=== PATIENT | female | born 1970 | race Caucasian/White ===

== ENCOUNTER 2016-09-11 01:32 | Inpatient (IN) | payer MEDICARE, OTHER ==
[2016-09-11] MEDS ORDERED: methylPREDNISolone SOD SUCCI 125 MG/2 ML VIAL IV STA (01:38)
[2016-09-11] MEDS ORDERED: IPRATROPIUM 0.5 MG/2.5 ML NEBU INHALATION STA (01:38)
[2016-09-11] MEDS ORDERED: ALBUTEROL NEBULIZED 2.5 MG/3 ML INHALATION STA (01:38)
[2016-09-11] MEDS ORDERED: SODIUM CHLORIDE 0.9% 1,000 ML IV STA (01:38)
[2016-09-11] MEDS ORDERED: AZITHROMYCIN 500 MG in SODIUM CHLORIDE 0.9% 250 ML IVPB STA (01:38)
--- NOTE | 2016-09-11 01:56 | ED ---
General Adult HPI - General Chief complaint: Shortness of Breath Stated complaint: SOB Time Seen by Provider: 09/11/16 01:35 Source: patient, EMS, RN notes reviewed, old records reviewed Mode of arrival: EMS Limitations: no limitations - History of Present Illness Initial comments: This is a 45-year-old female here for evaluation. Patient presents today for evaluation shows of breath, cough congestion, increased sputum production, no fevers or troubleshot chest pain. Patient does have history of smoking, history of COPD. Has had multiple recent who exacerbations of COPD, but no hospitalizations the last year. No travel history no sick contacts no fevers. - Related Data Home Medications Medication Instructions Recorded Confirmed guaiFENesin SYRUP 100MG/5ML 200 mg PO Q6H PRN 05/22/16 06/02/16 [Robitussin] Previous Rx's Medication Instructions Recorded ALPRAZolam [Xanax] 0.25 mg PO TID PRN #0 tab 05/28/16 Acetaminophen Tab [Tylenol] 650 mg PO Q6HR PRN #0 tab 05/28/16 Budesonide [Pulmicort] 1 mg INHALATION RT-BID #60 nebu 05/28/16 CHLORPHEN-HYDROcod 8-10mg/5ml 5 ml PO Q12H PRN #240 ml 05/28/16 [Tussionex] Docusate [Colace] 100 mg PO DAILY cap 05/28/16 Famotidine [Pepcid] 20 mg PO BID #60 tab 05/28/16 Ipratropium-Albuterol Nebulize 3 ml INHALATION RT-QID #120 05/28/16 [Duoneb 0.5 mg-3 mg/3 ml Soln] ampul.neb Labetalol [Trandate] 100 mg PO BID #60 tab 05/28/16 Levofloxacin [Levaquin] 750 mg PO DAILY #7 tab 05/28/16 Magnesium Hydroxide [Milk of 2,400 mg PO DAILY PRN #0 ml 05/28/16 Magnesia Concentrate] Melatonin 15 mg PO HS tablet 05/28/16 Montelukast [Singulair] 10 mg PO HS #30 tab 05/28/16 NIFEdipine XL [Procardia XL] 60 mg PO DAILY #30 tab.er.24 05/28/16 Nicotine 14Mg/24Hr Patch [Habitrol] 1 patch TRANSDERM DAILY #30 patch 05/28/16 QUEtiapine [SEROquel] 50 mg PO HS tab 05/28/16 cloNIDine HCL [Catapres] 0.1 mg PO TID PRN #90 tab 05/28/16 hydrALAZINE HCL [Apresoline] 100 mg PO TID #90 tab 05/28/16 predniSONE 10 mg PO DAILY #140 tab 05/28/16 Hydrocodone/Acetaminophen [Platina 1 each PO Q6HR PRN #20 tab 06/02/16 5-325] Allergies Allergy/AdvReac Type Severity Reaction Status Date / Time acetaminophen [From Vicodin] AdvReac Nausea & Verified 09/11/16 01:40 Vomiting codeine AdvReac Nausea & Verified 09/11/16 01:40 Vomiting divalproex sodium AdvReac Alopecia Verified 09/11/16 01:40 [From Depakote] hydrocodone [From Vicodin] AdvReac Nausea & Verified 09/11/16 01:40 Vomiting Review of Systems ROS Statement: Those systems with pertinent positive or pertinent negative responses have been documented in the HPI. ROS Other: All systems not noted in ROS Statement are negative. Past Medical History Past Medical History: COPD, Hypertension, Osteoarthritis (OA) Additional Past Medical History / Comment(s): Gastric Ulcer History of Any Multi-Drug Resistant Organisms: None Reported Past Surgical History: Hernia Repair Additional Past Surgical History / Comment(s): Pancreatic pseudocyst removal; D& Cx2; EGD; Bunyonectomy bilateral Past Psychological History: Bipolar, Depression, PTSD Smoking Status: Current every day smoker Past Alcohol Use History: Rare Past Drug Use History: None Reported - Past Family History Mother Family Medical History: COPD Father Family Medical History: COPD Brother(s) Family Medical History: Deep Vein Thrombosis (DVT) General Exam Limitations: no limitations General appearance: anxious Head exam: Present: atraumatic, normocephalic, normal inspection Eye exam: Present: normal appearance, PERRL, EOMI. Absent: scleral icterus, conjunctival injection, periorbital swelling ENT exam: Present: normal exam, mucous membranes moist Neck exam: Present: normal inspection. Absent: tenderness, meningismus, lymphadenopathy Respiratory exam: Present: normal lung sounds bilaterally, wheezes, decreased breath sounds, prolonged expiratory. Absent: respiratory distress, rales, rhonchi, stridor Cardiovascular Exam: Present: regular rate, normal rhythm, normal heart sounds. Absent: systolic murmur, diastolic murmur, rubs, gallop, clicks GI/Abdominal exam: Present: soft, normal bowel sounds. Absent: distended, tenderness, guarding, rebound, rigid Extremities exam: Present: normal inspection, full ROM, normal capillary refill. Absent: tenderness, pedal edema, joint swelling, calf tenderness Back exam: Present: normal inspection Neurological exam: Present: alert, oriented X3, CN II-XII intact Psychiatric exam: Present: normal affect, normal mood Skin exam: Present: warm, dry, intact, normal color. Absent: rash Course Vital Signs 09/11/16 09/11/16 09/11/16 01:34 02:10 02:17 Temperature 98.5 F Pulse Rate 82 81 84 Respiratory 22 Rate Blood Pressure 198/104 O2 Sat by Pulse 94 L Oximetry 09/11/16 02:35 Temperature Pulse Rate 73 Respiratory 16 Rate Blood Pressure 180/87 O2 Sat by Pulse 98 Oximetry - Reevaluation(s) Reevaluation #1: 09/11/16 03:08 pt with minimal improvement after prolonged breathing treeatment Medical Decision Making - Medical Decision Making 45 female to ED co sob, cough, congestion, sputum production, and bodyh pain, pt with copd exac and will be admitted for brething treatments steroids - Lab Data Result diagrams: 09/11/16 01:40 09/11/16 01:40 Lab Results 09/11/16 09/11/16 09/11/16 Range/Units 01:40 01:40 01:40 WBC 16.4 H (3.8-10.6) k/uL RBC 5.01 (3.80-5.40) m/uL Hgb 15.4 (11.4-16.0) gm/dL Hct 45.6 (34.0-46.0) % MCV 91.1 (80.0-100.0) fL MCH 30.8 (25.0-35.0) pg MCHC 33.8 (31.0-37.0) g/dL RDW 14.3 (11.5-15.5) % Plt Count 221 (150-450) k/uL Neutrophils % 80 % Lymphocytes % 13 % Monocytes % 5 % Eosinophils % 1 % Basophils % 1 % Neutrophils # 13.1 H (1.3-7.7) k/uL Lymphocytes # 2.1 (1.0-4.8) k/uL Monocytes # 0.8 (0-1.0) k/uL Eosinophils # 0.2 (0-0.7) k/uL Basophils # 0.1 (0-0.2) k/uL PT 10.7 (9.0-12.0) sec INR 1.1 (<1.1) APTT 24.4 (22.0-30.0) sec Sodium 140 (137-145) mmol/L Potassium 4.1 (3.5-5.1) mmol/L Chloride 102 (98-107) mmol/L Carbon Dioxide 27 (22-30) mmol/L Anion Gap 11 mmol/L BUN 11 (7-17) mg/dL Creatinine 0.60 (0.52-1.04) mg/dL Est GFR (MDRD) Af Amer >60 (>60 ml/min/1.73 sqM) Est GFR (MDRD) Non-Af >60 (>60 ml/min/1.73 sqM) Glucose 156 H (74-99) mg/dL Calcium 9.2 (8.4-10.2) mg/dL Magnesium 1.9 (1.6-2.3) mg/dL Total Bilirubin 1.0 (0.2-1.3) mg/dL AST 29 (14-36) U/L ALT 26 (9-52) U/L Alkaline Phosphatase 88 (38-126) U/L Total Protein 7.3 (6.3-8.2) g/dL Albumin 4.2 (3.5-5.0) g/dL Influenza Type A RNA (Not Detectd) Influenza Type B (PCR) (Not Detectd) 09/11/16 Range/Units 02:37 WBC (3.8-10.6) k/uL RBC (3.80-5.40) m/uL Hgb (11.4-16.0) gm/dL Hct (34.0-46.0) % MCV (80.0-100.0) fL MCH (25.0-35.0) pg MCHC (31.0-37.0) g/dL RDW (11.5-15.5) % Plt Count (150-450) k/uL Neutrophils % % Lymphocytes % % Monocytes % % Eosinophils % % Basophils % % Neutrophils # (1.3-7.7) k/uL Lymphocytes # (1.0-4.8) k/uL Monocytes # (0-1.0) k/uL Eosinophils # (0-0.7) k/uL Basophils # (0-0.2) k/uL PT (9.0-12.0) sec INR (<1.1) APTT (22.0-30.0) sec Sodium (137-145) mmol/L Potassium (3.5-5.1) mmol/L Chloride (98-107) mmol/L Carbon Dioxide (22-30) mmol/L Anion Gap mmol/L BUN (7-17) mg/dL Creatinine (0.52-1.04) mg/dL Est GFR (MDRD) Af Amer (>60 ml/min/1.73 sqM) Est GFR (MDRD) Non-Af (>60 ml/min/1.73 sqM) Glucose (74-99) mg/dL Calcium (8.4-10.2) mg/dL Magnesium (1.6-2.3) mg/dL Total Bilirubin (0.2-1.3) mg/dL AST (14-36) U/L ALT (9-52) U/L Alkaline Phosphatase (38-126) U/L Total Protein (6.3-8.2) g/dL Albumin (3.5-5.0) g/dL Influenza Type A RNA Not Detected (Not Detectd) Influenza Type B (PCR) Not Detected (Not Detectd) - Radiology Data Radiology results: report reviewed (CXR negative for acute disases), image reviewed Disposition Clinical Impression: Asthma with exacerbation, Acute exacerbation of chronic obstructive airways disease Disposition: ADMITTED IP TO THIS HOSP Condition: Good Referrals: Arben Romero MD [Primary Care Provider] - 1-2 days
[2016-09-11] MEDS ORDERED: KETOROLAC 30 MG/ML 1 ML VIAL IVP STA (01:57)
[2016-09-11] MEDS ORDERED: MORPHINE SULFATE 4 MG/ML SYRINGE IVP STA (01:57)
[2016-09-11] MEDS ORDERED: IPRATROPIUM-ALBUTEROL 3 ML NEB INHALATION STA (02:03)
[2016-09-11] MEDS ORDERED: ALBUTEROL NEB (CONC) 2.5 MG/0.5 ML INHALATION STA (02:04)
--- NOTE | 2016-09-11 02:25 | XR ---
EXAMINATION TYPE: XR chest 2V DATE OF EXAM: 09/11/2016 1:56 AM COMPARISON: 06/02/2016 HISTORY: Chest pain TECHNIQUE: Frontal and lateral views of the chest are obtained. FINDINGS: Heart and mediastinum are normal. Lungs are clear. Diaphragm is normal. Bony thorax is int act. IMPRESSION: Normal chest. No change.
[2016-09-11 02:36] LABS: Anion Gap 11 mmol/L; Calcium 9.2 mg/dL (8.4-10.2); Carbon Dioxide 27 mmol/L (22-30); Chloride 102 mmol/L (98-107); Glucose 156 mg/dL (74-99); Non-African American GFR(MDRD) >60 (>60 ml/min/1.73 sqM); Sodium 140 mmol/L (137-145); Total Protein 7.3 g/dL (6.3-8.2)
[2016-09-11 02:37] LABS: ALT 26 U/L (9-52); AST 29 U/L (14-36); Alkaline Phosphatase 88 U/L (38-126); Blood Urea Nitrogen 11 mg/dL (7-17); Magnesium 1.9 mg/dL (1.6-2.3); Potassium 4.1 mmol/L (3.5-5.1)
[2016-09-11] MEDS ORDERED: ONDANSETRON 4 MG/2 ML VIAL IVP STA (02:43)
[2016-09-11 02:44] LABS: INR 1.1 (<1.1); Partial Thromboplastin Time 24.4 sec (22.0-30.0); Prothrombin Time 10.7 sec (9.0-12.0)
[2016-09-11 02:48] LABS: Basophils # (A) 0.1 k/uL (0-0.2); Basophils % (A) 1 %; CH 31.9; CHCM 35.2; Eosinophils # (A) 0.2 k/uL (0-0.7); Eosinophils % (A) 1 %; HCT 45.6 % (34.0-46.0); HDW 3.05; HGB 15.4 gm/dL (11.4-16.0); Luc # (Auto) 0.13; Luc % (Auto) 1; Lymphocytes # (A) 2.1 k/uL (1.0-4.8); Lymphocytes % (A) 13 %; MCH 30.8 pg (25.0-35.0); MCHC 33.8 g/dL (31.0-37.0); MCV 91.1 fL (80.0-100.0); Mean Platelet Volume 8.3; Monocytes # (A) 0.8 k/uL (0-1.0); Monocytes % (A) 5 %; Neutrophils # (A) 13.1 k/uL (1.3-7.7); Neutrophils % (A) 80 %; RBC 5.01 m/uL (3.80-5.40); RDW 14.3 % (11.5-15.5); WBC 16.4 k/uL (3.8-10.6); WBC (Perox) 16.59
[2016-09-11 03:01] LABS: Creatine Kinase MB 0.8 ng/mL (0.0-2.4); Troponin I 0.015 ng/mL (0.000-0.034)
[2016-09-11] MEDS ORDERED: HYDROmorphone 1 MG/ML 1 ML SYRINGE IVP STA (03:51)
[2016-09-11] MEDS: SODIUM CHLORIDE 0.9% 1,000 ML IV SCH (06:00)
[2016-09-11] MEDS: HYDROmorphone 1 MG/ML 1 ML SYRINGE IVP PRN ×5 (06:18→23:40)
[2016-09-11 07:20] LABS: Glucose,Whole Blood 293 mg/dL (75-99)
[2016-09-11] MEDS: IPRATROPIUM-ALBUTEROL 3 ML NEB INHALATION SCH ×5 (07:56→19:17)
[2016-09-11] MEDS: INSULIN LISPRO (humaLOG) 300 UNIT/3 ML VIAL SQ SCH ×4 (09:10→20:37)
[2016-09-11] MEDS: methylPREDNISolone SOD SUCCI 125 MG/2 ML VIAL IV SCH ×3 (09:11→17:17)
[2016-09-11] MEDS: ENOXAPARIN 40 MG/0.4 ML SYRINGE SQ SCH (09:12)
[2016-09-11] MEDS: NICOTINE 21MG/24HR PATCH TRANSDERM SCH (09:12)
[2016-09-11 11:14] LABS: Glucose,Whole Blood 328 mg/dL (75-99)
[2016-09-11] MEDS ORDERED: cloNIDine HCL 0.1 MG TAB PO PRN (14:08)
[2016-09-11 14:23] VITALS: BMI 39.9
[2016-09-11 14:29] LABS: Hemoglobin A1C 5.6 % (4.2-6.1)
[2016-09-11] MEDS: NIFEdipine 10 MG CAP PO SCH ×2 (15:04→20:45)
[2016-09-11 16:17] LABS: Glucose,Whole Blood 280 mg/dL (75-99)
[2016-09-11] MEDS: cloNIDine HCL 0.1 MG TAB PO SCH ×2 (16:51→20:43)
--- NOTE | 2016-09-11 17:26 | CT ---
EXAMINATION TYPE: CT chest wo con DATE OF EXAM: 09/11/2016 5:14 PM COMPARISON: NONE HISTORY: Mid chest pain. CT DLP: 497.20 mGycm Automated exposure control for dose reduction was used. FINDINGS: There is some atelectasis extending along the major fissure on the right. There is dependent atelecta sis at both lung bases. There is some groundglass opacity bilaterally. This may represent early pneum onitis. There is no focal consolidation. There is no evidence of pneumothorax. There is no significant axillary, internal mammary or hilar adenopathy. There is some shotty adenopat hy in the aortopulmonary window as well as in the pretracheal region. No pathologically enlarged lymp h nodes are seen. There is no pleural or pericardial fluid. The heart is mildly enlarged. There is a ventral hernia containing a small amount of large bowel with the most measuring 4 cm. Ther e is no evidence of incarceration or obstruction. Visualized portions of the upper abdomen are otherw ise unremarkable. There is hypertrophic spondylosis within the spine. IMPRESSION: 1. MILD AREAS OF GROUNDGLASS OPACITY IN THE LOWER LOBES BILATERALLY. THIS MAY REPRESENT ALVEOLITIS OR EARLY PNEUMONITIS. 2. MILD CARDIOMEGALY. 3. VENTRAL ABDOMINAL HERNIA WITH: PEAKING INTO IT WITH A 4 CM MOUTH. 4. DEGENERATIVE CHANGES WITHIN THE SPINE.
--- NOTE | 2016-09-11 18:29 | CONS ---
DATE OF CONSULTATION: 09/11/2016. HISTORY OF PRESENT ILLNESS: The patient is a 45-year-old female who comes and presented to the emergency room with problems with shortness of breath with any activity, congestion nonproductive cough and body aches all over. She states they had been going on for a few days, and had gotten worse and subsequently presented to the emergency room where she was admitted with acute exacerbation of chronic obstructive pulmonary disease. She did have a chest x-ray done, which was normal. She is noted to have elevated WBCs, so she is on chronic steroids. In addition to her glucose being elevated. She had influenza A and B done, which were both negative. She was started on nebulizer treatments, antibiotic therapy and IV steroids. In addition, she has problems with hypertension. She has a history of problems with schizoaffective disorder and claustrophobia, including, bipolarism, She was admitted in the hospital May 2016 where she had problems with pleurisy, at that time. She has considerable problems with financial difficulty where she states that she has large co-pays to see her physicians and unfortunately, she has other financial obligations with problems with her car not functioning appropriately and needing a new roof. Patient is denying any problems with nausea and vomiting at this time. No diarrhea. She does complain of chest tightness and generalized body aches. She does follow with Dr. Jimenez ) on an outpatient basis. 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 She also had noted positive RAST panel with particular noted allergies to cats and dogs where she does have 12 cats at home. ALLERGIES: ACETAMINOPHEN FROM VICODIN AND CODEINE, DIVALPROEX AND HYDROCODONE. Her home medications include: 1. Prednisone 10 mg daily. 2. Catapres 0.1 mg t.i.d. 3. Seroquel 50 mg at bedtime. 4. Nicotine patch daily. 5. Procardia 30 mg daily. 6. Singular 10 mg at bedtime. 7. Melatonin 5 mg at bedtime. 8. Trandate 100 mg twice a day. 9. Nebulizer treatments of albuterol with ipratropium. 10. [place] 5/325 mg one every 6 hours as needed. 11. Pepcid 20 mg twice a day. 12. Colace 100 mg daily. 13. Xanax 0.25 mg t.i.d. as needed. 14. Robitussin as needed. FAMILY HISTORY: Significant for mother being at the age of 49 from complications from pneumonia and COPD. Father still alive, but has significant problems with COPD, where he is oxygen dependent. She also has a brother who has a history of deep venous thrombosis and recent problems with kidney problems and ESBL. SOCIAL HISTORY: The patient is single. She has no children. She does have 12 cats. She wears glasses. She is a smoker since the age of 24. She states she is down to 1-1/2 packs daily from 2 packs. She denies any recreational type drugs, including marijuana. She has occasional alcohol, though she attempts to ( ) but she does drink to get drunk she states. PAST SURGICAL HISTORY: Significant for incisional hernia repair x3, pancreatic pseudocyst, D&C x2, EGD, bilateral bunionectomy, bile duct stone removal and cholecystectomy. Past medical history is significant for COPD, hypertension, osteoarthritis, gastric ulcer disease, bipolarism, depression, posttraumatic stress disorder, asthma, pleurisy, GERD, insomnia, polycythemia, schizoaffective disorder and claustrophobia. Review of systems was completed with patient. Head to toe assessment was done and is negative other than what is noted in her HPI. On physical examination, vital signs show temperature of 96.9, heart rate 79, respiratory rate 17, blood pressure was 191/103. Oxygen saturation was 93% on room air. LABS: WBC is 16.4, hemoglobin 15.4, hematocrit 45.6, platelets are 221. PT 10.7. INR 1.1. PTT 24.4, sodium 140, potassium 4.1, chloride 102, carbon dioxide 27, BUN 11, creatinine 0.6. Glucose 328. Hemoglobin A1c 5.6. Calcium 9.2, magnesium 1.9, total bilirubin is one, AST 29, ALT 26, alkaline phosphatase 88, total CK 81, CK-MB 0.8, CK-MB index one. Troponin 0.015. BNP 3700, total protein 7.3, albumin 4.2. Influenza A and B were both negative. GENERAL: She is a 45-year-old female sitting at bedside. Appears relatively comfortable at this time. HEENT: Head is atraumatic, normocephalic. Pupils are equal, reactive. Mucous membranes moist. NECK: Short, supple, thick. LUNGS: Sounds coarse rhonchi throughout, wheezing more problematic on left than right. No productive cough at this time. CARDIOVASCULAR: S1 and S2 is heard, regular. ABDOMEN: Soft. Bowel sounds are heard. No obvious masses or organomegaly are palpated. No rebound or rigidity. EXTREMITIES: With no significant edema. She is able to move all extremities. NEUROLOGIC: She is awake, alert, appears appropriate. IMPRESSION: 1. Acute exacerbation of chronic obstructive pulmonary disease with asthma. 2. Known elevated IgE with positive RAST panel. 3. Hypertension uncontrolled. 4. Elevated glucose. 5. Leukocytosis also most likely related to steroids. 6. Schizoaffective disorder. 7. Insomnia. 8. Gastroesophageal reflux disease. PLAN: Patient's medications have been reviewed. Continue with nebulizer treatments and antibiotic therapy. Continue with IV steroids and nicotine patch. We will order Pulmicort and incentive spirometer. She might benefit from Mucinex. We will also order this. We will discuss the case with Dr. Gwen Garcia in reference to potential need for bronchoscopy now or in the future. Thank you for the consultation. We will continue to follow patient closely with you and make further changes as necessary. I performed a history and physical examination of this patient and discussed the same with the dictator. I agree with the dictator's note. Any additional findings/opinions, etc. will be noted.
[2016-09-11] MEDS: BUDESONIDE 0.5 MG/2 ML NEBU INHALATION SCH (19:17)
[2016-09-11] MEDS: guaiFENesin 600 MG TABLET.ER PO SCH (19:50)
[2016-09-11 19:51] LABS: Glucose,Whole Blood 368 mg/dL (75-99)
--- NOTE | 2016-09-11 23:06 | P.HPIM ---
History of Present Illness H&P Date: 09/11/16 Chief Complaint: Acute respiratory failure, COPD exacerbation, severe bronchitis , noncontrol 45-year-old female one of Dr. Gan patient was seen in the hospital May for COPD exacerbation and respiratory failure was in for few days was seen pulmonary had pneumonia with respiratory failure was treated and done well , her blood pressure continue to be elevated till after she left the hospital she was seen Dr. Romero and Dr. Linton as an outpatient has been doing well till about 1 week ago when she started having significant shortness of breath titrate wheezes and not feeling well. Patient become much worse last night ended up coming to the emergency department at 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 Chest x-ray did not show any infiltrate this time. Patient is known to have alpha-1 antitrypsin deficiency and known to have asthma also she is a chronic smoker continue to smoke since she left the hospital last time. Review of Systems Constitutional: Reports anorexia, Reports chronic headaches, Reports chronic pain, Reports fatigue, Reports fever, Reports malaise, Reports night sweats, Reports weight gain, Denies as per HPI, Denies chills, Denies daytime sleepiness , Denies lethargy, Denies poor appetite, Denies sweats, Denies weakness, Denies weight loss Eyes: bilateral as per HPI Ears: bilateral: decreased hearing Ears, nose, mouth and throat: Reports ant. neck pain, Reports nasal congestion, Reports sinus pain, Reports sinus pressure, Denies as per HPI, Denies bleeding gums, Denies dental pain, Denies dysphagia, Denies epistaxis, Denies headache, Denies hoarseness, Denies mouth pain, Denies nasal discharge, Denies neck fullness/pressure, Denies neck lump, Denies nose pain, Denies odynophagia, Denies post-nasal drip, Denies swelling in mouth, Denies swelling in throat, Denies sore throat, Denies vertigo, Denies voice changes Cardiovascular: Reports chest pain, Reports dyspnea on exertion, Reports edema, Reports leg edema, Reports orthopnea, Reports palpitations, Reports paroxysmal nocturnal dyspnea, Reports rapid heart beat, Reports shortness of breath, Denies as per HPI, Denies claudication, Denies decreased exercise tolerance, Denies high blood pressure, Denies irregular heart beat, Denies lightheadedness , Denies phlebitis, Denies syncope Respiratory: Reports congestion, Reports cough, Reports dyspnea, Reports pleurisy, Reports respiratory infections, Reports wheezing, Denies as per HPI, Denies cough with sputum, Denies excessive sputum, Denies hemoptysis, Denies home oxygen, Denies pain, Denies pain on inspiration, Denies sleep apnea, Denies snoring Gastrointestinal: Reports abdominal pain, Reports bloating, Reports dyspepsia, Reports indigestion, Reports nausea, Denies as per HPI, Denies belching, Denies BRBPR, Denies change in bowel habits, Denies coffee ground emesis, Denies constipation, Denies diarrhea, Denies early satiety, Denies excessive gas, Denies heartburn, Denies hematemesis, Denies hematochezia, Denies jaundice, Denies lactose intolerance, Denies loss of appetite, Denies melena, Denies vomiting Genitourinary: Reports urinary frequency, Denies as per HPI, Denies abnormal vaginal bleeding, Denies decreased libido, Denies difficulty conceiving, Denies difficulty voiding, Denies dysmenorrhea, Denies dyspareunia, Denies dysuria, Denies flank pain, Denies genital sores, Denies hematuria, Denies hot flashes, Denies incomplete emptying, Denies kidney stones, Denies menorrhagia, Denies mixed incontinence, Denies nocturia, Denies pelvic pain, Denies post void dribbling, Denies , Denies prolapse symptoms, Denies stress incontinence , Denies urge incontinence, Denies urgency, Denies vaginal discharge, Denies vaginal dryness, Denies vaginal itching, Denies vaginal odor Musculoskeletal: Reports gait dysfunction, Reports low back pain, Reports morning stiffness, Reports muscle cramps, Reports myalgias, Reports neck pain, Reports neck stiffness, Denies as per HPI, Denies arm numbness/tingling, Denies atrophy, Denies fractures, Denies frequent falls, Denies hot joints, Denies leg numbness/tingling, Denies limitation of motion, Denies loss of height, Denies muscle weakness, Denies prior amputations, Denies redness of joints, Denies shooting arm pain, Denies shooting leg pain Musculoskeletal: bilateral: ankle pain Integumentary: Reports dryness, Reports pruritus, Reports rash, Denies as per HPI, Denies acne, Denies boils, Denies brittle nails, Denies change in hair/ nails, Denies color changes, Denies darkening of skin, Denies depigmentation, Denies foot/leg ulcers, Denies growths, Denies hirsutism, Denies lesions, Denies onychomycosis, Denies sores, Denies striae, Denies unusual bruising, Denies wounds Neurological: Reports balance difficulties, Reports burning pain, Reports change in mentation, Reports motor disturbance, Reports spasticity, Reports tingling, Reports tremors, Denies as per HPI, Denies aphasia, Denies ataxia, Denies change in smell/taste, Denies change in speech, Denies confusion, Denies convulsions, Denies double vision, Denies gait dysfunction, Denies head injury, Denies headaches, Denies hearing difficulties, Denies lack of coordination, Denies loss of vision, Denies memory loss, Denies migraines, Denies numbness, Denies paralysis, Denies paresthesias, Denies seizures, Denies sensory deficit, Denies syncope, Denies tic, Denies transient paralysis, Denies vertigo, Denies weakness, Denies visual changes Psychiatric: Reports anhedonia, Reports anxiety, Reports depression, Reports paranoia, Reports sadness/tearfulness, Denies as per HPI, Denies anxiety attacks , Denies change in appetite, Denies change in libido, Denies change in sleep habits, Denies confusion, Denies difficulty concentrating, Denies disorientation , Denies hallucinations, Denies hopelessness, Denies hypersomnia, Denies insomnia, Denies irritability, Denies memory loss, Denies mood swings, Denies sleep disturbances, Denies suicidal ideation Endocrine: Reports cold intolerance, Reports fatigue, Reports nocturia, Reports polyphagia, Reports polyuria, Denies as per HPI, Denies deepening of the voice, Denies excessive sweating, Denies excessive thirst, Denies flushing, Denies heat intolerance, Denies high blood sugars, Denies increase in ring/shoe/hat size, Denies low blood sugars, Denies palpitations, Denies polydipsia, Denies proptosis, Denies recent glucocorticoid use, Denies thyroid mass, Denies weight change Hematologic/Lymphatic: Reports easy bruising, Denies as per HPI, Denies easy bleeding, Denies lymphadenopathy, Denies lymphedema, Denies thrombophilia Allergic/Immunologic: Denies as per HPI, Denies allergic rhinitis, Denies anaphylaxis, Denies angioedema, Denies gluten intolerance, Denies persistent infections, Denies seasonal allergies, Denies urticaria, Denies wheezing Past Medical History Past Medical History: COPD, Hypertension, Osteoarthritis (OA) Additional Past Medical History / Comment(s): Gastric Ulcer History of Any Multi-Drug Resistant Organisms: None Reported Past Surgical History: Hernia Repair Additional Past Surgical History / Comment(s): Pancreatic pseudocyst removal; D& Cx2; EGD; Bunyonectomy bilateral Past Psychological History: Bipolar, Depression, PTSD Smoking Status: Current every day smoker Past Alcohol Use History: Rare Past Drug Use History: None Reported - Past Family History Mother Family Medical History: COPD Father Family Medical History: COPD Brother(s) Family Medical History: Deep Vein Thrombosis (DVT) Medications and Allergies Home Medications Medication Instructions Recorded Confirmed Type guaiFENesin SYRUP 100MG/5ML 200 mg PO Q6H PRN 05/22/16 09/11/16 History [Robitussin] Albuterol Nebulized [Ventolin 2.5 mg INHALATION RT-Q6H PRN 09/11/16 09/11/16 History Nebulized] Docusate [Colace] 100 mg PO DAILY 09/11/16 09/11/16 History Famotidine [Pepcid] 20 mg PO BID 09/11/16 09/11/16 History HYDROcodone/APAP 5-325MG [[place] 1 tab PO Q6HR PRN 09/11/16 09/11/16 History 5-325] Ipratropium Nebulized [Atrovent 0.5 mg INHALATION RT-Q6H PRN 09/11/16 09/11/16 History Nebulized] Melatonin 5 mg PO HS 09/11/16 09/11/16 History NIFEdipine XL [Procardia Xl] 30 mg PO DAILY 09/11/16 09/11/16 History cloNIDine HCL [Catapres] 0.1 mg PO TID 09/11/16 09/11/16 History predniSONE 10 mg PO DAILY 09/11/16 09/11/16 History Allergies Allergy/AdvReac Type Severity Reaction Status Date / Time acetaminophen [From Vicodin] AdvReac Nausea & Verified 09/11/16 01:40 Vomiting codeine AdvReac Nausea & Verified 09/11/16 01:40 Vomiting divalproex sodium AdvReac Alopecia Verified 09/11/16 01:40 [From Depakote] hydrocodone [From Vicodin] AdvReac Nausea & Verified 09/11/16 01:40 Vomiting Physical Exam Vitals: Vital Signs Temp Pulse Pulse Pulse Resp BP BP 09/11/16 12:05 88 09/11/16 11:56 82 09/11/16 08:31 80 09/11/16 08:21 78 09/11/16 07:00 98.2 F 78 17 167/90 09/11/16 05:19 20 09/11/16 04:08 97.5 F L 80 18 175/92 09/11/16 03:23 82 16 154/79 Pulse Ox 09/11/16 12:05 09/11/16 11:56 09/11/16 08:31 09/11/16 08:21 09/11/16 07:00 96 09/11/16 05:19 09/11/16 04:08 94 L 09/11/16 03:23 96 Intake and Output 09/10/16 09/11/16 09/11/16 22:59 06:59 14:59 Intake Total 400 480 Balance 400 480 Intake: Intake, IV Titration 150 Amount Sodium Chloride 0.9% 1, 150 000 ml @ 100 mls/hr IV . Q10H [facility] Rx#:[id number] Oral 250 480 Other: Voiding Method Toilet - Constitutional General appearance: no average body habitus, cooperative, no disheveled, mild distress, no morbidly obese, no no acute distress, no obese, no severe distress , no thin - EENT Eyes: no abnormal pupil, no anicteric sclerae, no disc margins sharp, no edentulous, no EOMI, no PERRLA, no fundus normal, no photophobia, no dentition normal, no poor dentition, no ptosis, no scleral icterus, no normal appearance ENT: no hard of hearing, no hearing grossly normal, no NA/AT, normal oropharynx , no other, no pharyngeal erythema, no thrush, no tonsillar exudates, no tonsillar swelling Ears: bilateral: normal - Neck Neck: no lymphadenopathy, normal ROM, no other, no rigidity, no stridor, no thyromegaly Carotids: bilateral: upstroke normal Thyroid: bilateral: normal size - Respiratory Respiratory: bilateral: diminished, dullness, rales, rhonchi, wheezing, prolonged expiration - Cardiovascular Rhythm: regular Heart sounds: normal: S1, S2 Abnormal Heart Sounds: systolic murmur, S3 Gallop - Gastrointestinal General gastrointestinal: no absent bowel sounds, no decreased bowel sounds, distended, no hepatomegaly, no hyperactive bowel sounds, no normal bowel sounds , no organomegaly, no rigid, no scaphoid, soft, splenomegaly, no tenderness, no umbilical hernia, no ventral hernia - Integumentary Integumentary: no calor, no cellulitis, no cyanotic, no decreased turgor, no flushed, no jaundiced, normal, no normal turgor, pale, rash, no ulcer - Neurologic Neurologic: CNII-XII intact - Musculoskeletal Musculoskeletal: gait normal, generalized weakness, strength equal bilaterally, no right sided weakness, no left sided weakness - Psychiatric Psychiatric: A&O x's 3, appropriate affect Results CBC & Chem 7: 09/11/16 01:40 09/11/16 01:40 Labs: Abnormal Lab Results - Last 24 Hours (Table) 09/11/16 09/11/16 Range/Units 07:18 11:12 POC Glucose (mg/dL) 293 H 328 H (75-99) mg/dL Thrombosis Risk Factor Assmnt - DVT/VTE Prophylaxis DVT/VTE Prophylaxis: Pharmacologic Prophylaxis ordered, Mechanical Prophylaxis ordered - Choose All That Apply Any of the Below Risk Factors Present?: Yes Each Factor Represents 1 point: Age 41-60 years, Serious lung disease incl. pneumonia (< 1month) Other Risk Factors: Yes Thrombosis Risk Factor Assessment Total Risk Factor Score: 2 Thrombosis Risk Factor Assessment Level: Low Risk Assessment and Plan Plan: 1 acute respiratory failure: Combination of COPD exacerbation, alpha-1 antitrypsin deficiency, asthma and severe purulent tracheal bronchitis most likely gram-negative. Treat underlying disease continue current treatment management. 2 COPD exacerbation: The patient's current condition will continue O2, continue DuoNeb along with Pulmicort will consult pulmonary continue current management as well. 3 severe purulent tracheal bronchitis: Most likely gram-negative will be on IV antibiotic the gram-negative coverage including Levaquin. 4 hypertension: Not well controlled will continue patient on Norvasc along with clonidine and if still taking labetalol Will resume medication. 5 bipolar disorders: Patient is not on any medication currently. 6 history of peptic ulcer disease: Will add Pepcid 20 mg daily. 7 chronic nicotine dependency: Patient will be on nicotine patch for now. DVT prophylaxis: Patient will be on heparin subcutaneous along with Venodyne boots and knee-high VIANNEY hose. CODE STATUS: Full code. Next Expectation from this admission: Patient be in the hospital for more than 2 nights.
[2016-09-11] MEDS: ZOLPIDEM 5 MG TAB PO PRN (23:40)
[2016-09-12] MEDS: SODIUM CHLORIDE 0.9% 1,000 ML IV SCH ×5 (02:13→22:04)
[2016-09-12] MEDS: IPRATROPIUM-ALBUTEROL 3 ML NEB INHALATION SCH ×5 (04:22→19:34)
[2016-09-12] MEDS ORDERED: IPRATROPIUM-ALBUTEROL 3 ML NEB INHALATION PRN (04:25)
[2016-09-12] MEDS: HYDROmorphone 1 MG/ML 1 ML SYRINGE IVP PRN ×5 (05:39→22:55)
[2016-09-12] MEDS: methylPREDNISolone SOD SUCCI 125 MG/2 ML VIAL IV SCH ×2 (05:52)
[2016-09-12 07:48] LABS: Glucose,Whole Blood 299 mg/dL (75-99)
[2016-09-12] MEDS: BUDESONIDE 0.5 MG/2 ML NEBU INHALATION SCH ×2 (08:00→19:34)
[2016-09-12] MEDS: ENOXAPARIN 40 MG/0.4 ML SYRINGE SQ SCH (08:33)
[2016-09-12] MEDS: cloNIDine HCL 0.1 MG TAB PO SCH (08:34)
[2016-09-12] MEDS: INSULIN LISPRO (humaLOG) 300 UNIT/3 ML VIAL SQ SCH ×5 (08:34→21:52)
[2016-09-12] MEDS: NICOTINE 21MG/24HR PATCH TRANSDERM SCH (08:35)
[2016-09-12] MEDS: guaiFENesin 600 MG TABLET.ER PO SCH ×2 (08:35→21:54)
[2016-09-12] MEDS: AZITHROMYCIN 500 MG TAB PO SCH (08:35)
[2016-09-12] MEDS: NIFEdipine 10 MG CAP PO SCH (08:36)
[2016-09-12] MEDS ORDERED: methylPREDNISolone SOD SUCCI 40 MG/ML 1 ML VIAL IV SCH (10:00)
[2016-09-12] MEDS: hydrALAZINE HCL 20 MG/ML 1 ML VIAL IVP PRN ×2 (10:18→17:42)
[2016-09-12] MEDS: ALPRAZolam 0.25 MG TAB PO PRN ×2 (10:21→18:55)
[2016-09-12 12:21] LABS: Glucose,Whole Blood 279 mg/dL (75-99)
[2016-09-12] MEDS ORDERED: cloNIDine HCL 0.1 MG TAB PO STA (12:22)
--- NOTE | 2016-09-12 14:21 | P.PN ---
Subjective 45-year-old female one of Dr. Gan patient was seen in the hospital May for COPD exacerbation and respiratory failure was in for few days was seen pulmonary had pneumonia with respiratory failure was treated and done well , her blood pressure continue to be elevated till after she left the hospital she was seen Dr. Romero and Dr. Linton as an outpatient has been doing well till about 1 week ago when she started having significant shortness of breath, wheezes and not feeling well. 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 Chest x-ray did not show any infiltrate this time. Patient is known to have alpha-1 antitrypsin deficiency and known to have asthma also she is a chronic smoker continue to smoke since she left the hospital last time. 09/12: CAT scan of the chest revealed mild areas of groundglass opacity in the lower lobes bilaterally. This may represent alveolitis or early pneumonitis. Dr. ZA Garcia has reviewed CAT scan and evaluated the patient for severe ALLERGIC asthma and hypersensitivity pneumonitis. Patient to follow-up in the office for Xolair. Patient states she is still coughing without phlegm production. She states she has not slept in more than 3 days. Xanax has been resumed and Solu-Medrol decreased to 40 mg IV every 8 hours. Blood pressure has been high for which she is on Procardia scheduled, hydralazine scheduled, clonidine Objective - Vital Signs Vital signs: Vital Signs Temp 96.2 F L 09/12/16 07:00 Pulse 88 09/12/16 08:15 Resp 16 09/12/16 07:00 BP 189/94 09/12/16 08:32 Pulse Ox 96 09/12/16 08:03 Intake & Output 09/11/16 09/12/16 09/12/16 18:59 06:59 18:59 Intake Total 2720 800 180 Balance 2720 800 180 Weight 99.11 kg Intake: Intake, IV Titration 800 Amount Sodium Chloride 0.9% 1, 800 000 ml @ 100 mls/hr IV . Q10H [facility] Rx#:[id number] Oral 1920 800 180 Other: Voiding Method Toilet # Voids 1 - Exam General appearance: no average body habitus, cooperative, no disheveled, mild distress, no morbidly obese, no no acute distress, no obese, no severe distress , no thin - EENT Eyes: no abnormal pupil, no anicteric sclerae, no disc margins sharp, no edentulous, no EOMI, no PERRLA, no fundus normal, no photophobia, no dentition normal, no poor dentition, no ptosis, no scleral icterus, no normal appearance ENT: no hard of hearing, no hearing grossly normal, no NA/AT, normal oropharynx , no other, no pharyngeal erythema, no thrush, no tonsillar exudates, no tonsillar swelling Ears: bilateral: normal - Neck Neck: no lymphadenopathy, normal ROM, no other, no rigidity, no stridor, no thyromegaly Carotids: bilateral: upstroke normal Thyroid: bilateral: normal size - Respiratory Respiratory: bilateral: diminished, dullness, rales, rhonchi, wheezing, prolonged expiration - Cardiovascular Rhythm: regular Heart sounds: normal: S1, S2 Abnormal Heart Sounds: systolic murmur, S3 Gallop - Gastrointestinal General gastrointestinal: no absent bowel sounds, no decreased bowel sounds, distended, no hepatomegaly, no hyperactive bowel sounds, no normal bowel sounds , no organomegaly, no rigid, no scaphoid, soft, splenomegaly, no tenderness, no umbilical hernia, no ventral hernia - Integumentary Integumentary: no calor, no cellulitis, no cyanotic, no decreased turgor, no flushed, no jaundiced, normal, no normal turgor, pale, rash, no ulcer - Neurologic Neurologic: CNII-XII intact - Musculoskeletal Musculoskeletal: gait normal, generalized weakness, strength equal bilaterally, no right sided weakness, no left sided weakness - Psychiatric Psychiatric: A&O x's 3, appropriate affect - Labs CBC & Chem 7: 09/11/16 01:40 09/11/16 01:40 Labs: Abnormal Lab Results - Last 24 Hours (Table) 09/11/16 09/11/16 09/11/16 Range/Units 11:12 16:06 19:49 POC Glucose (mg/dL) 328 H 280 H 368 H (75-99) mg/dL 09/12/16 Range/Units 07:35 POC Glucose (mg/dL) 299 H (75-99) mg/dL Assessment and Plan Plan: 1 acute respiratory distress: Due to severe ALLERGIC asthma and hypersensitivity pneumonitis. Continue steroids. Consult with Dr. ZA monet. Patient to follow-up in the office for possible Xolair treatments. 2 asthma exacerbation: The patient's current condition will continue O2, continue DuoNeb along with Pulmicort will consult pulmonary continue current management as well. 3 severe purulent tracheal bronchitis: Most likely gram-negative will be on IV antibiotic the gram-negative coverage including Levaquin. 4 hypertension: Not well controlled will continue patient on Norvasc along with clonidine and if still taking labetalol Will resume medication. 5 bipolar disorders: Patient is not on any medication currently. 6 history of peptic ulcer disease: Will add Pepcid 20 mg daily. 7 chronic nicotine dependency: Patient will be on nicotine patch for now. DVT prophylaxis: Patient will be on Lovenox subcutaneous along with Venodyne boots and knee-high VIANNEY hose. CODE STATUS: Full code. Discharge plan: Return home Impression and plan of care have been directed as dictated by the signing physician. Cheri Macdonald nurse practitioner acting as scribe for signing physician. Time with Patient: Greater than 30
[2016-09-12] MEDS: hydrALAZINE HCL 50 MG TAB PO SCH ×2 (15:24→21:54)
[2016-09-12] MEDS: methylPREDNISolone SOD SUCCI 40 MG/ML 1 ML VIAL IV SCH ×2 (15:25→21:55)
--- NOTE | 2016-09-12 15:58 | PN ---
DATE OF SERVICE: 09/12/2016 She is doing slightly better overall. She continues to have shortness of breath and cough. On physical examination, respiratory rate is 26, pulse rate of 88, blood pressure 189/94, O2 sat on room air is 96%. HEENT reveals no new changes. Chest reveals expiratory wheeze and she coughs easily upon exam. Cardiovascular system reveals a S1 and S2. Abdomen is soft. There is trace pedal edema. Sugars are 279,000. Influenza A and B were negative. CT scan of the chest was personally reviewed by me. The airways were reconstructed using virtual bronchoscopy software. There are no endobronchial lesions. There are mild areas of ground-glass opacity in the lower lobes bilaterally with ventral abdominal hernia and evidence of mucosal irregularity consistent with airway inflammation. IMPRESSION: 1. Severe allergic asthma with acute exacerbation for which she has had a previously high IgE at 304 along with allergy to cats. 2. Hypersensitivity pneumonitis is likely. 3. Cannot rule out atypical pneumonia. Continue azithromycin. Continue IV steroids. Agree with starting to taper them. Continue aerosolized steroids, GI and DVT prophylaxis. Add montelukast to her regimen. Increase her activity level. No plan for bronchoscopy as there are no endobronchial lesions and at this point in time because of airway inflammation, there is increased risk of bronchospasm. She was counseled regarding the need to consider anti- IgE treatment which we can try to start in the outpatient setting. Depending on how she does, we shall make further changes to her care.
[2016-09-12] MEDS ORDERED: cloNIDine HCL 0.2 MG TAB PO SCH (16:00)
[2016-09-12 17:33] LABS: Glucose,Whole Blood 259 mg/dL (75-99)
[2016-09-12 20:28] LABS: Glucose,Whole Blood 334 mg/dL (75-99)
[2016-09-12] MEDS ORDERED: INSULIN GLARGINE 100 UNIT/ML 10 ML VIAL SQ SCH (21:30)
[2016-09-12] MEDS: MONTELUKAST 10 MG TAB PO SCH (21:54)
[2016-09-12] MEDS: FAMOTIDINE 20 MG TAB PO SCH (21:54)
[2016-09-12] MEDS: ZOLPIDEM 5 MG TAB PO PRN (22:55)
[2016-09-13] MEDS: HYDROmorphone 1 MG/ML 1 ML SYRINGE IVP PRN ×5 (03:09→22:02)
[2016-09-13] MEDS: cloNIDine HCL 0.2 MG TAB PO PRN ×2 (03:14→12:12)
[2016-09-13] MEDS: methylPREDNISolone SOD SUCCI 40 MG/ML 1 ML VIAL IV SCH (05:25)
[2016-09-13 06:52] LABS: Glucose,Whole Blood 211 mg/dL (75-99)
[2016-09-13] MEDS: hydrALAZINE HCL 50 MG TAB PO SCH ×3 (07:44→21:18)
[2016-09-13] MEDS: ENOXAPARIN 40 MG/0.4 ML SYRINGE SQ SCH (07:44)
[2016-09-13] MEDS: FAMOTIDINE 20 MG TAB PO SCH ×2 (07:45→21:18)
[2016-09-13] MEDS: guaiFENesin 600 MG TABLET.ER PO SCH ×2 (07:45→21:18)
[2016-09-13] MEDS: AZITHROMYCIN 500 MG TAB PO SCH (07:45)
[2016-09-13] MEDS: NICOTINE 21MG/24HR PATCH TRANSDERM SCH (07:45)
[2016-09-13] MEDS: INSULIN LISPRO (humaLOG) 300 UNIT/3 ML VIAL SQ SCH ×7 (07:49→21:18)
[2016-09-13] MEDS: BUDESONIDE 0.5 MG/2 ML NEBU INHALATION SCH ×2 (08:41→19:58)
[2016-09-13] MEDS: IPRATROPIUM-ALBUTEROL 3 ML NEB INHALATION SCH ×4 (08:41→19:58)
[2016-09-13] MEDS ORDERED: HYDROcodone/APAP 5-325MG 1 EACH TAB PO PRN (10:31)
[2016-09-13] MEDS: ALPRAZolam 0.25 MG TAB PO PRN (10:52)
[2016-09-13] MEDS: ONDANSETRON 4 MG/2 ML VIAL IVP PRN ×2 (10:53→21:55)
[2016-09-13 12:20] LABS: Glucose,Whole Blood 240 mg/dL (75-99)
[2016-09-13] MEDS ORDERED: methylPREDNISolone SOD SUCCI 125 MG/2 ML VIAL IV STA (12:39)
--- NOTE | 2016-09-13 14:26 | PN ---
Anuradha Sam is seen on 09/13/2016. She has remained hemodynamically stable. She complains of back pain, and a migraine. Shortness of breath is doing better overall. On physical examination, blood pressure 167/93, respiratory rate 18, pulse of 82, O2 sat on room air is in the 90s. HEENT is unremarkable. Chest reveals expiratory wheeze on forced expiration some of it may be voluntary. Cardiovascular S1 and S2 S1 and S2. ABDOMEN: Soft. There is no pedal edema. IMPRESSION: 1. Severe asthma with acute exacerbation. 2. Atypical pneumonia cannot be ruled out. 3. Hypersensitivity pneumonitis. At this point in time, give her an extra dose of Solu-Medrol. Switch her to oral steroids tomorrow. Increase her activity level. Depending on how she does, we shall make further changes to her care. Medications were reviewed.
--- NOTE | 2016-09-13 14:49 | P.PN ---
Subjective 45-year-old female one of Dr. Gan patient was seen in the hospital May for COPD exacerbation and respiratory failure was in for few days was seen pulmonary had pneumonia with respiratory failure was treated and done well , her blood pressure continue to be elevated till after she left the hospital she was seen Dr. Romero and Dr. Linton as an outpatient has been doing well till about 1 week ago when she started having significant shortness of breath, wheezes and not feeling well. Patient become much worse last night ended up coming to the emergency department at [facility] on 2016 where was seen and evaluated was diagnosed with COPD exacerbation acute respiratory failure and started on steroid, nebulizer O2 and admitted to the hospital with above problem. Chest x-ray did not show any infiltrate this time. Patient is known to have alpha-1 antitrypsin deficiency and known to have asthma also she is a chronic smoker continue to smoke since she left the hospital last time. 09/12: CAT scan of the chest revealed mild areas of groundglass opacity in the lower lobes bilaterally. This may represent alveolitis or early pneumonitis. Dr. ZA Garcia has reviewed CAT scan and evaluated the patient for severe ALLERGIC asthma and hypersensitivity pneumonitis. Patient to follow-up in the office for Xolair. Patient states she is still coughing without phlegm production. She states she has not slept in more than 3 days. Xanax has been resumed and Solu-Medrol decreased to 40 mg IV every 8 hours. Blood pressure has been high for which she is on Procardia scheduled, hydralazine scheduled, clonidine 09/13: Patient is complaining of headache which she states a lot of is not working for her. She states she is unable to take [place] as she is ALLERGIC. She also states she is unable to take nonsteroidals. Tylenol is available. Blood pressures remain high for which hydralazine is increased and lisinopril added. Dr. ZA Garcia has ordered 1 dose of IV Solu-Medrol 60 mg. Blood sugars continue to run high for which we have adjusted her scheduled Lantus and scheduled Humalog. IV Solu-Medrol will be switched to Decadron and patient will start oral prednisone in the morning. She continues to have difficulty with anxiety and Xanax will be discontinued and patient placed on clonazepam. She also states that she is unable to sleep with the Ambien. Anticipate discharge home tomorrow. Objective - Vital Signs Vital signs: Vital Signs Temp 96.9 F L 09/13/16 07:16 Pulse 82 09/13/16 08:58 Resp 20 09/13/16 07:16 BP 167/93 09/13/16 10:57 Pulse Ox 96 09/13/16 07:16 Intake & Output 09/12/16 09/13/16 09/13/16 18:59 06:59 18:59 Intake Total 1080 Balance 1080 Intake: Oral 1080 Other: Voiding Method Toilet # Voids 2 - Exam General appearance: no average body habitus, cooperative, no disheveled, mild distress, no morbidly obese, no no acute distress, no obese, no severe distress , no thin - EENT Eyes: no abnormal pupil, no anicteric sclerae, no disc margins sharp, no edentulous, no EOMI, no PERRLA, no fundus normal, no photophobia, no dentition normal, no poor dentition, no ptosis, no scleral icterus, no normal appearance ENT: no hard of hearing, no hearing grossly normal, no NA/AT, normal oropharynx , no other, no pharyngeal erythema, no thrush, no tonsillar exudates, no tonsillar swelling Ears: bilateral: normal - Neck Neck: no lymphadenopathy, normal ROM, no other, no rigidity, no stridor, no thyromegaly Carotids: bilateral: upstroke normal Thyroid: bilateral: normal size - Respiratory Respiratory: bilateral: diminished, dullness, rales, rhonchi, wheezing, prolonged expiration - Cardiovascular Rhythm: regular Heart sounds: normal: S1, S2 Abnormal Heart Sounds: systolic murmur, S3 Gallop - Gastrointestinal General gastrointestinal: no absent bowel sounds, no decreased bowel sounds, distended, no hepatomegaly, no hyperactive bowel sounds, no normal bowel sounds , no organomegaly, no rigid, no scaphoid, soft, splenomegaly, no tenderness, no umbilical hernia, no ventral hernia - Integumentary Integumentary: no calor, no cellulitis, no cyanotic, no decreased turgor, no flushed, no jaundiced, normal, no normal turgor, pale, rash, no ulcer - Neurologic Neurologic: CNII-XII intact - Musculoskeletal Musculoskeletal: gait normal, generalized weakness, strength equal bilaterally, no right sided weakness, no left sided weakness - Psychiatric Psychiatric: A&O x's 3, appropriate affect - Labs CBC & Chem 7: 09/11/16 01:40 09/11/16 01:40 Labs: Abnormal Lab Results - Last 24 Hours (Table) 09/12/16 09/12/16 09/13/16 Range/Units 17:12 20:16 06:51 POC Glucose (mg/dL) 259 H 334 H 211 H (75-99) mg/dL 09/13/16 Range/Units 12:18 POC Glucose (mg/dL) 240 H (75-99) mg/dL Assessment and Plan Plan: 1 acute respiratory distress: Due to severe ALLERGIC asthma and hypersensitivity pneumonitis. Continue steroids. Consult with Dr. ZA Garcia appreciated. Patient to follow-up in the office for possible Xolair treatments. 2 asthma exacerbation: The patient's current condition will continue O2, continue DuoNeb along with Pulmicort will consult pulmonary continue current management as well. Solu-Medrol changed to Decadron. Prednisone in the morning. 3 severe purulent tracheal bronchitis: Most likely gram-negative will be on IV antibiotic the gram-negative coverage including Levaquin. 4 hypertension: Patient is now on hydralazine increased to 100 mg 3 times daily , lisinopril 10 mg twice daily added, Procardia 60 mg daily, Catapres and Apresoline as needed. 5 bipolar disorders: Patient is not on any medication currently. 6 history of peptic ulcer disease: Will add Pepcid 20 mg daily. 7 chronic nicotine dependency: Patient will be on nicotine patch for now. 8. Hyperglycemia due to steroids. Patient has been placed on Lantus increased to 30 units at bedtime and scheduled Humalog 12 units 3 times daily with meals and Humalog scale before meals and at bedtime. 9. Insomnia and generalized anxiety worsened by steroid use. Xanax discontinued and patient placed on clonazepam 0.5 mg 3 times daily. Patient is on Ambien for sleep DVT prophylaxis: Patient will be on Lovenox subcutaneous along with Venodyne boots and knee-high VIANNEY hose. CODE STATUS: Full code. Discharge plan: Return home tomorrow. Impression and plan of care have been directed as dictated by the signing physician. Cheri Macdonald nurse practitioner acting as scribe for signing physician. Time with Patient: Greater than 30
[2016-09-13 14:53] VITALS: RESP 16
[2016-09-13] MEDS: clonazePAM 0.5 MG TAB PO SCH ×2 (15:01→21:18)
[2016-09-13] MEDS: LISINOPRIL 10 MG TAB PO SCH ×2 (15:01→21:18)
[2016-09-13 15:28] LABS: Appearance,Urine Clear (Clear); Bacteria,Urine Rare /hpf; Bilirubin,Urine Negative (Negative); Glucose,Urine (UA) 3+ (Negative); Ketones,Urine Negative (Negative); Leukocyte Esterase,Urine Small (Negative); Nitrite,Urine Positive (Negative); Particle Count 5868; Protein,Urine Negative (Negative); RBC,Urine 1 /hpf (0-5); Specific Gravity,Urine 1.016 (1.001-1.035); Squamous Epithelial Cell,Urine <1 /hpf (0-4); UA Billing (MACRO vs. MICRO) MICRO; Urobilinogen,Urine <2.0 mg/dL (<2.0); WBC,Urine 8 /hpf (0-5)
[2016-09-13] MEDS: DEXAMETHASONE SOD PHOSPHATE 4 MG/ML 1 ML VIAL IV SCH ×2 (17:14→23:53)
[2016-09-13 17:16] LABS: Glucose,Whole Blood 228 mg/dL (75-99)
[2016-09-13 20:16] LABS: Glucose,Whole Blood 248 mg/dL (75-99)
[2016-09-13] MEDS: MONTELUKAST 10 MG TAB PO SCH (21:18)
[2016-09-13] MEDS: INSULIN GLARGINE 100 UNIT/ML 10 ML VIAL SQ SCH (21:21)
[2016-09-13] MEDS: ZOLPIDEM 5 MG TAB PO PRN (22:02)
[2016-09-14] MEDS: cloNIDine HCL 0.2 MG TAB PO PRN (02:44)
[2016-09-14] MEDS: HYDROmorphone 1 MG/ML 1 ML SYRINGE IVP PRN ×5 (02:46→23:43)
[2016-09-14] MEDS: hydrALAZINE HCL 20 MG/ML 1 ML VIAL IVP PRN (04:48)
[2016-09-14 06:47] LABS: Glucose,Whole Blood 202 mg/dL (75-99)
[2016-09-14 07:26] LABS: Basophils % (A) 0 %; CH 31.7; CHCM 33.4; Eosinophils % (A) 0 %; HCT 45.7 % (34.0-46.0); HDW 2.82; HGB 14.9 gm/dL (11.4-16.0); Luc # (Auto) 0.11; Luc % (Auto) 1; Lymphocytes # (A) 1.3 k/uL (1.0-4.8); Lymphocytes % (A) 8 %; MCHC 32.5 g/dL (31.0-37.0); MCV 95.2 fL (80.0-100.0); Mean Platelet Volume 7.9; Monocytes # (A) 0.8 k/uL (0-1.0); Monocytes % (A) 5 %; Neutrophils # (A) 14.6 k/uL (1.3-7.7); Neutrophils % (A) 87 %; RDW 14.3 % (11.5-15.5); WBC 16.7 k/uL (3.8-10.6); WBC (Perox) 16.59
[2016-09-14 07:33] LABS: ALT 86 U/L (9-52); AST 43 U/L (14-36); Alkaline Phosphatase 68 U/L (38-126); Anion Gap 12 mmol/L; Blood Urea Nitrogen 28 mg/dL (7-17); Calcium 9.8 mg/dL (8.4-10.2); Carbon Dioxide 22 mmol/L (22-30); Chloride 104 mmol/L (98-107); Glucose 209 mg/dL (74-99); Non-African American GFR(MDRD) >60 (>60 ml/min/1.73 sqM); Potassium 4.5 mmol/L (3.5-5.1); Sodium 138 mmol/L (137-145); Total Bilirubin 0.5 mg/dL (0.2-1.3); Total Protein 6.6 g/dL (6.3-8.2)
[2016-09-14] MEDS: INSULIN LISPRO (humaLOG) 300 UNIT/3 ML VIAL SQ SCH ×7 (07:34→20:35)
[2016-09-14] MEDS: predniSONE 20 MG TAB PO SCH (07:36)
[2016-09-14] MEDS: FAMOTIDINE 20 MG TAB PO SCH ×2 (07:36→20:16)
[2016-09-14] MEDS: AZITHROMYCIN 500 MG TAB PO SCH (07:37)
[2016-09-14] MEDS: guaiFENesin 600 MG TABLET.ER PO SCH ×2 (07:37→20:16)
[2016-09-14] MEDS: LISINOPRIL 10 MG TAB PO SCH ×2 (07:37→20:16)
[2016-09-14] MEDS: hydrALAZINE HCL 50 MG TAB PO SCH ×3 (07:37→20:16)
[2016-09-14] MEDS: ENOXAPARIN 40 MG/0.4 ML SYRINGE SQ SCH (07:38)
[2016-09-14] MEDS: IPRATROPIUM-ALBUTEROL 3 ML NEB INHALATION SCH ×4 (08:03→19:58)
[2016-09-14] MEDS: BUDESONIDE 0.5 MG/2 ML NEBU INHALATION SCH ×2 (08:04→19:58)
[2016-09-14] MEDS: clonazePAM 0.5 MG TAB PO SCH ×3 (08:44→20:16)
--- NOTE | 2016-09-14 09:25 | CT ---
EXAMINATION TYPE: CT brain wo con DATE OF EXAM: 09/14/2016 9:13 AM COMPARISON: 03/01/2012 HISTORY: Headache, Acute exacerbation of COPD CT DLP: 1121 mGycm Automated exposure control for dose reduction was used. FINDINGS: There is no acute intracranial hemorrhage, mass effect, or midline shift identified. The ventricles and sulci are within normal limits in size. The globes are intact and the visualized sinuses are audra ar. Changes of chronic sinusitis noted. IMPRESSION: No acute intracranial hemorrhage, mass effect, or midline shift is seen.
--- NOTE | 2016-09-14 09:28 | P.PN ---
Subjective 45-year-old female one of Dr. Gan patient was seen in the hospital May for COPD exacerbation and respiratory failure was in for few days was seen pulmonary had pneumonia with respiratory failure was treated and done well , her blood pressure continue to be elevated till after she left the hospital she was seen Dr. Romero and Dr. Linton as an outpatient has been doing well till about 1 week ago when she started having significant shortness of breath, wheezes and not feeling well. Patient become much worse last night ended up coming to the emergency department at [facility] general counsel on 2016 where was seen and evaluated was diagnosed with COPD exacerbation acute respiratory failure and started on steroid, nebulizer O2 and admitted to the hospital with above problem. Chest x-ray did not show any infiltrate this time. Patient is known to have alpha-1 antitrypsin deficiency and known to have asthma also she is a chronic smoker continue to smoke since she left the hospital last time. 09/12: CAT scan of the chest revealed mild areas of groundglass opacity in the lower lobes bilaterally. This may represent alveolitis or early pneumonitis. Dr. ZA Garcia has reviewed CAT scan and evaluated the patient for severe ALLERGIC asthma and hypersensitivity pneumonitis. Patient to follow-up in the office for Xolair. Patient states she is still coughing without phlegm production. She states she has not slept in more than 3 days. Xanax has been resumed and Solu-Medrol decreased to 40 mg IV every 8 hours. Blood pressure has been high for which she is on Procardia scheduled, hydralazine scheduled, clonidine 09/13: Patient is complaining of headache which she states a lot of is not working for her. She states she is unable to take [place] as she is ALLERGIC. She also states she is unable to take nonsteroidals. Tylenol is available. Blood pressures remain high for which hydralazine is increased and lisinopril added. Dr. ZA Garcia has ordered 1 dose of IV Solu-Medrol 60 mg. Blood sugars continue to run high for which we have adjusted her scheduled Lantus and scheduled Humalog. IV Solu-Medrol will be switched to Decadron and patient will start oral prednisone in the morning. She continues to have difficulty with anxiety and Xanax will be discontinued and patient placed on clonazepam. She also states that she is unable to sleep with the Ambien. Anticipate discharge home tomorrow. 09/14: Patient is being prepared for discharge home but she states she is unable to go home as she is afraid of falling and feels too weak, she is concerned about her continued headache. Also, patient has not been sleeping and this continues. She also states she has no money for any of her medications and she also has no transportation as she needs to allow for 3 days notice. CAT scan of the brain ordered. Case management/social work to work with patient regarding social issues. Plan to discharge patient home tomorrow. Objective - Vital Signs Vital signs: Vital Signs Temp 97.5 F L 09/14/16 07:27 Pulse 82 09/14/16 08:29 Resp 16 09/14/16 07:27 BP 164/95 09/14/16 07:27 Pulse Ox 97 09/14/16 07:27 Intake & Output 09/13/16 09/14/16 09/14/16 18:59 06:59 18:59 Intake Total 500 500 Balance 500 500 Intake: Intake, IV Titration 500 Amount Sodium Chloride 0.9% 1, 500 000 ml @ 100 mls/hr IV . Q10H ANDREW Rx#:[id number] Oral 500 Other: Voiding Method Toilet # Voids 2 2 - Exam General appearance: no average body habitus, cooperative, no disheveled, mild distress, no morbidly obese, no no acute distress, no obese, no severe distress , no thin - EENT Eyes: no abnormal pupil, no anicteric sclerae, no disc margins sharp, no edentulous, no EOMI, no PERRLA, no fundus normal, no photophobia, no dentition normal, no poor dentition, no ptosis, no scleral icterus, no normal appearance ENT: no hard of hearing, no hearing grossly normal, no NA/AT, normal oropharynx , no other, no pharyngeal erythema, no thrush, no tonsillar exudates, no tonsillar swelling Ears: bilateral: normal - Neck Neck: no lymphadenopathy, normal ROM, no other, no rigidity, no stridor, no thyromegaly Carotids: bilateral: upstroke normal Thyroid: bilateral: normal size - Respiratory Respiratory: bilateral: diminished, dullness, rales, rhonchi, wheezing, prolonged expiration - Cardiovascular Rhythm: regular Heart sounds: normal: S1, S2 Abnormal Heart Sounds: systolic murmur, S3 Gallop - Gastrointestinal General gastrointestinal: no absent bowel sounds, no decreased bowel sounds, distended, no hepatomegaly, no hyperactive bowel sounds, no normal bowel sounds , no organomegaly, no rigid, no scaphoid, soft, splenomegaly, no tenderness, no umbilical hernia, no ventral hernia - Integumentary Integumentary: no calor, no cellulitis, no cyanotic, no decreased turgor, no flushed, no jaundiced, normal, no normal turgor, pale, rash, no ulcer - Neurologic Neurologic: CNII-XII intact - Musculoskeletal Musculoskeletal: gait normal, generalized weakness, strength equal bilaterally, no right sided weakness, no left sided weakness - Psychiatric Psychiatric: A&O x's 3, appropriate affect - Labs CBC & Chem 7: 09/14/16 06:44 09/14/16 06:44 Labs: Abnormal Lab Results - Last 24 Hours (Table) 09/13/16 09/13/16 09/13/16 Range/Units 12:18 15:15 17:09 WBC (3.8-10.6) k/uL Neutrophils # (1.3-7.7) k/uL BUN (7-17) mg/dL Glucose (74-99) mg/dL POC Glucose (mg/dL) 240 H 228 H (75-99) mg/dL AST (14-36) U/L ALT (9-52) U/L Urine Glucose (UA) 3+ H (Negative) Urine Blood Small H (Negative) Urine Nitrate Positive H (Negative) Ur Leukocyte Esterase Small H (Negative) Urine WBC 8 H (0-5) /hpf Urine Bacteria Rare H (None) /hpf 09/13/16 09/14/16 09/14/16 Range/Units 20:14 06:42 06:44 WBC 16.7 H (3.8-10.6) k/uL Neutrophils # 14.6 H (1.3-7.7) k/uL BUN (7-17) mg/dL Glucose (74-99) mg/dL POC Glucose (mg/dL) 248 H 202 H (75-99) mg/dL AST (14-36) U/L ALT (9-52) U/L Urine Glucose (UA) (Negative) Urine Blood (Negative) Urine Nitrate (Negative) Ur Leukocyte Esterase (Negative) Urine WBC (0-5) /hpf Urine Bacteria (None) /hpf 09/14/16 Range/Units 06:44 WBC (3.8-10.6) k/uL Neutrophils # (1.3-7.7) k/uL BUN 28 H (7-17) mg/dL Glucose 209 H (74-99) mg/dL POC Glucose (mg/dL) (75-99) mg/dL AST 43 H (14-36) U/L ALT 86 H (9-52) U/L Urine Glucose (UA) (Negative) Urine Blood (Negative) Urine Nitrate (Negative) Ur Leukocyte Esterase (Negative) Urine WBC (0-5) /hpf Urine Bacteria (None) /hpf Assessment and Plan Plan: 1 acute respiratory distress: Due to severe ALLERGIC asthma and hypersensitivity pneumonitis. Continue steroids. Consult with Dr. ZA Garcia appreciated. Patient to follow-up in the office for possible Xolair treatments. 2 asthma exacerbation: The patient's current condition will continue O2, continue DuoNeb along with Pulmicort will consult pulmonary continue current management as well. Solu-Medrol changed to Decadron. Prednisone in the morning. 3 severe purulent tracheal bronchitis: Most likely gram-negative will be on IV antibiotic the gram-negative coverage including Levaquin. 4 hypertension: Patient is now on hydralazine increased to 100 mg 3 times daily , lisinopril 10 mg twice daily added, Procardia 60 mg daily, Catapres and Apresoline as needed. 5 bipolar disorders: Patient is not on any medication currently. 6 history of peptic ulcer disease: Will add Pepcid 20 mg daily. 7 chronic nicotine dependency: Patient will be on nicotine patch for now. 8. Hyperglycemia due to steroids. Patient has been placed on Lantus increased to 30 units at bedtime and scheduled Humalog 12 units 3 times daily with meals and Humalog scale before meals and at bedtime. 9. Insomnia and generalized anxiety worsened by steroid use. Xanax discontinued and patient placed on clonazepam 0.5 mg 3 times daily. Patient is on Ambien for sleep DVT prophylaxis: Patient will be on Lovenox subcutaneous along with Venodyne boots and knee-high VIANNEY hose. CODE STATUS: Full code. Discharge plan: Return home tomorrow. Impression and plan of care have been directed as dictated by the signing physician. Cheri Macdonald nurse practitioner acting as scribe for signing physician. Time with Patient: Greater than 30
[2016-09-14 11:50] LABS: Glucose,Whole Blood 195 mg/dL (75-99)
--- NOTE | 2016-09-14 15:39 | PN ---
She was seen on 09/14/2016. She has remained hemodynamically stable. She seems less short of breath and comfortable. She complains of pain all over. On physical examination, her blood pressure 164/95, respiratory rate 16, pulse rate of 70, temperature 97.5, O2 sat on room air is 97%. HEENT is unremarkable. Chest reveals expiratory wheeze, which may be partly voluntary. Cardiovascular system reveals an S1 and S2. Abdomen is soft. There is no pedal edema. IMPRESSION AT THIS TIME: 1. Severe asthma with acute exacerbation. 2. Bipolar disorder. Continue her on her current medications, which were reviewed. Start to taper oral steroids tomorrow if she is otherwise stable.
[2016-09-14] MEDS: NICOTINE 21MG/24HR PATCH TRANSDERM SCH (17:02)
[2016-09-14 17:11] LABS: Glucose,Whole Blood 273 mg/dL (75-99)
[2016-09-14] MEDS: ONDANSETRON 4 MG/2 ML VIAL IVP PRN (19:15)
[2016-09-14 20:15] LABS: Glucose,Whole Blood 209 mg/dL (75-99)
[2016-09-14] MEDS: MONTELUKAST 10 MG TAB PO SCH (20:16)
[2016-09-14] MEDS: INSULIN GLARGINE 100 UNIT/ML 10 ML VIAL SQ SCH (20:35)
[2016-09-14] MEDS ORDERED: LORazepam 2 MG/ML SYRINGE IV STA (20:56)
[2016-09-15] MEDS: hydrALAZINE HCL 20 MG/ML 1 ML VIAL IVP PRN (00:12)
[2016-09-15] MEDS: HYDROmorphone 1 MG/ML 1 ML SYRINGE IVP PRN ×3 (03:47→20:58)
[2016-09-15 07:09] LABS: Glucose,Whole Blood 112 mg/dL (75-99)
[2016-09-15] MEDS: IPRATROPIUM-ALBUTEROL 3 ML NEB INHALATION SCH ×4 (07:58→21:07)
[2016-09-15] MEDS: BUDESONIDE 0.5 MG/2 ML NEBU INHALATION SCH ×2 (07:58→21:07)
[2016-09-15] MEDS: ONDANSETRON 4 MG/2 ML VIAL IVP PRN (08:06)
[2016-09-15] MEDS: INSULIN LISPRO (humaLOG) 300 UNIT/3 ML VIAL SQ SCH ×7 (08:29→22:07)
[2016-09-15] MEDS: AZITHROMYCIN 500 MG TAB PO SCH (10:01)
[2016-09-15] MEDS: ENOXAPARIN 40 MG/0.4 ML SYRINGE SQ SCH (10:02)
[2016-09-15] MEDS: clonazePAM 0.5 MG TAB PO SCH ×3 (10:02→22:04)
[2016-09-15] MEDS: FAMOTIDINE 20 MG TAB PO SCH ×2 (10:02→22:04)
[2016-09-15] MEDS: guaiFENesin 600 MG TABLET.ER PO SCH ×2 (10:03→22:03)
[2016-09-15] MEDS: hydrALAZINE HCL 50 MG TAB PO SCH ×3 (10:04→22:03)
[2016-09-15] MEDS: NICOTINE 21MG/24HR PATCH TRANSDERM SCH (10:05)
[2016-09-15] MEDS: LISINOPRIL 10 MG TAB PO SCH ×2 (10:05→22:04)
[2016-09-15] MEDS: predniSONE 20 MG TAB PO SCH (10:07)
[2016-09-15 11:06] LABS: Basophils # (A) 0.1 k/uL (0-0.2); Basophils % (A) 0 %; CH 31.4; CHCM 33.2; Eosinophils # (A) 0.1 k/uL (0-0.7); Eosinophils % (A) 1 %; HDW 2.84; HGB 15.9 gm/dL (11.4-16.0); Luc # (Auto) 0.23; Luc % (Auto) 2; Lymphocytes # (A) 3.1 k/uL (1.0-4.8); Lymphocytes % (A) 21 %; MCH 30.8 pg (25.0-35.0); MCHC 32.4 g/dL (31.0-37.0); MCV 95.1 fL (80.0-100.0); Mean Platelet Volume 7.6; Monocytes # (A) 1.1 k/uL (0-1.0); Monocytes % (A) 7 %; Neutrophils # (A) 10.1 k/uL (1.3-7.7); Neutrophils % (A) 69 %; RBC 5.15 m/uL (3.80-5.40); RDW 14.1 % (11.5-15.5); WBC 14.7 k/uL (3.8-10.6); WBC (Perox) 15.14
[2016-09-15 11:27] LABS: ALT 72 U/L (9-52); AST 20 U/L (14-36); Alkaline Phosphatase 67 U/L (38-126); Amylase 32 U/L (30-110); Anion Gap 8 mmol/L; Blood Urea Nitrogen 29 mg/dL (7-17); Calcium 9.5 mg/dL (8.4-10.2); Carbon Dioxide 32 mmol/L (22-30); Chloride 103 mmol/L (98-107); Glucose 131 mg/dL (74-99); Non-African American GFR(MDRD) >60 (>60 ml/min/1.73 sqM); Potassium 4.5 mmol/L (3.5-5.1); Sodium 143 mmol/L (137-145); Total Bilirubin 0.5 mg/dL (0.2-1.3); Total Protein 6.7 g/dL (6.3-8.2)
[2016-09-15 11:45] LABS: Glucose,Whole Blood 136 mg/dL (75-99)
[2016-09-15] MEDS ORDERED: LORazepam 0.5 MG TAB PO PRN (13:46)
--- NOTE | 2016-09-15 15:26 | P.PN ---
Subjective Principal diagnosis: Acute respiratory failure, COPD exacerbation, severe bronchitis, noncontrol 45-year-old female one of Dr. Gan patient was seen in the hospital May for COPD exacerbation and respiratory failure was in for few days was seen pulmonary had pneumonia with respiratory failure was treated and done well , her blood pressure continue to be elevated till after she left the hospital she was seen Dr. Romero and Dr. Linton as an outpatient has been doing well till about 1 week ago when she started having significant shortness of breath, wheezes and not feeling well. Patient become much worse last night ended up coming to the emergency department at [facility] attacher on 2016 where was seen and evaluated was diagnosed with COPD exacerbation acute respiratory failure and started on steroid, nebulizer O2 and admitted to the hospital with above problem. Chest x-ray did not show any infiltrate this time. Patient is known to have alpha-1 antitrypsin deficiency and known to have asthma also she is a chronic smoker continue to smoke since she left the hospital last time. 09/12: CAT scan of the chest revealed mild areas of groundglass opacity in the lower lobes bilaterally. This may represent alveolitis or early pneumonitis. Dr. ZA Garcia has reviewed CAT scan and evaluated the patient for severe ALLERGIC asthma and hypersensitivity pneumonitis. Patient to follow-up in the office for Xolair. Patient states she is still coughing without phlegm production. She states she has not slept in more than 3 days. Xanax has been resumed and Solu-Medrol decreased to 40 mg IV every 8 hours. Blood pressure has been high for which she is on Procardia scheduled, hydralazine scheduled, clonidine 09/13: Patient is complaining of headache which she states a lot of is not working for her. She states she is unable to take [place] as she is ALLERGIC. She also states she is unable to take nonsteroidals. Tylenol is available. Blood pressures remain high for which hydralazine is increased and lisinopril added. Dr. ZA Garcia has ordered 1 dose of IV Solu-Medrol 60 mg. Blood sugars continue to run high for which we have adjusted her scheduled Lantus and scheduled Humalog. IV Solu-Medrol will be switched to Decadron and patient will start oral prednisone in the morning. She continues to have difficulty with anxiety and Xanax will be discontinued and patient placed on clonazepam. She also states that she is unable to sleep with the Ambien. Anticipate discharge home tomorrow. 09/14: Patient is being prepared for discharge home but she states she is unable to go home as she is afraid of falling and feels too weak, she is concerned about her continued headache. Also, patient has not been sleeping and this continues. She also states she has no money for any of her medications and she also has no transportation as she needs to allow for 3 days notice. CAT scan of the brain ordered. Case management/social work to work with patient regarding social issues. Plan to discharge patient home tomorrow. 09/15/2016: Blood sugar has improved significantly blood pressure has been better with current medication. Patient remained resistant to leaving the hospital based on no help no transportation and no money to get her medication sheet help with all of the above. Also patient is complaining of mild abdominal pain and fearful that she might have pancreatitis lipase 90 days with lab work done and completely negative. Lungs discussion with the patient that she is ready to go home [employer] social worker help was requested and if it happen today if not tomorrow morning. Objective - Vital Signs Vital signs: Vital Signs Temp 97.3 F L 09/15/16 07:00 Pulse 89 09/15/16 14:00 Resp 16 09/14/16 23:49 BP 163/83 09/15/16 14:00 Pulse Ox 98 09/15/16 07:00 Intake & Output 09/14/16 09/15/16 09/15/16 18:59 06:59 18:59 Intake Total 744 200 240 Balance 744 200 240 Intake: Oral 744 200 240 Other: Voiding Method Toilet # Voids 2 2 1 - Constitutional General appearance: Present: cooperative, disheveled, no acute distress. Absent : average body habitus, mild distress, morbidly obese, obese, severe distress, thin - EENT Eyes: Present: normal appearance. Absent: abnormal pupil, anicteric sclerae, disc margins sharp, edentulous, EOMI, PERRLA, fundus normal, photophobia, dentition normal, poor dentition, ptosis, scleral icterus ENT: Present: normal oropharynx, pharyngeal erythema. Absent: hard of hearing, hearing grossly normal, NA/AT, other, thrush, tonsillar exudates, tonsillar swelling Ears: bilateral: normal, bulging - Neck Neck: Present: normal ROM Carotids: bilateral: upstroke normal, upstroke delayed Thyroid: bilateral: normal size - Respiratory Respiratory: bilateral: diminished, dullness, rales, rhonchi, wheezing, prolonged expiration - Cardiovascular Rhythm: regular Heart sounds: normal: S1, S2 Abnormal Heart Sounds: Present: systolic murmur, S3 Gallop - Gastrointestinal General gastrointestinal: Present: decreased bowel sounds, normal bowel sounds, soft. Absent: absent bowel sounds, distended, hepatomegaly, hyperactive bowel sounds, organomegaly, rigid, scaphoid, splenomegaly, tenderness, umbilical hernia, ventral hernia - Integumentary Integumentary: Present: pale, rash. Absent: calor, cellulitis, cyanotic, decreased turgor, flushed, jaundiced, normal, normal turgor, ulcer - Neurologic Neurologic: Present: CNII-XII intact - Musculoskeletal Musculoskeletal: Present: gait normal, generalized weakness, strength equal bilaterally. Absent: right sided weakness, left sided weakness - Psychiatric Psychiatric: Present: A&O x's 3, appropriate affect - Labs CBC & Chem 7: 09/15/16 10:49 09/15/16 10:49 Labs: Abnormal Lab Results - Last 24 Hours (Table) 09/14/16 09/14/16 09/15/16 Range/Units 17:05 20:13 07:03 WBC (3.8-10.6) k/uL Hct (34.0-46.0) % Neutrophils # (1.3-7.7) k/uL Monocytes # (0-1.0) k/uL Carbon Dioxide (22-30) mmol/L BUN (7-17) mg/dL Glucose (74-99) mg/dL POC Glucose (mg/dL) 273 H 209 H 112 H (75-99) mg/dL ALT (9-52) U/L 09/15/16 09/15/16 09/15/16 Range/Units 10:49 10:49 11:40 WBC 14.7 H (3.8-10.6) k/uL Hct 49.0 H (34.0-46.0) % Neutrophils # 10.1 H (1.3-7.7) k/uL Monocytes # 1.1 H (0-1.0) k/uL Carbon Dioxide 32 H (22-30) mmol/L BUN 29 H (7-17) mg/dL Glucose 131 H (74-99) mg/dL POC Glucose (mg/dL) 136 H (75-99) mg/dL ALT 72 H (9-52) U/L
[2016-09-15 17:04] LABS: Glucose,Whole Blood 240 mg/dL (75-99)
[2016-09-15 21:09] LABS: Glucose,Whole Blood 147 mg/dL (75-99)
[2016-09-15] MEDS: MONTELUKAST 10 MG TAB PO SCH (22:04)
[2016-09-15] MEDS: INSULIN GLARGINE 100 UNIT/ML 10 ML VIAL SQ SCH (22:04)
[2016-09-16] MEDS: ONDANSETRON 4 MG/2 ML VIAL IVP PRN ×2 (00:47→08:17)
[2016-09-16] MEDS: ZOLPIDEM 5 MG TAB PO PRN (01:11)
[2016-09-16] MEDS: HYDROmorphone 1 MG/ML 1 ML SYRINGE IVP PRN ×4 (01:11→14:23)
[2016-09-16] MEDS: hydrALAZINE HCL 20 MG/ML 1 ML VIAL IVP PRN (02:48)
[2016-09-16 06:45] LABS: Glucose,Whole Blood 110 mg/dL (75-99)
[2016-09-16] MEDS: BUDESONIDE 0.5 MG/2 ML NEBU INHALATION SCH (07:22)
[2016-09-16] MEDS: IPRATROPIUM-ALBUTEROL 3 ML NEB INHALATION SCH ×3 (07:22→16:12)
[2016-09-16] MEDS: INSULIN LISPRO (humaLOG) 300 UNIT/3 ML VIAL SQ SCH ×4 (07:56→14:26)
[2016-09-16] MEDS: clonazePAM 0.5 MG TAB PO SCH (08:09)
[2016-09-16] MEDS: hydrALAZINE HCL 50 MG TAB PO SCH (08:09)
[2016-09-16] MEDS: ENOXAPARIN 40 MG/0.4 ML SYRINGE SQ SCH (08:09)
[2016-09-16] MEDS: LISINOPRIL 10 MG TAB PO SCH (08:09)
[2016-09-16] MEDS: FAMOTIDINE 20 MG TAB PO SCH (08:10)
[2016-09-16] MEDS: guaiFENesin 600 MG TABLET.ER PO SCH (08:10)
[2016-09-16] MEDS: predniSONE 20 MG TAB PO SCH (08:10)
[2016-09-16] MEDS: AZITHROMYCIN 500 MG TAB PO SCH (08:10)
[2016-09-16] MEDS: NICOTINE 21MG/24HR PATCH TRANSDERM SCH (08:10)
[2016-09-16 09:26] LABS: Appearance,Urine Cloudy (Clear); Bilirubin,Urine Negative (Negative); Glucose,Urine (UA) Negative (Negative); Ketones,Urine Negative (Negative); Leukocyte Esterase,Urine Large (Negative); Nitrite,Urine Positive (Negative); PH, Urine 5.5 (5.0-8.0); Particle Count 9987; Protein,Urine Trace (Negative); RBC,Urine 34 /hpf (0-5); Specific Gravity,Urine 1.013 (1.001-1.035); UA Billing (MACRO vs. MICRO) MICRO; Urobilinogen,Urine <2.0 mg/dL (<2.0); WBC,Urine 118 /hpf (0-5)
--- NOTE | 2016-09-16 10:09 | PN ---
DATE OF SERVICE: 09/15/2016 She is less short of breath. She has a headache today. On physical examination, her blood pressure is 141/90, respiratory rate 16, pulse rate 83, temperature 97, O2 sat on room air is 95%. HEENT is unremarkable. Chest reveals expiratory wheeze. Cardiovascular system reveals S1 and S2. Abdomen is soft. There is no edema. IMPRESSION: 1. Asthma with acute exacerbation. 2. Bipolar disorder. Increase her activity level. Agree with discharge planning. Steroids can be tapered as an outpatient. She may be a candidate for anti-IgE treatment with Xolair. I did discussed this with her and her family.
[2016-09-16 11:07] LABS: Glucose,Whole Blood 135 mg/dL (75-99)
[2016-09-16 14:20] VITALS: BP 154/83; PULSE 81; TEMP 97
--- NOTE | 2016-09-16 16:10 | PN ---
DATE OF SERVICE: 09/16/2016 This patient has a slight increase in her shortness of breath and complains of some dizziness. On physical examination, her blood pressure is 146/87, respiratory rate 16, pulse rate of 71, temperature 97 degrees Fahrenheit. HEENT is unremarkable. Chest reveals expiratory wheeze only on forced expiration. Cardiovascular system is in S1, S2. Abdomen is soft. There is no pedal edema. IMPRESSION AT THIS TIME: 1. Severe asthma with acute exacerbation. 2. Pain. 3. Possible urinary tract infection. Continue her on azithromycin, Pulmicort, prednisone and bronchodilators. Increase her activity level.
--- NOTE | 2016-09-20 10:43 | P.DS ---
Providers Date of admission: 09/12/16 16:09 Expected date of discharge: 09/16/16 Attending physician: Shawn Kern Primary care physician: [facility] Course: 45-year-old female one of Dr. Gan patient was seen in the hospital May for COPD exacerbation and respiratory failure was in for few days was seen pulmonary had pneumonia with respiratory failure was treated and done well , her blood pressure continue to be elevated till after she left the hospital she was seen Dr. Romero and Dr. Linton as an outpatient has been doing well till about 1 week ago when she started having significant shortness of breath, wheezes and not feeling well. Patient become much worse last night ended up coming to the emergency department at [facility] coloring room man on 2016 where was seen and evaluated was diagnosed with COPD exacerbation acute respiratory failure and started on steroid, nebulizer O2 and admitted to the hospital with above problem. Chest x-ray did not show any infiltrate this time. Patient is known to have alpha-1 antitrypsin deficiency and known to have asthma also she is a chronic smoker continue to smoke since she left the hospital last time. 09/12: CAT scan of the chest revealed mild areas of groundglass opacity in the lower lobes bilaterally. This may represent alveolitis or early pneumonitis. Dr. ZA Garcia has reviewed CAT scan and evaluated the patient for severe ALLERGIC asthma and hypersensitivity pneumonitis. Patient to follow-up in the office for Xolair. Patient states she is still coughing without phlegm production. She states she has not slept in more than 3 days. Xanax has been resumed and Solu-Medrol decreased to 40 mg IV every 8 hours. Blood pressure has been high for which she is on Procardia scheduled, hydralazine scheduled, clonidine 09/13: Patient is complaining of headache which she states a lot of is not working for her. She states she is unable to take Bullard as she is ALLERGIC. She also states she is unable to take nonsteroidals. Tylenol is available. Blood pressures remain high for which hydralazine is increased and lisinopril added. Dr. ZA Garcia has ordered 1 dose of IV Solu-Medrol 60 mg. Blood sugars continue to run high for which we have adjusted her scheduled Lantus and scheduled Humalog. IV Solu-Medrol will be switched to Decadron and patient will start oral prednisone in the morning. She continues to have difficulty with anxiety and Xanax will be discontinued and patient placed on clonazepam. She also states that she is unable to sleep with the Ambien. Anticipate discharge home tomorrow. 09/14: Patient is being prepared for discharge home but she states she is unable to go home as she is afraid of falling and feels too weak, she is concerned about her continued headache. Also, patient has not been sleeping and this continues. She also states she has no money for any of her medications and she also has no transportation as she needs to allow for 3 days notice. CAT scan of the brain ordered. Case management/social work to work with patient regarding social issues. Plan to discharge patient home tomorrow. 09/15/2016: Blood sugar has improved significantly blood pressure has been better with current medication. Patient remained resistant to leaving the hospital based on no help no transportation and no money to get her medication sheet help with all of the above. Also patient is complaining of mild abdominal pain and fearful that she might have pancreatitis lipase 90 days with lab work done and completely negative. Lungs discussion with the patient that she is ready to go home professor of social work help was requested and if it happen today if not tomorrow morning. 09/16: Case management is helping patient with discharge planning. They are providing her with coupons to cover her co-pays on her medications. Right has been arranged. Noted the Pulmicort was not covered and will be discontinued. Patient has been up and ambulating in the hallway around the full chitimacha and doing well without any falls or balance issues. Patient will be discharged home today in stable condition. Discharge diagnoses: 1 acute respiratory distress: Due to severe ALLERGIC asthma and hypersensitivity pneumonitis. 2 asthma exacerbation with severe persistent asthma history 3 severe purulent tracheal bronchitis 4 hypertension 5 bipolar disorders 6 history of peptic ulcer disease 7 chronic nicotine dependency 8. Hyperglycemia due to steroids. 9. Insomnia and generalized anxiety worsened by steroid use. Discharge plan: Return home tomorrow. Impression and plan of care have been directed as dictated by the signing physician. Cheri Macdonald nurse practitioner acting as scribe for signing physician. Patient Condition at Discharge: Good Plan - Discharge Summary New Discharge Prescriptions: Lisinopril [Zestril] 10 mg PO BID #60 tab NIFEdipine XL [Procardia XL] 60 mg PO DAILY #30 tab.er.24 Nicotine 21Mg/24Hr Patch [Habitrol] 1 patch TRANSDERM DAILY #30 patch clonazePAM [KlonoPIN] 0.5 mg PO TID #30 tab hydrALAZINE HCL [Apresoline] 100 mg PO TID #90 tab predniSONE 0 mg PO DIRECTED #40 tab traMADol HCl [Ultram] 50 mg PO Q6H PRN #60 tab PRN Reason: Pain Discharge Medication List guaiFENesin SYRUP 100MG/5ML [Robitussin] 200 mg PO Q6H PRN 05/22/16 [History] Montelukast [Singulair] 10 mg PO HS #30 tab 05/28/16 [Rx] Nicotine 14Mg/24Hr Patch [Habitrol] 1 patch TRANSDERM DAILY #30 patch 05/28/16 [ Rx] QUEtiapine [SEROquel] 50 mg PO HS tab 05/28/16 [Rx] Albuterol Nebulized [Ventolin Nebulized] 2.5 mg INHALATION RT-Q6H PRN 09/11/16 [ History] Docusate [Colace] 100 mg PO DAILY 09/11/16 [History] Famotidine [Pepcid] 20 mg PO BID 09/11/16 [History] HYDROcodone/APAP 5-325MG [Bullard 5-325] 1 tab PO Q6HR PRN 09/11/16 [History] Ipratropium Nebulized [Atrovent Nebulized] 0.5 mg INHALATION RT-Q6H PRN [History] Melatonin 5 mg PO HS 09/11/16 [History] Lisinopril [Zestril] 10 mg PO BID #60 tab 09/14/16 [Rx] NIFEdipine XL [Procardia XL] 60 mg PO DAILY #30 tab.er.24 09/14/16 [Rx] Nicotine 21Mg/24Hr Patch [Habitrol] 1 patch TRANSDERM DAILY #30 patch 09/14/16 [ Rx] hydrALAZINE HCL [Apresoline] 100 mg PO TID #90 tab 09/14/16 [Rx] predniSONE 0 mg PO DIRECTED #40 tab 09/14/16 [Rx] clonazePAM [KlonoPIN] 0.5 mg PO TID #30 tab 09/16/16 [Rx] traMADol HCl [Ultram] 50 mg PO Q6H PRN #60 tab 09/16/16 [Rx] Follow up Appointment(s)/Referral(s): Arben Romero MD [Primary Care Provider] - 09/23/16 10:15 am Osvaldo Garcia MD [STAFF PHYSICIAN] - 09/24/16 9:45 am Discharge Disposition: HOME SELF-CARE
== END 2016-09-16 16:56 | disposition home or self-care (01) | DRG 190 ==
LOC: EC 01:32 → 3SUR 03:07 → OBSVTOIN 09-12 16:09
PROVIDERS: ADMIT Internal Medicine; ATTEND Internal Medicine
DX: J44.1 Chronic obstructive pulmonary disease with (acute) exacerbation (principal); J96.00 Acute respiratory failure, unspecified whether with hypoxia or hypercapnia; J67.9 Hypersensitivity pneumonitis due to unspecified organic dust; J45.51 Severe persistent asthma with (acute) exacerbation; E88.01 Alpha-1-antitrypsin deficiency; D75.1 Secondary polycythemia; J44.0 Chronic obstructive pulmonary disease with (acute) lower respiratory infection; F25.9 Schizoaffective disorder, unspecified; J20.9 Acute bronchitis, unspecified; R73.9 Hyperglycemia, unspecified; T38.0X5A Adverse effect of glucocorticoids and synthetic analogues, initial encounter; I10 Essential (primary) hypertension; F31.9 Bipolar disorder, unspecified; Z87.11 Personal history of peptic ulcer disease; F17.200 Nicotine dependence, unspecified, uncomplicated; G43.909 Migraine, unspecified, not intractable, without status migrainosus; F40.240 Claustrophobia; F41.1 Generalized anxiety disorder; M19.90 Unspecified osteoarthritis, unspecified site; F43.10 Post-traumatic stress disorder, unspecified; G47.00 Insomnia, unspecified; K21.9 Gastro-esophageal reflux disease without esophagitis; K43.9 Ventral hernia without obstruction or gangrene; Z59.8 Other problems related to housing and economic circumstances; Z90.49 Acquired absence of other specified parts of digestive tract; Z79.52 Long term (current) use of systemic steroids; Z79.899 Other long term (current) drug therapy; Z82.5 Family history of asthma and other chronic lower respiratory diseases
CPT/HCPCS: 36415; 70450; 71020; 71250; 80053; 81001; 82150; 82550; 82553; 83036; 83690; 83735; 83880; 84484; 85025; 85610; 85730; 87040; 87077; 87086; 87186; 87502; 93005; 94640; 94667; 94760; 96361; 96365; 96372; 96375; 96376; 99285

== ENCOUNTER 2018-05-05 22:57 | Inpatient (IN) | payer MEDICARE, OTHER ==
[2018-05-05] MEDS ORDERED: ASPIRIN 81 MG PO STA (23:00)
[2018-05-05] MEDS ORDERED: NITROGLYCERIN OINT 1 INCH/GM PACKET TOPICAL STA (23:00)
[2018-05-05] MEDS ORDERED: SODIUM CHLORIDE 0.9% 1,000 ML IV STA (23:14)
[2018-05-05] MEDS ORDERED: NITROGLYCERIN SL TABS 0.4 MG TAB SUBLINGUAL STA ×3 (23:14)
--- NOTE | 2018-05-05 23:19 | ED ---
General Adult HPI - General Chief complaint: Chest Pain Stated complaint: chest pain Time Seen by Provider: 05/05/18 22:58 Source: patient, EMS, RN notes reviewed Mode of arrival: EMS Limitations: no limitations - History of Present Illness Initial comments: Patient is a pleasant 47-year-old female presenting to the emergency Department with chest discomfort. Onset of symptoms was today. Patient has not been feeling well the past couple of days. Today patient is more fatigued. Patient has discomfort in her chest that does radiate somewhat towards the back. Patient has associated headache. No history of previous chest discomfort. Patient does have known hypertension. Patient states she typically does have very high blood pressure and although her blood pressure is high now it has been this high in the past. Patient has a little bit sweaty today. No vomiting. No dyspnea. - Related Data Allergies Allergy/AdvReac Type Severity Reaction Status Date / Time codeine AdvReac Severe Nausea & Verified 05/05/18 23:22 Vomiting acetaminophen [From Vicodin] AdvReac Nausea & Verified 05/05/18 23:22 Vomiting divalproex sodium AdvReac Alopecia Verified 05/05/18 23:22 [From Depakote] hydrocodone [From Vicodin] AdvReac Nausea & Verified 05/05/18 23:22 Vomiting Review of Systems ROS Statement: Those systems with pertinent positive or pertinent negative responses have been documented in the HPI. ROS Other: All systems not noted in ROS Statement are negative. Constitutional: Denies: fever Eyes: Denies: eye pain ENT: Denies: ear pain Respiratory: Denies: dyspnea Cardiovascular: Reports: chest pain Endocrine: Reports: fatigue Gastrointestinal: Denies: abdominal pain Genitourinary: Denies: dysuria Musculoskeletal: Denies: arthralgia Skin: Denies: rash Neurological: Denies: weakness Past Medical History Past Medical History: COPD, Hypertension, Osteoarthritis (OA) Additional Past Medical History / Comment(s): Gastric Ulcer History of Any Multi-Drug Resistant Organisms: MRSA Past Surgical History: Hernia Repair Additional Past Surgical History / Comment(s): Pancreatic pseudocyst removal; D& Cx2; EGD; Bunyonectomy bilateral Past Psychological History: Bipolar, Depression, PTSD Smoking Status: Current every day smoker Past Alcohol Use History: Rare Past Drug Use History: None Reported - Past Family History Mother Family Medical History: COPD Father Family Medical History: COPD Brother(s) Family Medical History: Deep Vein Thrombosis (DVT) General Exam Limitations: no limitations General appearance: alert, in no apparent distress Head exam: Present: atraumatic Eye exam: Present: normal appearance Neck exam: Present: normal inspection Respiratory exam: Present: normal lung sounds bilaterally. Absent: chest wall tenderness Cardiovascular Exam: Present: regular rate, normal rhythm Expanded Peripheral pulses: 2+: Radial (R), Radial (L), Dorsalis Pedis (R), Dorsalis Pedis (L) GI/Abdominal exam: Present: soft. Absent: tenderness Extremities exam: Present: normal inspection. Absent: pedal edema, calf tenderness Neurological exam: Present: alert. Absent: motor sensory deficit Psychiatric exam: Present: normal affect, normal mood Skin exam: Present: normal color Course Vital Signs 05/05/18 05/05/18 05/06/18 23:00 23:11 00:45 Temperature 96.9 F L Pulse Rate 86 72 79 Respiratory 18 16 16 Rate Blood Pressure 237/123 234/109 217/106 O2 Sat by Pulse 97 95 96 Oximetry 05/06/18 00:49 Temperature Pulse Rate 73 Respiratory 16 Rate Blood Pressure 208/103 O2 Sat by Pulse 93 L Oximetry EKG Findings - EKG Comments: EKG Findings:: Normal sinus rhythm 79. AL 156. QRS 116. QT 434. QTC 497. Right axis. Poor R-wave progression. No acute ST change. Medical Decision Making - Medical Decision Making Patient reevaluated and updated. Discomfort is somewhat improved. Blood pressure has somewhat improved. - Lab Data Result diagrams: 05/05/18 23:05 05/05/18 23:05 Lab Results 05/05/18 05/05/18 05/05/18 Range/Units 23:05 23:05 23:05 WBC 17.1 H (3.8-10.6) k/uL RBC 5.84 H (3.80-5.40) m/uL Hgb 17.8 H (11.4-16.0) gm/dL Hct 52.7 H (34.0-46.0) % MCV 90.3 (80.0-100.0) fL MCH 30.4 (25.0-35.0) pg MCHC 33.7 (31.0-37.0) g/dL RDW 14.4 (11.5-15.5) % Plt Count 275 (150-450) k/uL Neutrophils % 84 % Lymphocytes % 9 % Monocytes % 5 % Eosinophils % 1 % Basophils % 0 % Neutrophils # 14.5 H (1.3-7.7) k/uL Lymphocytes # 1.6 (1.0-4.8) k/uL Monocytes # 0.8 (0-1.0) k/uL Eosinophils # 0.1 (0-0.7) k/uL Basophils # 0.1 (0-0.2) k/uL PT (9.0-12.0) sec INR (<1.2) APTT (22.0-30.0) sec D-Dimer (<0.60) mg/L FEU Sodium 139 (137-145) mmol/L Potassium 3.6 (3.5-5.1) mmol/L Chloride 103 (98-107) mmol/L Carbon Dioxide 25 (22-30) mmol/L Anion Gap 11 mmol/L BUN 11 (7-17) mg/dL Creatinine 0.53 (0.52-1.04) mg/dL Est GFR (CKD-EPI)AfAm >90 (>60 ml/min/1.73 sqM) Est GFR (CKD-EPI)NonAf >90 (>60 ml/min/1.73 sqM) Glucose 170 H (74-99) mg/dL Calcium 9.3 (8.4-10.2) mg/dL Magnesium 1.5 L (1.6-2.3) mg/dL Total Bilirubin 1.0 (0.2-1.3) mg/dL AST 37 H (14-36) U/L ALT 37 (9-52) U/L Alkaline Phosphatase 94 (38-126) U/L Total Creatine Kinase 99 (30-135) U/L CK-MB (CK-2) 2.1 (0.0-2.4) ng/mL CK-MB (CK-2) Rel Index 2.1 Troponin I 0.021 (0.000-0.034) ng/mL Total Protein 7.4 (6.3-8.2) g/dL Albumin 4.2 (3.5-5.0) g/dL 05/05/18 Range/Units 23:05 WBC (3.8-10.6) k/uL RBC (3.80-5.40) m/uL Hgb (11.4-16.0) gm/dL Hct (34.0-46.0) % MCV (80.0-100.0) fL MCH (25.0-35.0) pg MCHC (31.0-37.0) g/dL RDW (11.5-15.5) % Plt Count (150-450) k/uL Neutrophils % % Lymphocytes % % Monocytes % % Eosinophils % % Basophils % % Neutrophils # (1.3-7.7) k/uL Lymphocytes # (1.0-4.8) k/uL Monocytes # (0-1.0) k/uL Eosinophils # (0-0.7) k/uL Basophils # (0-0.2) k/uL PT 11.1 (9.0-12.0) sec INR 1.2 H (<1.2) APTT 24.0 (22.0-30.0) sec D-Dimer 0.66 H (<0.60) mg/L FEU Sodium (137-145) mmol/L Potassium (3.5-5.1) mmol/L Chloride (98-107) mmol/L Carbon Dioxide (22-30) mmol/L Anion Gap mmol/L BUN (7-17) mg/dL Creatinine (0.52-1.04) mg/dL Est GFR (CKD-EPI)AfAm (>60 ml/min/1.73 sqM) Est GFR (CKD-EPI)NonAf (>60 ml/min/1.73 sqM) Glucose (74-99) mg/dL Calcium (8.4-10.2) mg/dL Magnesium (1.6-2.3) mg/dL Total Bilirubin (0.2-1.3) mg/dL AST (14-36) U/L ALT (9-52) U/L Alkaline Phosphatase (38-126) U/L Total Creatine Kinase (30-135) U/L CK-MB (CK-2) (0.0-2.4) ng/mL CK-MB (CK-2) Rel Index Troponin I (0.000-0.034) ng/mL Total Protein (6.3-8.2) g/dL Albumin (3.5-5.0) g/dL - Radiology Data Radiology results: report reviewed (Computed tomography scan shows splenic calcification. No evidence of aortic aneurysm or dissection. Cardiac megaly. Incarcerated upper abdominal ventral hernia unchanged since 2011.) Critical Care Time Critical Care Time: Yes Total Critical Care Time: 33 Disposition Clinical Impression: Unstable angina pectoris, Hypertensive urgency Disposition: ADMITTED IP TO THIS [facility] Condition: Serious Is patient prescribed a controlled substance at d/c from ED?: No Referrals: Arben Romero MD [REFERRING] - 1-2 days Decision Time: 01:12
[2018-05-05] MEDS ORDERED: MORPHINE SULFATE 4 MG/ML SYRINGE IV STA (23:43)
[2018-05-05 23:44] LABS: Basophils # (A) 0.1 k/uL (0-0.2); Basophils % (A) 0 %; Eosinophils # (A) 0.1 k/uL (0-0.7); Eosinophils % (A) 1 %; HCT 52.7 % (34.0-46.0); HGB 17.8 gm/dL (11.4-16.0); Lymphocytes # (A) 1.6 k/uL (1.0-4.8); Lymphocytes % (A) 9 %; MCH 30.4 pg (25.0-35.0); MCHC 33.7 g/dL (31.0-37.0); MCV 90.3 fL (80.0-100.0); Mean Platelet Volume 7.6; Monocytes # (A) 0.8 k/uL (0-1.0); Monocytes % (A) 5 %; Neutrophils # (A) 14.5 k/uL (1.3-7.7); Neutrophils % (A) 84 %; Platelet Count 275 k/uL (150-450); RBC 5.84 m/uL (3.80-5.40); RDW 14.4 % (11.5-15.5); WBC 17.1 k/uL (3.8-10.6)
[2018-05-05] MEDS ORDERED: ONDANSETRON 4 MG/2 ML VIAL IVP STA (23:52)
[2018-05-05 23:54] LABS: ALT 37 U/L (9-52); AST 37 U/L (14-36); Albumin 4.2 g/dL (3.5-5.0); Alkaline Phosphatase 94 U/L (38-126); Anion Gap 11 mmol/L; Blood Urea Nitrogen 11 mg/dL (7-17); Calcium 9.3 mg/dL (8.4-10.2); Carbon Dioxide 25 mmol/L (22-30); Chloride 103 mmol/L (98-107); Glucose 170 mg/dL (74-99); Magnesium 1.5 mg/dL (1.6-2.3); Potassium 3.6 mmol/L (3.5-5.1); Sodium 139 mmol/L (137-145); Total Protein 7.4 g/dL (6.3-8.2)
[2018-05-05 23:56] LABS: INR 1.2 (<1.2)
[2018-05-05 23:57] LABS: Prothrombin Time 11.1 sec (9.0-12.0)
[2018-05-06 00:19] LABS: Creatine Kinase MB 2.1 ng/mL (0.0-2.4); Troponin I 0.021 ng/mL (0.000-0.034)
[2018-05-06] MEDS ORDERED: MAGNESIUM OXIDE 400 MG TAB PO STA (00:32)
[2018-05-06 00:44] LABS: D-Dimer 0.66 mg/L FEU (<0.60)
--- NOTE | 2018-05-06 01:04 | CT ---
EXAMINATION TYPE: CT angio thor/abd pel aorta DATE OF EXAM: 05/06/2018 COMPARISON: None HISTORY: NO prior aorta study, chest and back pain, hypertension, evaluate aorta CT DLP: 1527.90 mGycm. Automated Exposure Control for Dose Reduction was Utilized. CONTRAST: CT scan of the thorax, abdomen and pelvis is performed with IV Contrast, patient injected with 100 mL of Isovue 370. Exam was performed without and with IV contrast. FINDINGS: The lungs are clear of infiltrate. There is no pleural effusion. Heart is enlarged. There are some co ronary artery calcification. There is no mediastinal adenopathy. Thoracic aorta is intact without rachel dence of aneurysm or dissection. I see no filling defects in the pulmonary arteries. There is patency of the celiac artery and superior mesenteric artery. There is bilateral patency of t he renal arteries. Abdominal aorta has normal size. There is patency of the common internal and exter nal iliac arteries. There is no retroperitoneal adenopathy. Kidneys have normal size and contour with out hydronephrosis. Liver and spleen appear intact. There is some calcification of the superior splee n. There is no evidence of pancreatic mass. There are surgical clips over the anterior mid abdomen. There is upper abdominal ventral hernia. IMPRESSION: Splenic calcification consistent with old infarct or hemorrhage. Negative CT angiogram of the chest a nd abdomen. No evidence of aneurysm or dissection. Cardiomegaly. There is incarcerated anterior upper abdominal ventral hernia that contains transverse colon without evidence of a bowel obstruction. This hernia appears unchanged compared to old CT scan of 02/13/2012.
[2018-05-06] MEDS ORDERED: HEPARIN SODIUM,PORCINE 5,000 UNIT/ML 1 ML VIAL IV ONE (01:12)
[2018-05-06] MEDS ORDERED: NITROGLYCERIN SL TABS 0.4 MG TAB SUBLINGUAL PRN (01:12)
[2018-05-06] MEDS ORDERED: METOPROLOL TARTRATE 50 MG TAB PO SCH (01:15)
[2018-05-06] MEDS ORDERED: ALPRAZolam 0.5 MG TAB PO STA (01:54)
[2018-05-06] MEDS ORDERED: diphenhydrAMINE 50 MG/ML 1 ML VIAL IVP STA (01:54)
[2018-05-06] MEDS ORDERED: METOCLOPRAMIDE 5 MG/ML 2 ML VIAL IVP STA (01:54)
[2018-05-06 02:19] LABS: Appearance,Urine Clear (Clear); Bacteria,Urine Rare /hpf; Bilirubin,Urine Negative (Negative); Blood,Urine Large (Negative); Color,Urine Yellow; Glucose,Urine (UA) 1+ (Negative); Hyaline Casts,Urine 15 /lpf (0-2); Ketones,Urine Negative (Negative); Leukocyte Esterase,Urine Negative (Negative); Mucus,Urine Rare /hpf; Nitrite,Urine Negative (Negative); Protein,Urine 3+ (Negative); RBC,Urine 36 /hpf (0-5); Squamous Epithelial Cell,Urine 3 /hpf (0-4); Urobilinogen,Urine <2.0 mg/dL (<2.0); WBC,Urine 17 /hpf (0-5)
[2018-05-06] MEDS: HEPARIN SOD,PORK IN 0.45% NACL 25,000 UNIT in 0.45% NACL 1 500ML.BAG IV SCH ×2 (02:20→20:40)
[2018-05-06 02:23] LABS: Specific Gravity,Urine >1.050 (1.001-1.035)
[2018-05-06 06:33] LABS: Mean Platelet Volume 7.1; Platelet Count 269 k/uL (150-450)
[2018-05-06 07:21] LABS: Troponin I 0.03 ng/mL (0.000-0.034)
[2018-05-06] MEDS: NITROGLYCERIN OINT 1 INCH/GM PACKET TOPICAL SCH ×4 (09:06→22:52)
[2018-05-06] MEDS ORDERED: HYDROcodone/APAP 5-325MG 1 EACH TAB PO PRN (09:13)
[2018-05-06] MEDS: HEPARIN SODIUM,PORCINE 5,000 UNIT/ML 1 ML VIAL IV PRN ×2 (09:19→17:36)
[2018-05-06] MEDS ORDERED: IBUPROFEN 400 MG TAB PO PRN (09:32)
[2018-05-06] MEDS: METOPROLOL SUCCINATE (ER) 50 MG TAB.ER.24H PO SCH (09:41)
[2018-05-06] MEDS: ONDANSETRON 4 MG/2 ML VIAL IVP PRN ×2 (09:41→20:16)
[2018-05-06] MEDS ORDERED: PNEUMOCOCCAL VACC-PNEUMOVAX 23 25 MCG/0.5 ML VIAL IM ONE (12:03)
[2018-05-06 12:32] LABS: Creatine Kinase MB 2.2 ng/mL (0.0-2.4); Troponin I 0.029 ng/mL (0.000-0.034)
[2018-05-06] MEDS ORDERED: traMADol 50 MG TAB PO STA (17:12)
--- NOTE | 2018-05-06 17:36 | P.HPIM ---
History of Present Illness H&P Date: 05/06/18 Chief Complaint: Chest pain The patient is a 47 yo F with PMH of HTN and COPD presented to the ED w/ complaints of epigastric pain, on-going since yesterday. The pain started suddenly though she endorsed not feeling well for the past several days. The pain is aching, non-radiating, 3/10, no alleviating or exacerbating factors, and constant. She otherwise denied associated SOB, nausea, vomiting, diaphoresis , or dizziness. She further denied fever, cough, chills, diarrhea, or constipation. The patient notes non-compliance with her antihypertensives. Review of Systems Pertinent positives and negatives as discussed in HPI, a complete review of systems was performed and all other systems are negative. Past Medical History Past Medical History: Chest Pain / Angina, COPD, Fibromyalgia, Hypertension, Osteoarthritis (OA), Pneumonia Additional Past Medical History / Comment(s): Malignant hypertension, respiratory failure, bronchitis, pleurisy, cardiomegaly, occasional pedal edema with R foot worse, duodenal ulcer, bile duct stone with surgery to remove, pancreatic pseudocyst, pancreatitis, occipital neuralgia, chronic back pain, DDD , migraines, abdominal hernia with surgery but pt states "it is coming back", PCOS, bilateral tinnitis, bilateral cataracts. Pt has elevated blood sugars, insomnia and increased anxiety with steroid use. History of Any Multi-Drug Resistant Organisms: C-DIFF Date of last positivie culture/infection: 2007? MDRO Source:: stool Past Surgical History: Cholecystectomy, Hernia Repair, Orthopedic Surgery Additional Past Surgical History / Comment(s): Pancreatic pseudocyst removal; D& Cx2; EGD/ERCP, bilateral feet bunionectomies, abdominal hernia repairs/mesh. Past Anesthesia/Blood Transfusion Reactions: No Reported Reaction Additional Past Anesthesia/Blood Transfusion Reaction / Comment(s): Pt has received blood in past without reaction. Smoking Status: Current every day smoker - Past Family History Mother Family Medical History: COPD Additional Family Medical History / Comment(s): Mother from COPD at the age of 49 yrs. Father Family Medical History: COPD Brother(s) Family Medical History: Deep Vein Thrombosis (DVT) Medications and Allergies Home Medications Medication Instructions Recorded Confirmed Type Lisinopril 40 mg PO DAILY 05/06/18 05/06/18 History NIFEdipine XL [Procardia Xl] 30 mg PO DAILY 05/06/18 05/06/18 History hydrALAZINE HCL [Apresoline] 100 mg PO TID 05/06/18 05/06/18 History Allergies Allergy/AdvReac Type Severity Reaction Status Date / Time codeine AdvReac Severe Nausea & Verified 05/05/18 23:22 Vomiting acetaminophen [From Vicodin] AdvReac Nausea & Verified 05/05/18 23:22 Vomiting divalproex sodium AdvReac Alopecia Verified 05/05/18 23:22 [From Depakote] hydrocodone [From Vicodin] AdvReac Nausea & Verified 05/05/18 23:22 Vomiting Physical Exam Vitals: Vital Signs Temp Pulse Resp BP Pulse Ox 05/06/18 13:52 98.1 F 64 18 189/91 96 05/06/18 09:00 97.2 F L 57 L 16 151/93 95 05/06/18 04:25 60 18 176/96 97 05/06/18 04:00 51 L 18 155/83 100 05/06/18 03:00 53 L 16 148/79 99 05/06/18 02:30 58 L 16 186/100 95 05/06/18 00:49 73 16 208/103 93 L 05/06/18 00:45 79 16 217/106 96 05/05/18 23:11 72 16 234/109 95 05/05/18 23:00 96.9 F L 86 18 237/123 97 Intake and Output 05/06/18 05/06/18 05/06/18 06:59 14:59 22:59 Intake Total 139 Balance 139 Intake: Intake, IV Titration 139 Amount Heparin Sod,Pork in 0.45% 139 NaCl 25,000 unit In 0.45 % NaCl 1 500ml.bag @ 20 mls/hr IV .Q24H [facility] Rx#: [id number] Other: Weight 100.698 kg General: [non toxic], [no distress], [appears at stated age], [normal weight] Derm: [no unusual rashes/lesions] [no unusual ecchymoses], [warm], [dry] Head: [atraumatic], [normocephalic], [symmetric] Eyes: [EOMI], [no lid lag], [anicteric sclera], [pupils equal round reactive to light] ENT: [Nose and ears atraumatic], [no thrush], [no pharyngeal erythema] Neck: [No thyromegaly], [no cervical lymphadenopathy], [trachea midline], [ supple] Mouth: [no lip lesion], [mucus membranes moist] Cardiovascular: [S1S2 reg], [no murmur], [positive posterior tibial pulse bilateral], [no edema], [capillary refill less than 2 seconds] Lungs: [CTA bilateral], [no rhonchi, no rales] , [no accessory muscle use] Abdominal: [soft], [nontender to palpation], [no guarding], [no appreciable organomegaly], [normal bowel sounds], well-healed surgical scars noted Ext: [no gross muscle atrophy], [muscle strength 5 out of 5 in all 4 extremities grossly], [no contractures], Neuro: [ CN II-XI grossly intact], [light touch intact all 4 extremities], [ finger to nose within normal limits], Psych: [Alert], [oriented], [appropriate affect] Results CBC & Chem 7: 05/06/18 06:17 05/05/18 23:05 Labs: Abnormal Lab Results - Last 24 Hours (Table) 05/05/18 05/05/18 05/05/18 Range/Units 23:05 23:05 23:05 WBC 17.1 H (3.8-10.6) k/uL RBC 5.84 H (3.80-5.40) m/uL Hgb 17.8 H (11.4-16.0) gm/dL Hct 52.7 H (34.0-46.0) % Neutrophils # 14.5 H (1.3-7.7) k/uL INR 1.2 H (<1.2) APTT (22.0-30.0) sec D-Dimer 0.66 H (<0.60) mg/L FEU Glucose 170 H (74-99) mg/dL Magnesium 1.5 L (1.6-2.3) mg/dL AST 37 H (14-36) U/L Ur Specific [place] (1.001-1.035) Urine Protein (Negative) Urine Glucose (UA) (Negative) Urine Blood (Negative) Urine RBC (0-5) /hpf Urine WBC (0-5) /hpf Urine Bacteria (None) /hpf Hyaline Casts (0-2) /lpf Urine Mucus (None) /hpf 05/06/18 05/06/18 Range/Units 01:53 06:17 WBC (3.8-10.6) k/uL RBC (3.80-5.40) m/uL Hgb (11.4-16.0) gm/dL Hct (34.0-46.0) % Neutrophils # (1.3-7.7) k/uL INR (<1.2) APTT 31.9 H (22.0-30.0) sec D-Dimer (<0.60) mg/L FEU Glucose (74-99) mg/dL Magnesium (1.6-2.3) mg/dL AST (14-36) U/L Ur Specific [place] >1.050 H (1.001-1.035) Urine Protein 3+ H (Negative) Urine Glucose (UA) 1+ H (Negative) Urine Blood Large H (Negative) Urine RBC 36 H (0-5) /hpf Urine WBC 17 H (0-5) /hpf Urine Bacteria Rare H (None) /hpf Hyaline Casts 15 H (0-2) /lpf Urine Mucus Rare H (None) /hpf Thrombosis Risk Factor Assmnt - Choose All That Apply Any of the Below Risk Factors Present?: Yes Each Factor Represents 1 point: Abnormal pulmonary function (COPD), Age 41-60 years, Obesity (BMI >25) Other Risk Factors: No Other congenital or acquired thrombophilia - If yes, enter type in comment: No Thrombosis Risk Factor Assessment Total Risk Factor Score: 3 Thrombosis Risk Factor Assessment Level: Moderate Risk Assessment and Plan Plan: Chest pain, r/o ACS (Unstable angina) - Cardiology consulted - Echocardiogram pending - C/w Heparin infusion, Aspirin, Sublingual Nitroglycerin - Telemetry monitoring HTN, uncontrolled - Will resume home meds: Hydralazine 100 mg TID, Nifedipine 30 mg po qd, Lisinopril 40 mg qd Abnormal UA - Pt denying any urinary complaints - Will monitor Leukocytosis - Will monitor for now. Hyperglycemia - Check A1C DVT//GI prophylaxis - Heparin infusion - No indication for GI prophylaxis The patient is placed in observation with an anticipated less than 2 per night stay for evaluation of chest pain CODE STATUS:Full code Discussed with: Patient Anticipated discharge date: 05/07/[address]: Home A total of 45 minutes was spent on the care of this complex patient more than 50 % of the time was spent in counseling and care coordination.
[2018-05-06] MEDS: hydrALAZINE HCL 50 MG TAB PO SCH (19:55)
[2018-05-06] MEDS: NIFEdipine XL 30 MG TAB.ER.24 PO SCH (20:11)
[2018-05-06] MEDS: MORPHINE SULFATE 2 MG/ML SYRINGE IVP PRN ×2 (20:11→23:55)
[2018-05-06] MEDS: ALPRAZolam 0.25 MG TAB PO PRN (20:52)
[2018-05-07] MEDS: ONDANSETRON 4 MG/2 ML VIAL IVP PRN (02:54)
[2018-05-07] MEDS: MORPHINE SULFATE 2 MG/ML SYRINGE IVP PRN ×3 (04:57→13:01)
[2018-05-07] MEDS: NITROGLYCERIN OINT 1 INCH/GM PACKET TOPICAL SCH (06:17)
[2018-05-07 06:58] LABS: HCT 47.9 % (34.0-46.0); HGB 15.9 gm/dL (11.4-16.0); MCH 30.5 pg (25.0-35.0); MCHC 33.3 g/dL (31.0-37.0); MCV 91.4 fL (80.0-100.0); Mean Platelet Volume 7.4; Platelet Count 223 k/uL (150-450); RBC 5.23 m/uL (3.80-5.40); RDW 14.7 % (11.5-15.5); WBC 11.6 k/uL (3.8-10.6)
[2018-05-07 07:31] LABS: ALT 27 U/L (9-52); AST 24 U/L (14-36); Albumin 3.6 g/dL (3.5-5.0); Alkaline Phosphatase 91 U/L (38-126); Anion Gap 7 mmol/L; Blood Urea Nitrogen 30 mg/dL (7-17); Calcium 9.3 mg/dL (8.4-10.2); Carbon Dioxide 29 mmol/L (22-30); Chloride 104 mmol/L (98-107); Cholesterol 178 mg/dL (<200); Glucose 143 mg/dL (74-99); HDL Cholesterol 59 mg/dL (40-60); LDL Cholesterol,Calculated 64 mg/dL (0-99); Potassium 3.8 mmol/L (3.5-5.1); Sodium 140 mmol/L (137-145); Total Bilirubin 0.6 mg/dL (0.2-1.3); Total Protein 6.6 g/dL (6.3-8.2); Triglycerides 277 mg/dL (<150)
[2018-05-07 08:18] VITALS: RESP 16; TEMP 97.4
[2018-05-07] MEDS ORDERED: LISINOPRIL 20 MG TAB PO SCH (09:00)
[2018-05-07] MEDS ORDERED: ASPIRIN 325 MG TAB PO SCH (09:00)
--- NOTE | 2018-05-07 10:07 | P.CRDCN ---
<MedhatbrysonRocael - Last Filed: 05/07/18 10:07> Past Medical History Past Medical History: Chest Pain / Angina, COPD, Fibromyalgia, Hypertension, Osteoarthritis (OA), Pneumonia Additional Past Medical History / Comment(s): Malignant hypertension, respiratory failure, bronchitis, pleurisy, cardiomegaly, occasional pedal edema with R foot worse, duodenal ulcer, bile duct stone with surgery to remove, pancreatic pseudocyst, pancreatitis, occipital neuralgia, chronic back pain, DDD , migraines, abdominal hernia with surgery but pt states "it is coming back", PCOS, bilateral tinnitis, bilateral cataracts. Pt has elevated blood sugars, insomnia and increased anxiety with steroid use. History of Any Multi-Drug Resistant Organisms: C-DIFF Date of last positivie culture/infection: 2007? MDRO Source:: stool Past Surgical History: Cholecystectomy, Hernia Repair, Orthopedic Surgery Additional Past Surgical History / Comment(s): Pancreatic pseudocyst removal; D& Cx2; EGD/ERCP, bilateral feet bunionectomies, abdominal hernia repairs/mesh. Past Anesthesia/Blood Transfusion Reactions: No Reported Reaction Additional Past Anesthesia/Blood Transfusion Reaction / Comment(s): Pt has received blood in past without reaction. Smoking Status: Current every day smoker - Past Family History Mother Family Medical History: COPD Additional Family Medical History / Comment(s): Mother from COPD at the age of 49 yrs. Father Family Medical History: COPD Brother(s) Family Medical History: Deep Vein Thrombosis (DVT) Medications and Allergies Home Medications Medication Instructions Recorded Confirmed Type Lisinopril 40 mg PO DAILY 05/06/18 05/06/18 History NIFEdipine XL [Procardia Xl] 30 mg PO DAILY 05/06/18 05/06/18 History hydrALAZINE HCL [Apresoline] 100 mg PO TID 05/06/18 05/06/18 History Allergies Allergy/AdvReac Type Severity Reaction Status Date / Time codeine AdvReac Severe Nausea & Verified 05/05/18 23:22 Vomiting acetaminophen [From Vicodin] AdvReac Nausea & Verified 05/05/18 23:22 Vomiting divalproex sodium AdvReac Alopecia Verified 05/05/18 23:22 [From Depakote] hydrocodone [From Vicodin] AdvReac Nausea & Verified 05/05/18 23:22 Vomiting Physical Exam Vitals: Vital Signs Temp Pulse Pulse Resp BP BP Pulse Ox 05/07/18 08:10 97.4 F L 58 L 16 137/91 95 05/07/18 03:10 66 18 05/07/18 03:08 97.0 F L 66 18 165/107 97 05/07/18 00:00 97.0 F L 72 18 160/105 94 L 05/06/18 21:33 190/107 05/06/18 20:45 178/111 05/06/18 20:00 97.3 F L 73 18 199/102 97 05/06/18 18:35 98.7 F 67 18 180/93 95 05/06/18 17:27 66 18 161/78 95 05/06/18 13:52 98.1 F 64 18 189/91 96 Intake and Output 05/06/18 05/07/18 05/07/18 22:59 06:59 14:59 Intake Total 465.401 Balance 465.401 Intake: IV 160 0.9 160 Intake, IV Titration 305.401 Amount Heparin Sod,Pork in 0.45% 305.401 NaCl 25,000 unit In 0.45 % NaCl 1 500ml.bag @ 20 mls/hr IV .Q24H [facility] Rx#: [id number] Other: Voiding Method Toilet Toilet Toilet # Voids 1 1 Weight 104.5 kg Results 05/07/18 06:31 05/07/18 06:31 Cardiac Enzymes 05/06/18 05/07/18 Range/Units 11:24 06:31 AST 24 (14-36) U/L CK-MB (CK-2) 2.2 (0.0-2.4) ng/mL Troponin I 0.029 (0.000-0.034) ng/mL Coagulation 05/06/18 05/06/18 05/07/18 Range/Units 16:56 22:26 06:31 APTT 37.8 H 61.1 H 52.7 H (22.0-30.0) sec Lipids 05/07/18 Range/Units 06:31 Triglycerides 277 H (<150) mg/dL Cholesterol 178 (<200) mg/dL HDL Cholesterol 59 (40-60) mg/dL CBC 05/07/18 Range/Units 06:31 WBC 11.6 H (3.8-10.6) k/uL RBC 5.23 (3.80-5.40) m/uL Hgb 15.9 (11.4-16.0) gm/dL Hct 47.9 H (34.0-46.0) % Plt Count 223 (150-450) k/uL Comprehensive Metabolic Panel 05/07/18 Range/Units 06:31 Sodium 140 (137-145) mmol/L Potassium 3.8 (3.5-5.1) mmol/L Chloride 104 (98-107) mmol/L Carbon Dioxide 29 (22-30) mmol/L BUN 30 H (7-17) mg/dL Creatinine 0.85 (0.52-1.04) mg/dL Glucose 143 H (74-99) mg/dL Calcium 9.3 (8.4-10.2) mg/dL AST 24 (14-36) U/L ALT 27 (9-52) U/L Alkaline Phosphatase 91 (38-126) U/L Total Protein 6.6 (6.3-8.2) g/dL Albumin 3.6 (3.5-5.0) g/dL Current Medications Generic Name Dose Route Start Last Admin Trade Name Freq PRN Reason Stop Dose Admin Alprazolam 0.25 mg 05/06/18 20:07 05/06/18 20:52 Xanax PO 0.25 mg TID PRN Administration Agitation or Acute Anxiety Aspirin 325 mg 05/07/18 09:00 Aspirin PO DAILY [facility] Heparin Sodium (Porcine) 0 unit 05/06/18 01:12 05/06/18 17:36 Heparin IV 5,000 unit Q6HR PRN Administration Low PTT Protocol Hydralazine HCl 100 mg 05/06/18 22:00 05/06/18 19:55 Apresoline PO 100 mg TID [facility] Administration Heparin Sodium/Sodium Chloride 500 mls @ 20 mls/hr 05/06/18 01:15 05/06/18 20 :40 25,000 unit/ Sodium Chloride IV 14.39 units/kg/hr .Q24H ANDREW 29 mls/hr Administration Protocol Ibuprofen 400 mg 05/06/18 09:32 05/06/18 09:45 Motrin PO 400 mg TID PRN Administration Pain Lisinopril 40 mg 05/07/18 09:00 Zestril PO DAILY [facility] Metoprolol Succinate 50 mg 05/06/18 09:00 05/06/18 09:41 Toprol Xl PO 50 mg DAILY ANDREW Administration Morphine Sulfate 2 mg 05/06/18 20:07 05/07/18 09:01 Morphine Sulfate (Inj) IVP 2 mg Q4H PRN Administration Pain/Discomfort Nifedipine 30 mg 05/06/18 17:45 05/06/18 20:11 Procardia Xl PO 30 mg DAILY [facility] Administration Nitroglycerin 1 inch 05/06/18 06:00 05/07/18 06:17 Nitro-Bid Oint TOPICAL Not Given Q6HR [facility] Nitroglycerin 0.4 mg 05/06/18 01:12 Nitrostat SUBLINGUAL Q5M PRN Chest Pain Ondansetron HCl 4 mg 05/06/18 09:13 05/07/18 02:54 Zofran IVP 4 mg Q6H PRN Administration Nausea Intake and Output 05/06/18 05/07/18 05/07/18 22:59 06:59 14:59 Intake Total 465.401 Balance 465.401 Intake: IV 160 0.9 160 Intake, IV Titration 305.401 Amount Heparin Sod,Pork in 0.45% 305.401 NaCl 25,000 unit In 0.45 % NaCl 1 500ml.bag @ 20 mls/hr IV .Q24H [facility] Rx#: [id number] Other: Voiding Method Toilet Toilet Toilet # Voids 1 1 Weight 104.5 kg 05/07/18 06:31 05/07/18 06:31 <Magaly Cowart E - Last Filed: 05/07/18 12:09> History of Present Illness Consult date: 05/07/18 Requesting physician: Bell Lubin Consult reason: chest pain, hypertension Chief complaint: Chest pain and back pain History of present illness: This is a 47-year-old female with known history of hypertension, COPD , chronic back pain, fibromyalgia, obesity, history of bipolar disorder and depression, nicotine dependence, who presented to the hospital with symptoms of severe chest pain and back pain. Patient describes her pain as being in the epigastric area, she states that it comes and goes, does not radiate anywhere else. She denied any associated shortness of breath, nausea or vomiting, no sweating. EKG shows normal sinus rhythm with no acute changes. CAT scan of the thoracic aorta was performed which did not reveal any evidence of aneurysm or dissection. I pressure on arrival to 37/123, heart rate in the 80s, 97% on room air. Blood pressure this morning 144/90, heart rate in the 60s, 96% on room air. White blood cell count on admission 17.1, 11.6 this morning, hemoglobin 17.8 on admission, 15.9 this morning. Platelet count 223. D-dimer 0.6, sodium 140, potassium 3.8, BUN 30, creatinine 0.8. NEC and level I.5, troponins 0.021, 0.030, 0.029. At the time of my examination this morning her main complaint is that of back discomfort, patient is also complaining of swelling which seems to have just developed from this morning according to her in her right lower extremity. Physical Exam Vitals: Vital Signs Temp Pulse Pulse Resp BP BP Pulse Ox 05/07/18 11:35 57 L 16 146/95 96 05/07/18 08:10 97.4 F L 58 L 16 137/91 95 05/07/18 03:10 66 18 05/07/18 03:08 97.0 F L 66 18 165/107 97 05/07/18 00:00 97.0 F L 72 18 160/105 94 L 05/06/18 21:33 190/107 05/06/18 20:45 178/111 05/06/18 20:00 97.3 F L 73 18 199/102 97 05/06/18 18:35 98.7 F 67 18 180/93 95 05/06/18 17:27 66 18 161/78 95 05/06/18 13:52 98.1 F 64 18 189/91 96 Intake and Output 05/06/18 05/07/18 05/07/18 22:59 06:59 14:59 Intake Total 465.401 Balance 465.401 Intake: IV 160 0.9 160 Intake, IV Titration 305.401 Amount Heparin Sod,Pork in 0.45% 305.401 NaCl 25,000 unit In 0.45 % NaCl 1 500ml.bag @ 20 mls/hr IV .Q24H [facility] Rx#: [id number] Other: Voiding Method Toilet Toilet Toilet # Voids 1 1 Weight 104.5 kg PHYSICAL EXAMINATION: GENERAL: Thia ia 47-year-old female in no acute distress at the time of my examination HEENT: Head is atraumatic, normocephalic. Pupils equal, round. Sclera anicteric. Conjunctiva are clear. Mucous membranes of the mouth are moist. Neck is supple. There is no elevated jugular venous pressure. No carotid bruit is heard. HEART EXAMINATION: Heart S1, S2 normal. No murmur or gallop heard. CHEST EXAMINATION: Lungs are clear to auscultation and precussion. No chest wall tenderness is noted on palpation or with deep breathing. ABDOMEN: Soft, obese, nontender. Bowel sounds are heard. No organomegaly noted. EXTREMITIES: 2+ peripheral pulses with evidence of 2+ peripheral edema to the right lower extremity, trace to the left lower extremity NEUROLOGIC [patient is awake, alert and orIented X3 . Results 05/07/18 06:31 05/07/18 06:31 Cardiac Enzymes 05/06/18 05/07/18 Range/Units 11:24 06:31 AST 24 (14-36) U/L CK-MB (CK-2) 2.2 (0.0-2.4) ng/mL Troponin I 0.029 (0.000-0.034) ng/mL Coagulation 05/06/18 05/06/18 05/07/18 Range/Units 16:56 22:26 06:31 APTT 37.8 H 61.1 H 52.7 H (22.0-30.0) sec Lipids 05/07/18 Range/Units 06:31 Triglycerides 277 H (<150) mg/dL Cholesterol 178 (<200) mg/dL HDL Cholesterol 59 (40-60) mg/dL CBC 05/07/18 Range/Units 06:31 WBC 11.6 H (3.8-10.6) k/uL RBC 5.23 (3.80-5.40) m/uL Hgb 15.9 (11.4-16.0) gm/dL Hct 47.9 H (34.0-46.0) % Plt Count 223 (150-450) k/uL Comprehensive Metabolic Panel 05/07/18 Range/Units 06:31 Sodium 140 (137-145) mmol/L Potassium 3.8 (3.5-5.1) mmol/L Chloride 104 (98-107) mmol/L Carbon Dioxide 29 (22-30) mmol/L BUN 30 H (7-17) mg/dL Creatinine 0.85 (0.52-1.04) mg/dL Glucose 143 H (74-99) mg/dL Calcium 9.3 (8.4-10.2) mg/dL AST 24 (14-36) U/L ALT 27 (9-52) U/L Alkaline Phosphatase 91 (38-126) U/L Total Protein 6.6 (6.3-8.2) g/dL Albumin 3.6 (3.5-5.0) g/dL Current Medications Generic Name Dose Route Start Last Admin Trade Name Freq PRN Reason Stop Dose Admin Alprazolam 0.25 mg 05/06/18 20:07 05/07/18 10:13 Xanax PO 0.25 mg TID PRN Administration Agitation or Acute Anxiety Heparin Sodium (Porcine) 0 unit 05/06/18 01:12 05/06/18 17:36 Heparin IV 5,000 unit Q6HR PRN Administration Low PTT Protocol Hydralazine HCl 50 mg 05/07/18 16:00 Apresoline PO TID [facility] Heparin Sodium/Sodium Chloride 500 mls @ 20 mls/hr 05/06/18 01:15 05/06/18 20 :40 25,000 unit/ Sodium Chloride IV 14.39 units/kg/hr .Q24H ANDREW 29 mls/hr Administration Protocol Ibuprofen 400 mg 05/06/18 09:32 05/06/18 09:45 Motrin PO 400 mg TID PRN Administration Pain Labetalol HCl 200 mg 05/07/18 11:00 05/07/18 11:41 Trandate PO 200 mg BID ANDREW Administration Lisinopril 40 mg 05/07/18 09:00 05/07/18 10:10 Zestril PO 40 mg DAILY ANDREW Administration Morphine Sulfate 2 mg 05/06/18 20:07 05/07/18 09:01 Morphine Sulfate (Inj) IVP 2 mg Q4H PRN Administration Pain/Discomfort Nifedipine 60 mg 05/08/18 09:00 Procardia Xl PO DAILY [facility] Nitroglycerin 0.4 mg 05/06/18 01:12 Nitrostat SUBLINGUAL Q5M PRN Chest Pain Ondansetron HCl 4 mg 05/06/18 09:13 05/07/18 02:54 Zofran IVP 4 mg Q6H PRN Administration Nausea Intake and Output 05/06/18 05/07/18 05/07/18 22:59 06:59 14:59 Intake Total 465.401 Balance 465.401 Intake: IV 160 0.9 160 Intake, IV Titration 305.401 Amount Heparin Sod,Pork in 0.45% 305.401 NaCl 25,000 unit In 0.45 % NaCl 1 500ml.bag @ 20 mls/hr IV .Q24H [facility] Rx#: [id number] Other: Voiding Method Toilet Toilet Toilet # Voids 1 1 Weight 104.5 kg 05/07/18 06:31 05/07/18 06:31 EKG Interpretations (text) EKG shows a normal sinus rhythm with nonspecific ST-T wave changes. Assessment and Plan Plan: Assessment and plan #1 accelerated hypertension #2 chest pain, atypical for acute coronary syndrome. EKG shows normal sinus rhythm with nonspecific ST-T wave changes. Troponins 0.021, 0.030, 0.029. D- dimer 0.66 #3 COPD #4 obesity #5 nicotine dependence #6 hypomagnesemia #7 right leg swelling Plan We will obtain an echocardiogram with Doppler study. Decrease hydralazine to 50 mg one tablet by mouth 3 times a day, add labetalol 200 mg twice a day to the medication regime. Continue lisinopril 40 mg daily, increase nifedipine to 60 mg daily, discontinue aspirin. We will continue the IV heparin, if venous duplex is negative for DVT we will discontinue the heparin. We need to optimize patient's blood pressure medication, as an outpatient she can undergo stress testing once her blood pressure is stable. DNP note has been reviewed, I agree with a documented findings and plan of care. Patient was seen and examined.
[2018-05-07] MEDS: hydrALAZINE HCL 50 MG TAB PO SCH (10:10)
[2018-05-07] MEDS: NIFEdipine XL 30 MG TAB.ER.24 PO SCH (10:10)
[2018-05-07] MEDS: METOPROLOL SUCCINATE (ER) 50 MG TAB.ER.24H PO SCH (10:10)
[2018-05-07] MEDS: ALPRAZolam 0.25 MG TAB PO PRN (10:13)
[2018-05-07] MEDS ORDERED: LABETALOL 200 MG TAB PO SCH (11:00)
[2018-05-07 11:40] VITALS: BP 146/95; PULSE 57
--- NOTE | 2018-05-07 12:08 | P.PN ---
Subjective Patient interviewed and examined. Her main issues at this time include uncontrolled hypertension Noncompliance with medical treatment Not seen a physician regularly Left lower extremity edema Chest discomfort that was not relieved with nitroglycerin with normal cardiac enzymes Abnormal d-dimer Morbid obesity Elevated triglycerides HDL 64 elevated glucose normal kidney function normal electrolytes, elevated white count Suggest Stop aspirin until blood pressure is well controlled Continue heparin until the medical team evaluates and excludes venous thrombosis /thromboembolism since her d-dimer is elevated and right lower extremities more edematous than the left For management of hypertension Procardia XL 60 mg by mouth daily Labetalol 200 mg twice daily Lisinopril 40 g by mouth daily Metoprolol is being discontinued Hydralazine is being tapered downwards This lady has a long-standing history of noncompliance and says she cannot afford her medications. The best approach would be to use medications that are the least expensive, most effective and in minimum numbers so that her co-pay is as low as possible. This was discussed with her Please see full dictation minus practitioner Objective - Vital Signs Vital signs: Vital Signs Temp 97.4 F L 05/07/18 08:10 Pulse 57 L 05/07/18 11:35 Resp 16 05/07/18 11:35 BP 146/95 05/07/18 11:35 Pulse Ox 96 05/07/18 11:35 Intake & Output 05/06/18 05/07/18 05/07/18 18:59 06:59 18:59 Intake Total 356.434 247.967 Balance 356.434 247.967 Weight 104.5 kg Intake: IV 160 0.9 160 Intake, IV Titration 356.434 87.967 Amount Heparin Sod,Pork in 0.45% 356.434 87.967 NaCl 25,000 unit In 0.45 % NaCl 1 500ml.bag @ 20 mls/hr IV .Q24H [facility] Rx#: [id number] Other: Voiding Method Toilet Toilet # Voids 1 - Labs CBC & Chem 7: 05/07/18 06:31 05/07/18 06:31 Labs: Abnormal Lab Results - Last 24 Hours (Table) 05/06/18 05/06/18 05/07/18 Range/Units 16:56 22:26 06:31 WBC 11.6 H (3.8-10.6) k/uL Hct 47.9 H (34.0-46.0) % APTT 37.8 H 61.1 H (22.0-30.0) sec BUN (7-17) mg/dL Glucose (74-99) mg/dL Triglycerides (<150) mg/dL 05/07/18 05/07/18 Range/Units 06:31 06:31 WBC (3.8-10.6) k/uL Hct (34.0-46.0) % APTT 52.7 H (22.0-30.0) sec BUN 30 H (7-17) mg/dL Glucose 143 H (74-99) mg/dL Triglycerides 277 H (<150) mg/dL
--- NOTE | 2018-05-07 12:49 | US ---
EXAMINATION TYPE: US venous doppler duplex LE RT DATE OF EXAM: 05/07/2018 12:38 PM COMPARISON: NONE CLINICAL HISTORY: RLE edema. Right leg swelling/ No known prior DVT SIDE PERFORMED: Right TECHNIQUE: The lower extremity deep venous system is examined utilizing real time linear array sonog jocelyn with graded compression, doppler sonography and color-flow sonography. VESSELS IMAGED: External Iliac Vein (EIV) Common Femoral Vein Deep Femoral Vein Greater Saphenous Vein * Femoral Vein Popliteal Vein Small Saphenous Vein * Proximal Calf Veins (* superficial vessels) Right Leg: Negative for DVT IMPRESSION: No evidence for DVT at this time.
[2018-05-07 13:01] LABS: Hemoglobin A1C 6.3 % (4.0-6.0)
--- NOTE | 2018-05-07 13:13 | ECHOF ---
Referral Reason:chest pain, htn MEASUREMENTS -------- HEIGHT: 157.5 cm WEIGHT: 104.3 kg BP: RVIDd: 3.5 cm (< 3.3) IVSd: 1.7 cm (0.6 - 1.1) LVIDd: 5.1 cm (3.9 - 5.3) LVPWd: 1.8 cm (0.6 - 1.1) IVSs: 1.8 cm LVIDs: 4.1 cm LVPWs: 2.1 cm LA Diam: 4.5 cm (2.7 - 3.8) LAESV Index (A-L): 47.91 ml/m Ao Diam: 2.8 cm (2.0 - 3.7) AV Cusp: 1.3 cm (1.5 - 2.6) LA Diam: 4.5 cm (2.7 - 3.8) MV EXCURSION: 16.659 mm (> 18.000) MV EF SLOPE: 75 mm/s (70 - 150) EPSS: 1.1 cm MV E Sean: 1.10 m/s MV DecT: 174 ms MV A Sean: 0.28 m/s MV E/A Ratio: 3.99 RAP: 5.00 mmHg RVSP: 21.84 mmHg FINDINGS -------- Sinus rhythm. This was a techncally difficult study with suboptimal views, , Lumason utilized for enhancement of im ages. There is severe concentric left ventricular hypertrophy. Overall left ventricular systolic function is mild-moderately impaired with, an EF between 40 - 45 %. Inferior Hypokinesis The right ventricle is mildly enlarged. The left atrium is moderately dilated. LA is severely dilated >40 ml/m2 The right atrial size is normal. 5.0mg OF Lumason UTLIZED: 2 OR MORE WALL SEGMENTS NOT VISUALIZED. There is mild aortic valve sclerosis. There is no evidence of aortic regurgitation. Mild mitral annular calcification present. Mild mitral regurgitation is present. Mild tricuspid regurgitation present. There is no evidence of pulmonary hypertension. The right v entricular systolic pressure, as measured by Doppler, is 21.84mmHg. There is no pulmonic regurgitation present. The aortic root size is normal. There is no pericardial effusion. CONCLUSIONS -------- 1. This was a techncally difficult study with suboptimal views, , Lumason utilized for enhancement of images. 2. There is severe concentric left ventricular hypertrophy. 3. Overall left ventricular systolic function is mild-moderately impaired with, an EF between 40 - 45 %. 4. Inferior Hypokinesis 5. The right ventricle is mildly enlarged. 6. The left atrium is moderately dilated. 7. LA is severely dilated >40 ml/m2 8. The right atrial size is normal. 9. 5.0mg OF Lumason UTLIZED: 2 OR MORE WALL SEGMENTS NOT VISUALIZED. 10. There is mild aortic valve sclerosis. 11. Mild mitral annular calcification present. 12. Mild mitral regurgitation is present. 13. Mild tricuspid regurgitation present. 14. There is no evidence of pulmonary hypertension. 15. The right ventricular systolic pressure, as measured by Doppler, is 21.84mmHg. 16. There is no pulmonic regurgitation present. 17. The aortic root size is normal. 18. There is no pericardial effusion. CLINICAL TRAINING SPECIALIST: Yuliana Arrieta RDCS
--- NOTE | 2018-05-07 13:53 | XR ---
EXAMINATION TYPE: XR lumbar spine 2 or 3V DATE OF EXAM: 05/07/2018 CLINICAL HISTORY: pain TECHNIQUE: Three views of the lumbar spine are submitted. COMPARISON: None. FINDINGS: There are 5 lumbar type vertebral bodies identified. The lumbar spine shows satisfactory alignment w ithout evidence of acute fracture or dislocation. Vertebral body heights are within normal limits. Moderate to severe multilevel degenerative disc disease with endplate sclerosis and spondylosis. Mode rate facet joint arthropathy. The overlying soft tissue appears unremarkable. IMPRESSION: No acute fracture or dislocation is seen in the lumbar spine. ICD 10 NO FRACTURE, INITIAL EVALUATION
--- NOTE | 2018-05-07 14:45 | P.DS ---
Providers Date of admission: 05/06/18 01:12 Attending physician: Bell Lubin DO Consults: 05/06/18 01:12 Consult Physician Urgent Consulting Provider: Osman Boykin Consult Reason/Comments: Unstable angina, hypertensive urgency Do you want consulting provider notified?: Yes Primary care physician: Stated None Hospital Course: Patient is a 47-year-old female with past medical history of hypertension, COPD , and lower back pain presented to the ED with complaints of epigastric pain for 1 day duration, 3 out of 10, nonradiating, aching, with no alleviating or exacerbating factors. Patient had no associated shortness of breath, palpitations, diaphoresis, nausea, vomiting, or dizziness. The patient's troponins were negative. She was started on Heparin infusion placed in observation and Cardiology was consulted. Echocardiogram showed LVEF of 40-45%. She also had mild to moderate RLE edema without tenderness or erythema with subsequent venous duplex of lower extremity negative for DVT. The patient's antihypertensives were adjusted with subsequent good control of blood pressure. Patient is presently stable and ready for discharge home with subsequent outpatient stress testing and cardiology follow-up. Physical Examination General: Awake, alert, in no acute distress HEENT: NC/AT, anicteric sclerae, moist conjunctiva, no lid-lag, PERRLA, oropharynx clear, no erythema, exudates Cardiovascular: S1/S2 wnl, no murmurs, rubs, or gallops Lungs: Clear to auscultation, normal respiratory effort, no accessory muscle use Abdominal: Soft, nontender, non-distended, no guarding, rebound, or rigidity, normoactive bowel sounds, well healed surgical scars Skin: Warm, dry Extremities: No edema or contractures Psychiatric: Alert and oriented to person, place and time, appropriate affect, Intact judgment Neuro: CN II-XI grossly intact, sensation to light touch grossly present throughout, no focal sensory deficits Discharge diagnosis: Chest pain, unspecified; HTN uncontrolled, Abnormal UA, Leukocytosis, Hyperglycemia A total of 45 minutes of time were spent preparing this complex discharge summary. Pertinent Studies: Echocardiogram: LVEF 40-45%, severe LVH, enlarged LA Venous duplex: RLE duplex negative for DVT Patient Condition at Discharge: Serious Plan - Discharge Summary Discharge Rx Participant: No New Discharge Prescriptions: New hydrALAZINE HCL [Apresoline] 50 mg PO TID 30 Days #90 tab Labetalol [Trandate] 200 mg PO BID 30 Days #60 tab NIFEdipine [NIFEdipine ER] 60 mg PO DAILY #30 tab.er.24 Continue Lisinopril 40 mg PO DAILY 30 Days #30 tablet Discontinued NIFEdipine XL [Procardia Xl] 30 mg PO DAILY hydrALAZINE HCL [Apresoline] 100 mg PO TID Discharge Medication List Labetalol [Trandate] 200 mg PO BID 30 Days #60 tab 05/07/18 [Rx] Lisinopril 40 mg PO DAILY 30 Days #30 tablet 05/07/18 [Rx] NIFEdipine [NIFEdipine ER] 60 mg PO DAILY #30 tab.er.24 05/07/18 [Rx] hydrALAZINE HCL [Apresoline] 50 mg PO TID 30 Days #90 tab 05/07/18 [Rx] Follow up Appointment(s)/Referral(s): Arben Romero MD [REFERRING] - 1-2 days Rocael Bruner MD [STAFF PHYSICIAN] - 3 Days Discharge Disposition: HOME SELF-CARE
[2018-05-07 14:50] VITALS: BMI 42.1
[2018-05-07] MEDS ORDERED: hydrALAZINE HCL 50 MG TAB PO SCH (16:00)
[2018-05-08] MEDS ORDERED: NIFEdipine XL 30 MG TAB.ER.24 PO SCH (09:00)
== END 2018-05-07 17:41 | disposition home or self-care (01) | DRG 313 ==
LOC: EC 22:57 → 6SEL 05-06 01:12
PROVIDERS: ADMIT Internal Medicine; ATTEND Internal Medicine
DX: R07.9 Chest pain, unspecified (principal); Z68.41 Body mass index [BMI] 40.0-44.9, adult; D72.829 Elevated white blood cell count, unspecified; R60.0 Localized edema; E28.2 Polycystic ovarian syndrome; E66.01 Morbid (severe) obesity due to excess calories; E78.1 Pure hyperglyceridemia; E83.42 Hypomagnesemia; F17.200 Nicotine dependence, unspecified, uncomplicated; F31.9 Bipolar disorder, unspecified; F43.10 Post-traumatic stress disorder, unspecified; I11.9 Hypertensive heart disease without heart failure; I16.0 Hypertensive urgency; J44.9 Chronic obstructive pulmonary disease, unspecified; M79.7 Fibromyalgia; R79.1 Abnormal coagulation profile; Z79.899 Other long term (current) drug therapy; Z82.5 Family history of asthma and other chronic lower respiratory diseases; Z87.11 Personal history of peptic ulcer disease; Z91.14 Patient's other noncompliance with medication regimen; Z91.19 Patient's noncompliance with other medical treatment and regimen; Z88.5 Allergy status to narcotic agent; Z88.8 Allergy status to other drugs, medicaments and biological substances
CPT/HCPCS: 36415; 71275; 72100; 74174; 80053; 80061; 81001; 82550; 82553; 83036; 83735; 84484; 85025; 85027; 85049; 85379; 85610; 85730; 93005; 93306; 96361; 96365; 96366; 96375; 96376; 99291

== ENCOUNTER 2018-07-28 21:43 | Inpatient (IN) | payer MEDICARE ==
[2018-07-28] MEDS ORDERED: methylPREDNISolone SOD SUCCI 125 MG/2 ML VIAL IV STA (21:59)
[2018-07-28] MEDS ORDERED: ALBUTEROL NEBULIZED 2.5 MG/3 ML INHALATION STA (21:59)
[2018-07-28] MEDS ORDERED: IPRATROPIUM 0.5 MG/2.5 ML NEBU INHALATION STA (21:59)
[2018-07-28] MEDS ORDERED: NITROGLYCERIN SL TABS 0.4 MG TAB SUBLINGUAL PRN (22:00)
[2018-07-28] MEDS ORDERED: HYDROmorphone 1 MG/ML 1 ML SYRINGE IVP STA (22:02)
[2018-07-28] MEDS ORDERED: LEVOFLOXACIN 500MG-D5W PMX 500 MG in DEXTROSE/WATER 1 100ML.BAG IVPB STA (22:34)
--- NOTE | 2018-07-28 22:34 | ED ---
General Adult HPI - General Chief complaint: Shortness of Breath Stated complaint: ZAHIDA Time Seen by Provider: 07/28/18 21:52 Source: patient, EMS, RN notes reviewed, old records reviewed Mode of arrival: EMS Limitations: no limitations - History of Present Illness Initial comments: 47-year-old female with history COPD presents for evaluation of cough and dyspnea. Patient brought in by EMS, oxygen saturation was 90%. She currently smokes 2 packs of cigarettes daily. She has history of hypertension. She also has history of chronic abdominal pain and anterior abdominal hernia which is followed by general surgery. She complains pain side of her hernia and some posterior chest pain with cough. Cough is productive of yellow sputum. She has subjective fever and chills. Denies vomiting or diarrhea. Denies substernal chest pain. - Related Data Previous Rx's Medication Instructions Recorded Labetalol [Trandate] 200 mg PO BID 30 Days #60 tab 05/07/18 Lisinopril 40 mg PO DAILY 30 Days #30 tablet 05/07/18 NIFEdipine [NIFEdipine ER] 60 mg PO DAILY #30 tab.er.24 05/07/18 hydrALAZINE HCL [Apresoline] 50 mg PO TID 30 Days #90 tab 05/07/18 Allergies Allergy/AdvReac Type Severity Reaction Status Date / Time codeine AdvReac Severe Nausea & Verified 07/28/18 23:02 Vomiting acetaminophen [From Vicodin] AdvReac Nausea & Verified 07/28/18 23:02 Vomiting divalproex sodium AdvReac Alopecia Verified 07/28/18 23:02 [From Depakote] hydrocodone [From Vicodin] AdvReac Nausea & Verified 07/28/18 23:02 Vomiting Review of Systems ROS Statement: Those systems with pertinent positive or pertinent negative responses have been documented in the HPI. ROS Other: All systems not noted in ROS Statement are negative. Past Medical History Past Medical History: Chest Pain / Angina, COPD, Fibromyalgia, Hypertension, Osteoarthritis (OA), Pneumonia Additional Past Medical History / Comment(s): Malignant hypertension, respiratory failure, bronchitis, pleurisy, cardiomegaly, occasional pedal edema with R foot worse, duodenal ulcer, bile duct stone with surgery to remove, pancreatic pseudocyst, pancreatitis, occipital neuralgia, chronic back pain, DDD , migraines, abdominal hernia with surgery but pt states "it is coming back", PCOS, bilateral tinnitis, bilateral cataracts. Pt has elevated blood sugars, insomnia and increased anxiety with steroid use. History of Any Multi-Drug Resistant Organisms: C-DIFF Date of last positivie culture/infection: 2007? MDRO Source:: stool Past Surgical History: Cholecystectomy, Hernia Repair, Orthopedic Surgery Additional Past Surgical History / Comment(s): Pancreatic pseudocyst removal; D& Cx2; EGD/ERCP, bilateral feet bunionectomies, abdominal hernia repairs/mesh. Past Anesthesia/Blood Transfusion Reactions: No Reported Reaction Additional Past Anesthesia/Blood Transfusion Reaction / Comment(s): Pt has received blood in past without reaction. Past Psychological History: Bipolar, Depression, Panic Disorder, PTSD, Schizophrenia Smoking Status: Current every day smoker Past Alcohol Use History: None Reported Past Drug Use History: None Reported - Past Family History Mother Family Medical History: COPD Additional Family Medical History / Comment(s): Mother from COPD at the age of 49 yrs. Father Family Medical History: COPD Brother(s) Family Medical History: Deep Vein Thrombosis (DVT) General Exam Limitations: no limitations General appearance: alert, in no apparent distress Head exam: Present: atraumatic, normocephalic Eye exam: Present: normal appearance, PERRL ENT exam: Present: normal exam Neck exam: Present: normal inspection. Absent: tenderness, meningismus Respiratory exam: Present: respiratory distress, wheezes, rales, accessory muscle use, decreased breath sounds Cardiovascular Exam: Present: regular rate, normal rhythm GI/Abdominal exam: Present: soft, tenderness (Mild upper abdominal tenderness), hernia (Reproducible anterior abdominal wall hernia). Absent: distended Extremities exam: Present: pedal edema, other (Bilateral pitting edema, right lower extremity is significantly more swelling on the left) Neurological exam: Present: alert, oriented X3, CN II-XII intact. Absent: motor sensory deficit Psychiatric exam: Present: normal affect, normal mood Skin exam: Present: warm, dry, intact. Absent: cyanosis, diaphoretic Course Vital Signs 07/28/18 07/28/18 07/28/18 21:45 22:18 22:30 Temperature 100.5 F H Pulse Rate 95 84 87 Respiratory 22 Rate Blood Pressure 237/144 O2 Sat by Pulse 99 Oximetry 07/28/18 07/28/18 07/28/18 22:45 22:50 23:52 Temperature 100.9 F H Pulse Rate 93 97 Respiratory 24 17 Rate Blood Pressure 208/120 O2 Sat by Pulse 95 Oximetry 07/29/18 00:32 Temperature Pulse Rate 90 Respiratory 15 Rate Blood Pressure 193/114 O2 Sat by Pulse 96 Oximetry EKG Findings - EKG Comments: EKG Findings:: EKG: Normal sinus rhythm, right axis deviation ventricular rate of 84, VA interval 142, QRS duration 116, QTC 453. No significant change compared to prior Medical Decision Making - Medical Decision Making 47-year-old female presenting with chief complaint of dyspnea and cough. Patient is in moderate respiratory distress on initial evaluation. She has bilateral wheezing and rhonchi throughout. She also has significant peripheral edema which is worse in the right lower extremity than the left. She is hypertensive and tachycardic. She is a current smoker has history of hypertension, CHF, and COPD. Chest x-ray obtained, increased pulmonary vascular congestion as well as atelectasis of the right lower lung fraser. Given the elevated white count of 16.4 and fever she will be treated for pneumonia. Started on Levaquin in the emergency department. She is also given antihypertensive agents, nitroglycerin, and Lasix for pulmonary edema which is likely secondary to hypertension. She will be admitted for further treatment of COPD exacerbation, hypertensive heart failure, and pneumonia. Case discussed with Dr. Pires who will accept admission - Lab Data Result diagrams: 07/28/18 22:49 07/28/18 22:49 Lab Results 07/28/18 07/28/18 07/28/18 Range/Units 22:49 22:49 22:49 WBC 16.4 H (3.8-10.6) k/uL RBC 5.39 (3.80-5.40) m/uL Hgb 16.5 H (11.4-16.0) gm/dL Hct 50.9 H (34.0-46.0) % MCV 94.4 (80.0-100.0) fL MCH 30.5 (25.0-35.0) pg MCHC 32.3 (31.0-37.0) g/dL RDW 14.9 (11.5-15.5) % Plt Count 251 (150-450) k/uL Neutrophils % 83 % Lymphocytes % 9 % Monocytes % 7 % Eosinophils % 0 % Basophils % 0 % Neutrophils # 13.6 H (1.3-7.7) k/uL Lymphocytes # 1.4 (1.0-4.8) k/uL Monocytes # 1.1 H (0-1.0) k/uL Eosinophils # 0.1 (0-0.7) k/uL Basophils # 0.1 (0-0.2) k/uL PT 10.8 (9.0-12.0) sec INR 1.0 (<1.2) APTT 24.4 (22.0-30.0) sec Sodium 139 (137-145) mmol/L Potassium 3.8 (3.5-5.1) mmol/L Chloride 102 (98-107) mmol/L Carbon Dioxide 26 (22-30) mmol/L Anion Gap 11 mmol/L BUN 12 (7-17) mg/dL Creatinine 0.60 (0.52-1.04) mg/dL Est GFR (CKD-EPI)AfAm >90 (>60 ml/min/1.73 sqM) Est GFR (CKD-EPI)NonAf >90 (>60 ml/min/1.73 sqM) Glucose 125 H (74-99) mg/dL Plasma Lactic Acid Kirk (0.7-2.0) mmol/L Calcium 9.5 (8.4-10.2) mg/dL Magnesium 1.7 (1.6-2.3) mg/dL Total Bilirubin 1.7 H (0.2-1.3) mg/dL AST 39 H (14-36) U/L ALT 43 (9-52) U/L Alkaline Phosphatase 93 (38-126) U/L Total Creatine Kinase (30-135) U/L CK-MB (CK-2) (0.0-2.4) ng/mL CK-MB (CK-2) Rel Index Troponin I (0.000-0.034) ng/mL NT-Pro-B Natriuret Pep pg/mL Total Protein 7.4 (6.3-8.2) g/dL Albumin 4.0 (3.5-5.0) g/dL Influenza Type A RNA (Not Detectd) Influenza Type B (PCR) (Not Detectd) 07/28/18 07/28/18 07/28/18 Range/Units 22:49 22:49 22:49 WBC (3.8-10.6) k/uL RBC (3.80-5.40) m/uL Hgb (11.4-16.0) gm/dL Hct (34.0-46.0) % MCV (80.0-100.0) fL MCH (25.0-35.0) pg MCHC (31.0-37.0) g/dL RDW (11.5-15.5) % Plt Count (150-450) k/uL Neutrophils % % Lymphocytes % % Monocytes % % Eosinophils % % Basophils % % Neutrophils # (1.3-7.7) k/uL Lymphocytes # (1.0-4.8) k/uL Monocytes # (0-1.0) k/uL Eosinophils # (0-0.7) k/uL Basophils # (0-0.2) k/uL PT (9.0-12.0) sec INR (<1.2) APTT (22.0-30.0) sec Sodium (137-145) mmol/L Potassium (3.5-5.1) mmol/L Chloride (98-107) mmol/L Carbon Dioxide (22-30) mmol/L Anion Gap mmol/L BUN (7-17) mg/dL Creatinine (0.52-1.04) mg/dL Est GFR (CKD-EPI)AfAm (>60 ml/min/1.73 sqM) Est GFR (CKD-EPI)NonAf (>60 ml/min/1.73 sqM) Glucose (74-99) mg/dL Plasma Lactic Acid Kirk 2.0 (0.7-2.0) mmol/L Calcium (8.4-10.2) mg/dL Magnesium (1.6-2.3) mg/dL Total Bilirubin (0.2-1.3) mg/dL AST (14-36) U/L ALT (9-52) U/L Alkaline Phosphatase (38-126) U/L Total Creatine Kinase 212 H (30-135) U/L CK-MB (CK-2) 1.4 (0.0-2.4) ng/mL CK-MB (CK-2) Rel Index 0.7 Troponin I 0.026 (0.000-0.034) ng/mL NT-Pro-B Natriuret Pep 6340 pg/mL Total Protein (6.3-8.2) g/dL Albumin (3.5-5.0) g/dL Influenza Type A RNA (Not Detectd) Influenza Type B (PCR) (Not Detectd) 07/28/18 Range/Units 23:00 WBC (3.8-10.6) k/uL RBC (3.80-5.40) m/uL Hgb (11.4-16.0) gm/dL Hct (34.0-46.0) % MCV (80.0-100.0) fL MCH (25.0-35.0) pg MCHC (31.0-37.0) g/dL RDW (11.5-15.5) % Plt Count (150-450) k/uL Neutrophils % % Lymphocytes % % Monocytes % % Eosinophils % % Basophils % % Neutrophils # (1.3-7.7) k/uL Lymphocytes # (1.0-4.8) k/uL Monocytes # (0-1.0) k/uL Eosinophils # (0-0.7) k/uL Basophils # (0-0.2) k/uL PT (9.0-12.0) sec INR (<1.2) APTT (22.0-30.0) sec Sodium (137-145) mmol/L Potassium (3.5-5.1) mmol/L Chloride (98-107) mmol/L Carbon Dioxide (22-30) mmol/L Anion Gap mmol/L BUN (7-17) mg/dL Creatinine (0.52-1.04) mg/dL Est GFR (CKD-EPI)AfAm (>60 ml/min/1.73 sqM) Est GFR (CKD-EPI)NonAf (>60 ml/min/1.73 sqM) Glucose (74-99) mg/dL Plasma Lactic Acid Kirk (0.7-2.0) mmol/L Calcium (8.4-10.2) mg/dL Magnesium (1.6-2.3) mg/dL Total Bilirubin (0.2-1.3) mg/dL AST (14-36) U/L ALT (9-52) U/L Alkaline Phosphatase (38-126) U/L Total Creatine Kinase (30-135) U/L CK-MB (CK-2) (0.0-2.4) ng/mL CK-MB (CK-2) Rel Index Troponin I (0.000-0.034) ng/mL NT-Pro-B Natriuret Pep pg/mL Total Protein (6.3-8.2) g/dL Albumin (3.5-5.0) g/dL Influenza Type A RNA Not Detected (Not Detectd) Influenza Type B (PCR) Not Detected (Not Detectd) Critical Care Time Critical Care Time: Yes Total Critical Care Time: 35 Disposition Clinical Impression: Acute exacerbation of chronic obstructive airways disease, Hypertensive urgency , Pneumonia Disposition: ADMITTED IP TO THIS [facility] Condition: Stable Is patient prescribed a controlled substance at d/c from ED?: No Referrals: None,Stated [Primary Care Provider] - 1-2 days Decision to Admit Reason: Admit from EC Decision Date: 07/29/18 Decision Time: 00:50
[2018-07-28] MEDS ORDERED: hydrALAZINE HCL 20 MG/ML 1 ML VIAL IVP STA (23:50)
--- NOTE | 2018-07-28 23:54 | US ---
EXAMINATION TYPE: US venous doppler duplex LE BI DATE OF EXAM: 07/28/2018 11:33 PM COMPARISON: NONE CLINICAL HISTORY: Pain. Edema SIDE PERFORMED: Bilateral TECHNIQUE: The lower extremity deep venous system is examined utilizing real time linear array sonog jocelyn with graded compression, doppler sonography and color-flow sonography. VESSELS IMAGED: External Iliac Vein (EIV) Common Femoral Vein Deep Femoral Vein Greater Saphenous Vein * Femoral Vein Popliteal Vein Small Saphenous Vein * Proximal Calf Veins (* superficial vessels) Right Leg: Negative for DVT Left Leg: Negative for DVT No evidence of DVT bilateral legs. IMPRESSION: Normal bilateral leg duplex venous sonogram.
[2018-07-28 23:55] LABS: Basophils # (A) 0.1 k/uL (0-0.2); Basophils % (A) 0 %; Eosinophils # (A) 0.1 k/uL (0-0.7); Eosinophils % (A) 0 %; HCT 50.9 % (34.0-46.0); HGB 16.5 gm/dL (11.4-16.0); Lymphocytes # (A) 1.4 k/uL (1.0-4.8); Lymphocytes % (A) 9 %; MCH 30.5 pg (25.0-35.0); MCHC 32.3 g/dL (31.0-37.0); MCV 94.4 fL (80.0-100.0); Mean Platelet Volume 7.3; Monocytes # (A) 1.1 k/uL (0-1.0); Monocytes % (A) 7 %; Neutrophils # (A) 13.6 k/uL (1.3-7.7); Neutrophils % (A) 83 %; Platelet Count 251 k/uL (150-450); RBC 5.39 m/uL (3.80-5.40); RDW 14.9 % (11.5-15.5); WBC 16.4 k/uL (3.8-10.6)
--- NOTE | 2018-07-28 23:56 | XR ---
EXAMINATION TYPE: XR chest 2V DATE OF EXAM: 07/28/2018 COMPARISON: 09/11/2016 HISTORY: Respiratory failure TECHNIQUE: Frontal and lateral views of the chest are obtained. FINDINGS: Heart is enlarged. There is some coarsening of the lung markings. Costophrenic angles are clear. There is some linear density in the left lower lobe. IMPRESSION: Mild atelectasis in the lower lung fraser. No heart failure. Cardiomegaly. Heart is incr eased compared to old exam. Pulmonary vascularity increased compared to old exam without overt heart failure.
[2018-07-28 23:59] LABS: Partial Thromboplastin Time 24.4 sec (22.0-30.0); Prothrombin Time 10.8 sec (9.0-12.0)
[2018-07-29] MEDS ORDERED: ACETAMINOPHEN IV (For NPO) 1,000 MG in EMPTY BAG 1 BAG IVPB ONE
[2018-07-29 00:10] LABS: ALT 43 U/L (9-52); AST 39 U/L (14-36); Alkaline Phosphatase 93 U/L (38-126); Anion Gap 11 mmol/L; Blood Urea Nitrogen 12 mg/dL (7-17); Calcium 9.5 mg/dL (8.4-10.2); Carbon Dioxide 26 mmol/L (22-30); Chloride 102 mmol/L (98-107); Glucose 125 mg/dL (74-99); Magnesium 1.7 mg/dL (1.6-2.3); Sodium 139 mmol/L (137-145); Total Bilirubin 1.7 mg/dL (0.2-1.3); Total Protein 7.4 g/dL (6.3-8.2)
[2018-07-29] MEDS ORDERED: FUROSEMIDE 10 MG/ML 4 ML VIAL IV STA (00:18)
[2018-07-29 00:22] LABS: Creatine Kinase MB 1.4 ng/mL (0.0-2.4); Troponin I 0.026 ng/mL (0.000-0.034)
[2018-07-29 00:31] LABS: Potassium 3.8 mmol/L (3.5-5.1)
[2018-07-29] MEDS ORDERED: NALOXONE 0.4 MG/ML 1 ML VIAL IV PRN (00:43)
[2018-07-29] MEDS ORDERED: HYDROmorphone 1 MG/ML 1 ML SYRINGE IVP STA (00:50)
--- NOTE | 2018-07-29 02:57 | P.HPIM ---
History of Present Illness H&P Date: 07/29/18 Chief Complaint: Shortness of breath 47-year-old female with history of systolic congestive heart failure left ventricular ejection fraction 40-45%. Patient presented to the hospital with 2-3 days' history of progressive shortness of breath since Friday. 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 However over the weekend she felt progressive shortness of breath she was unable to ambulate freely. She also noticed orthopnea and paroxysmal nocturnal dyspnea she wasn't even able to sleep on her side. She also notes some coughing and low-grade fevers. This has been worsened with her abdominal pain due to her hernia. Patient also noticed increased swelling of bilateral legs. Patient denies chest pain though. She admits to being noncompliant with medications. She has lost her primary care doctor and she is unable to get any refills on her medications. She's been taking 0-9-nynz-old medication including Procardia. In the emergency department she was found to have malignant hypertension along with pulmonary vascular congestion bilateral leg swelling and possible pneumonia. Patient otherwise denies any GI bleeding nausea or vomiting. Denies any focal neurologic deficits. Patient admits to smoking 2 packs of cigarettes every day. Patient also has been having diarrhea for over 3 days, with history of C. diff Review of Systems Pertinent positives as noted in HPI. All other systems were reviewed and are negative Past Medical History Past Medical History: Chest Pain / Angina, COPD, Fibromyalgia, Hypertension, Osteoarthritis (OA), Pneumonia Additional Past Medical History / Comment(s): Malignant hypertension, respiratory failure, bronchitis, pleurisy, cardiomegaly, occasional pedal edema with R foot worse, duodenal ulcer, bile duct stone with surgery to remove, pancreatic pseudocyst, pancreatitis, occipital neuralgia, chronic back pain, DDD , migraines, abdominal hernia with surgery but pt states "it is coming back", PCOS, bilateral tinnitis, bilateral cataracts. Pt has elevated blood sugars, insomnia and increased anxiety with steroid use. History of Any Multi-Drug Resistant Organisms: C-DIFF Date of last positivie culture/infection: 2007? MDRO Source:: stool Past Surgical History: Cholecystectomy, Hernia Repair, Orthopedic Surgery Additional Past Surgical History / Comment(s): Pancreatic pseudocyst removal; D& Cx2; EGD/ERCP, bilateral feet bunionectomies, abdominal hernia repairs/mesh. Past Anesthesia/Blood Transfusion Reactions: No Reported Reaction Additional Past Anesthesia/Blood Transfusion Reaction / Comment(s): Pt has received blood in past without reaction. Past Psychological History: Bipolar, Depression, Panic Disorder, PTSD, Schizophrenia Smoking Status: Current every day smoker Past Alcohol Use History: None Reported Past Drug Use History: None Reported - Past Family History Mother Family Medical History: COPD Additional Family Medical History / Comment(s): Mother from COPD at the age of 49 yrs. Father Family Medical History: COPD Brother(s) Family Medical History: Deep Vein Thrombosis (DVT) Medications and Allergies Home Medications Medication Instructions Recorded Confirmed Type Labetalol [Trandate] 200 mg PO BID 30 Days #60 tab 05/07/18 07/28/18 Rx Lisinopril 40 mg PO DAILY 30 Days #30 tablet 05/07/18 07/28/18 Rx NIFEdipine [NIFEdipine ER] 60 mg PO DAILY #30 tab.er.24 05/07/18 07/28/18 Rx hydrALAZINE HCL [Apresoline] 50 mg PO TID 30 Days #90 tab 05/07/18 07/28/18 Rx Allergies Allergy/AdvReac Type Severity Reaction Status Date / Time codeine AdvReac Severe Nausea & Verified 07/28/18 23:02 Vomiting acetaminophen [From Vicodin] AdvReac Nausea & Verified 07/28/18 23:02 Vomiting divalproex sodium AdvReac Alopecia Verified 07/28/18 23:02 [From Depakote] hydrocodone [From Vicodin] AdvReac Nausea & Verified 07/28/18 23:02 Vomiting Physical Exam Vitals: Vital Signs Temp Pulse Resp BP Pulse Ox 07/29/18 00:32 90 15 193/114 96 07/28/18 23:52 100.9 F H 97 17 208/120 95 07/28/18 22:50 93 07/28/18 22:45 24 07/28/18 22:30 87 07/28/18 22:18 84 07/28/18 21:45 100.5 F H 95 22 237/144 99 Intake and Output 07/28/18 07/28/18 07/29/18 14:59 22:59 06:59 Other: Weight 97.522 kg Constitutional: No acute distress, conversant, pleasant, morbidly obese Eyes: Anicteric sclerae, moist conjunctiva, no lid-lag Pupils equal round reactive to light ENMT: NC/AT Oropharynx clear, no erythema, exudates Neck: Supple, FROM, no masses, or JVD No carotid bruits No thyromegaly Lungs: Prolonged expiratory phase with diffuse expiratory wheezes and rhonchi, bilateral inspiratory and expiratory rales Clear to percussion Normal respiratory effort, no accessory muscle use Cardiovascular: Heart regular in rate and rhythm, No murmurs, gallops, or rubs +2 peripheral edema bilaterally Abdominal: Soft Nontender, no guarding, rebound or rigidity Slight discomfort to palpation around the right side of the abdomen over the hernia Abdomen moving with respiration Normoactive bowel sounds No hepatomegaly, No splenomegaly No palpable mass abdominal wall hernia noted Skin: Chronic skin changes of bilateral lower extremities Normal temperature, tone, texture, turgor No induration No subcutaneous nodules No rash, lesions No ulcers Extremities: No digital cyanosis No clubbing Pedal pulses unable to detect due to edema Radial pulses intact and symmetrical No calf tenderness Psychiatric: Alert and oriented to person, place and time Appropriate affect fair judgment Neuro Muscles Strength 5/5 in all 4 extremities Sensation to light touch grossly present throughout Cranial nerves II-XII grossly intact No focal sensory deficits Lymphatics: no palpable cervical or supraclavicular , or inguinal lymph nodes Results CBC & Chem 7: 07/28/18 22:49 07/28/18 22:49 Labs: Abnormal Lab Results - Last 24 Hours (Table) 07/28/18 07/28/18 07/28/18 Range/Units 22:49 22:49 22:49 WBC 16.4 H (3.8-10.6) k/uL Hgb 16.5 H (11.4-16.0) gm/dL Hct 50.9 H (34.0-46.0) % Neutrophils # 13.6 H (1.3-7.7) k/uL Monocytes # 1.1 H (0-1.0) k/uL Glucose 125 H (74-99) mg/dL Total Bilirubin 1.7 H (0.2-1.3) mg/dL AST 39 H (14-36) U/L Total Creatine Kinase 212 H (30-135) U/L Assessment and Plan Assessment: 47-year-old female with history of COPD and hypertension. Admitted as an inpatientwith anticipated length of stay more than 48 hours for acute hypoxic respiratory failure multifactorial secondary to underlying malignant hypertension and pulmonaryvascular congestion, pneumonia with sepsis. And underlying systolic congestive heart failure with LVEF 40-45% Plan: Acute hypoxic respiratory failure multifactorial secondary to the following, acute on chronic systolic congestive heart failure, malignant hypertension, COPD exacerbation. Sepsis secondary to pneumonia IV diuresis Breathing treatments Systemic steroids Levofloxacin Cardiac monitoring Repeat 2-D echo Supplemental oxygen as needed Malignant hypertension secondary to noncompliance Resume home medications Lisinopril, hydralazine Acute on chronic systolic congestive heart failure secondary to noncompliance of medications Restart low-dose Coreg Continue with lisinopril Start hydralazine low-dose Repeat 2-D echo IV diuresis Daily weights Monitor vital signs Monitor weight Submental oxygen as needed Acute diarrhea rule out C. diff due to history of C. diff Secondary polycythemia secondary to smoking Patient counseled to quit smoking Nicotine replacement therapy offered DVT prophylaxis heparin subcu 3 times a day Surrogate decision-maker: Patient's boyfriend CODE STATUS: Full code Discussed with: Patient, ER, RN Anticipated discharge: 48-[address]: home A total of 60 minutes was spent on the care of this complex patient more than 50 % of the time was spent in counseling and care coordination.
[2018-07-29] MEDS: IPRATROPIUM-ALBUTEROL 3 ML NEB INHALATION PRN ×4 (07:21→20:07)
[2018-07-29] MEDS ORDERED: CARVEDILOL 3.125 MG TAB PO SCH (07:30)
[2018-07-29] MEDS: HYDROmorphone 1 MG/ML 1 ML SYRINGE IVP PRN ×5 (09:08→23:38)
[2018-07-29] MEDS: NICOTINE 21MG/24HR PATCH TRANSDERM SCH (09:14)
[2018-07-29] MEDS: LISINOPRIL 20 MG TAB PO SCH (09:15)
[2018-07-29] MEDS: FUROSEMIDE 10 MG/ML 4 ML VIAL IV SCH ×2 (09:15→20:41)
[2018-07-29] MEDS: hydrALAZINE HCL 10 MG TAB PO SCH ×2 (09:15→20:41)
[2018-07-29] MEDS: HEPARIN SODIUM,PORCINE 5,000 UNIT/ML 1 ML VIAL SQ SCH ×3 (09:16→22:10)
[2018-07-29] MEDS: predniSONE 20 MG TAB PO SCH (09:16)
[2018-07-29] MEDS: guaiFENesin SYRUP 100MG/5ML 200 MG/10 ML CUP PO PRN (12:25)
[2018-07-29] MEDS ORDERED: CARVEDILOL 3.125 MG TAB PO ONE (13:00)
--- NOTE | 2018-07-29 13:05 | ECHOF ---
Referral Reason:chf MEASUREMENTS -------- HEIGHT: 152.4 cm WEIGHT: 97.5 kg BP: RVIDd: 3.0 cm (< 3.3) IVSd: 1.7 cm (0.6 - 1.1) LVIDd: 5.0 cm (3.9 - 5.3) LVPWd: 2.0 cm (0.6 - 1.1) IVSs: 2.0 cm LVIDs: 3.7 cm LVPWs: 2.0 cm LA Diam: 4.4 cm (2.7 - 3.8) LAESV Index (A-L): 34.53 ml/m Ao Diam: 3.0 cm (2.0 - 3.7) AV Cusp: 1.5 cm (1.5 - 2.6) LA Diam: 4.7 cm (2.7 - 3.8) MV EXCURSION: 16.009 mm (> 18.000) MV EF SLOPE: 64 mm/s (70 - 150) EPSS: 1.3 cm MV E Sean: 1.18 m/s MV DecT: 235 ms MV A Sean: 0.59 m/s MV E/A Ratio: 2.00 RAP: 5.00 mmHg RVSP: 16.53 mmHg FINDINGS -------- Sinus rhythm. This was a technically adequate study. The left ventricular size is normal. There is severe concentric left ventricular hypertrophy. Ove rall left ventricular systolic function is mildly impaired with, an EF between 45 - 50 %. Basal inf erior LV wall motion is akinetic. Mid inferior LV wall motion is akinetic. The right ventricle is normal in size. The left atrial size is normal. The right atrial size is normal. There is mild aortic valve sclerosis. Mild mitral annular calcification present. Mild mitral regurgitation is present. Mild tricuspid regurgitation present. There is no evidence of pulmonary hypertension. The right v entricular systolic pressure, as measured by Doppler, is 16.53mmHg. The pulmonic valve was not well visualized. There is no pulmonic regurgitation present. The aortic root size is normal. There is no pericardial effusion. CONCLUSIONS -------- 1. Sinus rhythm. 2. The left ventricular size is normal. 3. There is severe concentric left ventricular hypertrophy. 4. Overall left ventricular systolic function is mildly impaired with, an EF between 45 - 50 %. 5. Basal inferior LV wall motion is akinetic. 6. Mid inferior LV wall motion is akinetic. 7. The left atrial size is normal. 8. There is mild aortic valve sclerosis. 9. Mild mitral annular calcification present. 10. Mild mitral regurgitation is present. 11. Mild tricuspid regurgitation present. 12. There is no evidence of pulmonary hypertension. 13. The pulmonic valve was not well visualized. 14. There is no pulmonic regurgitation present. 15. The aortic root size is normal. 16. There is no pericardial effusion. STUD DRIVER: Yuliana Arrieta RDCS
--- NOTE | 2018-07-29 16:15 | P.PN ---
Progress Note - Text Progress Note Date: 07/29/18 47-year-old female with PMH of COPD, fibromyalgia, hypertension, systolic CHF with EF of 40-45% presents to the ED for shortness of breath. Patient reports that her breathing is worse with ambulation. She endorses orthopnea and PND. Patient complains a coughing, productive of sputum and chills. She states that it is difficult for her to breathe due to her hernia. Patient seen and examined at 4:00PM today. No acute events overnight. Patient endorses one episode of nausea and vomiting due to Dilaudid injection. She continues to complain of shortness of breath, wheezing and cough productive of yellow sputum. She denies chest pain or palpitations. Also complains of abdominal pain at the site of hernia. She denies any changes in her urination or bowel habits. General: [non toxic], [no distress], [appears at stated age], [speaking in full sentences] Derm: [warm], [dry] Head: [atraumatic], [normocephalic], [symmetric] Eyes: [EOMI], [no lid lag], [anicteric sclera] Mouth: [no lip lesion], [mucus membranes moist] Cardiovascular: [S1S2 reg], [no murmur], [positive posterior tibial pulse bilateral], Lungs: [Coarse breath sounds bilateral with wheezing and rales], [no accessory muscle use] Abdominal: [soft], [ nontender to palpation], [no guarding], [abdominal wall hernia] Ext: [no gross muscle atrophy], [no edema], [no contractures] Neuro: [no focal neuro deficits] Psych: [Alert], [oriented], [appropriate affect] 1. Acute hypoxic respiratory failure: Multifactorial. Likely secondary to Acute on chronic CHF exacerbation, malignant hypertension and COPD exacerbation. Patient is afebrile with a mild leukocytosis of 16.4 and normal lactic acid. CXR shows mild atelectasis with increased pulmonary vascularity. Influenza A/B negative. Robitussin 200 mg PO TID PRN for cough. Ensure BP control. Ensure IV diuresis. Ensure COPD management. O2 per NC to maintain O2 sat > 92%. 2. CHF exacerbation: BNP 6340. Echocardiogram from 04/2018 shows EF of 40-45% with hypokinesis. Venous duplex negative for DVT. Diuresis with Lasix 40 mg IV BID. Continue Lisinopril 40 mg PO QD, Coreg 6.25 mg PO BID. Telemetry monitoring. Ins and Outs. Daily weights. Keep K > 4 and Mg > 2. FU Echocardiogram, Cardiology 3. COPD exacerbation: DuoNeb Q2H PRN for SOB/wheezing. Patient would benefit from controlled inhaler prior to DC. Prednisone 40 mg PO QD to complete a total of 5 days. FU Pulmonology 4. Hypertension: BP 200/108. Increase Coreg from 3.125 to 6.25 mg PO BID. Continue Hydralazine 10 mg PO BID, Lisinopril 40 mg PO QD. HEART healthy diet. Monitor vitals, adjust medications as necessary. 5. Diarrhea: History of C. difficile. FU C.difficile 6. Polycythemia: Hg 16.5 Hct 50.9 MCV 94.4. Likely due to concentration and smoking history. Encourage smoking cessation, Habitrol patch. Daily CBC. 7. DVT/GI Prophylaxis: Heparin 5000 units SUBCUT TID. Patient is being treated for CHF and COPD exacerbation. She is pending clinical improvement.
--- NOTE | 2018-07-29 16:25 | P.CNPUL ---
History of Present Illness Consult date: 07/29/18 Reason for consult: COPD Chief complaint: Shortness of breath, cough and wheezing. History of present illness: This is a 47-year-old female, at least a [id number] smoker, known history of COPD, known history of mild LV dysfunction, patient presented to the ER with a few days' history of increased shortness of breath, cough and wheezing. Cough is productive with yellowish phlegm, low-grade fever, no chills, no hemoptysis, no chest pain. Patient also noticed prior to all of this swelling in her lower extremities has been progressively getting worse. Denies any chest pain, denies any nausea vomiting or abdominal pain, she does have history of incisional hernia, previous surgery on the hernia at [facility], and never resolved. Chest x-ray on admission showed cardiomegaly, prominent pulmonary vasculature, but no clear-cut infiltrate. CBC showed leukocytosis with WBC count of 16.4, hemoglobin was 16.5. Patient was noted to have significant wheezing on physical examination, hence she was admitted and this consult was initiated. Presently the patient is on room air, her O2 saturation is in the 94% range, does not seem to be in any form of respiratory distress. Her echocardiogram on this admission showed LV dysfunction, her BNP level was elevated, and her chest x-ray did show evidence of prominent pulmonary vasculature. Patient is already on bronchodilators in the form of DuoNeb updrafts 4 times a day and when necessary, she is on antibiotics received Levaquin earlier in the ER, and she is on prednisone at 40 mg by mouth daily after a dose of Solu-Medrol 125 mg IV push 1. Patient denies any headache, no blurred vision, no dizziness. She does have history of chronic depression and history of bipolar disorder. Denies any nausea or vomiting at this point, denies any melena or hematemesis, no dysuria and no frequency no urgency. Review of Systems 14 point review of systems were obtained, please refer to pertinent positives in HPI, otherwise remaining systems are negative. Past Medical History Past Medical History: Chest Pain / Angina, Heart Failure, COPD, Fibromyalgia, Hypertension, Osteoarthritis (OA), Pneumonia Additional Past Medical History / Comment(s): Malignant hypertension, respiratory failure, bronchitis, pleurisy, cardiomegaly, last EF 40-45%, occasional pedal edema with R foot worse, duodenal ulcer, bile duct stone with surgery to remove, pancreatic pseudocyst, pancreatitis, occipital neuralgia, chronic back pain, DDD, migraines, abdominal hernia with surgery but pt states "it is back", PCOS, bilateral tinnitis. Pt has elevated blood sugars, insomnia and increased anxiety with steroid use. History of Any Multi-Drug Resistant Organisms: C-DIFF Date of last positivie culture/infection: 2007? MDRO Source:: stool Past Surgical History: Cholecystectomy, Hernia Repair, Orthopedic Surgery Additional Past Surgical History / Comment(s): Pancreatic pseudocyst removal; D& Cx2; EGD/ERCP, bilateral feet bunionectomies, abdominal hernia repairs/mesh. Past Anesthesia/Blood Transfusion Reactions: No Reported Reaction Additional Past Anesthesia/Blood Transfusion Reaction / Comment(s): Pt has received blood in past without reaction. Smoking Status: Current every day smoker - Past Family History Mother Family Medical History: COPD Additional Family Medical History / Comment(s): Mother from COPD at the age of 49 yrs. Father Family Medical History: COPD Brother(s) Family Medical History: Deep Vein Thrombosis (DVT) Medications and Allergies Home Medications Medication Instructions Recorded Confirmed Type Labetalol [Trandate] 200 mg PO BID 30 Days #60 tab 05/07/18 07/28/18 Rx Lisinopril 40 mg PO DAILY 30 Days #30 tablet 05/07/18 07/28/18 Rx NIFEdipine [NIFEdipine ER] 60 mg PO DAILY #30 tab.er.[email or web address] 05/07/18 07/28/18 Rx hydrALAZINE HCL [Apresoline] 50 mg PO TID 30 Days #90 tab 05/07/18 07/28/18 Rx Allergies Allergy/AdvReac Type Severity Reaction Status Date / Time codeine AdvReac Severe Nausea & Verified 07/28/18 23:02 Vomiting acetaminophen [From Vicodin] AdvReac Nausea & Verified 07/28/18 23:02 Vomiting divalproex sodium AdvReac Alopecia Verified 07/28/18 23:02 [From Depakote] hydrocodone [From Vicodin] AdvReac Nausea & Verified 07/28/18 23:02 Vomiting Physical Exam Vitals: Vital Signs Temp Pulse Pulse Resp BP BP Pulse Ox 07/29/18 16:00 97.5 F L 77 18 190/98 92 L 07/29/18 15:04 72 07/29/18 14:54 70 07/29/18 14:16 168/97 07/29/18 12:00 97.9 F 74 18 200/108 94 L 07/29/18 11:29 78 07/29/18 11:18 78 07/29/18 08:00 97.2 F L 75 18 158/89 93 L 07/29/18 07:34 84 07/29/18 07:21 79 07/29/18 06:44 74 19 164/96 94 L 07/29/18 05:40 77 21 180/95 94 L 07/29/18 04:46 77 18 179/104 93 L 07/29/18 02:52 87 18 168/90 93 L 07/29/18 00:32 90 15 193/114 96 07/28/18 23:52 100.9 F H 97 17 208/120 95 07/28/18 22:50 93 07/28/18 22:45 24 07/28/18 22:30 87 07/28/18 22:18 84 07/28/18 21:45 100.5 F H 95 22 237/144 99 Physical Exam: Revealed a 47-year-old female, in no distress. Head: Atraumatic, normocephalic. HEENT:[Neck is supple.] [No neck masses.] [No thyromegaly.] [No JVD.] PERRLA, EOMI, no icterus. Chest: [Diffuse crackles or rhonchi and wheezes noted bilaterally. More so on forced expiratory maneuver. Symmetrical chest expansion.] Cardiac Exam: [Normal S1 and S2, no S3 gallop, no murmur.] Abdomen: [Obese, Soft, nontender, no megaly, no rebound, no guarding, normal bowel sounds. Large ventral hernia noted in the epigastric region.] Extremities: [2+ bipedal edema, chronic venous stasis changes noted..] Neurological Exam: Alert oriented 3, no gross focal neurologic deficits. Psychiatric: Normal mood, affect and mental status examination. Skin: Venous stasis changes noted in lower extremities, minimal erythema noted. Results - Laboratory Findings CBC and BMP: 07/28/18 22:49 07/28/18 22:49 PT/INR, D-dimer PT 10.8 sec (9.0-12.0) 07/28/18 22:49 INR 1.0 (<1.2) 07/28/18 22:49 Abnormal lab findings: Abnormal Labs 07/28/18 07/28/18 07/28/18 22:49 22:49 22:49 WBC 16.4 H Hgb 16.5 H Hct 50.9 H Neutrophils # 13.6 H Monocytes # 1.1 H Glucose 125 H Total Bilirubin 1.7 H AST 39 H Total Creatine Kinase 212 H - Diagnostic Findings Chest x-ray: image reviewed (As noted in HPI. Patient clearly has cardiomegaly , prominent pulmonary vasculature, no evidence of infiltrate.) Assessment and Plan Assessment: Impression: 1 acute hypoxic respiratory failure secondary to acute exacerbation of COPD, purulent tracheobronchitis, and suspect some component of mild interstitial edema. 2 acute on chronic systolic congestive heart failure 3 acute purulent tracheobronchitis. No clear-cut evidence of pneumonia on the chest x-ray. 4 tobacco dependence syndrome, patient is unable to quit smoking in spite of of counseling. 5 history of multiple comorbidities including hypertension, bipolar disorder, fibromyalgia, osteoarthritis, history of duodenal ulcer, history of pancreatic pseudocyst, occipital neuralgia, chronic back pain, generalized anxiety disorder and insomnia. Recommendation: Agree with the present course of bronchodilators, diuretics, antibiotics, steroids, counseling regarding smoking cessation, will continue to follow. Time with Patient: Greater than 30
[2018-07-29] MEDS: PANTOPRAZOLE 40 MG TABLET PO SCH (16:56)
[2018-07-29] MEDS: CARVEDILOL 6.25 MG TAB PO SCH (16:56)
[2018-07-29] MEDS: SYMBICORT 160-4.5 MCG INHALER INHALATION SCH (20:08)
[2018-07-29] MEDS: DOXYCYCLINE 100 MG CAP PO SCH (20:41)
[2018-07-29] MEDS: ONDANSETRON 4 MG/2 ML VIAL IVP PRN (22:11)
[2018-07-30] MEDS: HYDROmorphone 1 MG/ML 1 ML SYRINGE IVP PRN ×7 (02:32→22:20)
[2018-07-30] MEDS: IPRATROPIUM-ALBUTEROL 3 ML NEB INHALATION PRN ×2 (05:28→21:02)
[2018-07-30] MEDS: CARVEDILOL 6.25 MG TAB PO SCH ×2 (05:53→17:58)
[2018-07-30] MEDS: PANTOPRAZOLE 40 MG TABLET PO SCH (05:53)
[2018-07-30] MEDS: SYMBICORT 160-4.5 MCG INHALER INHALATION SCH ×2 (07:23→21:03)
[2018-07-30] MEDS: ONDANSETRON 4 MG/2 ML VIAL IVP PRN ×3 (07:34→19:35)
[2018-07-30] MEDS: LISINOPRIL 20 MG TAB PO SCH (08:32)
[2018-07-30] MEDS: predniSONE 20 MG TAB PO SCH (08:32)
[2018-07-30] MEDS: NICOTINE 21MG/24HR PATCH TRANSDERM SCH (08:32)
[2018-07-30] MEDS: hydrALAZINE HCL 10 MG TAB PO SCH ×2 (08:32→19:35)
[2018-07-30] MEDS: FUROSEMIDE 10 MG/ML 4 ML VIAL IV SCH ×2 (08:33→19:35)
[2018-07-30] MEDS: DOXYCYCLINE 100 MG CAP PO SCH ×2 (08:33→20:20)
[2018-07-30] MEDS: HEPARIN SODIUM,PORCINE 5,000 UNIT/ML 1 ML VIAL SQ SCH ×3 (08:33→22:20)
[2018-07-30] MEDS: amLODIPine 5 MG TAB PO SCH (13:03)
--- NOTE | 2018-07-30 14:25 | P.PN ---
Subjective Progress Note Date: 07/30/18 Principal diagnosis: CHF, COPD exacerbation Patient was seen and examined. No acute events overnight. Patient with multiple complaints, mostly from yesterday. She continues to complain of productive cough. States she cant breath effectively due to her abdominal hernia pushing up against her diaphragm. Also complains of wheezing and SOB. Initially on the phone when I walked in, speaking in full sentences. She denies chest pain or palpitations. Objective - Vital Signs Vital signs: Vital Signs Temp 96.0 F L 07/30/18 12:00 Pulse 50 L 07/30/18 12:00 Resp 18 07/30/18 12:00 BP 168/106 07/30/18 12:00 Pulse Ox 97 07/30/18 12:00 Intake & Output 07/29/18 07/30/18 07/30/18 18:59 06:59 18:59 Intake Total 240 240 888 Output Total 1200 Balance 240 240 -312 Weight 101.4 kg Intake: IV 240 0.9 240 Oral 240 888 Output: Urine 1200 - Exam General: [non toxic], [no distress], [appears at stated age], [speaking in full sentences] Derm: [warm], [dry] Head: [atraumatic], [normocephalic], [symmetric] Eyes: [EOMI], [no lid lag], [anicteric sclera] Mouth: [no lip lesion], [mucus membranes moist] Cardiovascular: [S1S2 reg], [no murmur] Lungs: [Coarse breath sounds bilateral with wheezing and rales], [no accessory muscle use] Abdominal: [soft], [ nontender to palpation], [no guarding], [abdominal wall hernia] Ext: [no gross muscle atrophy], [1+ pitting edema BL], [no contractures] Neuro: [no focal neuro deficits] Psych: [Alert], [oriented], [appropriate affect] - Labs CBC & Chem 7: 07/28/18 22:49 07/28/18 22:49 Labs: Microbiology - Last 24 Hours (Table) 07/28/18 22:18 Blood Culture - Preliminary Blood No Growth after 24 hours Assessment and Plan Assessment: Assessment and Plan 1. Acute hypoxic respiratory failure: Multifactorial. Likely secondary to Acute on chronic CHF exacerbation, malignant hypertension and COPD exacerbation. Patient is afebrile with a mild leukocytosis of 16.4 and normal lactic acid. CXR shows mild atelectasis with increased pulmonary vascularity. Influenza A/B negative. Robitussin 200 mg PO TID PRN for cough. Ensure BP control. Ensure IV diuresis. Ensure COPD management. O2 per NC to maintain O2 sat > 92%. 2. CHF exacerbation: BNP 6340. Echocardiogram from 04/2018 shows EF of 40-45% with hypokinesis. Venous duplex negative for DVT. Diuresis with Lasix 40 mg IV BID. Continue Lisinopril 40 mg PO QD, Coreg 6.25 mg PO BID. Telemetry monitoring. Ins and Outs. Daily weights. Keep K > 4 and Mg > 2. Echocardiogram shows EF of 45-50% with hypokinetic potts. FU Cardiology 3. COPD exacerbation: DuoNeb Q2H PRN for SOB/wheezing. Pulmonology consulted, started on Symbicort 2 puff BID. Prednisone 40 mg PO QD to complete a total of 5 days. FU Pulmonology 4. Hypertension: BP 168/106. Continue Coreg 6.25 mg PO BID. Continue Hydralazine 10 mg PO BID, Lisinopril 40 mg PO QD. HEART healthy diet. Monitor vitals, adjust medications as necessary. 5. Diarrhea: History of C. difficile. FU C.difficile 6. Polycythemia: Hg 16.5 Hct 50.9 MCV 94.4. Likely due to concentration and smoking history. Encourage smoking cessation, Habitrol patch. Daily CBC. 7. DVT/GI Prophylaxis: Heparin 5000 units SUBCUT TID. Patient is being treated for CHF and COPD exacerbation. She is pending clinical improvement. Pending Cardiology evaluation.
--- NOTE | 2018-07-30 15:20 | P.PN ---
Subjective Progress Note Date: 07/30/18 Principal diagnosis: Acute hypoxic respiratory failure secondary to acute exacerbation of COPD, purulent tracheobronchitis, and mild interstitial edema This is a 47-year-old female, at least a [id number] smoker, known history of COPD, known history of mild LV dysfunction, patient presented to the ER with a few days' history of increased shortness of breath, cough and wheezing. Cough is productive with yellowish phlegm, low-grade fever, no chills, no hemoptysis, no chest pain. Patient also noticed prior to all of this swelling in her lower extremities has been progressively getting worse. Denies any chest pain, denies any nausea vomiting or abdominal pain, she does have history of incisional hernia, previous surgery on the hernia at [facility], and never resolved. Chest x-ray on admission showed cardiomegaly, prominent pulmonary vasculature, but no clear-cut infiltrate. CBC showed leukocytosis with WBC count of 16.4, hemoglobin was 16.5. Patient was noted to have significant wheezing on physical examination, hence she was admitted and this consult was initiated. Presently the patient is on room air, her O2 saturation is in the 94% range, does not seem to be in any form of respiratory distress. Her echocardiogram on this admission showed LV dysfunction, her BNP level was elevated, and her chest x-ray did show evidence of prominent pulmonary vasculature. Patient is already on bronchodilators in the form of DuoNeb updrafts 4 times a day and when necessary, she is on antibiotics received Levaquin earlier in the ER, and she is on prednisone at 40 mg by mouth daily after a dose of Solu-Medrol 125 mg IV push 1. Patient denies any headache, no blurred vision, no dizziness. She does have history of chronic depression and history of bipolar disorder. Denies any nausea or vomiting at this point, denies any melena or hematemesis, no dysuria and no frequency no urgency. On 07/30/2018 patient seen in follow-up on selective care unit, she remains quite congested, bronchospastic and dyspneic. She is is not bringing up much sputum, no fever or chills. Remains pulse ox is 97%, afebrile, short of breath with any activity. She is on IV diuretics, however still has significant amount of swelling in her bilateral lower extremities. No new labs a chest x- ray today, influenza was not detected. Echocardiogram showed mildly impaired left ventricular systolic function with an EF between 45-50%, no pulmonary hypertension Objective - Vital Signs Vital signs: Vital Signs Temp 96.0 F L 07/30/18 12:00 Pulse 50 L 07/30/18 12:00 Resp 18 07/30/18 12:00 BP 168/106 07/30/18 12:00 Pulse Ox 97 07/30/18 12:00 Intake & Output 07/29/18 07/30/18 07/30/18 18:59 06:59 18:59 Intake Total 240 240 888 Output Total 1200 Balance 240 240 -312 Weight 101.4 kg Intake: IV 240 0.9 240 Oral 240 888 Output: Urine 1200 - Exam Physical Exam: Revealed a 47-year-old female, in no distress. Head: Atraumatic, normocephalic. HEENT:[Neck is supple.] [No neck masses.] [No thyromegaly.] [No JVD.] PERRLA, EOMI, no icterus. Chest: [Diffuse crackles or rhonchi and wheezes noted bilaterally. More so on forced expiratory maneuver. Symmetrical chest expansion.] Cardiac Exam: [Normal S1 and S2, no S3 gallop, no murmur.] Abdomen: [Obese, Soft, nontender, no megaly, no rebound, no guarding, normal bowel sounds. Large ventral hernia noted in the epigastric region.] Extremities: [2+ bipedal edema, chronic venous stasis changes noted..] Neurological Exam: Alert oriented 3, no gross focal neurologic deficits. Psychiatric: Normal mood, affect and mental status examination. Skin: Venous stasis changes noted in lower extremities, minimal erythema noted. - Labs CBC & Chem 7: 07/28/18 22:49 07/28/18 22:49 Labs: Microbiology - Last 24 Hours (Table) 07/28/18 22:18 Blood Culture - Preliminary Blood No Growth after 24 hours Assessment and Plan Plan: 1 acute hypoxic respiratory failure secondary to acute exacerbation of COPD, purulent tracheobronchitis, and suspect some component of mild interstitial edema. 2 acute on chronic systolic congestive heart failure 3 acute purulent tracheobronchitis. No clear-cut evidence of pneumonia on the chest x-ray. 4 tobacco dependence syndrome, patient is unable to quit smoking in spite of of counseling. 5 history of multiple comorbidities including hypertension, bipolar disorder, fibromyalgia, osteoarthritis, history of duodenal ulcer, history of pancreatic pseudocyst, occipital neuralgia, chronic back pain, generalized anxiety disorder and insomnia. Plan: Continue IV diuretics, IV steroids, neb was bronchodilators. Patient is still quite bronchospastic, dyspneic has significant amount of bilateral extremity edema. Not ready for discharge, continue with current treatment. We'll continue to follow. Repeat chest x-ray in the morning I performed a history & physical examination of the patient and discussed their management with my nurse practitioner, Radha Kwok. I reviewed the nurse practitioner's note and agree with the documented findings and plan of care. Lung sounds are positive for diffuse wheezes throughout the lung fraser. The findings and the impression was discussed with the patient. I attest to the documentation by the nurse practitioner. Time with Patient: Less than 30
[2018-07-30] MEDS: methylPREDNISolone SOD SUCCI 125 MG/2 ML VIAL IV SCH ×2 (17:57→22:20)
--- NOTE | 2018-07-30 18:44 | CONS ---
CONSULTATION This is a 47-year-old lady with a history of bipolar disorder and known history of exacerbations of COPD who continues to smoke, has had previous hospitalization with bronchitis and tracheobronchitis. She came into the hospital mainly with complaints of some abdominal discomfort. She continues to smoke at least about a pack a day or so. She has had previous evaluation from a cardiology standpoint, and at the time of my evaluation she is actually comfortable resting and indicates to me that her breathing has gotten better, but she complains of some abdominal discomfort. She came in mainly with what seems to be cough productive with sputum, shortness of breath, and oxygen saturation was low. She was brought in by the EMS. She has a diagnosis of hypertension, inferior wall motion hypokinesia, which is not new. However, she is not in any distress and not having any chest discomfort. She has underlying hypertension, bipolar disorder, and also fibromyalgia and osteoarthritis. She is known to have smoking and COPD from time to time with exacerbations. At the time of my evaluation, she is resting comfortably without symptoms. HOME MEDICATIONS: Home medications include: 1. Labetalol 200 mg b.i.d. 2. Lisinopril 40 mg daily. 3. Nifedipine 60 mg daily. 4. Hydralazine 50 mg t.i.d. ALLERGIES: 1. CODEINE. 2. ACETAMINOPHEN. 3. DEPAKOTE. 4. VICODIN. PHYSICAL EXAMINATION: On examination, her blood pressure is 156/70. Pulse rate is about 55 per minute, regular. HEENT: Unremarkable. Fundus was not examined by me. Neck is supple. There is JVD of 1 cm. No carotid bruit. Heart exam reveals S1, S2 with a short systolic murmur. Lungs reveal scattered rhonchi. Abdomen is soft, nontender. Lower extremities reveal diminished pulses. Central nervous system is grossly within normal limits. EKG revealed a sinus tachycardia with minor IVCD. No acute changes. LABORATORY DATA: Her BNP is modestly elevated at 6340. Initial troponin is unremarkable. Electrolytes are normal. IMPRESSION: 1. Exacerbation of chronic obstructive pulmonary disease in a patient with smoking and who continues to smoke. 2. History of hypertension. 3. History of probably some diastolic dysfunction. 4. Known inferior wall motion abnormality with ejection fraction in the 40% to 45% range. 5. History of obesity. 6. History of bipolar disorder. RECOMMENDATIONS: I am recommending that we continue IV Lasix. We will check an additional troponin level, add Lipitor 20 mg daily to her regimen. She is already on some antibiotics which have been ordered by her good humor vendor. She is already on a beta sanna and lisinopril as well, which we will continue for the time being. She is on steroids also. Blood pressure is slightly suboptimally controlled. I will add amlodipine 5 mg daily. Her ejection fraction is in the 40% to 45% range. Discussed my thoughts in detail with the patient. No aggressive intervention is necessary at this time. Thank you very much for the consult. MMODL / IJN: [id number] /
[2018-07-30] MEDS: ATORVASTATIN 20 MG TAB PO SCH (19:35)
[2018-07-30] MEDS: guaiFENesin SYRUP 100MG/5ML 200 MG/10 ML CUP PO PRN (20:20)
[2018-07-31] MEDS: HYDROmorphone 1 MG/ML 1 ML SYRINGE IVP PRN ×8 (01:18→23:56)
[2018-07-31] MEDS: ONDANSETRON 4 MG/2 ML VIAL IVP PRN ×4 (01:18→21:07)
[2018-07-31] MEDS: PANTOPRAZOLE 40 MG TABLET PO SCH (05:35)
[2018-07-31] MEDS: methylPREDNISolone SOD SUCCI 125 MG/2 ML VIAL IV SCH ×4 (05:35→23:57)
[2018-07-31] MEDS: CARVEDILOL 6.25 MG TAB PO SCH ×2 (05:35→18:08)
[2018-07-31] MEDS: guaiFENesin SYRUP 100MG/5ML 200 MG/10 ML CUP PO PRN (05:43)
[2018-07-31] MEDS: LISINOPRIL 20 MG TAB PO SCH (08:29)
[2018-07-31] MEDS: hydrALAZINE HCL 10 MG TAB PO SCH ×2 (08:29→20:01)
[2018-07-31] MEDS: DOXYCYCLINE 100 MG CAP PO SCH ×2 (08:29→23:56)
[2018-07-31] MEDS: HEPARIN SODIUM,PORCINE 5,000 UNIT/ML 1 ML VIAL SQ SCH ×3 (08:29→23:58)
[2018-07-31] MEDS: amLODIPine 5 MG TAB PO SCH (08:30)
[2018-07-31] MEDS: FUROSEMIDE 10 MG/ML 4 ML VIAL IV SCH ×2 (08:30→20:01)
[2018-07-31] MEDS: NICOTINE 21MG/24HR PATCH TRANSDERM SCH (08:31)
[2018-07-31] MEDS: SYMBICORT 160-4.5 MCG INHALER INHALATION SCH ×2 (09:05→19:35)
[2018-07-31] MEDS: IPRATROPIUM-ALBUTEROL 3 ML NEB INHALATION PRN ×2 (09:09→19:34)
[2018-07-31 10:00] LABS: Basophils % (A) 0 %; Eosinophils # (A) 0.1 k/uL (0-0.7); Eosinophils % (A) 1 %; Lymphocytes # (A) 0.6 k/uL (1.0-4.8); Lymphocytes % (A) 6 %; MCH 31.4 pg (25.0-35.0); MCHC 32.7 g/dL (31.0-37.0); MCV 95.8 fL (80.0-100.0); Mean Platelet Volume 7.2; Monocytes # (A) 0.3 k/uL (0-1.0); Monocytes % (A) 3 %; Neutrophils # (A) 9.2 k/uL (1.3-7.7); Neutrophils % (A) 90 %; Platelet Count 303 k/uL (150-450); RBC 5.43 m/uL (3.80-5.40); RDW 14.7 % (11.5-15.5); WBC 10.2 k/uL (3.8-10.6)
[2018-07-31 11:52] LABS: Glucose,Whole Blood 326 mg/dL (75-99)
--- NOTE | 2018-07-31 12:02 | P.PN ---
Subjective Progress Note Date: 07/31/18 Principal diagnosis: CHF and COPD exacerbation patient was seen and examined. No acute events overnight. Patient reports inability to sleep, requesting sleeping aid. Otherwise, patient reports mild improvement in her breathing. She continues to complain of shortness of breath when exerting herself. She continues to complain of bilateral lower extremity pain due to swelling in her feet. Objective - Vital Signs Vital signs: Vital Signs Temp 97.4 F L 07/31/18 11:21 Pulse 65 07/31/18 11:21 Resp 16 07/31/18 11:21 BP 188/88 07/31/18 11:21 Pulse Ox 95 07/31/18 11:21 Intake & Output 07/30/18 07/31/18 07/31/18 18:59 06:59 18:59 Intake Total 1120 480 240 Output Total 1200 Balance -80 480 240 Weight 101.9 kg Intake: IV 10 Invasive Line 2 10 Oral 1110 480 240 Output: Urine 1200 Other: # Voids 3 - Exam General: [non toxic], [no distress], [appears at stated age], [speaking in full sentences] Derm: [warm], [dry] Head: [atraumatic], [normocephalic], [symmetric] Eyes: [EOMI], [no lid lag], [anicteric sclera] Mouth: [no lip lesion], [mucus membranes moist] Cardiovascular: [S1S2 reg], [no murmur] Lungs: [Coarse breath sounds bilateral with wheezing and rales], [no accessory muscle use] Abdominal: [soft], [ nontender to palpation], [no guarding], [abdominal wall hernia] Ext: [no gross muscle atrophy], [1+ pitting edema BL], [no contractures] Neuro: [no focal neuro deficits] Psych: [Alert], [oriented], [appropriate affect] - Labs CBC & Chem 7: 07/31/18 09:43 07/28/18 22:49 Labs: Abnormal Lab Results - Last 24 Hours (Table) 07/31/18 07/31/18 Range/Units 09:43 11:47 RBC 5.43 H (3.80-5.40) m/uL Hgb 17.0 H (11.4-16.0) gm/dL Hct 52.0 H (34.0-46.0) % Neutrophils # 9.2 H (1.3-7.7) k/uL Lymphocytes # 0.6 L (1.0-4.8) k/uL POC Glucose (mg/dL) 326 H (75-99) mg/dL Microbiology - Last 24 Hours (Table) 07/28/18 22:18 Blood Culture - Preliminary Blood No Growth after 48 hours Assessment and Plan Assessment: Assessment and Plan 1. Acute hypoxic respiratory failure: Multifactorial. Likely secondary to Acute on chronic CHF exacerbation, malignant hypertension and COPD exacerbation. Patient is afebrile with a mild leukocytosis of 16.4 and normal lactic acid. CXR shows mild atelectasis with increased pulmonary vascularity. Influenza A/B negative. Robitussin 200 mg PO TID PRN for cough. Ensure BP control. Ensure IV diuresis. Ensure COPD management. O2 per NC to maintain O2 sat > 92%. 2. CHF exacerbation: BNP 6340. Echocardiogram from 04/2018 shows EF of 40-45% with hypokinesis. Venous duplex negative for DVT. Diuresis with Lasix 40 mg IV BID. Continue Lisinopril 40 mg PO QD, Coreg 6.25 mg PO BID. Telemetry monitoring. Ins and Outs. Daily weights. Keep K > 4 and Mg > 2. Echocardiogram shows EF of 45-50% with hypokinetic potts. FU Cardiology 3. COPD exacerbation: DuoNeb Q2H PRN for SOB/wheezing. Pulmonology consulted, started on Symbicort 2 puff BID. Prednisone 40 mg PO QD to complete a total of 5 days. FU Pulmonology 4. Hypertension: BP 188/88. Continue Coreg 6.25 mg PO BID. Continue Hydralazine 10 mg PO BID, Lisinopril 40 mg PO QD. Added Amlodipine 5 mg PO QD as per Cardiology recommendations. HEART healthy diet. Monitor vitals, adjust medications as necessary. 5. Diarrhea: History of C. difficile. FU C.difficile 6. Polycythemia: Hg 16.5 to 17.0. Likely due to concentration and smoking history. Encourage smoking cessation, Habitrol patch. Daily CBC. 7. DVT/GI Prophylaxis: Heparin 5000 units SUBCUT TID. Patient is being treated for CHF and COPD exacerbation. She is pending clinical improvement.
[2018-07-31] MEDS: INSULIN ASPART 100 UNIT/ML 1 ML 10 ML VIAL SQ SCH ×3 (12:13→20:40)
--- NOTE | 2018-07-31 15:44 | P.PN ---
Subjective Progress Note Date: 07/31/18 Principal diagnosis: Acute hypoxic respiratory failure secondary to acute exacerbation of COPD, purulent tracheobronchitis, and mild interstitial edema This is a 47-year-old female, at least a [id number] smoker, known history of COPD, known history of mild LV dysfunction, patient presented to the ER with a few days' history of increased shortness of breath, cough and wheezing. Cough is productive with yellowish phlegm, low-grade fever, no chills, no hemoptysis, no chest pain. Patient also noticed prior to all of this swelling in her lower extremities has been progressively getting worse. Denies any chest pain, denies any nausea vomiting or abdominal pain, she does have history of incisional hernia, previous surgery on the hernia at [facility], and never resolved. Chest x-ray on admission showed cardiomegaly, prominent pulmonary vasculature, but no clear-cut infiltrate. CBC showed leukocytosis with WBC count of 16.4, hemoglobin was 16.5. Patient was noted to have significant wheezing on physical examination, hence she was admitted and this consult was initiated. Presently the patient is on room air, her O2 saturation is in the 94% range, does not seem to be in any form of respiratory distress. Her echocardiogram on this admission showed LV dysfunction, her BNP level was elevated, and her chest x-ray did show evidence of prominent pulmonary vasculature. Patient is already on bronchodilators in the form of DuoNeb updrafts 4 times a day and when necessary, she is on antibiotics received Levaquin earlier in the ER, and she is on prednisone at 40 mg by mouth daily after a dose of Solu-Medrol 125 mg IV push 1. Patient denies any headache, no blurred vision, no dizziness. She does have history of chronic depression and history of bipolar disorder. Denies any nausea or vomiting at this point, denies any melena or hematemesis, no dysuria and no frequency no urgency. On 07/30/2018 patient seen in follow-up on selective care unit, she remains quite congested, bronchospastic and dyspneic. She is is not bringing up much sputum, no fever or chills. Remains pulse ox is 97%, afebrile, short of breath with any activity. She is on IV diuretics, however still has significant amount of swelling in her bilateral lower extremities. No new labs a chest x- ray today, influenza was not detected. Echocardiogram showed mildly impaired left ventricular systolic function with an EF between 45-50%, no pulmonary hypertension On 07/31/2018 patient seen in follow-up on selective care unit, less bronchospastic and dyspneic on today's exam, still has significant amount of swelling in bilateral lower extremities. No new chest x-ray today. Today's labs were reviewed. No fever or chills, as any chest pain. Does have a slight headache, no other acute complaints. We'll continue with current treatment, and started to slowly improve Objective - Vital Signs Vital signs: Vital Signs Temp 97.4 F L 07/31/18 11:21 Pulse 65 07/31/18 11:21 Resp 16 07/31/18 11:21 BP 188/88 07/31/18 11:21 Pulse Ox 95 07/31/18 11:21 Intake & Output 07/30/18 07/31/18 07/31/18 18:59 06:59 18:59 Intake Total 1120 480 660 Output Total 1200 Balance -80 480 660 Weight 101.9 kg Intake: IV 10 180 0.9 180 Invasive Line 2 10 Oral 1110 480 480 Output: Urine 1200 Other: # Voids 3 - Exam Physical Exam: Revealed a 47-year-old female, in no distress. Head: Atraumatic, normocephalic. HEENT:[Neck is supple.] [No neck masses.] [No thyromegaly.] [No JVD.] PERRLA, EOMI, no icterus. Chest: [Diffuse wheezes, improving. More so on forced expiratory maneuver. Symmetrical chest expansion.] Cardiac Exam: [Normal S1 and S2, no S3 gallop, no murmur.] Abdomen: [Obese, Soft, nontender, no megaly, no rebound, no guarding, normal bowel sounds. Large ventral hernia noted in the epigastric region.] Extremities: [2+ bipedal edema, chronic venous stasis changes noted..] Neurological Exam: Alert oriented 3, no gross focal neurologic deficits. Psychiatric: Normal mood, affect and mental status examination. Skin: Venous stasis changes noted in lower extremities, minimal erythema noted. - Labs CBC & Chem 7: 07/31/18 09:43 07/28/18 22:49 Labs: Abnormal Lab Results - Last 24 Hours (Table) 07/31/18 07/31/18 Range/Units 09:43 11:47 RBC 5.43 H (3.80-5.40) m/uL Hgb 17.0 H (11.4-16.0) gm/dL Hct 52.0 H (34.0-46.0) % Neutrophils # 9.2 H (1.3-7.7) k/uL Lymphocytes # 0.6 L (1.0-4.8) k/uL POC Glucose (mg/dL) 326 H (75-99) mg/dL Microbiology - Last 24 Hours (Table) 07/28/18 22:18 Blood Culture - Preliminary Blood No Growth after 48 hours Assessment and Plan Plan: 1 acute hypoxic respiratory failure secondary to acute exacerbation of COPD, purulent tracheobronchitis, and suspect some component of mild interstitial edema. 2 acute on chronic systolic congestive heart failure 3 acute purulent tracheobronchitis. No clear-cut evidence of pneumonia on the chest x-ray. 4 tobacco dependence syndrome, patient is unable to quit smoking in spite of of counseling. 5 history of multiple comorbidities including hypertension, bipolar disorder, fibromyalgia, osteoarthritis, history of duodenal ulcer, history of pancreatic pseudocyst, occipital neuralgia, chronic back pain, generalized anxiety disorder and insomnia. Plan: Continue the IV steroids, diuretics, and nevertheless bronchodilators, patient is slowly improving, vital signs are stable, no fever or chills will continue to follow I performed a history & physical examination of the patient and discussed their management with my nurse practitioner, Radha Kwok. I reviewed the nurse practitioner's note and agree with the documented findings and plan of care. Lung sounds are positive for diffuse wheezes throughout the lung fraser. The findings and the impression was discussed with the patient. I attest to the documentation by the nurse practitioner. Time with Patient: Less than 30
[2018-07-31 17:26] LABS: Glucose,Whole Blood 182 mg/dL (75-99)
[2018-07-31] MEDS: ATORVASTATIN 20 MG TAB PO SCH (20:01)
[2018-07-31 20:02] LABS: Glucose,Whole Blood 208 mg/dL (75-99)
[2018-07-31] MEDS ORDERED: cloNIDine HCL 0.2 MG TAB PO STA (20:46)
[2018-07-31] MEDS: DOCUSATE 100 MG CAP PO SCH (21:07)
[2018-07-31 22:42] LABS: Hemoglobin A1C 6.5 % (4.0-6.0)
[2018-07-31] MEDS: TEMAZEPAM 15 MG CAP PO PRN (23:56)
[2018-08-01] MEDS: ONDANSETRON 4 MG/2 ML VIAL IVP PRN ×4 (03:10→22:18)
[2018-08-01] MEDS: HYDROmorphone 1 MG/ML 1 ML SYRINGE IVP PRN ×4 (03:11→13:05)
[2018-08-01] MEDS ORDERED: hydrALAZINE HCL 20 MG/ML 1 ML VIAL IVP STA (04:56)
[2018-08-01 06:19] LABS: Glucose,Whole Blood 222 mg/dL (75-99)
[2018-08-01] MEDS: CARVEDILOL 6.25 MG TAB PO SCH ×2 (06:39→17:09)
[2018-08-01] MEDS: methylPREDNISolone SOD SUCCI 125 MG/2 ML VIAL IV SCH ×4 (06:39→22:19)
[2018-08-01] MEDS: PANTOPRAZOLE 40 MG TABLET PO SCH (06:39)
[2018-08-01] MEDS: INSULIN ASPART 100 UNIT/ML 1 ML 10 ML VIAL SQ SCH ×4 (06:40→20:08)
[2018-08-01] MEDS: IPRATROPIUM-ALBUTEROL 3 ML NEB INHALATION PRN ×3 (08:21→19:30)
[2018-08-01] MEDS: SYMBICORT 160-4.5 MCG INHALER INHALATION SCH ×2 (08:21→19:30)
[2018-08-01] MEDS: DOCUSATE 100 MG CAP PO SCH ×2 (09:31→19:36)
[2018-08-01] MEDS: HEPARIN SODIUM,PORCINE 5,000 UNIT/ML 1 ML VIAL SQ SCH ×3 (09:31→22:18)
[2018-08-01] MEDS: amLODIPine 5 MG TAB PO SCH (09:31)
[2018-08-01] MEDS: DOXYCYCLINE 100 MG CAP PO SCH ×2 (09:32→19:36)
[2018-08-01] MEDS: FUROSEMIDE 10 MG/ML 4 ML VIAL IV SCH ×2 (09:32→19:37)
[2018-08-01] MEDS: LISINOPRIL 20 MG TAB PO SCH (09:32)
[2018-08-01] MEDS: hydrALAZINE HCL 10 MG TAB PO SCH (09:32)
[2018-08-01] MEDS: NICOTINE 21MG/24HR PATCH TRANSDERM SCH (09:33)
[2018-08-01 11:42] LABS: Glucose,Whole Blood 265 mg/dL (75-99)
--- NOTE | 2018-08-01 13:29 | P.PN ---
Subjective Progress Note Date: 08/01/18 Principal diagnosis: Acute hypoxic respiratory failure secondary to acute exacerbation of COPD and purulent tracheobronchitis. This is a 47-year-old female, at least a [id number] smoker, known history of COPD, known history of mild LV dysfunction, patient presented to the ER with a few days' history of increased shortness of breath, cough and wheezing. Cough is productive with yellowish phlegm, low-grade fever, no chills, no hemoptysis, no chest pain. Patient also noticed prior to all of this swelling in her lower extremities has been progressively getting worse. Denies any chest pain, denies any nausea vomiting or abdominal pain, she does have history of incisional hernia, previous surgery on the hernia at [facility], and never resolved. Chest x-ray on admission showed cardiomegaly, prominent pulmonary vasculature, but no clear-cut infiltrate. CBC showed leukocytosis with WBC count of 16.4, hemoglobin was 16.5. Patient was noted to have significant wheezing on physical examination, hence she was admitted and this consult was initiated. Presently the patient is on room air, her O2 saturation is in the 94% range, does not seem to be in any form of respiratory distress. Her echocardiogram on this admission showed LV dysfunction, her BNP level was elevated, and her chest x-ray did show evidence of prominent pulmonary vasculature. Patient is already on bronchodilators in the form of DuoNeb updrafts 4 times a day and when necessary, she is on antibiotics received Levaquin earlier in the ER, and she is on prednisone at 40 mg by mouth daily after a dose of Solu-Medrol 125 mg IV push 1. Patient denies any headache, no blurred vision, no dizziness. She does have history of chronic depression and history of bipolar disorder. Denies any nausea or vomiting at this point, denies any melena or hematemesis, no dysuria and no frequency no urgency. On 07/30/2018 patient seen in follow-up on selective care unit, she remains quite congested, bronchospastic and dyspneic. She is is not bringing up much sputum, no fever or chills. Remains pulse ox is 97%, afebrile, short of breath with any activity. She is on IV diuretics, however still has significant amount of swelling in her bilateral lower extremities. No new labs a chest x- ray today, influenza was not detected. Echocardiogram showed mildly impaired left ventricular systolic function with an EF between 45-50%, no pulmonary hypertension On 07/31/2018 patient seen in follow-up on selective care unit, less bronchospastic and dyspneic on today's exam, still has significant amount of swelling in bilateral lower extremities. No new chest x-ray today. Today's labs were reviewed. No fever or chills, as any chest pain. Does have a slight headache, no other acute complaints. We'll continue with current treatment, and started to slowly improve Seen again on 08/01/2018, patient is having trouble again with shortness of breath, persistent cough wheezing and shortness of breath noted. Patient is a bit better, but nowhere near her baseline. She is also complaining of vague aches and pains, headaches, and multiple constitutional symptoms being addressed by the hospitalist. Objective - Vital Signs Vital signs: Vital Signs Temp 98.1 F 08/01/18 12:00 Pulse 62 08/01/18 12:00 Resp 18 08/01/18 12:00 BP 186/86 08/01/18 12:00 Pulse Ox 97 08/01/18 12:00 Intake & Output 07/31/18 08/01/18 08/01/18 18:59 06:59 18:59 Intake Total 840 1440 120 Output Total 1200 Balance 840 240 120 Weight 101.6 kg Intake: IV 180 0.9 180 Oral 660 1440 120 Output: Urine 1200 Other: Voiding Method Bedside Commode # Voids 2 1 - Exam Physical Exam: Revealed a 47-year-old female, in no distress. Head: Atraumatic, normocephalic. HEENT:[Neck is supple.] [No neck masses.] [No thyromegaly.] [No JVD.] PERRLA, EOMI, no icterus. Chest: [Diffuse rhonchi and wheezes noted bilaterally. Cardiac Exam: [Normal S1 and S2, no S3 gallop, no murmur.] Abdomen: [Obese, Soft, nontender, no megaly, no rebound, no guarding, normal bowel sounds. Large ventral hernia noted in the epigastric region.] Extremities: [2+ bipedal edema, chronic venous stasis changes noted..] Neurological Exam: Alert oriented 3, no gross focal neurologic deficits. Psychiatric: Normal mood, affect and mental status examination. Skin: Venous stasis changes noted in lower extremities, minimal erythema noted. - Labs CBC & Chem 7: 07/31/18 09:43 07/28/18 22:49 Labs: Abnormal Lab Results - Last 24 Hours (Table) 07/31/18 07/31/18 07/31/18 Range/Units 09:43 17:24 20:01 POC Glucose (mg/dL) 182 H 208 H (75-99) mg/dL Hemoglobin A1c 6.5 H (4.0-6.0) % 08/01/18 08/01/18 Range/Units 06:17 11:36 POC Glucose (mg/dL) 222 H 265 H (75-99) mg/dL Hemoglobin A1c (4.0-6.0) % Microbiology - Last 24 Hours (Table) 07/28/18 22:18 Blood Culture - Preliminary Blood No Growth after 72 hours Assessment and Plan Assessment: Impression: 1 acute hypoxic respiratory failure secondary to acute exacerbation of COPD, purulent tracheobronchitis, and suspect some component of mild interstitial edema. 2 acute on chronic systolic congestive heart failure 3 acute purulent tracheobronchitis. No clear-cut evidence of pneumonia on the chest x-ray. 4 tobacco dependence syndrome, patient is unable to quit smoking in spite of of counseling. 5 history of multiple comorbidities including hypertension, bipolar disorder, fibromyalgia, osteoarthritis, history of duodenal ulcer, history of pancreatic pseudocyst, occipital neuralgia, chronic back pain, generalized anxiety disorder and insomnia. Recommendation: Continue present course of bronchodilators, diuretics, antibiotics, steroids, counseling regarding smoking cessation, patient remains quite ill, and she is not quite ready for discharge at this point. We'll continue to follow. Discussed and reviewed the bronchodilators with the patient that she is presently on. Time with Patient: Less than 30
--- NOTE | 2018-08-01 15:45 | P.PN ---
Subjective Progress Note Date: 08/01/18 Principal diagnosis: COPD exacerbation Patient was seen and examined. No acute events overnight. Patient continues to complain of shortness of breath and wheezing, however improved from yesterday. Patient reports abdominal pain at the site of the hernia. States that a lot of it is making her nauseous, would like to try morphine instead. No changes in urination or bowel habits, passing gas. She has no chest pain or palpitations. Objective - Vital Signs Vital signs: Vital Signs Temp 98.1 F 08/01/18 12:00 Pulse 72 08/01/18 15:31 Resp 18 08/01/18 12:00 BP 186/86 08/01/18 12:00 Pulse Ox 97 08/01/18 12:00 Intake & Output 07/31/18 08/01/18 08/01/18 18:59 06:59 18:59 Intake Total 840 1440 240 Output Total 1200 1000 Balance 840 240 -760 Weight 101.6 kg Intake: IV 180 0.9 180 Oral 660 1440 240 Output: Urine 1200 1000 Other: Voiding Method Bedside Commode # Voids 2 1 - Exam General: [non toxic], [no distress], [appears at stated age], [speaking in full sentences] Derm: [warm], [dry] Head: [atraumatic], [normocephalic], [symmetric] Eyes: [EOMI], [no lid lag], [anicteric sclera] Mouth: [no lip lesion], [mucus membranes moist] Cardiovascular: [S1S2 reg], [no murmur] Lungs: [Decreased breath sounds bilateral with improved aeration, mild expiratory wheezes], [no accessory muscle use] Abdominal: [soft], [ nontender to palpation], [no guarding], [abdominal wall hernia] Ext: [no gross muscle atrophy], [1+ pitting edema BL], [no contractures] Neuro: [no focal neuro deficits] Psych: [Alert], [oriented], [appropriate affect] - Labs CBC & Chem 7: 07/31/18 09:43 07/28/18 22:49 Labs: Abnormal Lab Results - Last 24 Hours (Table) 07/31/18 07/31/18 07/31/18 Range/Units 09:43 17:24 20:01 POC Glucose (mg/dL) 182 H 208 H (75-99) mg/dL Hemoglobin A1c 6.5 H (4.0-6.0) % 08/01/18 08/01/18 Range/Units 06:17 11:36 POC Glucose (mg/dL) 222 H 265 H (75-99) mg/dL Hemoglobin A1c (4.0-6.0) % Microbiology - Last 24 Hours (Table) 07/28/18 22:18 Blood Culture - Preliminary Blood No Growth after 72 hours Assessment and Plan Assessment: Assessment and Plan 1. Acute hypoxic respiratory failure: Multifactorial. Likely secondary to Acute on chronic CHF exacerbation, malignant hypertension and COPD exacerbation. Patient is afebrile with a mild leukocytosis of 16.4 and normal lactic acid. CXR shows mild atelectasis with increased pulmonary vascularity. Influenza A/B negative. Robitussin 200 mg PO TID PRN for cough. Ensure BP control. Ensure IV diuresis. Ensure COPD management. O2 per NC to maintain O2 sat > 92%. 2. CHF exacerbation: BNP 6340. Echocardiogram from 04/2018 shows EF of 40-45% with hypokinesis. Venous duplex negative for DVT. Diuresis with Lasix 40 mg IV BID. Continue Lisinopril 40 mg PO QD, Coreg 6.25 mg PO BID. Telemetry monitoring. Ins and Outs. Daily weights. Keep K > 4 and Mg > 2. Echocardiogram shows EF of 45-50% with hypokinetic potts. FU Cardiology 3. COPD exacerbation: DuoNeb Q2H PRN for SOB/wheezing. Pulmonology consulted, started on Symbicort 2 puff BID. Prednisone 40 mg PO QD to complete a total of 5 days. FU Pulmonology 4. Hypertension: BP 186/86. Continue Coreg 6.25 mg PO BID. Continue Hydralazine 10 mg PO BID, Lisinopril 40 mg PO QD. Added Amlodipine 5 mg PO QD as per Cardiology recommendations. HEART healthy diet. Monitor vitals, adjust medications as necessary. 5. Diarrhea: History of C. difficile. FU C.difficile 6. Polycythemia: Hg 16.5 to 17.0. Likely due to concentration and smoking history. Encourage smoking cessation, Habitrol patch. Daily CBC. 7. DVT/GI Prophylaxis: Heparin 5000 units SUBCUT TID. Patient is being treated for CHF and COPD exacerbation. She is pending clinical improvement. Pulmonology and cardiology on board.
[2018-08-01] MEDS: MORPHINE SULFATE 4 MG/ML SYRINGE IVP PRN ×3 (16:17→22:18)
[2018-08-01 16:53] LABS: Glucose,Whole Blood 175 mg/dL (75-99)
[2018-08-01] MEDS ORDERED: amLODIPine 5 MG TAB PO STA (18:44)
[2018-08-01] MEDS: ATORVASTATIN 20 MG TAB PO SCH (19:36)
[2018-08-01] MEDS: hydrALAZINE HCL 25 MG TAB PO SCH (19:36)
[2018-08-01 20:03] LABS: Glucose,Whole Blood 308 mg/dL (75-99)
[2018-08-02] MEDS: MORPHINE SULFATE 4 MG/ML SYRINGE IVP PRN ×6 (01:40→23:59)
[2018-08-02] MEDS: TEMAZEPAM 15 MG CAP PO PRN (01:46)
[2018-08-02] MEDS: IPRATROPIUM-ALBUTEROL 3 ML NEB INHALATION PRN ×4 (01:51→21:10)
[2018-08-02] MEDS: ONDANSETRON 4 MG/2 ML VIAL IVP PRN ×2 (04:50→21:03)
[2018-08-02] MEDS: methylPREDNISolone SOD SUCCI 125 MG/2 ML VIAL IV SCH ×2 (04:50→11:19)
[2018-08-02 06:20] LABS: Glucose,Whole Blood 342 mg/dL (75-99)
[2018-08-02] MEDS: INSULIN ASPART 100 UNIT/ML 1 ML 10 ML VIAL SQ SCH ×4 (06:29→21:55)
[2018-08-02] MEDS: CARVEDILOL 6.25 MG TAB PO SCH ×2 (06:29→17:11)
[2018-08-02] MEDS: PANTOPRAZOLE 40 MG TABLET PO SCH (06:29)
[2018-08-02] MEDS: SYMBICORT 160-4.5 MCG INHALER INHALATION SCH ×2 (08:07→21:10)
[2018-08-02] MEDS: hydrALAZINE HCL 25 MG TAB PO SCH ×4 (08:37→20:17)
[2018-08-02] MEDS: LISINOPRIL 20 MG TAB PO SCH (08:38)
[2018-08-02] MEDS: FUROSEMIDE 10 MG/ML 4 ML VIAL IV SCH ×2 (08:38→21:03)
[2018-08-02] MEDS: NICOTINE 21MG/24HR PATCH TRANSDERM SCH (08:38)
[2018-08-02] MEDS: HEPARIN SODIUM,PORCINE 5,000 UNIT/ML 1 ML VIAL SQ SCH ×3 (08:38→23:59)
[2018-08-02] MEDS: DOCUSATE 100 MG CAP PO SCH ×2 (08:38→20:17)
[2018-08-02] MEDS: amLODIPine 10 MG TAB PO SCH (08:38)
--- NOTE | 2018-08-02 09:32 | P.PN ---
Subjective Progress Note Date: 08/02/18 Principal diagnosis: shortness of breath, wheezing, abdominal pain Patient seen and examined. No acute events overnight.patient reports improvement in her breathing since receiving breathing treatments. She continues to complain of abdominal pain and difficulty breathing associated with it. Patient reports that the hernia is pushing up against her diaphragm. No nausea or vomiting. No changes in urination or bowel habits. Objective - Vital Signs Vital signs: Vital Signs Temp 97.8 F 08/02/18 04:00 Pulse 59 L 08/02/18 04:00 Resp 16 08/02/18 04:00 BP 180/89 08/02/18 04:00 Pulse Ox 100 08/02/18 04:00 Intake & Output 08/01/18 08/02/18 08/02/18 18:59 06:59 18:59 Intake Total 540 960 120 Output Total 1000 3900 Balance -460 -2940 120 Weight 100.8 kg Intake: Oral 540 960 120 Output: Urine 1000 3900 Other: Voiding Method Bedside Commode # Voids 1 - Exam General: [non toxic], [no distress], [appears at stated age], [speaking in full sentences] Derm: [warm], [dry] Head: [atraumatic], [normocephalic], [symmetric] Eyes: [EOMI], [no lid lag], [anicteric sclera] Mouth: [no lip lesion], [mucus membranes moist] Cardiovascular: [S1S2 reg], [no murmur] Lungs: [Decreased breath sounds bilaterally], [no accessory muscle use] Abdominal: [soft], [no guarding], [large abdominal wall hernia, tenderness to palpation without rebound] Ext: [no gross muscle atrophy], [1+ pitting edema BL], [no contractures] Neuro: [no focal neuro deficits] Psych: [Alert], [oriented], [appropriate affect] - Labs CBC & Chem 7: 07/31/18 09:43 07/28/18 22:49 Labs: Abnormal Lab Results - Last 24 Hours (Table) 08/01/18 08/01/18 08/01/18 Range/Units 11:36 16:50 20:02 POC Glucose (mg/dL) 265 H 175 H 308 H (75-99) mg/dL 08/02/18 Range/Units 06:18 POC Glucose (mg/dL) 342 H (75-99) mg/dL Microbiology - Last 24 Hours (Table) 07/28/18 22:18 Blood Culture - Preliminary Blood No Growth after 96 hours Assessment and Plan Assessment: Assessment and Plan 1. Acute hypoxic respiratory failure: Multifactorial. Likely secondary to Acute on chronic CHF exacerbation, malignant hypertension and COPD exacerbation. Patient is afebrile with a mild leukocytosis of 16.4 and normal lactic acid. CXR shows mild atelectasis with increased pulmonary vascularity. Influenza A/B negative. Robitussin 200 mg PO TID PRN for cough. Ensure BP control. Ensure IV diuresis. Ensure COPD management. O2 per NC to maintain O2 sat > 92%. 2. CHF exacerbation: BNP 6340. Echocardiogram from 04/2018 shows EF of 40-45% with hypokinesis. Venous duplex negative for DVT. Diuresis with Lasix 40 mg IV BID. Continue Lisinopril 40 mg PO QD, Coreg 6.25 mg PO BID. Telemetry monitoring. Ins and Outs. Daily weights. Keep K > 4 and Mg > 2. Echocardiogram shows EF of 45-50% with hypokinetic potts. FU Cardiology 3. COPD exacerbation: DuoNeb Q2H PRN for SOB/wheezing. Pulmonology consulted, started on Symbicort 2 puff BID. Prednisone DC'd and SoluMedrol 60 mg IV Q6 started. Added Doxycycline 100 mg PO BID for possible acute bronchitis. FU Pulmonology 4. Abdominal wall hernia: Incarcerated anterior upper abdominal ventral hernia seen on April 2018 computed tomography scan without evidence of bowel obstruction. Pain management with Morphine 4 mg Q3 PRN. Bowel regimen adequate. FU C. difficile, Abdominal wall US 5. Hypertension: BP 180/89. Continue Coreg 6.25 mg PO BID. Increase Hydralazine to 25 mg PO BID. Continue Lisinopril 40 mg PO QD. Increase Amlodipine to 10 mg PO QD as per Cardiology recommendations. HEART healthy diet. Monitor vitals, adjust medications as necessary. 6. Polycythemia: Hg 16.5 to 17.0. Likely due to concentration and smoking history. Encourage smoking cessation, Habitrol patch. Daily CBC. 7. DVT/GI Prophylaxis: Heparin 5000 units SUBCUT TID. Patient is being treated for CHF and COPD exacerbation. She is pending clinical improvement. Pulmonology and cardiology on board.
[2018-08-02] MEDS: DOXYCYCLINE 100 MG CAP PO SCH ×2 (11:20→20:16)
[2018-08-02 11:55] LABS: Glucose,Whole Blood 187 mg/dL (75-99)
--- NOTE | 2018-08-02 11:56 | US ---
EXAMINATION TYPE: US abdomen limited DATE OF EXAM: 08/02/2018 COMPARISON: CT 2018 CLINICAL HISTORY: Hernia. Hernia, previous repair Assess for hernia at location of: midline upper abdominal wall Scanned at patient's area of concern: 2.7 x 1.6 x 2.5cm outpouching seen that appears to increase wit h valsalva. IMPRESSION: SMALL VENTRAL HERNIA. Real-time scanning was performed by the quarry worker utilizing Valsalva and additional dynamic maneuve rs to assess for hernia. Images of the contralateral side were also acquired for direct comparison.
--- NOTE | 2018-08-02 12:46 | P.PN ---
Subjective Progress Note Date: 08/02/18 Principal diagnosis: Acute hypoxic respiratory failure secondary to acute exacerbation of COPD, purulent tracheobronchitis, and mild interstitial edema This is a 47-year-old female, at least a [id number] smoker, known history of COPD, known history of mild LV dysfunction, patient presented to the ER with a few days' history of increased shortness of breath, cough and wheezing. Cough is productive with yellowish phlegm, low-grade fever, no chills, no hemoptysis, no chest pain. Patient also noticed prior to all of this swelling in her lower extremities has been progressively getting worse. Denies any chest pain, denies any nausea vomiting or abdominal pain, she does have history of incisional hernia, previous surgery on the hernia at [facility], and never resolved. Chest x-ray on admission showed cardiomegaly, prominent pulmonary vasculature, but no clear-cut infiltrate. CBC showed leukocytosis with WBC count of 16.4, hemoglobin was 16.5. Patient was noted to have significant wheezing on physical examination, hence she was admitted and this consult was initiated. Presently the patient is on room air, her O2 saturation is in the 94% range, does not seem to be in any form of respiratory distress. Her echocardiogram on this admission showed LV dysfunction, her BNP level was elevated, and her chest x-ray did show evidence of prominent pulmonary vasculature. Patient is already on bronchodilators in the form of DuoNeb updrafts 4 times a day and when necessary, she is on antibiotics received Levaquin earlier in the ER, and she is on prednisone at 40 mg by mouth daily after a dose of Solu-Medrol 125 mg IV push 1. Patient denies any headache, no blurred vision, no dizziness. She does have history of chronic depression and history of bipolar disorder. Denies any nausea or vomiting at this point, denies any melena or hematemesis, no dysuria and no frequency no urgency. On 07/30/2018 patient seen in follow-up on selective care unit, she remains quite congested, bronchospastic and dyspneic. She is is not bringing up much sputum, no fever or chills. Remains pulse ox is 97%, afebrile, short of breath with any activity. She is on IV diuretics, however still has significant amount of swelling in her bilateral lower extremities. No new labs a chest x- ray today, influenza was not detected. Echocardiogram showed mildly impaired left ventricular systolic function with an EF between 45-50%, no pulmonary hypertension On 07/31/2018 patient seen in follow-up on selective care unit, less bronchospastic and dyspneic on today's exam, still has significant amount of swelling in bilateral lower extremities. No new chest x-ray today. Today's labs were reviewed. No fever or chills, as any chest pain. Does have a slight headache, no other acute complaints. We'll continue with current treatment, and started to slowly improve. On 08/02/2018 patient seen in follow-up on selective care unit. Sounds less bronchospastic and congested on today's exam, room air pulse ox is 93%, patient is afebrile. Patient has multiple complaints about headaches, and lower extremity edema, but from pulmonary perspective she seems to be improving. No chest congestion, no fever or chills, no chest pain. Objective - Vital Signs Vital signs: Vital Signs Temp 97.9 F 08/02/18 08:00 Pulse 78 08/02/18 11:28 Resp 20 08/02/18 08:00 BP 193/93 08/02/18 08:00 Pulse Ox 93 L 08/02/18 08:00 Intake & Output 08/01/18 08/02/18 08/02/18 18:59 06:59 18:59 Intake Total 540 960 120 Output Total 1000 3900 Balance -460 -2940 120 Weight 100.8 kg Intake: Oral 540 960 120 Output: Urine 1000 3900 Other: Voiding Method Bedside Commode Bedside Commode # Voids 1 - Exam Physical Exam: Revealed a 47-year-old female, in no distress. Head: Atraumatic, normocephalic. HEENT:[Neck is supple.] [No neck masses.] [No thyromegaly.] [No JVD.] PERRLA, EOMI, no icterus. Chest: [A few scattered rhonchi, no wheezing. Symmetrical chest expansion.] Cardiac Exam: [Normal S1 and S2, no S3 gallop, no murmur.] Abdomen: [Obese, Soft, nontender, no megaly, no rebound, no guarding, normal bowel sounds. Large ventral hernia noted in the epigastric region.] Extremities: [2+ bipedal edema, chronic venous stasis changes noted..] Neurological Exam: Alert oriented 3, no gross focal neurologic deficits. Psychiatric: Normal mood, affect and mental status examination. Skin: Venous stasis changes noted in lower extremities, minimal erythema noted. - Labs CBC & Chem 7: 07/31/18 09:43 07/28/18 22:49 Labs: Abnormal Lab Results - Last 24 Hours (Table) 08/01/18 08/01/18 08/02/18 Range/Units 16:50 20:02 06:18 POC Glucose (mg/dL) 175 H 308 H 342 H (75-99) mg/dL 08/02/18 Range/Units 11:53 POC Glucose (mg/dL) 187 H (75-99) mg/dL Microbiology - Last 24 Hours (Table) 07/28/18 22:18 Blood Culture - Preliminary Blood No Growth after 96 hours Assessment and Plan Plan: 1 acute hypoxic respiratory failure secondary to acute exacerbation of COPD, purulent tracheobronchitis, and suspect some component of mild interstitial edema. 2 acute on chronic systolic congestive heart failure 3 acute purulent tracheobronchitis. No clear-cut evidence of pneumonia on the chest x-ray. 4 tobacco dependence syndrome, patient is unable to quit smoking in spite of of counseling. 5 history of multiple comorbidities including hypertension, bipolar disorder, fibromyalgia, osteoarthritis, history of duodenal ulcer, history of pancreatic pseudocyst, occipital neuralgia, chronic back pain, generalized anxiety disorder and insomnia. Plan: We'll transition the IV steroids to oral prednisone, finish the course of antibiotics patient seems to be improving. From pulmonary perspective she could be considered for discharge home. We'll follow on as-needed basis. Smoking cessation was encouraged. She can follow-up with her primary care provider. I performed a history & physical examination of the patient and discussed their management with my nurse practitioner, Radha Kwok. I reviewed the nurse practitioner's note and agree with the documented findings and plan of care. Lung sounds are positive for a few scattered rhonchi. The findings and the impression was discussed with the patient. I attest to the documentation by the nurse practitioner. Time with Patient: Less than 30
[2018-08-02 17:09] LABS: Glucose,Whole Blood 284 mg/dL (75-99)
[2018-08-02] MEDS: predniSONE 20 MG TAB PO SCH (17:11)
[2018-08-02] MEDS ORDERED: cloNIDine HCL 0.2 MG TAB PO STA (17:38)
[2018-08-02 19:22] LABS: Calcium 10.2 mg/dL (8.4-10.2); Potassium 3.7 mmol/L (3.5-5.1)
[2018-08-02] MEDS: amLODIPine 5 MG TAB PO SCH (20:17)
[2018-08-02] MEDS: ATORVASTATIN 20 MG TAB PO SCH (20:17)
[2018-08-02] MEDS: guaiFENesin SYRUP 100MG/5ML 200 MG/10 ML CUP PO PRN (21:03)
[2018-08-02 21:17] LABS: Glucose,Whole Blood 156 mg/dL (75-99)
[2018-08-03] MEDS: TEMAZEPAM 15 MG CAP PO PRN (03:38)
[2018-08-03] MEDS: ONDANSETRON 4 MG/2 ML VIAL IVP PRN ×3 (03:38→20:11)
[2018-08-03] MEDS: MORPHINE SULFATE 4 MG/ML SYRINGE IVP PRN ×7 (03:38→23:45)
[2018-08-03 06:36] LABS: Glucose,Whole Blood 287 mg/dL (75-99)
[2018-08-03] MEDS: PANTOPRAZOLE 40 MG TABLET PO SCH (06:43)
[2018-08-03] MEDS: INSULIN ASPART 100 UNIT/ML 1 ML 10 ML VIAL SQ SCH ×4 (06:43→22:17)
[2018-08-03] MEDS: CARVEDILOL 6.25 MG TAB PO SCH ×2 (06:43→16:28)
[2018-08-03] MEDS ORDERED: HYDROcodone/APAP 7.5-325MG 1 EACH TAB PO PRN (08:23)
[2018-08-03] MEDS: SYMBICORT 160-4.5 MCG INHALER INHALATION SCH ×2 (08:23→18:54)
[2018-08-03] MEDS: IPRATROPIUM-ALBUTEROL 3 ML NEB INHALATION PRN ×3 (08:23→18:54)
[2018-08-03] MEDS: HEPARIN SODIUM,PORCINE 5,000 UNIT/ML 1 ML VIAL SQ SCH ×3 (09:40→23:45)
[2018-08-03] MEDS: FUROSEMIDE 10 MG/ML 4 ML VIAL IV SCH (09:41)
[2018-08-03] MEDS: hydrALAZINE HCL 25 MG TAB PO SCH ×2 (09:41→16:28)
[2018-08-03] MEDS: amLODIPine 10 MG TAB PO SCH (09:41)
[2018-08-03] MEDS: DOCUSATE 100 MG CAP PO SCH ×2 (09:41→20:11)
[2018-08-03] MEDS: LISINOPRIL 20 MG TAB PO SCH (09:41)
[2018-08-03] MEDS: predniSONE 20 MG TAB PO SCH (09:41)
[2018-08-03] MEDS: NICOTINE 21MG/24HR PATCH TRANSDERM SCH (09:41)
[2018-08-03] MEDS: DOXYCYCLINE 100 MG CAP PO SCH ×2 (09:48→22:17)
--- NOTE | 2018-08-03 10:31 | P.PN ---
Subjective Progress Note Date: 08/03/18 Principal diagnosis: Dizziness, abdominal pain Patient seen and examined. No acute events overnight. Patient reports improvement in her breathing, almost back to baseline. She does however complain of abdominal pain, back pain and dizziness. Patient states that her equilibrium is off. She denies any nausea or vomiting. She is tolerating by mouth. She denies any chest pain, shortness of breath or palpitations. Requesting additional opiate medications. Objective - Vital Signs Vital signs: Vital Signs Temp 97.3 F L 08/03/18 08:00 Pulse 60 08/03/18 08:34 Resp 18 08/03/18 08:00 BP 169/89 08/03/18 08:00 Pulse Ox 96 08/03/18 08:00 Intake & Output 08/02/18 08/03/18 08/03/18 18:59 06:59 18:59 Intake Total 1000 1920 360 Balance 1000 1920 360 Weight 100.9 kg Intake: IV 160 0.9 160 Oral 840 1920 360 Other: Voiding Method Bedside Commode Bedside Commode # Voids 2 - Exam General: [non toxic], [no distress], [appears at stated age], [speaking in full sentences] Derm: [warm], [dry] Head: [atraumatic], [normocephalic], [symmetric] Eyes: [EOMI], [no lid lag], [anicteric sclera] Mouth: [no lip lesion], [mucus membranes moist] Cardiovascular: [S1S2 reg], [no murmur] Lungs: [Decreased breath sounds bilaterally], [no accessory muscle use] Abdominal: [soft], [no guarding], [large abdominal wall hernia, tenderness to palpation without rebound] Ext: [no gross muscle atrophy], [1+ pitting edema BL], [no contractures] Neuro: [no focal neuro deficits] Psych: [Alert], [oriented], [appropriate affect] - Labs CBC & Chem 7: 07/31/18 09:43 08/02/18 18:01 Labs: Abnormal Lab Results - Last 24 Hours (Table) 08/02/18 08/02/18 08/02/18 Range/Units 11:53 16:57 18:01 Chloride 91 L (98-107) mmol/L Carbon Dioxide 38 H (22-30) mmol/L BUN 44 H (7-17) mg/dL Glucose 264 H (74-99) mg/dL POC Glucose (mg/dL) 187 H 284 H (75-99) mg/dL 08/02/18 08/03/18 Range/Units 21:15 06:34 Chloride (98-107) mmol/L Carbon Dioxide (22-30) mmol/L BUN (7-17) mg/dL Glucose (74-99) mg/dL POC Glucose (mg/dL) 156 H 287 H (75-99) mg/dL Microbiology - Last 24 Hours (Table) 07/28/18 22:18 Blood Culture - Preliminary Blood No Growth after 120 hours Assessment and Plan Assessment: Assessment and Plan 1. Dizziness: Off equilibrium, trouble ambulating within room, new compliant. HR ~ 40-50s on Telemetry. Will request Cardiology to re-examine the patient, will consider cutting down Coreg, Lasix to PO. Telemetry monitoring. FU Orthostats, PT consult 2. Acute hypoxic respiratory failure: Multifactorial. Likely secondary to Acute on chronic CHF exacerbation, malignant hypertension and COPD exacerbation. Patient is afebrile with a mild leukocytosis of 16.4 and normal lactic acid. CXR shows mild atelectasis with increased pulmonary vascularity. Influenza A/B negative. Robitussin 200 mg PO TID PRN for cough. Ensure BP control. Ensure IV diuresis. Ensure COPD management. O2 per NC to maintain O2 sat > 92%. 3. CHF exacerbation: BNP 6340. Echocardiogram from 04/2018 shows EF of 40-45% with hypokinesis. Venous duplex negative for DVT. Diuresis with Lasix 40 mg IV BID. Continue Lisinopril 40 mg PO QD, Coreg 6.25 mg PO BID. Telemetry monitoring. Ins and Outs. Daily weights. Keep K > 4 and Mg > 2. Echocardiogram shows EF of 45-50% with hypokinetic potts. FU Cardiology 4. COPD exacerbation: DuoNeb Q2H PRN for SOB/wheezing. Pulmonology consulted, started on Symbicort 2 puff BID. Prednisone DC'd and SoluMedrol 60 mg IV Q6 started. Added Doxycycline 100 mg PO BID for possible acute bronchitis. FU Pulmonology 5. Abdominal wall hernia: Incarcerated anterior upper abdominal ventral hernia seen on April 2018 computed tomography scan without evidence of bowel obstruction. Abdominal wall US shows stable small hernia. Pain management with Morphine 4 mg Q3 PRN. Bowel regimen adequate. 6. Hypertension: BP 169/89. Continue Coreg 6.25 mg PO BID. Continue Hydralazine 25 mg PO TID. Continue Lisinopril 40 mg PO QD. Continue Amlodipine 10 mg PO QD. HEART healthy diet. Monitor vitals, adjust medications as necessary. 7. Polycythemia: Hg 16.5 to 17.0. Likely due to concentration and smoking history. Encourage smoking cessation, Habitrol patch. Daily CBC. 8. DVT/GI Prophylaxis: Heparin 5000 units SUBCUT TID. Patient is being treated for CHF and COPD exacerbation. Patient is greatly improved in her breathing status since being admitted. She has been cleared by pulmonology. Patient however, complains of dizziness today. She is pending physical therapy evaluation for possible discharge today or tomorrow.
[2018-08-03 12:17] LABS: Glucose,Whole Blood 261 mg/dL (75-99)
[2018-08-03] MEDS: FUROSEMIDE 40 MG TAB PO SCH (16:28)
[2018-08-03 17:08] LABS: Glucose,Whole Blood 246 mg/dL (75-99)
[2018-08-03] MEDS: ATORVASTATIN 20 MG TAB PO SCH (20:11)
[2018-08-03] MEDS: amLODIPine 5 MG TAB PO SCH (20:13)
[2018-08-03 20:58] LABS: Glucose,Whole Blood 253 mg/dL (75-99)
[2018-08-03] MEDS: hydrALAZINE HCL 50 MG TAB PO SCH (22:17)
[2018-08-04] MEDS: ONDANSETRON 4 MG/2 ML VIAL IVP PRN ×3 (03:06→19:24)
[2018-08-04] MEDS: MORPHINE SULFATE 4 MG/ML SYRINGE IVP PRN ×7 (03:07→22:26)
[2018-08-04] MEDS: TEMAZEPAM 15 MG CAP PO PRN (03:07)
[2018-08-04 06:46] LABS: Glucose,Whole Blood 167 mg/dL (75-99)
[2018-08-04] MEDS: CARVEDILOL 6.25 MG TAB PO SCH ×2 (09:04→18:08)
[2018-08-04] MEDS: FUROSEMIDE 40 MG TAB PO SCH (09:04)
[2018-08-04] MEDS: DOCUSATE 100 MG CAP PO SCH ×2 (09:04→21:27)
[2018-08-04] MEDS: PANTOPRAZOLE 40 MG TABLET PO SCH (09:04)
[2018-08-04] MEDS: INSULIN ASPART 100 UNIT/ML 1 ML 10 ML VIAL SQ SCH ×4 (09:04→21:29)
[2018-08-04] MEDS: predniSONE 20 MG TAB PO SCH (09:04)
[2018-08-04] MEDS: LISINOPRIL 20 MG TAB PO SCH (09:05)
[2018-08-04] MEDS: NICOTINE 21MG/24HR PATCH TRANSDERM SCH (09:05)
[2018-08-04] MEDS: amLODIPine 10 MG TAB PO SCH (09:05)
[2018-08-04] MEDS: hydrALAZINE HCL 50 MG TAB PO SCH ×3 (09:05→21:26)
[2018-08-04] MEDS: HEPARIN SODIUM,PORCINE 5,000 UNIT/ML 1 ML VIAL SQ SCH ×2 (09:06→16:18)
[2018-08-04] MEDS: DOXYCYCLINE 100 MG CAP PO SCH ×2 (09:06→21:28)
[2018-08-04 11:04] LABS: Glucose,Whole Blood 208 mg/dL (75-99)
[2018-08-04] MEDS: SYMBICORT 160-4.5 MCG INHALER INHALATION SCH ×2 (12:23→19:48)
[2018-08-04] MEDS: IPRATROPIUM-ALBUTEROL 3 ML NEB INHALATION PRN (12:25)
--- NOTE | 2018-08-04 14:19 | P.PN ---
Subjective Progress Note Date: 08/04/18 The patient is a 47 yo F w/ a PMH of CHF (LVEF 40-45%), HTN, and COPD who presented to the ED w/ c/o progressive dyspnea on exertion, orthopnea, PND, productive cough, and wheezing. The patient noted poor f/u w/ PCP and non- compliance to medications. In the ED, the patient was noted to have pulmonary vascular congestion on CXR w/ fluid overload, active wheezing, and hypoxia. She was admitted for acute hypoxic respiratory failure secondary to CHF and COPD exacerbations. She was started on IV lasix and IV steroids w/ Doxycycline. Pulmonary was consulted and recommendations were appreciated. The patient was seen and examined at the bedside on 08/04/18. The patient c/o persistent LE edema, wheezing, and occasional headaches. She denied cough, orthopnea, PND, chest pain, palpitations, nausea, or vomiting. Objective - Vital Signs Vital signs: Vital Signs Temp 97.4 F L 08/04/18 12:08 Pulse 66 08/04/18 12:35 Resp 18 08/04/18 12:08 BP 154/84 08/04/18 12:08 Pulse Ox 98 08/04/18 12:08 Intake & Output 08/03/18 08/04/18 08/04/18 18:59 06:59 18:59 Intake Total 360 Balance 360 Intake: Oral 360 Other: Voiding Method Toilet Toilet # Voids 2 # Bowel Movements 1 - Exam General: Non-toxic, in no acute distress, appears stated age, obese HEENT: NC/AT, anicteric sclerae, moist conjunctiva, no lid-lag, PERRLA Cardiovascular: S1/S2 wnl, no murmurs, rubs, or gallops Lungs: Wheezing bilaterally, no rales or ronchi appreciated, normal respiratory effort, no accessory muscle use Abdominal: Soft, nontender, non-distended, no guarding, rebound, or rigidity Skin: Warm, dry Extremities: 2+ LE edema sonia to thighs Psychiatric: Alert and oriented to person, place and time, appropriate affect, Intact judgment Neuro: CN II-XII grossly intact, Strength 5/5 in all 4 extremities, Speech intact, Sensation to light touch grossly intact throughout - Labs CBC & Chem 7: 07/31/18 09:43 08/02/18 18:01 Labs: Abnormal Lab Results - Last 24 Hours (Table) 08/03/18 08/03/18 08/04/18 Range/Units 17:07 20:57 06:43 POC Glucose (mg/dL) 246 H 253 H 167 H (75-99) mg/dL 08/04/18 Range/Units 11:02 POC Glucose (mg/dL) 208 H (75-99) mg/dL Microbiology - Last 24 Hours (Table) 07/28/18 22:18 Blood Culture - Final Blood No Growth after 144 hours Assessment and Plan Plan: Acute CHF exacerbation -Lasix switched to 40 mg IVP q12h. C/w Lisinopril 40 mg po qd and Coreg 6.25 mg bid -Echocardiogram reviewed -Telemetry monitoring -Daily weights, I/Os, fluid restriction -Cardiology recs appreciated. Will ask for Cardiology's input w/ Norvasc w/ LE edema and acute CHF exacerbation COPD exacerbation -Pulmonary recs appreciated -C/w Prednisone 40 mg po qd -C/w Caroline Symbico Abdominal wall hernia -Reducible, no evidence of obstruction at this time. Dizziness -HR continues to be in the 50s. Will await further Cardio recs with regards to cutting the dose of Coreg. -PT consult HTN -C/w Hydralazine 50 mg po TID, Lisinopril 40 mg qd, Coreg 6.25 mg bid, and Norvasc 10 mg po qd and 5 mg qhs. Polycythemia -Likely secondary to smoking. Patient advised on importance of cessation DVT//GI prophy. -Heparin subq -Protonix
[2018-08-04] MEDS: FUROSEMIDE 10 MG/ML 4 ML VIAL IV SCH ×2 (15:04→21:28)
[2018-08-04 17:11] LABS: Glucose,Whole Blood 145 mg/dL (75-99)
[2018-08-04 20:39] LABS: Glucose,Whole Blood 168 mg/dL (75-99)
[2018-08-04] MEDS: amLODIPine 5 MG TAB PO SCH (21:27)
[2018-08-04] MEDS: ATORVASTATIN 20 MG TAB PO SCH (21:27)
[2018-08-05] MEDS: ONDANSETRON 4 MG/2 ML VIAL IVP PRN ×3 (01:29→17:47)
[2018-08-05] MEDS: TEMAZEPAM 15 MG CAP PO PRN (01:29)
[2018-08-05] MEDS: MORPHINE SULFATE 4 MG/ML SYRINGE IVP PRN ×2 (01:30→05:14)
[2018-08-05] MEDS: HEPARIN SODIUM,PORCINE 5,000 UNIT/ML 1 ML VIAL SQ SCH ×4 (01:39→23:54)
[2018-08-05 07:01] LABS: Glucose,Whole Blood 167 mg/dL (75-99)
[2018-08-05] MEDS: SYMBICORT 160-4.5 MCG INHALER INHALATION SCH ×2 (07:27→19:57)
[2018-08-05] MEDS: NICOTINE 21MG/24HR PATCH TRANSDERM SCH (08:22)
[2018-08-05] MEDS: DOCUSATE 100 MG CAP PO SCH ×2 (08:23→21:19)
[2018-08-05] MEDS: PANTOPRAZOLE 40 MG TABLET PO SCH (08:24)
[2018-08-05] MEDS: LISINOPRIL 20 MG TAB PO SCH (08:24)
[2018-08-05] MEDS: hydrALAZINE HCL 25 MG TAB PO SCH ×3 (08:25→21:23)
[2018-08-05] MEDS: predniSONE 20 MG TAB PO SCH (08:25)
[2018-08-05] MEDS: FUROSEMIDE 10 MG/ML 4 ML VIAL IV SCH ×2 (08:26→21:21)
[2018-08-05] MEDS: INSULIN ASPART 100 UNIT/ML 1 ML 10 ML VIAL SQ SCH ×4 (08:26→21:19)
[2018-08-05] MEDS: CARVEDILOL 6.25 MG TAB PO SCH ×2 (08:27→17:41)
[2018-08-05 09:00] LABS: Calcium 9.5 mg/dL (8.4-10.2); Potassium 3.7 mmol/L (3.5-5.1)
[2018-08-05 09:16] LABS: HCT 53.4 % (34.0-46.0); HGB 17.2 gm/dL (11.4-16.0); MCH 30.7 pg (25.0-35.0); MCHC 32.2 g/dL (31.0-37.0); MCV 95.5 fL (80.0-100.0); Mean Platelet Volume 7.3; Platelet Count 270 k/uL (150-450); RBC 5.59 m/uL (3.80-5.40); RDW 14.5 % (11.5-15.5)
[2018-08-05 09:53] VITALS: BMI 40.6
[2018-08-05] MEDS: MORPHINE SULFATE 2 MG/ML SYRINGE IVP PRN ×3 (11:10→23:54)
[2018-08-05 11:16] LABS: Glucose,Whole Blood 184 mg/dL (75-99)
--- NOTE | 2018-08-05 13:10 | P.PN ---
Subjective Progress Note Date: 08/05/18 The patient is a 47 yo F w/ a PMH of CHF (LVEF 40-45%), HTN, and COPD who presented to the ED w/ c/o progressive dyspnea on exertion, orthopnea, PND, productive cough, and wheezing. The patient noted poor f/u w/ PCP and non- compliance to medications. In the ED, the patient was noted to have pulmonary vascular congestion on CXR w/ fluid overload, active wheezing, and hypoxia. She was admitted for acute hypoxic respiratory failure secondary to CHF and COPD exacerbations. She was started on IV lasix and IV steroids w/ Doxycycline. Pulmonary was consulted and recommendations were appreciated. The patient was seen and examined at the bedside. Upon my entry to the room, the patient was in the restroom. She walked out of the restroom with a normal gait and demanded an explanation for why her pain medication regimen had been modified. When asked about her pain, she said she always has pain "everywhere" including her lower back, her legs, and her feet. She said that the swelling in her legs is causing her 8/10 pain constantly and that she was not able to walk due to the pain. She said that she also needed pain medication since she had an "upset stomach" and felt that her balance was off. When inquired further about the disequilibrium, she said she feels "out of whack" and feels as such while sitting or with movement along with feeling "weak all over all the time". She also noted that her hernia sometimes acts up and she feels as though she can't breath and thereby needs the pain medication to ease her anxiety. Discussed with the patient in detail about the change in the pain medications. Discussed the need for decreasing opiates in light of the negative residential impact of the medications including dependency. She otherwise noted that her breathing had improved since admission and she was no longer orthopneic or having PND. She further denied chest pain, SOB, nausea, vomiting, vertigo, tingling, or headaches. Objective - Vital Signs Vital signs: Vital Signs Temp 97.5 F L 08/05/18 11:57 Pulse 61 08/05/18 11:57 Resp 15 08/05/18 11:57 BP 146/81 08/05/18 11:57 Pulse Ox 94 L 08/05/18 11:57 Intake & Output 08/04/18 08/05/18 08/05/18 18:59 06:59 18:59 Intake Total 300 Balance 300 Weight 100.9 kg 100.9 kg Intake: Oral 300 Other: Voiding Method Toilet Toilet Toilet # Voids 5 1 - Exam General: Non-toxic, in no acute distress, appears stated age, obese HEENT: NC/AT, anicteric sclerae, moist conjunctiva, no lid-lag, PERRLA Cardiovascular: S1/S2 wnl, no murmurs, rubs, or gallops Lungs: Cleat to auscultation bilaterally, no rales or ronchi appreciated, normal respiratory effort, no accessory muscle use Abdominal: Soft, nontender, non-distended, no guarding, rebound, or rigidity Skin: Warm, dry Extremities: 2+ LE pitting edema sonia to thighs Psychiatric: Alert and oriented to person, place and time, appropriate affect, Intact judgment Neuro: CN II-XII grossly intact, Strength 5/5 in all 4 extremities, Speech intact, Sensation to light touch grossly intact throughout, gait normal - Labs CBC & Chem 7: 08/05/18 07:53 08/05/18 07:53 Labs: Abnormal Lab Results - Last 24 Hours (Table) 08/04/18 08/04/18 08/05/18 Range/Units 17:09 20:24 07:01 WBC (3.8-10.6) k/uL RBC (3.80-5.40) m/uL Hgb (11.4-16.0) gm/dL Hct (34.0-46.0) % Chloride (98-107) mmol/L Carbon Dioxide (22-30) mmol/L BUN (7-17) mg/dL Glucose (74-99) mg/dL POC Glucose (mg/dL) 145 H 168 H 167 H (75-99) mg/dL 08/05/18 08/05/18 08/05/18 Range/Units 07:53 07:53 11:14 WBC 13.0 H (3.8-10.6) k/uL RBC 5.59 H (3.80-5.40) m/uL Hgb 17.2 H (11.4-16.0) gm/dL Hct 53.4 H (34.0-46.0) % Chloride 91 L (98-107) mmol/L Carbon Dioxide 40 H (22-30) mmol/L BUN 50 H (7-17) mg/dL Glucose 159 H (74-99) mg/dL POC Glucose (mg/dL) 184 H (75-99) mg/dL Assessment and Plan Plan: Acute CHF exacerbation -C/w Lasix 40 mg IV q12h. C/w Lisinopril 40 mg po qd and Coreg 6.25 mg bid. -Echocardiogram reviewed -Telemetry monitoring -Daily weights, I/Os, fluid restriction -Cardiology recs appreciated. -Norvasc DCed COPD exacerbation -Pulmonary recs appreciated -C/w Prednisone 40 mg po qd -C/w Duonebs, Symbicort Abdominal wall hernia -Reducible, no evidence of obstruction at this time. Multiple complaints including weakness, lower back pain, diffuse pain, anxiety, inconsistencies w/ complains -- possible drug-seeking -Decreased Morphine to 0.5 mg IVP q6h prn and Tramadol 50 mg TID Disequilibrium, normal gait -HR improved -PT consult pending. HTN -C/w Lisinopril 40 mg qd and Coreg 6.25 mg bid. Norvasc DCed in light of LE edema and Hydralazine increased to 75 mg TID. Polycythemia -Likely secondary to smoking. Patient advised on importance of cessation DVT//GI prophy. -Heparin subq -Protonix Discussed with: Patient Anticipated discharge date: 08/06/[address]: Home A total of 35 minutes was spent on the care of this complex patient more than 50 % of the time was spent in counseling and care coordination.
[2018-08-05] MEDS: traMADol 50 MG TAB PO SCH ×2 (14:35→21:18)
[2018-08-05 17:19] LABS: Glucose,Whole Blood 245 mg/dL (75-99)
[2018-08-05 20:13] LABS: Glucose,Whole Blood 198 mg/dL (75-99)
[2018-08-05] MEDS: ATORVASTATIN 20 MG TAB PO SCH (21:18)
[2018-08-06] MEDS: TEMAZEPAM 15 MG CAP PO PRN (00:02)
[2018-08-06] MEDS: MORPHINE SULFATE 2 MG/ML SYRINGE IVP PRN ×3 (06:07→19:16)
[2018-08-06] MEDS: ONDANSETRON 4 MG/2 ML VIAL IVP PRN ×3 (06:11→19:20)
[2018-08-06 06:54] LABS: Glucose,Whole Blood 264 mg/dL (75-99)
[2018-08-06] MEDS: IPRATROPIUM-ALBUTEROL 3 ML NEB INHALATION PRN (07:27)
[2018-08-06] MEDS: SYMBICORT 160-4.5 MCG INHALER INHALATION SCH ×2 (07:27→19:52)
[2018-08-06] MEDS ORDERED: INSULIN ASPART 100 UNIT/ML 1 ML 10 ML VIAL SQ ONE (08:38)
[2018-08-06] MEDS: INSULIN ASPART 100 UNIT/ML 1 ML 10 ML VIAL SQ SCH ×4 (08:48→21:18)
[2018-08-06] MEDS: FUROSEMIDE 10 MG/ML 4 ML VIAL IV SCH ×2 (08:49→21:16)
[2018-08-06] MEDS: HEPARIN SODIUM,PORCINE 5,000 UNIT/ML 1 ML VIAL SQ SCH ×2 (08:49→17:47)
[2018-08-06] MEDS: LISINOPRIL 20 MG TAB PO SCH (08:51)
[2018-08-06] MEDS: PANTOPRAZOLE 40 MG TABLET PO SCH (08:52)
[2018-08-06] MEDS: predniSONE 20 MG TAB PO SCH (08:52)
[2018-08-06] MEDS: DOCUSATE 100 MG CAP PO SCH ×2 (08:53→21:15)
[2018-08-06] MEDS: CARVEDILOL 6.25 MG TAB PO SCH ×2 (08:54→17:44)
[2018-08-06] MEDS: NICOTINE 21MG/24HR PATCH TRANSDERM SCH (08:54)
[2018-08-06] MEDS: traMADol 50 MG TAB PO SCH ×3 (08:54→21:15)
[2018-08-06] MEDS: hydrALAZINE HCL 25 MG TAB PO SCH ×3 (09:19→21:16)
[2018-08-06 09:35] LABS: HCT 52.9 % (34.0-46.0); HGB 17.3 gm/dL (11.4-16.0); MCH 31.3 pg (25.0-35.0); MCHC 32.7 g/dL (31.0-37.0); MCV 95.8 fL (80.0-100.0); Mean Platelet Volume 7.3; Platelet Count 224 k/uL (150-450); RBC 5.52 m/uL (3.80-5.40); RDW 14.3 % (11.5-15.5); WBC 13.3 k/uL (3.8-10.6)
[2018-08-06 10:05] LABS: Anion Gap 4 mmol/L; Blood Urea Nitrogen 44 mg/dL (7-17); Calcium 9.3 mg/dL (8.4-10.2); Chloride 92 mmol/L (98-107); Glucose 205 mg/dL (74-99); Magnesium 1.8 mg/dL (1.6-2.3); Sodium 136 mmol/L (137-145)
[2018-08-06 10:11] LABS: Carbon Dioxide 40 mmol/L (22-30)
[2018-08-06] MEDS ORDERED: METOLAZONE 5 MG TAB PO STA (10:35)
--- NOTE | 2018-08-06 10:56 | P.PN ---
Subjective Progress Note Date: 08/06/18 The patient is a 47 yo F w/ a PMH of CHF (LVEF 40-45%), HTN, and COPD who presented to the ED w/ c/o progressive dyspnea on exertion, orthopnea, PND, productive cough, and wheezing. The patient noted poor f/u w/ PCP and non- compliance to medications. In the ED, the patient was noted to have pulmonary vascular congestion on CXR w/ fluid overload, active wheezing, and hypoxia. She was admitted for acute hypoxic respiratory failure secondary to CHF and COPD exacerbations. She was started on IV lasix and IV steroids w/ Doxycycline. Pulmonary was consulted and recommendations were appreciated. The patient was seen and examined at the bedside on 08/06/18. The patient noted that she continues to have 8/10 sonia foot pain though her lower back pain has resolved. She otherwise denied chest pain, orthopnea, PND, nausea, vomiting, fever, chills, or LE weakness. She reports being able to ambulate normally and the same reported by the nursing staff. Discussed with the patient in-detail regarding her pain control. Explained the risks of over-use of opiates and balancing with pain-control expectations. Patient noted that Tramadol along with Morphine 0.5 mg q6h prn isn't sufficient. Discussed increasing the morphine to 1 mg q6h PRN. Patient felt that it will adequately control her pain. Objective - Vital Signs Vital signs: Vital Signs Temp 98 F 08/06/18 05:00 Pulse 56 L 08/06/18 07:42 Resp 10 L 08/06/18 07:30 BP 134/85 08/06/18 05:00 Pulse Ox 96 08/06/18 07:30 Intake & Output 08/05/18 08/06/18 08/06/18 18:59 06:59 18:59 Weight 100.9 kg Other: Voiding Method Toilet Bedside Commode # Voids 4 4 - Exam General: Non-toxic, in no acute distress, appears stated age, obese HEENT: NC/AT, anicteric sclerae, moist conjunctiva, no lid-lag, PERRLA Cardiovascular: S1/S2 wnl, no murmurs, rubs, or gallops Lungs: Cleat to auscultation bilaterally, no rales or ronchi appreciated, normal respiratory effort, no accessory muscle use Abdominal: Soft, nontender, non-distended, no guarding, rebound, or rigidity, large reducible ventral hernia Skin: Warm, dry Extremities: 2+ LE pitting edema sonia to knees, improved from yesterday, skin less tense Psychiatric: Alert and oriented to person, place and time, appropriate affect, Intact judgment Neuro: CN II-XII grossly intact, Strength 5/5 in all 4 extremities, Speech intact, Sensation to light touch grossly intact throughout, gait normal - Labs CBC & Chem 7: 08/06/18 08:47 08/06/18 08:47 Labs: Abnormal Lab Results - Last 24 Hours (Table) 08/05/18 08/05/18 08/05/18 Range/Units 11:14 17:18 20:12 WBC (3.8-10.6) k/uL RBC (3.80-5.40) m/uL Hgb (11.4-16.0) gm/dL Hct (34.0-46.0) % Sodium (137-145) mmol/L Chloride (98-107) mmol/L Carbon Dioxide (22-30) mmol/L BUN (7-17) mg/dL Glucose (74-99) mg/dL POC Glucose (mg/dL) 184 H 245 H 198 H (75-99) mg/dL 08/06/18 08/06/18 08/06/18 Range/Units 06:53 08:47 08:47 WBC 13.3 H (3.8-10.6) k/uL RBC 5.52 H (3.80-5.40) m/uL Hgb 17.3 H (11.4-16.0) gm/dL Hct 52.9 H (34.0-46.0) % Sodium 136 L (137-145) mmol/L Chloride 92 L (98-107) mmol/L Carbon Dioxide 40 H (22-30) mmol/L BUN 44 H (7-17) mg/dL Glucose 205 H (74-99) mg/dL POC Glucose (mg/dL) 264 H (75-99) mg/dL Assessment and Plan Plan: Acute CHF exacerbation -C/w Lasix 40 mg IV q12h. C/w Lisinopril 40 mg po qd and Coreg 6.25 mg bid. -Discussed with the patient the importance of compliance to fluid-restriction and leg elevation -Will give Metolazone 20 mg po Once today. -Echocardiogram reviewed -Telemetry monitoring -Daily weights, I/Os, fluid restriction -Cardiology recs appreciated. -Norvasc DCed -Will increase Morphine to 1 mg q6h prn and c/w Tramadol. COPD exacerbation -Pulmonary recs appreciated -C/w Prednisone 40 mg po qd -C/w Duonebs, Symbicort Abdominal wall hernia -Reducible, no evidence of obstruction at this time. Disequilibrium, normal gait, improved -PT consult HTN -C/w Lisinopril 40 mg qd and Coreg 6.25 mg bid. Norvasc DCed in light of LE edema and Hydralazine increased to 75 mg TID. Polycythemia -Likely secondary to smoking. Patient advised on importance of cessation DVT//GI prophy. -Heparin subq -Protonix Discussed with: Patient Anticipated discharge date: 08/07/[address]: Home A total of 40 minutes was spent on the care of this complex patient more than 50 % of the time was spent in counseling and care coordination.
[2018-08-06 11:36] LABS: Glucose,Whole Blood 162 mg/dL (75-99)
[2018-08-06 17:34] LABS: Glucose,Whole Blood 234 mg/dL (75-99)
[2018-08-06 20:24] LABS: Glucose,Whole Blood 206 mg/dL (75-99)
[2018-08-06] MEDS: ATORVASTATIN 20 MG TAB PO SCH (21:15)
[2018-08-06 22:59] VITALS: TEMP 97.8
[2018-08-07] MEDS: MORPHINE SULFATE 2 MG/ML SYRINGE IVP PRN ×2 (01:00→06:20)
[2018-08-07] MEDS: ONDANSETRON 4 MG/2 ML VIAL IVP PRN ×2 (01:00→06:19)
[2018-08-07] MEDS: TEMAZEPAM 15 MG CAP PO PRN (01:02)
[2018-08-07] MEDS: HEPARIN SODIUM,PORCINE 5,000 UNIT/ML 1 ML VIAL SQ SCH ×2 (01:08→07:44)
[2018-08-07 04:52] VITALS: BP 178/98
[2018-08-07 06:58] LABS: Glucose,Whole Blood 201 mg/dL (75-99)
[2018-08-07] MEDS: PANTOPRAZOLE 40 MG TABLET PO SCH (07:40)
[2018-08-07] MEDS: hydrALAZINE HCL 25 MG TAB PO SCH (07:41)
[2018-08-07] MEDS: predniSONE 20 MG TAB PO SCH (07:41)
[2018-08-07] MEDS: LISINOPRIL 20 MG TAB PO SCH (07:41)
[2018-08-07] MEDS: NICOTINE 21MG/24HR PATCH TRANSDERM SCH (07:41)
[2018-08-07] MEDS: INSULIN ASPART 100 UNIT/ML 1 ML 10 ML VIAL SQ SCH ×2 (07:44→13:28)
[2018-08-07] MEDS: FUROSEMIDE 10 MG/ML 4 ML VIAL IV SCH (07:44)
[2018-08-07] MEDS: CARVEDILOL 6.25 MG TAB PO SCH (07:45)
[2018-08-07] MEDS: IPRATROPIUM-ALBUTEROL 3 ML NEB INHALATION PRN (07:51)
[2018-08-07] MEDS: SYMBICORT 160-4.5 MCG INHALER INHALATION SCH (07:52)
[2018-08-07 07:55] VITALS: RESP 10
[2018-08-07] MEDS: DOCUSATE 100 MG CAP PO SCH (07:57)
[2018-08-07 08:00] VITALS: PULSE 74
[2018-08-07 09:11] LABS: HGB 17.9 gm/dL (11.4-16.0); MCH 31.5 pg (25.0-35.0); MCHC 32.4 g/dL (31.0-37.0); MCV 97.2 fL (80.0-100.0); Mean Platelet Volume 7.7; Platelet Count 224 k/uL (150-450); RBC 5.68 m/uL (3.80-5.40); RDW 14.1 % (11.5-15.5); WBC 16.7 k/uL (3.8-10.6)
[2018-08-07] MEDS: traMADol 50 MG TAB PO SCH (09:12)
[2018-08-07 09:14] LABS: HCT 55.2 % (34.0-46.0)
[2018-08-07 09:16] LABS: Calcium 10.2 mg/dL (8.4-10.2); Magnesium 1.7 mg/dL (1.6-2.3); Potassium 4.2 mmol/L (3.5-5.1)
--- NOTE | 2018-08-07 10:49 | P.DS ---
Providers Date of admission: 07/29/18 00:43 Expected date of discharge: 08/07/18 Attending physician: Ari Perrin MD Consults: 07/29/18 13:07 Consult Physician Routine Consulting Provider: Gillian Garcia Consult Reason/Comments: CHF exacerbation Do you want consulting provider notified?: Yes 07/29/18 13:08 Consult Physician Routine Consulting Provider: Rosy Ramos Consult Reason/Comments: COPD exacerbation Do you want consulting provider notified?: Yes Primary care physician: Stated None Hospital Course: The patient is a 47 yo F w/ a PMH of CHF (LVEF 40-45%), HTN, and COPD who presented to the ED w/ c/o progressive dyspnea on exertion, orthopnea, PND, productive cough, and wheezing. The patient noted poor f/u w/ PCP and non- compliance to medications. In the ED, the patient was noted to have pulmonary vascular congestion on CXR w/ fluid overload, active wheezing, and hypoxia. She was admitted for acute hypoxic respiratory failure secondary to CHF and COPD exacerbations. She was started on IV lasix and IV steroids w/ Doxycycline. Pulmonary was consulted and recommendations were appreciated. Cardiology was also consulted and recommendations were appreciated. Echocardiogram revealed LVEF 45-50%. During the hospital course, the patient c/o dizziness which resolved spontaneously. She also endorsed multiple inconsistent complaints and displayed drug-seeking behavior. The patient was difficult to diurese with IV lasix and was given a single dose of metolazone. The patient's fluid status gradually improved and her wheezing resolved. She is presently stable and ready for discharge to home. Physical Examination General: Awake, alert, in no acute distress HEENT: NC/AT, anicteric sclerae, moist conjunctiva, no lid-lag, PERRLA, oropharynx clear, no erythema, exudates Cardiovascular: S1/S2 wnl, no murmurs, rubs, or gallops Lungs: Clear to auscultation, normal respiratory effort, no accessory muscle use Abdominal: Soft, nontender, large ventral hernia, reducible, no guarding, rebound, or rigidity, normoactive bowel sounds Skin: Warm, dry Extremities: 1+ pedal edema, significantly improved Psychiatric: Alert and oriented to person, place and time, appropriate affect, Intact judgment Neuro: CN II-XI grossly intact, sensation to light touch grossly present throughout, strength 5/5 throughout Discharge diagnosis: Acute hypoxic respiratory failure secondary to acute CHF and COPD exacerbation; Disequilibrium; Bilateral LE pain; HTN; Polycythemia; Leukocytosis; Abdominal wall hernia A total of 60 minutes of time were spent preparing this complex discharge summary. Patient Condition at Discharge: Stable Plan - Discharge Summary Discharge Rx Participant: No New Discharge Prescriptions: New Albuterol Inhaler [Ventolin Hfa Inhaler] 1 - 2 puff INHALATION RT-Q6H PRN #1 inhaler PRN Reason: Shortness Of Breath Aspirin 81 mg PO DAILY #30 chewable Atorvastatin [Lipitor] 20 mg PO HS #30 tab Budesonide-Formot 160-4.5 Mcg [Symbicort 160-4.5 Mcg Inhaler] 2 puff INHALATION BID #1 inhaler Carvedilol [Coreg] 6.25 mg PO BID-W/MEALS #60 tab Furosemide [Lasix] 40 mg PO DAILY #30 tablet predniSONE 10 mg PO DAILY #18 tab Temazepam [Restoril] 15 mg PO HS PRN #14 cap PRN Reason: Insomnia Continue hydrALAZINE HCL [Apresoline] 50 mg PO TID 30 Days #90 tab Lisinopril 40 mg PO DAILY 30 Days #30 tablet Discontinued Labetalol [Trandate] 200 mg PO BID 30 Days #60 tab NIFEdipine [NIFEdipine ER] 60 mg PO DAILY #30 tab.er.24 Discharge Medication List Albuterol Inhaler [Ventolin Hfa Inhaler] 1 - 2 puff INHALATION RT-Q6H PRN #1 inhaler 08/07/18 [Rx] Aspirin 81 mg PO DAILY #30 chewable 08/07/18 [Rx] Atorvastatin [Lipitor] 20 mg PO HS #30 tab 08/07/18 [Rx] Budesonide-Formot 160-4.5 Mcg [Symbicort 160-4.5 Mcg Inhaler] 2 puff INHALATION BID #1 inhaler 08/07/18 [Rx] Carvedilol [Coreg] 6.25 mg PO BID-W/MEALS #60 tab 08/07/18 [Rx] Furosemide [Lasix] 40 mg PO DAILY #30 tablet 08/07/18 [Rx] Lisinopril 40 mg PO DAILY 30 Days #30 tablet 08/07/18 [Rx] Temazepam [Restoril] 15 mg PO HS PRN #14 cap 08/07/18 [Rx] hydrALAZINE HCL [Apresoline] 50 mg PO TID 30 Days #90 tab 08/07/18 [Rx] predniSONE 10 mg PO DAILY #18 tab 08/07/18 [Rx] Follow up Appointment(s)/Referral(s): None,Stated [Primary Care Provider] - 1-2 days Gillian Garcia MD [STAFF PHYSICIAN] - 3 Days Jagdish Goncalves MD [STAFF PHYSICIAN] - 3 Days Activity/Diet/Wound Care/Special Instructions: Fluid restriction, medication compliance, dietary modifications Discharge Disposition: HOME SELF-CARE
[2018-08-07 12:15] LABS: Glucose,Whole Blood 245 mg/dL (75-99)
== END 2018-08-07 15:05 | disposition home or self-care (01) | DRG 291 ==
LOC: EC 21:43 → 3SCARD 07-29 00:43 → 3NMEDONC 08-03 13:32
PROVIDERS: ADMIT Internal Medicine; ATTEND Internal Medicine
DX: I11.0 Hypertensive heart disease with heart failure (principal); J96.01 Acute respiratory failure with hypoxia; J44.1 Chronic obstructive pulmonary disease with (acute) exacerbation; J44.0 Chronic obstructive pulmonary disease with (acute) lower respiratory infection; K43.6 Other and unspecified ventral hernia with obstruction, without gangrene; I50.23 Acute on chronic systolic (congestive) heart failure; F17.210 Nicotine dependence, cigarettes, uncomplicated; I16.0 Hypertensive urgency; Z71.6 Tobacco abuse counseling; D75.1 Secondary polycythemia; R19.7 Diarrhea, unspecified; Z86.19 Personal history of other infectious and parasitic diseases; Z91.14 Patient's other noncompliance with medication regimen; F20.9 Schizophrenia, unspecified; F41.0 Panic disorder [episodic paroxysmal anxiety]; F43.10 Post-traumatic stress disorder, unspecified; F41.1 Generalized anxiety disorder; F31.9 Bipolar disorder, unspecified; E28.2 Polycystic ovarian syndrome; G47.00 Insomnia, unspecified; I15.8 Other secondary hypertension; M19.90 Unspecified osteoarthritis, unspecified site; J20.9 Acute bronchitis, unspecified; M79.7 Fibromyalgia; Z76.5 Malingerer [conscious simulation]; Z79.51 Long term (current) use of inhaled steroids; Z87.11 Personal history of peptic ulcer disease; Z88.5 Allergy status to narcotic agent; Z88.8 Allergy status to other drugs, medicaments and biological substances; Z79.899 Other long term (current) drug therapy; Z82.5 Family history of asthma and other chronic lower respiratory diseases
CPT/HCPCS: 36415; 71046; 76705; 80048; 80053; 82550; 82553; 83036; 83605; 83735; 83880; 84484; 85025; 85027; 85610; 85730; 87040; 87502; 93005; 93306; 93970; 94640; 94644; 94760; 96365; 96375; 96376; 99291

== ENCOUNTER 2019-01-22 02:18 | Inpatient (IN) | payer MEDICARE, OTHER ==
[2019-01-22] MEDS ORDERED: LABETALOL SYRINGE 5 MG/ML IVP STA (02:32)
[2019-01-22] MEDS ORDERED: ONDANSETRON 4 MG/2 ML VIAL IVP STA (02:37)
[2019-01-22] MEDS ORDERED: MORPHINE SULFATE 4 MG/ML SYRINGE IV STA (02:37)
[2019-01-22 02:57] LABS: Basophils # (A) 0.1 k/uL (0-0.2); Basophils % (A) 1 %; Eosinophils # (A) 0.2 k/uL (0-0.7); Eosinophils % (A) 2 %; HCT 48.6 % (34.0-46.0); HGB 15.7 gm/dL (11.4-16.0); Lymphocytes % (A) 19 %; MCH 29.1 pg (25.0-35.0); MCHC 32.3 g/dL (31.0-37.0); MCV 90.1 fL (80.0-100.0); Mean Platelet Volume 7.6; Monocytes # (A) 0.5 k/uL (0-1.0); Monocytes % (A) 5 %; Neutrophils # (A) 7.2 k/uL (1.3-7.7); Neutrophils % (A) 71 %; Platelet Count 250 k/uL (150-450); RDW 15.5 % (11.5-15.5); WBC 10.1 k/uL (3.8-10.6)
[2019-01-22 03:07] LABS: Calcium 9.5 mg/dL (8.4-10.2); Magnesium 1.8 mg/dL (1.6-2.3); Potassium 4.2 mmol/L (3.5-5.1); Total Bilirubin 1.1 mg/dL (0.2-1.3); Total Protein 6.8 g/dL (6.3-8.2)
[2019-01-22 03:12] LABS: INR 1.1 (<1.2); Prothrombin Time 11.6 sec (9.0-12.0)
--- NOTE | 2019-01-22 03:15 | ED ---
General Adult HPI - General Source: patient, EMS, RN notes reviewed, old records reviewed Mode of arrival: EMS <Brett Christine - Last Filed: 01/22/19 03:58> <Jody Sebastian - Last Filed: 01/22/19 05:30> - General Chief complaint: Skin/Abscess/Foreign Body Stated complaint: R leg edema Time Seen by Provider: 01/22/19 02:21 - History of Present Illness Initial comments: 48-year-old female patient past medical history of COPD, hypertension, CHF, fibromyalgia presents to ED for multiple complaints. Patient reports that for approximately one month she has had swelling in her right lower extremity, abdominal pain and right lower quadrant. Patient also reports over that time. She is a waxing and waning shortness of breath chest pain. Patient reports some mild shortness breath or not, denies any current chest pain. Patient also reports that she has had a bitemporal headache for approximately 1 day. Denies worse headache of life, denies thunderclap onset. Denies any nuchal rigidity. Pt denies any other complaints at this time. Systemic: Pt denies fatigue, fever/chills, rash. Pt denies weakness, night sweats, weight loss. Neuro: Pt denies headache, visual disturbances, syncope or pre-syncope. HEENT: Pt denies ocular discharge or irritation, otalgia, rhinorrhea, pharyngitis or notable lymphadenopathy. Cardiopulmonary: Pt denies heart palpitations, dyspnea on exertion. Abdominal/GI: Pt denies n/v/d. : Pt denies dysuria, burning w/ urination, frequency/urgency. Denies new onset urinary or bowel incontinence. MSK: Pt denies myalgia, loss of strength or function in extremities. Neuro: Pt denies new onset weakness, paresthesias. (Brett Christine) - Related Data Previous Rx's Medication Instructions Recorded Albuterol Inhaler [Ventolin Hfa 1 - 2 puff INHALATION RT-Q6H PRN 08/07/18 Inhaler] #1 inhaler Aspirin 81 mg PO DAILY #30 chewable 08/07/18 Atorvastatin [Lipitor] 20 mg PO HS #30 tab 08/07/18 Budesonide-Formot 160-4.5 Mcg 2 puff INHALATION BID #1 inhaler 08/07/18 [Symbicort 160-4.5 Mcg Inhaler] Carvedilol [Coreg] 6.25 mg PO BID-W/MEALS #60 tab 08/07/18 Furosemide [Lasix] 40 mg PO DAILY #30 tablet 08/07/18 Lisinopril 40 mg PO DAILY 30 Days #30 tablet 08/07/18 Temazepam [Restoril] 15 mg PO HS PRN #14 cap 08/07/18 hydrALAZINE HCL [Apresoline] 50 mg PO TID 30 Days #90 tab 08/07/18 predniSONE 10 mg PO DAILY #18 tab 08/07/18 Allergies Allergy/AdvReac Type Severity Reaction Status Date / Time codeine AdvReac Severe Nausea & Verified 07/28/18 23:02 Vomiting acetaminophen [From Vicodin] AdvReac Nausea & Verified 07/28/18 23:02 Vomiting divalproex sodium AdvReac Alopecia Verified 07/28/18 23:02 [From Depakote] hydrocodone [From Vicodin] AdvReac Nausea & Verified 07/28/18 23:02 Vomiting Review of Systems ROS Other: All systems not noted in ROS Statement are negative. <Brett Christine - Last Filed: 01/22/19 03:58> ROS Other: All systems not noted in ROS Statement are negative. <Jody Sebastian - Last Filed: 01/22/19 05:30> ROS Statement: Those systems with pertinent positive or pertinent negative responses have been documented in the HPI. Past Medical History Past Medical History: Chest Pain / Angina, Heart Failure, COPD, Fibromyalgia, Hypertension, Osteoarthritis (OA), Pneumonia Additional Past Medical History / Comment(s): Malignant hypertension, respiratory failure, bronchitis, pleurisy, cardiomegaly, last EF 40-45%, occa sional pedal edema with R foot worse, duodenal ulcer, bile duct stone with surgery to remove, pancreatic pseudocyst, pancreatitis, occipital neuralgia, chronic back pain, DDD, migraines, abdominal hernia with surgery but pt states "it is back", PCOS, bilateral tinnitis. Pt has elevated blood sugars, insomnia and increased anxiety with steroid use. History of Any Multi-Drug Resistant Organisms: None Reported Date of last positivie culture/infection: None MDRO Source:: None Past Surgical History: Cholecystectomy, Hernia Repair, Orthopedic Surgery Additional Past Surgical History / Comment(s): Pancreatic pseudocyst removal; D&Cx2; EGD/ERCP, bilateral feet bunionectomies, abdominal hernia repairs/mesh. Past Anesthesia/Blood Transfusion Reactions: No Reported Reaction Additional Past Anesthesia/Blood Transfusion Reaction / Comment(s): Pt has received blood in past without reaction. Past Psychological History: Bipolar, Depression, Panic Disorder, PTSD, Schizophrenia Smoking Status: Current every day smoker Past Alcohol Use History: None Reported Past Drug Use History: None Reported - Past Family History Mother Family Medical History: COPD Additional Family Medical History / Comment(s): Mother from COPD at the age of 49 yrs. Father Family Medical History: COPD Brother(s) Family Medical History: Deep Vein Thrombosis (DVT) <Brett Christine - Last Filed: 01/22/19 03:58> General Exam <Brett Christine - Last Filed: 01/22/19 03:58> - General Exam Comments Initial Comments: Constitutional: NAD, AOX3, Pt has pleasant affect. HEENT: NC/AT, trachea midline, neck supple, no lymphadenopathy. Posterior pharynx non erythematous, without exudates. External ears appear normal, without discharge. Mucous membranes moist. Eyes PERRLA, EOM intact. There is no scleral icterus. No pallor noted. Cardiopulmonary: RRR, no murmurs, rubs or gallops, no JVD noted. Lungs CTAB in anterior and posterior fraser. Abdominal exam: Abdomen soft and non-distended. Abdomen non-tender to palpation in all 4 quadrants. Bowel sounds active in LLQ. No hepatosplenomegaly. No ecchymosis Neuro: CN II-XII intact. No nuchal rigidity. No raccon eyes, no castro sign, no hemotympanum. No cervical spinal tenderness. NIH 0. MSK: Right lower extremity edematous and mildly erythematous. +2 pitting edema. Ernea sign positive, posterior calf tender to palpation. Left lower extremity displays +1 pitting edema, nontender to palpation, Homans sign negative. Sensation intact in upper and lower extremities. Full active ROM in upper and lower extremities, 5/5 stregnth. (Brett Christine) Course Vital Signs 01/22/19 01/22/19 02:19 04:02 Temperature 98.3 F Pulse Rate 86 67 Respiratory 18 17 Rate Blood Pressure 229/157 178/120 O2 Sat by Pulse 97 96 Oximetry Medical Decision Making - Lab Data Result diagrams: 01/22/19 02:38 01/22/19 02:38 <Brett Christine - Last Filed: 01/22/19 03:58> - Lab Data Result diagrams: 01/22/19 02:38 01/22/19 02:38 <Jody Sebastian - Last Filed: 01/22/19 05:30> - Medical Decision Making 48-year-old female patient past medical history of COPD, hypertension, CHF, fibromyalgia presents to ED for multiple complaints. Patient reports that for approximately one month she has had swelling in her right lower extremity, abdominal pain and right lower quadrant. Patient also reports over that time. She is a waxing and waning shortness of breath chest pain. Patient reports some mild shortness breath or not, denies any current chest pain. Patient also reports that she has had a bitemporal headache for approximately 1 day. Denies worse headache of life, denies thunderclap onset. Denies any nuchal rigidity. Pt denies any other complaints at this time. Physical exam displayed: CN II-XII intact. No nuchal rigidity. No raccon eyes, no castro sign, no hemotympanum. No cervical spinal tenderness. NIH 0. Right lower extremity edematous and mildly erythematous. +2 pitting edema. Renea sign positive, posterior calf tender to palpation. Left lower extremity displays +1 pitting edema, nontender to palpation, Homans sign negative. Vital signs displayed significant hypertension, patient administered hypertensive. Patient signed out to attend [facility] physician Dr. Sebastian pending imaging. (Brett Christine) She care was signed out to me by the PA, I personally saw and evaluated the patient who is resting comfortably, patient's blood pressure had improved. Labs and imaging were reviewed. Labs were patient's baseline except for BNP which is significantly elevated suggestive of a CHF exacerbation. Computed tomography scan revealed a pericardial effusion as well as some ascites likely related to heart failure. Doppler studies were negative for DVT. Patient's blood pressure improved is still elevated but only 168/105 at this time I do feel the patient warrants admission to the hospital for hypertensive emergency with CHF. Patient care was discussed with her primary care physician Dr. Cortez who agrees with plan for admission with consult to cardiology. Admission orders were placed, patient's home medications including oral antihypertensives were ordered etiology and an echo. (Jody Sebastian) - Lab Data Lab Results 01/22/19 01/22/19 01/22/19 Range/Units 02:38 02:38 02:38 WBC 10.1 (3.8-10.6) k/uL RBC 5.40 (3.80-5.40) m/uL Hgb 15.7 (11.4-16.0) gm/dL Hct 48.6 H (34.0-46.0) % MCV 90.1 (80.0-100.0) fL MCH 29.1 (25.0-35.0) pg MCHC 32.3 (31.0-37.0) g/dL RDW 15.5 (11.5-15.5) % Plt Count 250 (150-450) k/uL Neutrophils % 71 % Lymphocytes % 19 % Monocytes % 5 % Eosinophils % 2 % Basophils % 1 % Neutrophils # 7.2 (1.3-7.7) k/uL Lymphocytes # 2.0 (1.0-4.8) k/uL Monocytes # 0.5 (0-1.0) k/uL Eosinophils # 0.2 (0-0.7) k/uL Basophils # 0.1 (0-0.2) k/uL PT (9.0-12.0) sec INR (<1.2) APTT (22.0-30.0) sec Sodium 140 (137-145) mmol/L Potassium 4.2 (3.5-5.1) mmol/L Chloride 106 (98-107) mmol/L Carbon Dioxide 26 (22-30) mmol/L Anion Gap 8 mmol/L BUN 23 H (7-17) mg/dL Creatinine 0.92 (0.52-1.04) mg/dL Est GFR (CKD-EPI)AfAm 85 (>60 ml/min/1.73 sqM) Est GFR (CKD-EPI)NonAf 74 (>60 ml/min/1.73 sqM) Glucose 126 H (74-99) mg/dL Calcium 9.5 (8.4-10.2) mg/dL Magnesium 1.8 (1.6-2.3) mg/dL Total Bilirubin 1.1 (0.2-1.3) mg/dL AST 37 H (14-36) U/L ALT 22 (9-52) U/L Alkaline Phosphatase 115 (38-126) U/L Troponin I (0.000-0.034) ng/mL NT-Pro-B Natriuret Pep 7180 pg/mL Total Protein 6.8 (6.3-8.2) g/dL Albumin 4.0 (3.5-5.0) g/dL 01/22/19 01/22/19 Range/Units 02:38 02:38 WBC (3.8-10.6) k/uL RBC (3.80-5.40) m/uL Hgb (11.4-16.0) gm/dL Hct (34.0-46.0) % MCV (80.0-100.0) fL MCH (25.0-35.0) pg MCHC (31.0-37.0) g/dL RDW (11.5-15.5) % Plt Count (150-450) k/uL Neutrophils % % Lymphocytes % % Monocytes % % Eosinophils % % Basophils % % Neutrophils # (1.3-7.7) k/uL Lymphocytes # (1.0-4.8) k/uL Monocytes # (0-1.0) k/uL Eosinophils # (0-0.7) k/uL Basophils # (0-0.2) k/uL PT 11.6 (9.0-12.0) sec INR 1.1 (<1.2) APTT 21.7 L (22.0-30.0) sec Sodium (137-145) mmol/L Potassium (3.5-5.1) mmol/L Chloride (98-107) mmol/L Carbon Dioxide (22-30) mmol/L Anion Gap mmol/L BUN (7-17) mg/dL Creatinine (0.52-1.04) mg/dL Est GFR (CKD-EPI)AfAm (>60 ml/min/1.73 sqM) Est GFR (CKD-EPI)NonAf (>60 ml/min/1.73 sqM) Glucose (74-99) mg/dL Calcium (8.4-10.2) mg/dL Magnesium (1.6-2.3) mg/dL Total Bilirubin (0.2-1.3) mg/dL AST (14-36) U/L ALT (9-52) U/L Alkaline Phosphatase (38-126) U/L Troponin I 0.027 (0.000-0.034) ng/mL NT-Pro-B Natriuret Pep pg/mL Total Protein (6.3-8.2) g/dL Albumin (3.5-5.0) g/dL Disposition <Brett Christine - Last Filed: 01/22/19 03:58> <Jody Sebastian - Last Filed: 01/22/19 05:30> Clinical Impression: Hypertensive urgency, CHF (congestive heart failure), Pericardial effusion, COPD (chronic obstructive pulmonary disease), Lower extremity edema Disposition: ADMITTED IP TO THIS [facility] Condition: Serious Referrals: Ortega Cortez DO [Primary Care Provider] - 1-2 days
[2019-01-22 03:19] LABS: Partial Thromboplastin Time 21.7 sec (22.0-30.0)
[2019-01-22] MEDS ORDERED: LORazepam 2 MG/ML INJ IV STA (03:51)
--- NOTE | 2019-01-22 04:04 | CT ---
EXAM: CT Head Without Intravenous Contrast CLINICAL HISTORY: ITS.REASON CT Reason: Pain TECHNIQUE: Axial computed tomography images of the head/brain without intravenous contrast. This CT exam was performed using one or more of the following dose reduction techniques: automated exposure control, adjustment of the mA and/or kV according to patient size, and/or use of iterative reconstruction technique. COMPARISON: No relevant prior studies available. FINDINGS: Brain: No hemorrhage. No edema. Ventricles: Unremarkable. No ventriculomegaly. Bones/joints: No acute fracture. Soft tissues: Unremarkable. Sinuses: No fluid levels. Mastoid air cells: Unremarkable as visualized. No mastoid effusion. IMPRESSION: No acute intracranial findings EXAM: CT Cervical Spine Without Intravenous Contrast CLINICAL HISTORY: ITS.REASON CT Reason: Pain TECHNIQUE: Axial computed tomography images of the cervical spine without intravenous contrast. This CT exam was performed using one or more of the following dose reduction techniques: automated exposure control, adjustment of the mA and/or kV according to patient size, and/or use of iterative reconstruction technique. COMPARISON: No relevant prior studies available. FINDINGS: Vertebrae: No acute fracture. Discs/spinal canal/neural foramina: No suspicious findings. Soft tissues: Unremarkable. IMPRESSION: No acute findings.
--- NOTE | 2019-01-22 04:05 | CT ---
EXAM: CT Angiography Chest Without And With Intravenous Contrast CLINICAL HISTORY: ITS.REASON CT Reason: Pain TECHNIQUE: Axial computed tomographic angiography images of the chest without and with intravenous contrast using pulmonary embolism protocol. This CT exam was performed using one or more of the following dose reduction techniques: automated exposure control, adjustment of the mA and/or kV according to patient size, and/or use of iterative reconstruction technique. 3D reconstructed images were created and reviewed. COMPARISON: No relevant prior studies available. FINDINGS: Pulmonary arteries: Unremarkable. No pulmonary embolism. Aorta: No suspicious findings. No thoracic aortic aneurysm. Lungs: Unremarkable. No mass. No consolidation. Pleural space: Unremarkable. No significant effusion. No pneumothorax. Heart: Right heart dysfunction is noted. No significant pericardial effusion. Bones/joints: No acute fracture. No dislocation. Soft tissues: Unremarkable. Lymph nodes: Unremarkable. No enlarged lymph nodes. Intraperitoneal space: Mild ascites. IMPRESSION: 1. Mild ascites. 2. Right heart dysfunction is noted.
--- NOTE | 2019-01-22 04:09 | CT ---
EXAM: CT Abdomen and Pelvis With Intravenous Contrast CLINICAL HISTORY: ITS.REASON CT Reason: Pain TECHNIQUE: Axial computed tomography images of the abdomen and pelvis with intravenous contrast. This CT exam was performed using one or more of the following dose reduction techniques: automated exposure control, adjustment of the mA and/or kV according to patient size, and/or use of iterative reconstruction technique. COMPARISON: No relevant prior studies available. FINDINGS: Lung bases: Unremarkable. No mass. No consolidation. Heart: Mild pericardial effusion. ABDOMEN: Liver: Hepatomegaly, 19.5 cm Gallbladder and bile ducts: No abnormal ductal dilation or stones. Pancreas: Unremarkable. No mass. No ductal dilation. Spleen: Unremarkable. No splenomegaly. Adrenals: Unremarkable. No mass. Kidneys and ureters: Unremarkable. No solid mass. No hydronephrosis. Stomach and bowel: Small ventral hernia containing a short segment of transverse colon. PELVIS: Appendix: No findings to suggest acute appendicitis. Bladder: Unremarkable. No mass. Reproductive: Unremarkable as visualized. ABDOMEN and PELVIS: Intraperitoneal space: Mild ascites. No free air. Bones/joints: No acute fracture. No dislocation. Soft tissues: See above. Vasculature: No abdominal aortic aneurysm. Lymph nodes: Unremarkable. No enlarged lymph nodes. IMPRESSION: 1. Mild pericardial effusion. 2. Mild ascites. 3. Small ventral hernia containing a short segment of transverse colon.
--- NOTE | 2019-01-22 04:26 | US ---
EXAM: US Duplex Right Lower Extremity Veins CLINICAL HISTORY: ITS.REASON US Reason: Pain TECHNIQUE: Real-time duplex ultrasound scan of the right lower extremity veins integrating B-mode two-dimensional vascular structure, Doppler spectral analysis, color flow Doppler imaging and compression. COMPARISON: No relevant prior studies available. FINDINGS: Deep veins: Unremarkable. No DVT in the visualized common femoral, femoral, proximal deep femoral or popliteal veins. The veins demonstrate normal color flow, are normally compressible, with normal phasic flow and/or augmentation response. Superficial veins: Unremarkable. No thrombus in the visualized great saphenous vein. Soft tissues: No suspicious findings. No popliteal cyst. IMPRESSION: Normal right lower extremity duplex venous ultrasound.
[2019-01-22] MEDS ORDERED: NITROGLYCERIN SL TABS 0.4 MG TAB SUBLINGUAL PRN (05:20)
[2019-01-22] MEDS ORDERED: ALBUTEROL NEBULIZED 2.5 MG/3 ML INHALATION PRN (05:25)
[2019-01-22] MEDS ORDERED: ENALAPRILAT 1.25 MG/ML 1 ML VIAL IVP STA (05:57)
[2019-01-22] MEDS: LISINOPRIL 20 MG TAB PO SCH (07:38)
[2019-01-22] MEDS ORDERED: hydrALAZINE HCL 50 MG TAB PO SCH (08:00)
[2019-01-22] MEDS: CARVEDILOL 6.25 MG TAB PO SCH ×2 (08:21→16:17)
[2019-01-22] MEDS ORDERED: FUROSEMIDE 40 MG TAB PO SCH (09:00)
[2019-01-22] MEDS ORDERED: PNEUMOCOCCAL VACC-PNEUMOVAX 23 25 MCG/0.5 ML VIAL IM ONE (09:03)
[2019-01-22] MEDS: traMADol 50 MG TAB PO PRN ×3 (09:59→22:01)
[2019-01-22] MEDS: LORazepam 0.5 MG TAB PO PRN ×2 (09:59→20:14)
--- NOTE | 2019-01-22 10:25 | ECHOF ---
Referral Reason:CHF, effusion MEASUREMENTS -------- HEIGHT: 157.5 cm WEIGHT: 104.3 kg BP: 197/113 RVIDd: 3.7 cm (< 3.3) IVSd: 2.0 cm (0.6 - 1.1) LVIDd: 4.8 cm (3.9 - 5.3) LVPWd: 2.2 cm (0.6 - 1.1) IVSs: 2.1 cm LVIDs: 4.1 cm LVPWs: 2.7 cm LAESV Index (A-L): 23.17 ml/m Ao Diam: 2.8 cm (2.0 - 3.7) AV Cusp: 1.4 cm (1.5 - 2.6) LA Diam: 3.4 cm (2.7 - 3.8) MV EXCURSION: 12.495 mm (> 18.000) MV EF SLOPE: 91 mm/s (70 - 150) EPSS: 0.9 cm MV E Sean: 0.95 m/s MV DecT: 223 ms MV A Sean: 0.27 m/s MV E/A Ratio: 3.56 RAP: 5.00 mmHg RVSP: 19.40 mmHg FINDINGS -------- Resting bradycardia (HR<60bpm). This was a technically difficult study with suboptimal views. The left ventricular size is normal. There is severe concentric left ventricular hypertrophy. Ove rall left ventricular systolic function is moderately impaired with, an EF between 35 - 40 %. Basal anterior LV wall motion is hypokinetic. Basal inferoseptal LV wall motion is hypokinetic. Mid anterior LV wall motion is hypokinetic. Mid inferior LV wall motion is hypokinetic. Apical ante rior LV wall motion is hypokinetic. Apical inferior LV wall motion is hypokinetic. The right ventricle is mildly enlarged. Normal LA size by volume 22+/-6 ml/m2. The right atrial size is normal. Lumason used Aortic valve is trileaflet and is mildly thickened. The mitral valve leaflets are mildly thickened. Mild mitral regurgitation is present. Mild tricuspid regurgitation present. The right ventricular systolic pressure, as measured by Doppl er, is 19.40mmHg. There is no pulmonic regurgitation present. The aortic root size is normal. IVC Not well visulized. There is a small, generalized pericardial effusion present. CONCLUSIONS -------- 1. Resting bradycardia (HR<60bpm). 2. This was a technically difficult study with suboptimal views. 3. The left ventricular size is normal. 4. There is severe concentric left ventricular hypertrophy. 5. Overall left ventricular systolic function is moderately impaired with, an EF between 35 - 40 %. 6. Basal anterior LV wall motion is hypokinetic. 7. Basal inferoseptal LV wall motion is hypokinetic. 8. Mid anterior LV wall motion is hypokinetic. 9. Mid inferior LV wall motion is hypokinetic. 10. Apical anterior LV wall motion is hypokinetic. 11. Apical inferior LV wall motion is hypokinetic. 12. The right ventricle is mildly enlarged. 13. Normal LA size by volume 22+/-6 ml/m2. 14. The right atrial size is normal. 15. Lumason used 16. Aortic valve is trileaflet and is mildly thickened. 17. The mitral valve leaflets are mildly thickened. 18. Mild mitral regurgitation is present. 19. Mild tricuspid regurgitation present. 20. The right ventricular systolic pressure, as measured by Doppler, is 19.40mmHg. 21. There is no pulmonic regurgitation present. 22. The aortic root size is normal. 23. IVC Not well visulized. 24. There is a small, generalized pericardial effusion present. FLIGHT ATTENDANT RAMP: rIena Ruelas RDCS
--- NOTE | 2019-01-22 12:15 | CONS ---
CONSULTATION Mrs. Sam is a 48-year-old female who is seen for uncontrolled hypertension. Patient's records reviewed. Patient at present a little sleepy and lethargic, unable to give a very detailed history. The history obtained from the chart. Patient has a history of hypertension, congestive heart failure and COPD. Patient presented to the emergency room because of predominantly swelling in her right lower extremity and with some abdominal pain. The patient has this swelling for last 1 month. She gives a history that she had some injury with a glass. Denies any fever or chills. In the emergency room, patient's blood pressure was significantly elevated and subsequently is admitted. The ultrasound venous duplex study was negative for DVT. Patient has a history of hypertension. There is no prior history of myocardial infarction. Patient's physical activities are limited but denies any orthopnea or PND. Patient's home medications includes albuterol, Lipitor 20 mg daily, Coreg 6.25 mg b.i.d., lisinopril 40 mg daily, prednisone 10 mg daily. Codeine and Vicodin. REVIEW OF THE SYSTEM: Otherwise unremarkable. PAST MEDICAL HISTORY: Includes history of hypertension, COPD, bronchitis, mild to moderately impaired left ventricular systolic function. History of pancreatitis and pancreatic pseudocyst, cholecystectomy, hernia repair and orthopedic surgery, bilateral feet bunionectomy, abdominal hernia repair. PHYSICAL EXAMINATION: At present reveals a 48-year-old obesely built female who does not appear to be in any acute distress. In the emergency room initially patient's blood pressure was 229/157 mmHg. The patient's blood pressure now is 140/90 mmHg. HEENT examination is negative. Neck is supple. There is no increase in jugular venous pressure. Both the carotid pulses are felt. There is no bruit. Chest is symmetrical. Heart, the PMI is not felt. First and second heart sounds are heard. Lungs, no significant murmurs are noted. Lung examinations revealed bilateral few basal rales. ABDOMEN: Soft. Extremities, there is a swelling in the right lower extremity with a tenderness, rule out cellulitis. Patient's electrolytes are normal. CT of the chest was done which does not show any evidence of pericardial effusion. The patient's BNP level is 7100. Echocardiogram shows severe degree of left ventricular hypertrophy with moderately impaired left ventricular systolic function. FINAL IMPRESSION: This patient has evidence of uncontrolled hypertension and hypertensive cardiovascular disease with congestive cardiac failure and a moderately impaired left ventricular systolic function. The patient has evidence of mild heart failure. There is no evidence of any significant pericardial effusion. RECOMMENDATIONS: We will add amlodipine 5 mg daily. Discontinue hydralazine. Continue lisinopril and add diuretic in the form of Demadex 20 mg daily, Aldactone 25 mg daily. MMODL / IJN: [id number] /
--- NOTE | 2019-01-22 16:11 | P.HPIM ---
History of Present Illness H&P Date: 01/22/19 Chief Complaint: Right lower leg edema This is a 48-year-old female, history of CHF, COPD, fibromyalgia, hypertension, osteoarthritis, malignant hypertension, respiratory failure, chronic back pain and multiple other medical issues admitted with increased edema/redness right lower extremity, right lower quadrant abdominal pain, shortness of breath, denies chest pain. Reports also nausea vomiting that started 3 days ago. Vague historian. On admission significantly elevated blood pressure 229/157. Doppler negative for DVT. Chest CT reports no pericardial effusion, no PE, mild ascites. BNP 7100. Echo reported severe left ventricular hypertrophy with moderately impaired LV systolic function, EF 35-40%. EKG reporting sinus rhythm. Troponin is negative 3. Received labetalol, Vasotec in the ER with blood pressure improving. Review of Systems ROS Statement: Those systems with pertinent positive or pertinent negative responses have been documented in the HPI. ROS Other: All systems not noted in ROS Statement are negative. Past Medical History Past Medical History: Chest Pain / Angina, Heart Failure, COPD, Fibromyalgia, Hy pertension, Osteoarthritis (OA), Pneumonia Additional Past Medical History / Comment(s): Malignant hypertension, respiratory failure, bronchitis, pleurisy, cardiomegaly, last EF 40-45%, occasional pedal edema with R foot worse, duodenal ulcer, bile duct stone with surgery to remove, pancreatic pseudocyst, pancreatitis, occipital neuralgia, chronic back pain, DDD, migraines, abdominal hernia with surgery but pt states "it is back", PCOS, bilateral tinnitis. Pt has elevated blood sugars, insomnia and increased anxiety with steroid use. History of Any Multi-Drug Resistant Organisms: None Reported Date of last positivie culture/infection: None MDRO Source:: None Past Surgical History: Cholecystectomy, Hernia Repair, Orthopedic Surgery Additional Past Surgical History / Comment(s): Pancreatic pseudocyst removal; D&Cx2; EGD/ERCP, bilateral feet bunionectomies, abdominal hernia repairs/mesh. Past Anesthesia/Blood Transfusion Reactions: No Reported Reaction Additional Past Anesthesia/Blood Transfusion Reaction / Comment(s): Pt has received blood in past without reaction. Past Psychological History: Bipolar, Depression, Panic Disorder, PTSD, Schizophrenia Smoking Status: Current every day smoker Past Alcohol Use History: None Reported Past Drug Use History: None Reported - Past Family History Mother Family Medical History: COPD Additional Family Medical History / Comment(s): Mother from COPD at the age of 49 yrs. Father Family Medical History: COPD Brother(s) Family Medical History: Deep Vein Thrombosis (DVT) Medications and Allergies Home Medications Medication Instructions Recorded Confirmed Type Aspirin 81 mg PO DAILY #30 chewable 08/07/18 01/22/19 Rx Atorvastatin [Lipitor] 20 mg PO HS #30 tab 08/07/18 01/22/19 Rx Carvedilol [Coreg] 6.25 mg PO BID-W/MEALS #60 tab 08/07/18 01/22/19 Rx Furosemide [Lasix] 40 mg PO DAILY #30 tablet 08/07/18 01/22/19 Rx Lisinopril 40 mg PO DAILY 30 Days #30 tablet 08/07/18 01/22/19 Rx hydrALAZINE HCL [Apresoline] 50 mg PO TID 30 Days #90 tab 08/07/18 01/22/19 Rx Budesonide-Formot 160-4.5 Mcg 2 puff INHALATION RT-BID 01/22/19 01/22/19 History [Symbicort 160-4.5 Mcg Inhaler] Escitalopram Oxalate [Lexapro] 10 mg PO DAILY 01/22/19 01/22/19 History Ipratropium-Albuterol Nebulize 3 ml INHALATION RT-QID 01/22/19 01/22/19 History [Duoneb 0.5 mg-3 mg/3 ml Soln] hydrOXYzine HCL [Atarax] 25 mg PO HS 01/22/19 01/22/19 History Allergies Allergy/AdvReac Type Severity Reaction Status Date / Time codeine AdvReac Severe Nausea & Verified 01/22/19 09:20 Vomiting divalproex sodium AdvReac Alopecia Verified 01/22/19 09:20 [From Depakote] hydrocodone [From Vicodin] AdvReac Nausea & Verified 01/22/19 09:20 Vomiting Physical Exam Vitals: Vital Signs Temp Pulse Resp BP Pulse Ox 01/22/19 08:25 61 19 153/98 98 01/22/19 07:50 55 L 18 171/111 97 01/22/19 06:49 78 20 197/113 98 01/22/19 05:56 60 19 162/103 98 01/22/19 04:02 67 17 178/120 96 01/22/19 02:19 98.3 F 86 18 229/157 97 Intake and Output 01/21/19 01/22/19 01/22/19 22:59 06:59 14:59 Other: Weight 104.326 kg PHYSICAL EXAM: VITAL SIGNS: As above GENERAL: Sitting up in stretcher, no acute distress, HEENT: Conjunctivae normal. eyes normal. Periorbital edema NECK: No JVD. No thyroid enlargement. No LNs CARDIOVASCULAR: S1, S2 regular.. No murmur RESPIRATION: Breath sounds diminished in the bases. No rhonchi or crackles. No wheezing, No bronchial breathing. ABDOMEN: Soft, nontender,No guarding. no masses palpable. mild ascites, No hepatosplenomegaly.Bowel sounds heard. LEGS: Right lower extremity, warm, reddened, positive edema, positive tenderness. Positive DP/PT pulses. PSYCHIATRY: Alert and oriented X-3, mood and affect normal. NERVOUS SYSTEM: Cranial N 2-12 grossly normal. Moves all 4 limbs. Diffuse weakness No focal deficits. Strength and sensation grossly intact.. Skin: no lesions, no rash Lymphatic system. No LN neck axilla or groin. Results CBC & Chem 7: 01/22/19 02:38 01/22/19 02:38 Labs: Abnormal Lab Results - Last 24 Hours (Table) 01/22/19 01/22/19 01/22/19 Range/Units 02:38 02:38 02:38 Hct 48.6 H (34.0-46.0) % APTT 21.7 L (22.0-30.0) sec BUN 23 H (7-17) mg/dL Glucose 126 H (74-99) mg/dL AST 37 H (14-36) U/L Assessment and Plan Assessment: -Hypertensive urgency in a patient with history of hypertension -Acute on chronic CHF, systolic dysfunction, EF 35-40% -Right lower leg cellulitis -COPD -Chronic back pain -Fibromyalgia -Osteoarthritis Plans: Continue on current medication regime ,monitoring and symptomatic treatment. Maintain Coreg, Norvasc, lisinopril, diuretics, nebulized bronchodilators. Hydralazine discontinued Home meds have been reviewed and resumed. Ultram for pain. Ativan for anxiety. Silvadene with Christiano wrap to right lower extremity. Cardiology consulted. GI and DVT prophylaxis in place. The impression and plan of care has been dictated as directed. : I performed a history and examination of this patient, discussed the same with the dictator. I agree with the dictator's note ,documented as a scribe. Any additional findings or plans will be noted. Intake and: 35 minutes
[2019-01-22] MEDS: SPIRONOLACTONE 25 MG TAB PO SCH (16:17)
[2019-01-22] MEDS: TORSEMIDE 20 MG TAB PO SCH (16:17)
[2019-01-22] MEDS: amLODIPine 5 MG TAB PO SCH (16:17)
[2019-01-22] MEDS: PANTOPRAZOLE 40 MG/10 ML VIAL IVP SCH (17:30)
[2019-01-22] MEDS: HEPARIN SODIUM,PORCINE 5,000 UNIT/ML 1 ML VIAL SQ SCH (17:30)
[2019-01-22] MEDS: IPRATROPIUM-ALBUTEROL 3 ML NEB INHALATION SCH (20:48)
[2019-01-22] MEDS: ATORVASTATIN 20 MG TAB PO SCH (22:01)
[2019-01-22] MEDS: TEMAZEPAM 15 MG CAP PO PRN (22:33)
[2019-01-23] MEDS: HEPARIN SODIUM,PORCINE 5,000 UNIT/ML 1 ML VIAL SQ SCH ×4 (01:41→23:09)
[2019-01-23] MEDS: traMADol 50 MG TAB PO PRN ×5 (04:42→22:48)
[2019-01-23] MEDS: LORazepam 0.5 MG TAB PO PRN ×3 (04:42→20:54)
[2019-01-23] MEDS: CARVEDILOL 6.25 MG TAB PO SCH ×2 (06:04→17:34)
[2019-01-23 06:46] LABS: Anisocytosis Slight; Basophils # (A) 0.1 k/uL (0-0.2); Basophils % (A) 1 %; Eosinophils # (A) 0.5 k/uL (0-0.7); Eosinophils % (A) 4 %; HCT 49.6 % (34.0-46.0); HGB 15.8 gm/dL (11.4-16.0); Lymphocytes % (A) 17 %; MCH 29.3 pg (25.0-35.0); MCHC 31.9 g/dL (31.0-37.0); Mean Platelet Volume 8.6; Monocytes # (A) 0.6 k/uL (0-1.0); Monocytes % (A) 6 %; Neutrophils # (A) 8.2 k/uL (1.3-7.7); Neutrophils % (A) 72 %; Platelet Count 251 k/uL (150-450); RDW 16.5 % (11.5-15.5); WBC 11.4 k/uL (3.8-10.6)
[2019-01-23 07:03] LABS: Calcium 9.2 mg/dL (8.4-10.2)
[2019-01-23 07:05] LABS: Potassium 4.6 mmol/L (3.5-5.1)
[2019-01-23] MEDS: IPRATROPIUM-ALBUTEROL 3 ML NEB INHALATION SCH ×4 (08:13→19:28)
[2019-01-23] MEDS: amLODIPine 5 MG TAB PO SCH (08:58)
[2019-01-23] MEDS: TORSEMIDE 20 MG TAB PO SCH (08:58)
[2019-01-23] MEDS: SPIRONOLACTONE 25 MG TAB PO SCH (08:58)
[2019-01-23] MEDS: PANTOPRAZOLE 40 MG/10 ML VIAL IVP SCH (08:58)
[2019-01-23] MEDS: LISINOPRIL 20 MG TAB PO SCH (08:59)
[2019-01-23] MEDS: ASPIRIN 81 MG PO SCH (08:59)
[2019-01-23] MEDS ORDERED: ASPIRIN 325 MG TAB PO SCH (09:00)
[2019-01-23 11:27] VITALS: BMI 42.8
[2019-01-23] MEDS: NICOTINE 21MG/24HR PATCH TRANSDERM SCH (11:36)
--- NOTE | 2019-01-23 12:40 | P.PN ---
Subjective 42-year-old female is being treated for CHF and the CBD exacerbation. Patient does not take any systemic steroids and patient was started on inhaled steroids. Patient does have significant peripheral edema mostly appears to be chronic venous insufficiency patient does not have any pulmonary edema although does have history of can start failure systolic dysfunction ejection fraction of 35- 40%. Patient is being started on IV Bumex and patient is presently in Demadex which is being discontinued. Patient will monitored and the possibility of d ischarge tomorrow patient still has significant swelling 3+ pitting pedal edema in both legs. Patient does not appear to have some colitis but does have chronic venous stasis and dermatosis secondary to that. Patient is comparing of pain in the legs. Requesting for morphine. Constitutional: Denied any fatigue denied any fever. Cardio vascular: denied any chest pain, palpitations Gastrointestinal denied any nausea vomiting Pulmonary: Shortness of breath is better Neurologic denied any new focal deficits All inpatient medications were reviewed and appropriate changes in these medications as dictated in the interval history and assessment and plan. Objective - Vital Signs Vital signs: Vital Signs Temp 97.7 F 01/23/19 08:30 Pulse 60 01/23/19 08:30 Resp 16 01/23/19 08:30 BP 148/87 01/23/19 08:30 Pulse Ox 94 L 01/23/19 08:30 Intake & Output 01/22/19 01/23/19 01/23/19 18:59 06:59 18:59 Intake Total 942 480 480 Balance 942 480 480 Weight 106.2 kg 106.2 kg Intake: Oral 942 480 480 Other: Voiding Method Toilet Toilet # Voids 2 2 2 - Exam PHYSICAL EXAMINATION: GENERAL: The patient is alert and oriented x3, not in any acute distress. Well developed, well nourished. HEENT: Pupils are round and equally reacting to light. EOMI. No scleral icterus. No conjunctival pallor. Normocephalic, atraumatic. No pharyngeal erythema. No thyromegaly. CARDIOVASCULAR: S1 and S2 present. No murmurs, rubs, or gallops. PULMONARY: Expiratory wheezing on exam fairly good air entry bilateral lung fraser no crackles were appreciated ABDOMEN: Soft, nontender, nondistended, normoactive bowel sounds. No palpable organomegaly. MUSCULOSKELETAL: No joint swelling or deformity. EXTREMITIES: No cyanosis, clubbing, or does have significant 3+ bilateral pitting pedal edema extending up to the midthigh area NEUROLOGICAL: Gross neurological examination did not reveal any focal deficits. SKIN: No rashes. - Labs CBC & Chem 7: 01/23/19 06:21 01/23/19 06:21 Labs: Abnormal Lab Results - Last 24 Hours (Table) 01/23/19 01/23/19 Range/Units 06:21 06:21 WBC 11.4 H (3.8-10.6) k/uL Hct 49.6 H (34.0-46.0) % RDW 16.5 H (11.5-15.5) % Neutrophils # 8.2 H (1.3-7.7) k/uL BUN 32 H (7-17) mg/dL Creatinine 1.12 H (0.52-1.04) mg/dL Glucose 153 H (74-99) mg/dL Assessment and Plan Plan: -COPD with acute exacerbation: Management as mentioned above Hepatitis start failure chronic systolic dysfunction with acute exacerbation: IV Bumex as mentioned above repeat basic metabolic profile tomorrow -Bilateral lower leg chronic venous insufficiency with the chronic venous dermatosis -Fibromyalgia -Hypertension Patient will need pharmacologic DVT prophylaxis
--- NOTE | 2019-01-23 13:32 | P.PN ---
Subjective Progress Note Date: 01/23/19 This is a 48-year-old female seen in consultation yesterday by Dr. VC louis petit. She was seen in consultation because of uncontrolled hypertension and congestive cardiac failure. She has a known history of hypertension, COPD, hyperlipidemia, chronic bronchitis, history of pancreatitis. Upon examination today, patient had bilateral legs wrapped, she felt as though her legs were just as well as when she presented here, she does have a cough, productive, echocardiogram with Doppler study was performed which revealed an ejection fraction of 35-40%, basal anterior and inferior septal apical anterior and inferior wall hypokinesia noted. Blood pressure this morning 138/90 with a heart rate in the 60s. White blood cell count 11.4, hemoglobin 15.8, platelet count 251. Sodium 137, potassium 4.6, BUN 32 and creatinine 1.1. We will discontinue the patient's Norvasc, discontinue oral Demadex and start the patient on IV Bumex. We will also add Aldactone to the medication regime. Objective - Vital Signs Vital signs: Vital Signs Temp 97.7 F 01/23/19 08:30 Pulse 54 L 01/23/19 13:10 Resp 16 01/23/19 11:35 BP 139/92 01/23/19 11:35 Pulse Ox 96 01/23/19 11:35 Intake & Output 01/22/19 01/23/19 01/23/19 18:59 06:59 18:59 Intake Total 942 480 480 Balance 942 480 480 Weight 106.2 kg 106.2 kg Intake: Oral 942 480 480 Other: Voiding Method Toilet Toilet # Voids 2 2 2 - Exam PHYSICAL EXAMINATION: GENERAL: This 89-year-old female in no acute distress at the time of my examination HEENT: Head is atraumatic, normocephalic. Pupils equal, round. Sclera anicteric. Conjunctiva are clear. Mucous membranes of the mouth are moist. Neck is supple. There is no elevated jugular venous pressure. No carotid bruit is heard. HEART EXAMINATION: Heart S1, S2 normal. No murmur or gallop heard. CHEST EXAMINATION: Scattered coarse rhonchi and wheezing throughout ABDOMEN: Soft, nontender. Bowel sounds are heard. No organomegaly noted. EXTREMITIES:[1+ peripheral pulses with evidence of peripheral edema bilateral Christiano wraps in place NEUROLOGIC patient is awake, alert and oriented X3. . - Labs CBC & Chem 7: 01/23/19 06:21 01/23/19 06:21 Labs: Abnormal Lab Results - Last 24 Hours (Table) 01/23/19 01/23/19 Range/Units 06:21 06:21 WBC 11.4 H (3.8-10.6) k/uL Hct 49.6 H (34.0-46.0) % RDW 16.5 H (11.5-15.5) % Neutrophils # 8.2 H (1.3-7.7) k/uL BUN 32 H (7-17) mg/dL Creatinine 1.12 H (0.52-1.04) mg/dL Glucose 153 H (74-99) mg/dL Assessment and Plan Plan: Assessment and plan #1 uncontrolled hypertension #2 systolic congestive heart failure acute on chronic #3 COPD and chronic bronchitis #4 hypertension #5 hyperlipidemia #6 bipolar depression and schizophrenia #7 nicotine dependence Plan We'll discontinue the Demadex, start the patient on IV Bumex as well as Aldactone, monitor intake and output along with daily weights and daily lytes BU N and creatinine. DNP note has been reviewed, I agree with a documented findings and plan of care. Patient was seen and examined.
[2019-01-23] MEDS: BUMETANIDE 0.25 MG/ML 10 ML VIAL IV SCH ×2 (15:37→20:22)
[2019-01-23] MEDS: SYMBICORT 160-4.5 MCG INHALER INHALATION SCH (19:30)
[2019-01-23] MEDS: ATORVASTATIN 20 MG TAB PO SCH (19:41)
[2019-01-23] MEDS: TEMAZEPAM 15 MG CAP PO PRN (20:54)
[2019-01-24] MEDS: traMADol 50 MG TAB PO PRN ×5 (02:52→20:56)
[2019-01-24] MEDS: PANTOPRAZOLE 40 MG TABLET PO SCH (06:23)
[2019-01-24] MEDS: CARVEDILOL 6.25 MG TAB PO SCH ×2 (06:23→16:34)
[2019-01-24 06:54] LABS: Basophils # (A) 0.1 k/uL (0-0.2); Basophils % (A) 1 %; Eosinophils # (A) 0.3 k/uL (0-0.7); Eosinophils % (A) 3 %; HCT 48.2 % (34.0-46.0); HGB 15.6 gm/dL (11.4-16.0); Lymphocytes # (A) 1.4 k/uL (1.0-4.8); Lymphocytes % (A) 14 %; MCH 29.6 pg (25.0-35.0); MCHC 32.3 g/dL (31.0-37.0); MCV 91.6 fL (80.0-100.0); Mean Platelet Volume 7.6; Monocytes # (A) 0.7 k/uL (0-1.0); Monocytes % (A) 6 %; Neutrophils # (A) 7.9 k/uL (1.3-7.7); Neutrophils % (A) 75 %; Platelet Count 263 k/uL (150-450); RBC 5.26 m/uL (3.80-5.40); RDW 15.6 % (11.5-15.5); WBC 10.5 k/uL (3.8-10.6)
[2019-01-24 07:08] LABS: Calcium 9.5 mg/dL (8.4-10.2); Potassium 3.9 mmol/L (3.5-5.1)
[2019-01-24] MEDS: IPRATROPIUM-ALBUTEROL 3 ML NEB INHALATION SCH ×4 (07:19→20:25)
[2019-01-24] MEDS: SYMBICORT 160-4.5 MCG INHALER INHALATION SCH ×3 (07:19→20:24)
[2019-01-24] MEDS: HEPARIN SODIUM,PORCINE 5,000 UNIT/ML 1 ML VIAL SQ SCH ×2 (08:29→16:36)
[2019-01-24] MEDS: LISINOPRIL 20 MG TAB PO SCH (08:29)
[2019-01-24] MEDS: BUMETANIDE 0.25 MG/ML 10 ML VIAL IV SCH (08:29)
[2019-01-24] MEDS: SPIRONOLACTONE 25 MG TAB PO SCH (08:30)
[2019-01-24] MEDS: ASPIRIN 81 MG PO SCH (08:30)
[2019-01-24] MEDS: NICOTINE 21MG/24HR PATCH TRANSDERM SCH (08:30)
[2019-01-24] MEDS: LORazepam 0.5 MG TAB PO PRN ×2 (09:02→16:34)
--- NOTE | 2019-01-24 10:49 | P.PN ---
Subjective 42-year-old female is being treated for CHF and the CBD exacerbation. Patient does not take any systemic steroids and patient was started on inhaled steroids. Patient does have significant peripheral edema mostly appears to be chronic venous insufficiency patient does not have any pulmonary edema although does have history of can start failure systolic dysfunction ejection fraction of 35- 40%. Patient is being started on IV Bumex and patient is presently in Demadex which is being discontinued. Patient will monitored and the possibility of d ischarge tomorrow patient still has significant swelling 3+ pitting pedal edema in both legs. Patient does not appear to have some colitis but does have chronic venous stasis and dermatosis secondary to that. Patient is comparing of pain in the legs. Requesting for morphine. 01/24/2019 Patient is on IV Bumex her creatinine has worsened that this will be discontinued. We'll discuss with cardiology. Patient is lisinopril which will be continued because of concerns of the blood pressure going up and if kidney function is improved lisinopril to be held as well at that time. Patient still has significant peripheral edema probably most probably due to chronic venous insufficiency lungs are clear to auscultation. Patient is requesting the morphine for her pain in the legs. I believe patient is hyper exacerbating her pain and I do not believe morphine is warranted at this time. Constitutional: Denied any fatigue denied any fever. Cardio vascular: denied any chest pain, palpitations Gastrointestinal denied any nausea vomiting Pulmonary: Shortness of breath is better Neurologic denied any new focal deficits All inpatient medications were reviewed and appropriate changes in these medications as dictated in the interval history and assessment and plan. Objective - Vital Signs Vital signs: Vital Signs Temp 97.4 F L 01/24/19 08:00 Pulse 60 01/24/19 08:00 Resp 16 01/24/19 08:00 BP 139/88 01/24/19 08:00 Pulse Ox 97 01/24/19 08:00 Intake & Output 01/23/19 01/24/19 01/24/19 18:59 06:59 18:59 Intake Total 720 Output Total 3150 Balance 720 -3150 Weight 106.2 kg 104.2 kg Intake: Oral 720 Output: Urine 3150 Other: Voiding Method Toilet Toilet # Voids 2 1 - Exam PHYSICAL EXAMINATION: GENERAL: The patient is alert and oriented x3, not in any acute distress. Well developed, well nourished. HEENT: Pupils are round and equally reacting to light. EOMI. No scleral icterus. No conjunctival pallor. Normocephalic, atraumatic. No pharyngeal erythema. No thyromegaly. CARDIOVASCULAR: S1 and S2 present. No murmurs, rubs, or gallops. PULMONARY: Expiratory wheezing on exam fairly good air entry bilateral lung fraser no crackles were appreciated ABDOMEN: Soft, nontender, nondistended, normoactive bowel sounds. No palpable organomegaly. MUSCULOSKELETAL: No joint swelling or deformity. EXTREMITIES: No cyanosis, clubbing, or does have significant 3+ bilateral pitting pedal edema extending up to the midthigh area NEUROLOGICAL: Gross neurological examination did not reveal any focal deficits. SKIN: No rashes. - Labs CBC & Chem 7: 01/24/19 06:32 01/24/19 06:32 Labs: Abnormal Lab Results - Last 24 Hours (Table) 01/24/19 01/24/19 Range/Units 06:32 06:32 Hct 48.2 H (34.0-46.0) % RDW 15.6 H (11.5-15.5) % Neutrophils # 7.9 H (1.3-7.7) k/uL Carbon Dioxide 32 H (22-30) mmol/L BUN 40 H (7-17) mg/dL Creatinine 1.36 H (0.52-1.04) mg/dL Glucose 119 H (74-99) mg/dL Assessment and Plan Plan: -COPD with acute exacerbation: Management as mentioned above Congestive heart failure chronic systolic dysfunction with acute exacerbation: IV Bumex as mentioned above repeat basic metabolic profile tomorrow -Acute renal failure secondary to excessive diuretic therapy which will be held and if creatinine doesn't improve by tomorrow lisinopril held as well. -Bilateral lower leg chronic venous insufficiency with the chronic venous derm atosis -Fibromyalgia -Hypertension Patient will need pharmacologic DVT prophylaxis
--- NOTE | 2019-01-24 15:32 | P.PN ---
Subjective Progress Note Date: 01/24/19 This is a 48-year-old female was admitted to the hospital with increasing shortness of breath and pedal edema and somatic pain all over the body. She was a healthy to 4+ edema which seemed to mostly dependent/venous insufficiency edema. Patient was started on IV Demadex with some good diuresis and weight loss. Still however has significant edema. Her creatinine is going up. Bumex is being held today. As there is no evidence of significant CHF, only with the management of edema to primary care physician. We'll be following her as needed Objective - Vital Signs Vital signs: Vital Signs Temp 97.4 F L 01/24/19 08:00 Pulse 60 01/24/19 11:00 Resp 16 01/24/19 11:00 BP 139/84 01/24/19 11:00 Pulse Ox 95 01/24/19 11:00 Intake & Output 01/23/19 01/24/19 01/24/19 18:59 06:59 18:59 Intake Total 720 480 Output Total 3150 1000 Balance 720 -3150 -520 Weight 106.2 kg 104.2 kg Intake: Oral 720 480 Output: Urine 3150 1000 Other: Voiding Method Toilet Toilet Toilet # Voids 2 1 - Exam GENERAL EXAM: Patient is alert and oriented and doesn't appear to be in any acute distress HEENT: Normocephalic. Normal reaction of pupils, equal size, normal range of extraocular motion. No erythema or exudates in the throat. NECK: No masses, no nuchal rigidity. CHEST: No chest wall deformity. LUNGS: Equal air entry with no crackles or wheeze. HEART: S1 and S2 normal with no audible mumurs or gallops. Regular rhythm, femorals equal on both sides.. ABDOMEN: No hepatosplenomegaly, normal bowel sounds, no guarding or rigidity. SKIN: No rashes CENTRAL NERVOUS SYSTEM: No focal deficits. EXTREMITIES: Edema 3+ - Labs CBC & Chem 7: 01/24/19 06:32 01/24/19 06:32 Labs: Abnormal Lab Results - Last 24 Hours (Table) 01/24/19 01/24/19 Range/Units 06:32 06:32 Hct 48.2 H (34.0-46.0) % RDW 15.6 H (11.5-15.5) % Neutrophils # 7.9 H (1.3-7.7) k/uL Carbon Dioxide 32 H (22-30) mmol/L BUN 40 H (7-17) mg/dL Creatinine 1.36 H (0.52-1.04) mg/dL Glucose 119 H (74-99) mg/dL Assessment and Plan (1) CHF (congestive heart failure) Current Visit: Yes Status: Acute Code(s): I50.9 - HEART FAILURE, UNSPECIFIED SNOMED Code(s): 07424776 (2) COPD (chronic obstructive pulmonary disease) Current Visit: Yes Status: Acute Code(s): J44.9 - CHRONIC OBSTRUCTIVE PULMONARY DISEASE, UNSPECIFIED SNOMED Code(s): 16528003 (3) Lower extremity edema Current Visit: Yes Status: Acute Code(s): R60.0 - LOCALIZED EDEMA SNOMED Code(s): 462428959 Plan: Suggest diuretics as tolerated. Use Christiano wrapping and also elevation of the legs. We will follow her as needed
[2019-01-24] MEDS ORDERED: traMADol 50 MG TAB PO STA (19:37)
[2019-01-24] MEDS: ATORVASTATIN 20 MG TAB PO SCH (19:50)
[2019-01-24] MEDS: TEMAZEPAM 15 MG CAP PO PRN (20:56)
[2019-01-25] MEDS: LORazepam 0.5 MG TAB PO PRN ×2 (00:30→09:05)
[2019-01-25] MEDS: traMADol 50 MG TAB PO PRN ×3 (00:30→09:05)
[2019-01-25] MEDS: HEPARIN SODIUM,PORCINE 5,000 UNIT/ML 1 ML VIAL SQ SCH ×2 (00:38→09:06)
[2019-01-25 00:41] VITALS: RESP 18
[2019-01-25 03:32] VITALS: TEMP 98
[2019-01-25 06:28] LABS: Basophils # (A) 0.1 k/uL (0-0.2); Basophils % (A) 1 %; Eosinophils # (A) 0.3 k/uL (0-0.7); Eosinophils % (A) 3 %; HCT 48.3 % (34.0-46.0); HGB 15.3 gm/dL (11.4-16.0); Lymphocytes # (A) 1.6 k/uL (1.0-4.8); Lymphocytes % (A) 14 %; MCH 29.3 pg (25.0-35.0); MCHC 31.7 g/dL (31.0-37.0); MCV 92.5 fL (80.0-100.0); Mean Platelet Volume 7.6; Monocytes # (A) 0.8 k/uL (0-1.0); Monocytes % (A) 7 %; Neutrophils # (A) 8.7 k/uL (1.3-7.7); Neutrophils % (A) 75 %; Platelet Count 262 k/uL (150-450); RBC 5.22 m/uL (3.80-5.40); RDW 15.6 % (11.5-15.5); WBC 11.7 k/uL (3.8-10.6)
[2019-01-25] MEDS: CARVEDILOL 6.25 MG TAB PO SCH (06:29)
[2019-01-25] MEDS: PANTOPRAZOLE 40 MG TABLET PO SCH (06:29)
[2019-01-25 06:34] LABS: Calcium 9.3 mg/dL (8.4-10.2)
[2019-01-25 06:42] LABS: Potassium 4.6 mmol/L (3.5-5.1)
[2019-01-25] MEDS: SYMBICORT 160-4.5 MCG INHALER INHALATION SCH (08:40)
[2019-01-25] MEDS: IPRATROPIUM-ALBUTEROL 3 ML NEB INHALATION SCH ×2 (08:40→11:31)
[2019-01-25] MEDS ORDERED: KETOROLAC 30 MG/ML 1 ML VIAL IVP STA (08:44)
[2019-01-25] MEDS ORDERED: SPIRONOLACTONE 25 MG TAB PO SCH (09:00)
[2019-01-25] MEDS ORDERED: TORSEMIDE 20 MG TAB PO SCH (09:00)
[2019-01-25] MEDS: LISINOPRIL 20 MG TAB PO SCH (09:05)
[2019-01-25] MEDS: NICOTINE 21MG/24HR PATCH TRANSDERM SCH (09:06)
[2019-01-25] MEDS: ASPIRIN 81 MG PO SCH (09:11)
[2019-01-25] MEDS ORDERED: MORPHINE SULFATE 4 MG/ML SYRINGE IVP PRN (09:39)
--- NOTE | 2019-01-25 09:46 | P.CON ---
Consult Note - . Consult date: 01/25/19 Assessment/Plan:: This is a 48-year-old morbidly obese female who was admitted to the hospital because of an exacerbation of her congestive heart failure and increasing swelling and erythema in both legs. The patient feels pain in both legs and also she has chronic lower back pain. Her pain gets worse by ambulating. She has been using tramadol for her pain. That her pain is out of control and she used to be on morphine pump previously in her previous admission which helped her pain significantly. By physical exam she is alert oriented 3 in no apparent distress. She has significant tenderness in the lumbar paravertebral musculature bilaterally, even just touching her back increases her pain as she states. Her legs are wrapped and she has tenderness in both legs with a few that goes all the way up to her thighs more on the right side than the left side. Diagnoses: Congestive heart failure with increasing edema in the lower extremities with the skin erythema and painful legs Chronic lower back pain Plan: The patient will stay on her tramadol and I will add IV morphine 4 mg every 6 hours when necessary pain. The patient understands that she cannot be on oral morphine when she gets discharged to home. The patient has to follow-up with the pain clinic as an outpatient for further workup of her chronic lower back pain. We will sign off I thank you for the consultation.
[2019-01-25 13:36] VITALS: BP 142/79; PULSE 77
--- NOTE | 2019-01-25 15:00 | P.DS ---
Providers Date of admission: 01/22/19 05:21 Expected date of discharge: 01/25/19 Attending physician: Ortega Cortez Consults: 01/22/19 05:21 Consult Physician Urgent Consulting Provider: [facility] Consult Reason/Comments: HTN, CHF Do you want consulting provider notified?: Yes, Notify in am 01/25/19 08:42 Consult Physician Routine Consulting Provider: Melonie Easley Consult Reason/Comments: pain management Do you want consulting provider notified?: Yes Primary care physician: Ortega Cortez Hospital Course: Final Diagnoses: -Hypertensive urgency in a patient with history of hypertension -Acute on chronic CHF, systolic dysfunction, EF 35-40% -Right lower leg cellulitis -Acute COPD excaberation -Acute Renal failure secondary to diuretic therapy -Bilateral lower leg chronic venous insufficiency with the chronic venous dermatosis -Chronic back pain -Fibromyalgia -Osteoarthritis Hospital course:This is a 48-year-old female, history of CHF, COPD, fibromy algia, hypertension, osteoarthritis, malignant hypertension, respiratory failure, chronic back pain and multiple other medical issues admitted with increased edema/redness right lower extremity, right lower quadrant abdominal pain, shortness of breath, denies chest pain. Reports also nausea vomiting that started 3 days ago. Vague historian. On admission significantly elevated blood pressure 229/157. Doppler negative for DVT. Chest CT reports no pericardial effusion, no PE, mild ascites. BNP 7100. Echo reported severe left ventricular hypertrophy with moderately impaired LV systolic function, EF 35-40%. EKG reporting sinus rhythm. Troponin is negative 3. Received labetalol, Vasotec in the ER with blood pressure improving.CT abd/pelvis reported mild pericardial effusion( not significant as per cardiology/No pericardial effusion on CHest CT), mild ascites, small ventral hernia-short segment of transverse colon. Significant clinical improvement. Cleared by cardiology for discharge, with recommendations for discharge diuretics appreciated. Evaluated by pain management services with recommendations noted. Patient is being discharged home in a stable condition with guarded prognosis. Case management/social work to provide patient with resources to assist her outpatient with her personal stressors. EXAM: GENERAL: Sitting up in side of bed, no acute distress, CARDIOVASCULAR: S1, S2 regular. No murmur, rub or gallop RESPIRATION: Breath sounds diminished in the bases. No rhonchi or crackles. No wheezing, ABDOMEN: Soft, nontender,No guarding. no masses palpable.Bowel sounds heard. NERVOUS SYSTEM: No focal deficits. The impression and plan of care has been dictated as directed. : I performed a history and examination of this patient, discussed the same with the dictator. I agree with the dictator's note ,documented as a scribe. Any additional findings or plans will be noted. Time taken: 35 minutes Patient Condition at Discharge: Stable Plan - Discharge Summary Discharge Rx Participant: No New Discharge Prescriptions: New Spironolactone [Aldactone] 12.5 mg PO DAILY #30 tab Torsemide [Demadex] 20 mg PO DAILY #30 tab Nicotine 21Mg/24Hr Patch [Habitrol] 1 patch TRANSDERM DAILY #30 patch Pantoprazole [Protonix] 40 mg PO AC-BRKFST #30 tablet. traMADol HCL [Ultram] 50 mg PO Q4HR PRN 3 Days #18 tab PRN Reason: Pain Continue Aspirin 81 mg PO DAILY #30 chewable Atorvastatin [Lipitor] 20 mg PO HS #30 tab Carvedilol [Coreg] 6.25 mg PO BID-W/MEALS #60 tab hydrALAZINE HCL [Apresoline] 50 mg PO TID 30 Days #90 tab Lisinopril 40 mg PO DAILY 30 Days #30 tablet Escitalopram Oxalate [Lexapro] 10 mg PO DAILY hydrOXYzine HCL [Atarax] 25 mg PO HS Ipratropium-Albuterol Nebulize [Duoneb 0.5 mg-3 mg/3 ml Soln] 3 ml INHALATION RT-QID Budesonide-Formot 160-4.5 Mcg [Symbicort 160-4.5 Mcg Inhaler] 2 puff INHALATION RT-BID Discontinued Furosemide [Lasix] 40 mg PO DAILY #30 tablet Discharge Medication List Aspirin 81 mg PO DAILY #30 chewable 08/07/18 [Rx] Atorvastatin [Lipitor] 20 mg PO HS #30 tab 08/07/18 [Rx] Carvedilol [Coreg] 6.25 mg PO BID-W/MEALS #60 tab 08/07/18 [Rx] Lisinopril 40 mg PO DAILY 30 Days #30 tablet 08/07/18 [Rx] hydrALAZINE HCL [Apresoline] 50 mg PO TID 30 Days #90 tab 08/07/18 [Rx] Budesonide-Formot 160-4.5 Mcg [Symbicort 160-4.5 Mcg Inhaler] 2 puff INHALATION RT-BID 01/22/19 [History] Escitalopram Oxalate [Lexapro] 10 mg PO DAILY 01/22/19 [History] Ipratropium-Albuterol Nebulize [Duoneb 0.5 mg-3 mg/3 ml Soln] 3 ml INHALATION RT-QID 01/22/19 [History] hydrOXYzine HCL [Atarax] 25 mg PO HS 01/22/19 [History] Nicotine 21Mg/24Hr Patch [Habitrol] 1 patch TRANSDERM DAILY #30 patch 01/25/19 [Rx] Pantoprazole [Protonix] 40 mg PO AC-BRKFST #30 tablet. 01/25/19 [Rx] Spironolactone [Aldactone] 12.5 mg PO DAILY #30 tab 01/25/19 [Rx] Torsemide [Demadex] 20 mg PO DAILY #30 tab 01/25/19 [Rx] traMADol HCL [Ultram] 50 mg PO Q4HR PRN 3 Days #18 tab 01/25/19 [Rx] Follow up Appointment(s)/Referral(s): Willie Madera MD [STAFF PHYSICIAN] - 1 Week (Pain management -please call to schedule appointment) Rocael Bruner MD [STAFF PHYSICIAN] - 2 Weeks (Spoke to office receptionist. Office wi ll call with appointment time) Ortega Cortez DO [Primary Care Provider] - 1 Week (Dr. Cortez's phoneline is currently not working. Please call to schedule appointment) Ambulatory/Diagnostic Orders: Complete Blood Count w/diff [LAB.AMB] Time Frame: 3 Days, Location: None Selected Patient Instructions/Handouts: Heart Failure (DC) Activity/Diet/Wound Care/Special Instructions: No smoking Diet: CHF DIET, LA NENA Activity: Limited until follow up Discharge Disposition: HOME WITH HOME HEALTH SERVICES
== END 2019-01-25 16:20 | disposition home or self-care (01) | DRG 304 ==
LOC: EC 02:18 → 3SCARD 05:21
PROVIDERS: ADMIT Family Medicine; ATTEND Family Medicine
PROC: 3E0234Z Introduction of Serum, Toxoid and Vaccine into Muscle, Percutaneous Approach (ICD-10-PCS; principal; 2019-01-22)
DX: I16.1 Hypertensive emergency (principal); I50.23 Acute on chronic systolic (congestive) heart failure; N17.9 Acute kidney failure, unspecified; L03.115 Cellulitis of right lower limb; R18.8 Other ascites; Z68.41 Body mass index [BMI] 40.0-44.9, adult; J44.1 Chronic obstructive pulmonary disease with (acute) exacerbation; F31.30 Bipolar disorder, current episode depressed, mild or moderate severity, unspecified; I11.0 Hypertensive heart disease with heart failure; E66.01 Morbid (severe) obesity due to excess calories; F20.9 Schizophrenia, unspecified; Z23 Encounter for immunization; E78.5 Hyperlipidemia, unspecified; T50.2X5A Adverse effect of carbonic-anhydrase inhibitors, benzothiadiazides and other diuretics, initial encounter; I87.2 Venous insufficiency (chronic) (peripheral); I87.8 Other specified disorders of veins; G43.909 Migraine, unspecified, not intractable, without status migrainosus; K43.9 Ventral hernia without obstruction or gangrene; F45.41 Pain disorder exclusively related to psychological factors; F41.0 Panic disorder [episodic paroxysmal anxiety]; F43.10 Post-traumatic stress disorder, unspecified; E28.2 Polycystic ovarian syndrome; M54.81 Occipital neuralgia; G89.29 Other chronic pain; M54.5 Low back pain; M79.7 Fibromyalgia; M19.90 Unspecified osteoarthritis, unspecified site; G47.00 Insomnia, unspecified; F17.200 Nicotine dependence, unspecified, uncomplicated; Z71.6 Tobacco abuse counseling; Z79.82 Long term (current) use of aspirin; Z79.51 Long term (current) use of inhaled steroids; Z79.52 Long term (current) use of systemic steroids; Z79.899 Other long term (current) drug therapy; Z71.3 Dietary counseling and surveillance; Z87.01 Personal history of pneumonia (recurrent); Z87.11 Personal history of peptic ulcer disease; Z90.49 Acquired absence of other specified parts of digestive tract; Z87.19 Personal history of other diseases of the digestive system; Z98.890 Other specified postprocedural states; Z88.5 Allergy status to narcotic agent; Z88.8 Allergy status to other drugs, medicaments and biological substances; Z82.5 Family history of asthma and other chronic lower respiratory diseases; Z83.2 Family history of diseases of the blood and blood-forming organs and certain disorders involving the immune mechanism
CPT/HCPCS: 36415; 70450; 71275; 72125; 74177; 80048; 80053; 80061; 83735; 83880; 84484; 85025; 85610; 85730; 93005; 93306; 94640; 96374; 96375; 99285

== ENCOUNTER 2019-03-02 18:15 | Emergency (ER) | payer MEDICARE, OTHER ==
[2019-03-02] MEDS ORDERED: ASPIRIN 81 MG PO STA (19:06)
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
[2019-03-02 19:29] VITALS: TEMP 98
[2019-03-02] MEDS: LABETALOL SYRINGE 5 MG/ML IVP SCH ×3 (19:34→20:30)
[2019-03-02 20:01] VITALS: RESP 18
[2019-03-02] MEDS ORDERED: KETOROLAC 30 MG/ML 1 ML VIAL IVP STA (20:03)
[2019-03-02 20:10] LABS: Anisocytosis Slight; Basophils # (A) 0.1 k/uL (0-0.2); Basophils % (A) 1 %; Eosinophils # (A) 0.2 k/uL (0-0.7); Eosinophils % (A) 2 %; HCT 46.9 % (34.0-46.0); HGB 15.3 gm/dL (11.4-16.0); Lymphocytes # (A) 2.3 k/uL (1.0-4.8); Lymphocytes % (A) 22 %; MCH 29.5 pg (25.0-35.0); MCHC 32.7 g/dL (31.0-37.0); MCV 90.2 fL (80.0-100.0); Mean Platelet Volume 7.7; Monocytes # (A) 0.7 k/uL (0-1.0); Monocytes % (A) 6 %; Neutrophils % (A) 68 %; Platelet Count 245 k/uL (150-450); RDW 16.9 % (11.5-15.5); WBC 10.4 k/uL (3.8-10.6)
[2019-03-02 20:16] LABS: Calcium 9.6 mg/dL (8.4-10.2); Potassium 3.8 mmol/L (3.5-5.1)
--- NOTE | 2019-03-02 20:29 | XR ---
EXAMINATION: XR chest 2V DATE AND TIME: 03/02/2019 8:23 PM CLINICAL INDICATION: PHH; Pain TECHNIQUE: Departmental protocol COMPARISON: 01/28/2019 FINDINGS: EKG leads. The lungs are clear. The pleural spaces are negative. The cardiac silhouette is moderately enlarged, unchanged. The skeletal structures and soft tissues are negative for acute findings. IMPRESSION: No definite acute radiographic process.
--- NOTE | 2019-03-02 20:56 | XR ---
PROCEDURE: XR lumbar spine - 3V DATE AND TIME: 03/02/2019 8:31 PM CLINICAL INDICATION: PHH; Pain TECHNIQUE: Department protocol COMPARISON: 05/07/2018 FINDINGS: There is no fracture or malalignment. The soft tissues are unremarkable. Multilevel advanced degenerative disc and facet changes are redemonstrated, without interval change. IMPRESSION: NO ACUTE PROCESS.
--- NOTE | 2019-03-02 21:00 | XR ---
PROCEDURE: XR thoracic spine complete - 3V DATE AND TIME: 03/02/2019 8:31 PM CLINICAL INDICATION: PHH; Pain TECHNIQUE: Department protocol COMPARISON: None FINDINGS: There is no fracture or malalignment. The soft tissues are unremarkable. IMPRESSION: NO ACUTE PROCESS.
[2019-03-02] MEDS ORDERED: METHOCARBAMOL 750 MG TAB PO ONE (21:47)
[2019-03-02] MEDS ORDERED: LIDOCAINE 5% PATCH TOPICAL SCH (22:00)
[2019-03-02 22:14] LABS: Appearance,Urine Cloudy (Clear); Bilirubin,Urine Negative (Negative); Blood,Urine Trace (Negative); Calcium Oxalate Crystals,Urine Many /hpf; Color,Urine Yellow; Glucose,Urine (UA) Trace (Negative); Hyaline Casts,Urine 1 /lpf (0-2); Ketones,Urine Negative (Negative); Leukocyte Esterase,Urine Negative (Negative); Mucus,Urine Occasional /hpf; Nitrite,Urine Negative (Negative); Protein,Urine 3+ (Negative); RBC,Urine 1 /hpf (0-5); Squamous Epithelial Cell,Urine 6 /hpf (0-4)
[2019-03-02 22:46] VITALS: BP 185/109; PULSE 66
== END 2019-03-02 23:23 | disposition home or self-care (01) ==
LOC: EC 18:15
DX: L03.115 Cellulitis of right lower limb (principal); M54.9 Dorsalgia, unspecified; G89.29 Other chronic pain; I11.0 Hypertensive heart disease with heart failure; I50.9 Heart failure, unspecified; J44.9 Chronic obstructive pulmonary disease, unspecified; F31.9 Bipolar disorder, unspecified; F41.0 Panic disorder [episodic paroxysmal anxiety]; F20.9 Schizophrenia, unspecified; F43.10 Post-traumatic stress disorder, unspecified; R29.6 Repeated falls; F17.210 Nicotine dependence, cigarettes, uncomplicated; Z79.51 Long term (current) use of inhaled steroids; Z79.899 Other long term (current) drug therapy; Z88.5 Allergy status to narcotic agent; Z88.8 Allergy status to other drugs, medicaments and biological substances
CPT/HCPCS: 99285; 96374; 96375; 36415; 93005; 85379; 83880; 80048; 84484; 85025; 81001; 72072; 72100; 71046; J1885

== ENCOUNTER 2019-03-06 10:20 | Inpatient (IN) | payer MEDICARE, OTHER ==
--- NOTE | 2019-03-06 11:32 | ED ---
General Adult HPI <Catracho Reyes - Last Filed: 03/06/19 12:51> - General Source: patient, EMS Mode of arrival: EMS Limitations: no limitations <Manuel Ewing - Last Filed: 03/06/19 13:11> - General Chief complaint: Shortness of Breath Stated complaint: ZAHIDA Time Seen by Provider: 03/06/19 10:47 - History of Present Illness Initial comments: Patient is 48-year-old female with a history of heart failure and COPD presents emergency Department for chest pain, chest tightness, shortness of breath, back pain and lower extremity pain. Patient reports chest pain and shortness of breath for over 6 months after she was diagnosed with heart failure. Patient reports over the last few few weeks the chest pain has increased in severity especially on exertion. Patient reports substernal chest pain that does not radiate anywhere. Patient also reports bilateral lower extremity edema that has decreased over the last few days. Patient reports she is on a diuretic. Patient reports leg soreness bilaterally. Patient also reports chronic back pain that has increased in severity as of recently. Patient also reports a history of malignant hypertension that is currently treated with 4 blood pressure medications. Patient reports some of the mild issues are addressed by her primary care but states "progress is slow." Patient reports her primary care has advised the patient to follow up with specialist but she is unable to make it to the appointment due to financial reasons. Patient reports she quit smoking 5 days ago. Patient reports using daily DuoNeb treatments. Patient denies diaphoresis, abdominal pain, urinary or bowel symptoms. (Manuel Ewing) - Related Data Home Medications Medication Instructions Recorded Confirmed Escitalopram Oxalate [Lexapro] 10 mg PO DAILY 01/22/19 03/06/19 Ipratropium-Albuterol Nebulize 3 ml INHALATION RT-QID 01/22/19 03/06/19 [Duoneb 0.5 mg-3 mg/3 ml Soln] hydrOXYzine HCL [Atarax] 25 mg PO HS 01/22/19 03/06/19 Mometasone/Formoterol [Dulera 200 2 puff INHALATION RT-BID 03/02/19 03/06/19 Mcg/5 Mcg Inhaler] Spironolactone [Aldactone] 25 mg PO DAILY 03/06/19 03/06/19 Previous Rx's Medication Instructions Recorded Atorvastatin [Lipitor] 20 mg PO HS #30 tab 08/07/18 Carvedilol [Coreg] 6.25 mg PO BID-W/MEALS #60 tab 08/07/18 Lisinopril 40 mg PO DAILY 30 Days #30 tablet 08/07/18 hydrALAZINE HCL [Apresoline] 50 mg PO TID 30 Days #90 tab 08/07/18 Allergies Allergy/AdvReac Type Severity Reaction Status Date / Time codeine AdvReac Severe Nausea & Verified 03/06/19 11:51 Vomiting divalproex sodium AdvReac Alopecia Verified 03/06/19 11:51 [From Depakote] hydrocodone [From Vicodin] AdvReac Nausea & Verified 03/06/19 11:51 Vomiting Review of Systems ROS Other: All systems not noted in ROS Statement are negative. <Catracho Reyes - Last Filed: 03/06/19 12:51> ROS Other: All systems not noted in ROS Statement are negative. <Manuel Ewing - Last Filed: 03/06/19 13:11> ROS Statement: Those systems with pertinent positive or pertinent negative responses have been documented in the HPI. Past Medical History Past Medical History: Chest Pain / Angina, Heart Failure, COPD, Fibromyalgia, Hypertension, Osteoarthritis (OA), Pneumonia Additional Past Medical History / Comment(s): Malignant hypertension, respiratory failure, bronchitis, pleurisy, cardiomegaly, last EF 40-45%, occasional pedal edema with R foot worse, duodenal ulcer, bile duct stone with surgery to remove, pancreatic pseudocyst, pancreatitis, occipital neuralgia, chronic back pain, DDD, migraines, abdominal hernia with surgery but pt states "it is back", PCOS, bilateral tinnitis. Pt has elevated blood sugars, insomnia and increased anxiety with steroid use. History of Any Multi-Drug Resistant Organisms: None Reported Date of last positivie culture/infection: None MDRO Source:: None Past Surgical History: Cholecystectomy, Hernia Repair, Orthopedic Surgery Additional Past Surgical History / Comment(s): Pancreatic pseudocyst removal; D&Cx2; EGD/ERCP, bilateral feet bunionectomies, abdominal hernia repairs/mesh. Past Anesthesia/Blood Transfusion Reactions: No Reported Reaction Additional Past Anesthesia/Blood Transfusion Reaction / Comment(s): Pt has received blood in past without reaction. Past Psychological History: Bipolar, Depression, Panic Disorder, PTSD, Schizophrenia Smoking Status: Current every day smoker Past Alcohol Use History: None Reported Past Drug Use History: None Reported - Past Family History Mother Family Medical History: COPD Additional Family Medical History / Comment(s): Mother from COPD at the age of 49 yrs. Father Family Medical History: COPD Brother(s) Family Medical History: Deep Vein Thrombosis (DVT) <Manuel Ewing - Last Filed: 03/06/19 13:11> General Exam Limitations: no limitations General appearance: alert, in no apparent distress, obese Head exam: Present: atraumatic, normocephalic, normal inspection Eye exam: Present: normal appearance, PERRL, EOMI Pupils: Present: normal accommodation ENT exam: Present: normal exam, mucous membranes moist, normal external ear exam Neck exam: Present: normal inspection, full ROM. Absent: tenderness (No tenderness with any movement) Respiratory exam: Present: wheezes (Mild Wheezing bilaterally in all lung fraser) Cardiovascular Exam: Present: regular rate, normal rhythm, normal heart sounds Extremities exam: Present: normal inspection (Bilateral lower extremity edema), tenderness (Bilateral lower extremity tenderness with palpation), normal capillary refill, other (+1 dorsalis pedis and posterior tibialis). Absent: full ROM (Limited range of motion and ankles due to edema) Back exam: Present: normal inspection, full ROM, tenderness Neurological exam: Present: alert, oriented X3 Psychiatric exam: Present: normal affect, normal mood Skin exam: Present: warm, intact, normal color <Manuel Ewing - Last Filed: 03/06/19 13:11> Course <Catracho Reyes - Last Filed: 03/06/19 12:51> Vital Signs 03/06/19 03/06/19 03/06/19 10:27 11:00 11:30 Temperature 98.8 F Pulse Rate 83 81 84 Respiratory 22 26 H 24 Rate Blood Pressure 201/114 192/128 191/124 O2 Sat by Pulse 96 96 95 Oximetry 03/06/19 12:00 Temperature Pulse Rate 82 Respiratory 26 H Rate Blood Pressure 206/145 O2 Sat by Pulse 96 Oximetry - Reevaluation(s) Reevaluation #1: 03/06/19 12:51 PA supervision: I proceeded [id number] evaluation the patient does present with complaints of shortness of breath exertional dyspnea. She does demonstrate evidence of COPD exacerbation as well as congestive heart failure with a BNP over 7700. Cardiomegaly on the x-ray. I did discuss the case with Dr. Gonzalez. Patient to be admitted she is covering for Dr. Cortez. 03/06/19 12:53 Both cardiology and pulmonary medicine will be consulted (Catracho Reyes) Medical Decision Making - Lab Data Result diagrams: 03/06/19 10:45 03/06/19 10:45 <Catracho Reyes - Last Filed: 03/06/19 12:51> - Lab Data Result diagrams: 03/06/19 10:45 03/06/19 10:45 <Manuel Ewing - Last Filed: 03/06/19 13:11> - Medical Decision Making Patient is a 40-year-old female presents emergency Department with multiple chief complaints. Patient has an elevated BNP of approximately 7000. Patient does have bilateral wheezing. Chest raise indicative of cardiomegaly and atelectasis. Based on history and physical examination patient will be admitted for further management. Patient was given 2 mg morphine for pain control. Patient will be admitted to Dr. Cortez. Pulmonology and cardiology are both consulted. Dr. Reyes also examined the patient and is in agreement with the treatment plan. Patient was given Lasix. (Manuel Ewing) - Lab Data Lab Results 03/06/19 03/06/19 03/06/19 Range/Units 10:45 10:45 10:45 WBC 9.1 (3.8-10.6) k/uL RBC 5.20 (3.80-5.40) m/uL Hgb 15.4 (11.4-16.0) gm/dL Hct 47.1 H (34.0-46.0) % MCV 90.5 (80.0-100.0) fL MCH 29.7 (25.0-35.0) pg MCHC 32.8 (31.0-37.0) g/dL RDW 15.6 H (11.5-15.5) % Plt Count 269 (150-450) k/uL Neutrophils % 72 % Lymphocytes % 19 % Monocytes % 6 % Eosinophils % 2 % Basophils % 1 % Neutrophils # 6.5 (1.3-7.7) k/uL Lymphocytes # 1.7 (1.0-4.8) k/uL Monocytes # 0.5 (0-1.0) k/uL Eosinophils # 0.2 (0-0.7) k/uL Basophils # 0.1 (0-0.2) k/uL PT (9.0-12.0) sec INR (<1.2) APTT (22.0-30.0) sec D-Dimer (<0.60) mg/L FEU Sodium 141 (137-145) mmol/L Potassium 3.6 (3.5-5.1) mmol/L Chloride 106 (98-107) mmol/L Carbon Dioxide 26 (22-30) mmol/L Anion Gap 9 mmol/L BUN 18 H (7-17) mg/dL Creatinine 0.82 (0.52-1.04) mg/dL Est GFR (CKD-EPI)AfAm >90 (>60 ml/min/1.73 sqM) Est GFR (CKD-EPI)NonAf 85 (>60 ml/min/1.73 sqM) Glucose 133 H (74-99) mg/dL Calcium 9.6 (8.4-10.2) mg/dL Total Bilirubin 1.4 H (0.2-1.3) mg/dL AST 27 (14-36) U/L ALT 29 (9-52) U/L Alkaline Phosphatase 94 (38-126) U/L Troponin I (0.000-0.034) ng/mL NT-Pro-B Natriuret Pep 7750 pg/mL Total Protein 6.8 (6.3-8.2) g/dL Albumin 3.9 (3.5-5.0) g/dL 03/06/19 03/06/19 03/06/19 Range/Units 10:45 10:45 10:45 WBC (3.8-10.6) k/uL RBC (3.80-5.40) m/uL Hgb (11.4-16.0) gm/dL Hct (34.0-46.0) % MCV (80.0-100.0) fL MCH (25.0-35.0) pg MCHC (31.0-37.0) g/dL RDW (11.5-15.5) % Plt Count (150-450) k/uL Neutrophils % % Lymphocytes % % Monocytes % % Eosinophils % % Basophils % % Neutrophils # (1.3-7.7) k/uL Lymphocytes # (1.0-4.8) k/uL Monocytes # (0-1.0) k/uL Eosinophils # (0-0.7) k/uL Basophils # (0-0.2) k/uL PT 10.7 (9.0-12.0) sec INR 1.0 (<1.2) APTT 23.9 (22.0-30.0) sec D-Dimer 0.61 H (<0.60) mg/L FEU Sodium (137-145) mmol/L Potassium (3.5-5.1) mmol/L Chloride (98-107) mmol/L Carbon Dioxide (22-30) mmol/L Anion Gap mmol/L BUN (7-17) mg/dL Creatinine (0.52-1.04) mg/dL Est GFR (CKD-EPI)AfAm (>60 ml/min/1.73 sqM) Est GFR (CKD-EPI)NonAf (>60 ml/min/1.73 sqM) Glucose (74-99) mg/dL Calcium (8.4-10.2) mg/dL Total Bilirubin (0.2-1.3) mg/dL AST (14-36) U/L ALT (9-52) U/L Alkaline Phosphatase (38-126) U/L Troponin I 0.027 (0.000-0.034) ng/mL NT-Pro-B Natriuret Pep pg/mL Total Protein (6.3-8.2) g/dL Albumin (3.5-5.0) g/dL Disposition <Catracho Reyes - Last Filed: 03/06/19 12:51> Is patient prescribed a controlled substance at d/c from ED?: No Time of Disposition: 13:11 <Manuel Ewing - Last Filed: 03/06/19 13:11> Clinical Impression: CHF exacerbation Disposition: ADMITTED IP TO THIS [facility] Condition: Stable Instructions (If sedation given, give patient instructions): Chronic Bronchitis (ED), Chronic Cough (ED) Additional Instructions: Patient will be admitted Referrals: Ortega Cortez DO [Primary Care Provider] - 1-2 days
[2019-03-06] MEDS ORDERED: ONDANSETRON 4 MG/2 ML VIAL IVP STA (11:33)
[2019-03-06] MEDS ORDERED: MORPHINE SULFATE 2 MG/ML SYRINGE IVP ONE (11:33)
[2019-03-06 11:52] LABS: Basophils # (A) 0.1 k/uL (0-0.2); Basophils % (A) 1 %; Eosinophils # (A) 0.2 k/uL (0-0.7); Eosinophils % (A) 2 %; HCT 47.1 % (34.0-46.0); HGB 15.4 gm/dL (11.4-16.0); Lymphocytes # (A) 1.7 k/uL (1.0-4.8); Lymphocytes % (A) 19 %; MCH 29.7 pg (25.0-35.0); MCHC 32.8 g/dL (31.0-37.0); MCV 90.5 fL (80.0-100.0); Monocytes # (A) 0.5 k/uL (0-1.0); Monocytes % (A) 6 %; Neutrophils # (A) 6.5 k/uL (1.3-7.7); Neutrophils % (A) 72 %; Platelet Count 269 k/uL (150-450); RDW 15.6 % (11.5-15.5); WBC 9.1 k/uL (3.8-10.6)
[2019-03-06 12:02] LABS: Partial Thromboplastin Time 23.9 sec (22.0-30.0); Prothrombin Time 10.7 sec (9.0-12.0)
[2019-03-06 12:03] LABS: ALT 29 U/L (9-52); AST 27 U/L (14-36); African American GFR (CKD) >90 (>60 ml/min/1.73 sqM); Albumin 3.9 g/dL (3.5-5.0); Alkaline Phosphatase 94 U/L (38-126); Anion Gap 9 mmol/L; Blood Urea Nitrogen 18 mg/dL (7-17); Calcium 9.6 mg/dL (8.4-10.2); Carbon Dioxide 26 mmol/L (22-30); Chloride 106 mmol/L (98-107); Glucose 133 mg/dL (74-99); Non-African American GFR(CKD) 85 (>60 ml/min/1.73 sqM); Potassium 3.6 mmol/L (3.5-5.1); Sodium 141 mmol/L (137-145); Total Bilirubin 1.4 mg/dL (0.2-1.3); Total Protein 6.8 g/dL (6.3-8.2)
--- NOTE | 2019-03-06 12:12 | XR ---
EXAMINATION TYPE: XR chest 2V DATE OF EXAM: 03/06/2019 HISTORY: difficulty breathing. REFERENCE: Previous study dated 03/02/2019. FINDINGS: There is a multichamber cardiac enlargement. There is minimal atelectasis at the right lung base. Pleural spaces are clear. IMPRESSION: 1. CARDIOMEGALY. 2. RIGHT BASILAR ATELECTASIS.
[2019-03-06] MEDS ORDERED: FUROSEMIDE 10 MG/ML 2 ML VIAL IV STA (12:50)
[2019-03-06] MEDS ORDERED: ONDANSETRON 4 MG/2 ML VIAL IVP PRN (13:03)
[2019-03-06] MEDS ORDERED: NALOXONE 0.4 MG/ML 1 ML VIAL IV PRN (13:03)
[2019-03-06] MEDS ORDERED: cloNIDine HCL 0.1 MG TAB PO STA (14:05)
--- NOTE | 2019-03-06 15:39 | CT ---
EXAMINATION TYPE: CT chest angio for PE DATE OF EXAM: 03/06/2019 COMPARISON: None HISTORY: Difficulty breathing. CT DLP: 404.8 mGycm Automated exposure control for dose reduction was used. CONTRAST: CT Chest for pulmonary embolism performed with with IV Contrast, patient injected with 100 mL of Isov ue 370. FINDINGS: There are 3-D post processed images. There is mild subsegmental atelectasis and scarring at the lung bases. There is no pleural effusion. Heart is enlarged. There is no pericardial effusion. There is normal contrast opacification of the pu lmonary arteries. There are no filling defects. There are a few anterior mediastinal lymph nodes jose ure up to 1.5 cm. There are no hilar masses. There is a 15 mm right paratracheal lymph node. The bony thorax appears intact. IMPRESSION: No evidence of pulmonary embolism. cardiomegaly. Fibrotic changes at the lung bases unchanged. There is improvement in the mediastinal adenopathy compared to last exam.
[2019-03-06 16:20] VITALS: BMI 40.6
[2019-03-06] MEDS ORDERED: TRIMETHOBENZAMIDE 300 MG CAP PO PRN (16:20)
[2019-03-06] MEDS: hydrALAZINE HCL 50 MG TAB PO SCH ×2 (16:30→22:11)
[2019-03-06] MEDS ORDERED: traMADol 50 MG TAB PO PRN (16:42)
[2019-03-06] MEDS ORDERED: hydrALAZINE HCL 20 MG/ML 1 ML VIAL IVP PRN (16:53)
[2019-03-06] MEDS ORDERED: CARVEDILOL 6.25 MG TAB PO SCH (17:30)
--- NOTE | 2019-03-06 17:35 | P.HPIM ---
History of Present Illness this is a pleasant 48 yo F with pmh of nicotine dependence, chronic pain , cardiomyopathy with known ejection fraction of 35-40%, COPD, fibromyalgia, hypertension, bipolar, depression. who presents with progressive dyspnea of nuris ral week duration associated with exertional dyspnea, associated with coughing and yellow phlegm of 5 days duration. no specific chest pain but she complains from pain all over her body including leg pain , back pain , headache and some mild non specific chest and abd pain. pt was asking for pain medication , associated with bilateral leg swelling . no leg pain , pt has palpitation as well . pt usually has stress incontinance, pt noticed over the last few days she is peeing less frequent. no dysuria or change in bowel habits , no fever. pt was not on home oxygen. on admission pt was hypertensive with BP Of 199/113 , went up to 211/140, HR 89, pt is afebrile, and she is saturating 96% on Room air. labs reviewed and showing unremarkable CBC, BMP and liver enz except for mildy elevated Bilirubin at 1.4. ProBNP is elevated at 7750. D-Dimer mildly elevated with negative CTA for Pulmonary embolism. CXR: cardiomegaly with atelectasis,. EKG: NSR at 77 , qTc [address]-T changes on admission pt got small dose of morphine 2 mg, clonidine 0.1 mg and lasix 20 mg cardiology and pulmonary teams were already consulted by ED staff Review of Systems CONSTITUTIONAL: No fever, no malaise, no fatigue. HEENT: No recent visual problems or hearing problems. Denied any sore throat. CARDIOVASCULAR: No orthopnea, PND, no palpitations, no syncope. PULMONARY: No shortness of breath, no cough, no hemoptysis. GASTROINTESTINAL: No diarrhea, no nausea, no vomiting, no abdominal pain. Normoactive bowel sounds. NEUROLOGICAL: No headaches, no weakness, no numbness. HEMATOLOGICAL: Denies any bleeding or petechiae. GENITOURINARY: Denies any burning micturition, frequency, or urgency. MUSCULOSKELETAL/RHEUMATOLOGICAL: Denies any joint pain, swelling, or any muscle pain. ENDOCRINE: Denies any polyuria or polydipsia. Past Medical History Past Medical History: Chest Pain / Angina, Heart Failure, COPD, Fibromyalgia, Hypertension, Osteoarthritis (OA), Pneumonia Additional Past Medical History / Comment(s): Malignant hypertension, respiratory failure, bronchitis, pleurisy, cardiomegaly, last EF 40-45%, occasional pedal edema with R foot worse, duodenal ulcer, bile duct stone with surgery to remove, pancreatic pseudocyst, pancreatitis, occipital neuralgia, chronic back pain, DDD, migraines, abdominal hernia with surgery but pt states "it is back", PCOS, bilateral tinnitis. Pt has elevated blood sugars, insomnia and increased anxiety with steroid use. History of Any Multi-Drug Resistant Organisms: None Reported Date of last positivie culture/infection: None MDRO Source:: None Past Surgical History: Cholecystectomy, Hernia Repair, Orthopedic Surgery Additional Past Surgical History / Comment(s): Pancreatic pseudocyst removal; D&Cx2; EGD/ERCP, bilateral feet bunionectomies, abdominal hernia repairs/mesh. Past Anesthesia/Blood Transfusion Reactions: No Reported Reaction Additional Past Anesthesia/Blood Transfusion Reaction / Comment(s): Pt has received blood in past without reaction. Smoking Status: Former smoker - Past Family History Mother Family Medical History: COPD Additional Family Medical History / Comment(s): Mother from COPD at the age of 49 yrs. Father Family Medical History: COPD Brother(s) Family Medical History: Deep Vein Thrombosis (DVT) Medications and Allergies Home Medications Medication Instructions Recorded Confirmed Type Atorvastatin [Lipitor] 20 mg PO HS #30 tab 08/07/18 03/06/19 Rx Carvedilol [Coreg] 6.25 mg PO BID-W/MEALS #60 tab 08/07/18 03/06/19 Rx Lisinopril 40 mg PO DAILY 30 Days #30 tablet 08/07/18 03/06/19 Rx hydrALAZINE HCL [Apresoline] 50 mg PO TID 30 Days #90 tab 08/07/18 03/06/19 Rx Escitalopram Oxalate [Lexapro] 10 mg PO DAILY 01/22/19 03/06/19 History Ipratropium-Albuterol Nebulize 3 ml INHALATION RT-QID 01/22/19 03/06/19 History [Duoneb 0.5 mg-3 mg/3 ml Soln] hydrOXYzine HCL [Atarax] 25 mg PO HS 01/22/19 03/06/19 History Mometasone/Formoterol [Dulera 200 2 puff INHALATION RT-BID 03/02/19 03/06/19 History Mcg/5 Mcg Inhaler] Spironolactone [Aldactone] 25 mg PO DAILY 03/06/19 03/06/19 History Allergies Allergy/AdvReac Type Severity Reaction Status Date / Time codeine AdvReac Severe Nausea & Verified 03/06/19 11:51 Vomiting divalproex sodium AdvReac Alopecia Verified 03/06/19 11:51 [From Depakote] hydrocodone [From Vicodin] AdvReac Nausea & Verified 03/06/19 11:51 Vomiting Physical Exam Vitals: Vital Signs Temp Pulse Pulse Resp BP BP Pulse Ox 03/06/19 16:00 97.6 F 79 18 211/140 96 03/06/19 15:07 98 F 03/06/19 15:00 89 20 199/113 95 03/06/19 14:25 80 22 170/143 03/06/19 14:00 85 18 204/132 95 03/06/19 13:30 75 15 201/136 96 03/06/19 13:00 75 15 202/137 95 03/06/19 12:30 78 20 208/136 95 03/06/19 12:00 82 26 H 206/145 96 03/06/19 11:30 84 24 191/124 95 03/06/19 11:00 81 26 H 192/128 96 03/06/19 10:27 98.8 F 83 22 201/114 96 Intake and Output 03/06/19 03/06/19 03/06/19 06:59 14:59 22:59 Other: Weight 97.976 kg GENERAL: The patient is alert and oriented x3, not in any acute distress. Well developed, well nourished. HEENT: Pupils are round and equally reacting to light. EOMI. No scleral icterus. No conjunctival pallor. Normocephalic, atraumatic. No pharyngeal erythema. No thyromegaly. CARDIOVASCULAR: S1 and S2 present. No murmurs, rubs, or gallops. PULMONARY: Chest is clear to auscultation, no wheezing or crackles. ABDOMEN: Soft, nontender, nondistended, normoactive bowel sounds. No palpable organomegaly. MUSCULOSKELETAL: No joint swelling or deformity. EXTREMITIES: No cyanosis, clubbing, or pedal edema. NEUROLOGICAL: Gross neurological examination did not reveal any focal deficits. SKIN: No rashes. Results CBC & Chem 7: 03/06/19 10:45 03/06/19 10:45 Labs: Abnormal Lab Results - Last 24 Hours (Table) 03/06/19 03/06/19 03/06/19 Range/Units 10:45 10:45 10:45 Hct 47.1 H (34.0-46.0) % RDW 15.6 H (11.5-15.5) % D-Dimer 0.61 H (<0.60) mg/L FEU BUN 18 H (7-17) mg/dL Glucose 133 H (74-99) mg/dL Total Bilirubin 1.4 H (0.2-1.3) mg/dL Assessment and Plan Assessment: acute on chronic systolic CHF with cardiomyopathy with known ejection fraction of 35-40% hypertensive urgency history of COPD with possible acute exacerbation essential hypertension hyperlipidemia chronic fibromyalgia nicotine dependance history of bipolar and depression , not active issue, pt denies depressive s/s Plan: this is a pleasant 48 yo F who presents with worsening dyspnea and leg swelling concerning for CHF, pt is admitted with cardiology consultation , start lasix intravenously.. monitor weight and labs. continue with antihypertensive medications. check doppler of LE to rule out DVT Labs and medication were reviewed.. Continue same treatment. Continue with symptomatic treatment. Resume home medication. Monitor lytes and vitals. DVT and GI prophylaxis. Further recommendations of the clinical course of the patient DVT prophylaxis: Subcutaneous heparin GI Prophylaxis: Pepcid PT/OT: Pending Prognosis is guarded
--- NOTE | 2019-03-06 18:26 | US ---
EXAMINATION TYPE: US venous doppler duplex LE DATE OF EXAM: 03/06/2019 5:32 PM COMPARISON: NONE CLINICAL HISTORY: Rule out DVT. Pain SIDE PERFORMED: TECHNIQUE: The lower extremity deep venous system is examined utilizing real time linear array sonog jocelyn with graded compression, doppler sonography and color-flow sonography. VESSELS IMAGED: External Iliac Vein (EIV) Common Femoral Vein Deep Femoral Vein Greater Saphenous Vein * Femoral Vein Popliteal Vein Small Saphenous Vein * Proximal Calf Veins/not seen (* superficial vessels) Large body habitus with extensive swelling. Technically difficult. Right Leg: Negative for DVT Left Leg: Negative for DVT IMPRESSION: No evidence of deep venous thrombosis in both legs.
[2019-03-06] MEDS: SYMBICORT 160-4.5 MCG INHALER INHALATION SCH (20:47)
[2019-03-06] MEDS: IPRATROPIUM-ALBUTEROL 3 ML NEB INHALATION SCH (20:47)
[2019-03-06] MEDS: ATORVASTATIN 20 MG TAB PO SCH (20:51)
[2019-03-06] MEDS: FAMOTIDINE 20 MG/2 ML VIAL IV SCH (20:51)
[2019-03-06] MEDS: HEPARIN SODIUM,PORCINE 5,000 UNIT/ML 1 ML VIAL SQ SCH (20:52)
[2019-03-06] MEDS: FUROSEMIDE 10 MG/ML 4 ML VIAL IV SCH (20:52)
[2019-03-06] MEDS: CARVEDILOL 12.5 MG TAB PO SCH (20:52)
[2019-03-06] MEDS: TEMAZEPAM 7.5 MG CAP PO PRN (22:08)
[2019-03-07] MEDS: CARVEDILOL 12.5 MG TAB PO SCH ×2 (06:20→17:41)
[2019-03-07 06:40] LABS: Anisocytosis Slight; Basophils # (A) 0.1 k/uL (0-0.2); Basophils % (A) 1 %; Eosinophils # (A) 0.2 k/uL (0-0.7); Eosinophils % (A) 3 %; HCT 49.1 % (34.0-46.0); HGB 15.8 gm/dL (11.4-16.0); Lymphocytes # (A) 1.7 k/uL (1.0-4.8); Lymphocytes % (A) 22 %; MCHC 32.3 g/dL (31.0-37.0); Mean Platelet Volume 7.9; Monocytes # (A) 0.5 k/uL (0-1.0); Monocytes % (A) 6 %; Neutrophils # (A) 5.2 k/uL (1.3-7.7); Neutrophils % (A) 66 %; Platelet Count 262 k/uL (150-450); RBC 5.27 m/uL (3.80-5.40); RDW 16.6 % (11.5-15.5); WBC 7.8 k/uL (3.8-10.6)
[2019-03-07] MEDS: SYMBICORT 160-4.5 MCG INHALER INHALATION SCH ×2 (07:05→07:08)
[2019-03-07] MEDS: IPRATROPIUM-ALBUTEROL 3 ML NEB INHALATION SCH ×4 (07:05→20:46)
[2019-03-07 07:06] LABS: Calcium 9.8 mg/dL (8.4-10.2); Magnesium 1.9 mg/dL (1.6-2.3)
[2019-03-07] MEDS: LISINOPRIL 20 MG TAB PO SCH (09:01)
[2019-03-07] MEDS: HEPARIN SODIUM,PORCINE 5,000 UNIT/ML 1 ML VIAL SQ SCH ×2 (09:01→20:43)
[2019-03-07] MEDS: SPIRONOLACTONE 25 MG TAB PO SCH (09:01)
[2019-03-07] MEDS: ESCITALOPRAM 10 MG TAB PO SCH (09:01)
[2019-03-07] MEDS: hydrALAZINE HCL 50 MG TAB PO SCH (09:01)
[2019-03-07] MEDS: FUROSEMIDE 10 MG/ML 4 ML VIAL IV SCH (09:01)
[2019-03-07] MEDS: FAMOTIDINE 20 MG/2 ML VIAL IV SCH ×2 (09:02→20:42)
[2019-03-07] MEDS: SENNOSIDES 8.6 MG TAB PO PRN (11:15)
[2019-03-07] MEDS: AMOXIC-POT CLAV 875-125MG 1 EACH TAB PO SCH ×2 (11:15→20:42)
[2019-03-07] MEDS: methylPREDNISolone SOD SUCCI 40 MG/ML 1 ML VIAL IV SCH ×3 (11:15→23:31)
[2019-03-07] MEDS: MORPHINE SULFATE IR 15 MG TABLET PO PRN ×2 (11:15→20:41)
[2019-03-07] MEDS: TORSEMIDE 20 MG TAB PO SCH (11:21)
--- NOTE | 2019-03-07 11:53 | P.PN ---
Subjective this is a pleasant 48 yo F with pmh of nicotine dependence, chronic pain , cardiomyopathy with known ejection fraction of 35-40%, COPD, fibromyalgia, hypertension, bipolar, depression. who presents with progressive dyspnea of several week duration associated with exertional dyspnea, associated with coughing and yellow phlegm of 5 days duration. no specific chest pain but she complains from pain all over her body including leg pain , back pain , headache and some mild non specific chest and abd pain. pt was asking for pain medication , associated with bilateral leg swelling . no leg pain , pt has palpitation as well . pt usually has stress incontinance, pt noticed over the last few days she is peeing less frequent. no dysuria or change in bowel habits , no fever. pt was not on home oxygen. on admission pt was hypertensive with BP Of 199/113 , went up to 211/140, HR 89, pt is afebrile, and she is saturating 96% on Room air. labs reviewed and showing unremarkable CBC, BMP and liver enz except for mildy elevated Bilirubin at 1.4. ProBNP is elevated at 7750. D-Dimer mildly elevated with negative CTA for Pulmonary embolism. CXR: cardiomegaly with atelectasis,. EKG: NSR at 77 , qTc [address]-T changes on admission pt got small dose of morphine 2 mg, clonidine 0.1 mg and lasix 20 mg cardiology and pulmonary teams were already consulted by ED staff 03/07/2019 Patient is awake, she was irritated today because she was complaining of from pain in her back and legs pain. This has generalized body aches. Stating that the Ultram was helping her. Patient was asked for Toradol explained the patient the risk of nephrotoxicity and as an alternative she agrees to morphine a small dose, with recommendation to taper narcotics gradually. Risks of this medication including but not limited to addiction, cardiopulmonary arrest and are explained to the patient and she verbalized understanding and acceptance. Lidocaine patch is added. Patient is still complaining of from swelling her legs, Doppler was negative for DVT. Her Lasix was stopped. Patient was started on steroids Solu-Medrol, Augmentin and Pulmicort with 4 maternal by pulmonary team. Her blood pressure is improving and this morning her systolic blood pressure was in 160s. Patient continue on Coreg, hydralazine lisinopril and spironolactone. Patient also has pressure speech and she states she has history of schizoaffective disorder, alcohol psychiatric for evaluation. Also we'll do a lumbar x-ray and possible course of evaluation for her severe back pain. Patient states that she has difficulty walking, mostly related to her exertional dyspnea rather than back pain. Patient also with orthopnea, she has history of low ejection fraction. Cardiology team has been consulted. Review of systems CONSTITUTIONAL: No fever, no malaise, no fatigue. HEENT: No recent visual problems or hearing problems. Denied any sore throat. CARDIOVASCULAR: no syncope. PULMONARY: no hemoptysis. GASTROINTESTINAL: No diarrhea, no nausea, no vomiting, no abdominal pain. Normoactive bowel sounds. NEUROLOGICAL: No headaches, no weakness, no numbness. HEMATOLOGICAL: Denies any bleeding or petechiae. GENITOURINARY: Denies any burning micturition, frequency, or urgency. MUSCULOSKELETAL/RHEUMATOLOGICAL: Denies any joint pain, swelling, or any muscle pain. ENDOCRINE: Denies any polyuria or polydipsia. Active Medications Generic Name Dose Route Start Last Admin Trade Name Robert PRN Reason Stop Dose Admin Albuterol/Ipratropium 3 ml 03/06/19 20:00 03/07/19 11:06 Duoneb 0.5 Mg-3 Mg/3 Ml Soln INHALATION 3 ml RT-QID ANDREW Administration Amoxicillin/Clavulanate Potassium 1 each 03/07/19 11:30 03/07/19 11:15 Augmentin 875-125 PO 1 each Q12HR ANDREW Administration Atorvastatin Calcium 20 mg 03/06/19 21:00 03/06/19 20:51 Lipitor PO 20 mg HS ANDREW Administration Budesonide 1 mg 03/07/19 20:00 Pulmicort INHALATION RT-BID ANDREW Carvedilol 12.5 mg 03/06/19 17:30 03/07/19 06:20 Coreg PO 12.5 mg BID-W/MEALS ANDREW Administration Escitalopram Oxalate 10 mg 03/07/19 09:00 03/07/19 09:01 Lexapro PO 10 mg DAILY ANDREW Administration Famotidine 20 mg 03/06/19 21:00 03/07/19 09:02 Pepcid IV 20 mg Q12HR ANDREW Administration Formoterol Fumarate 20 mcg 03/07/19 20:00 Perforomist INHALATION RT-BID ANDREW Heparin Sodium (Porcine) 5,000 unit 03/06/19 21:00 03/07/19 09:01 Heparin SQ 5,000 unit Q12HR ANDREW Administration Hydralazine HCl 50 mg 03/06/19 16:30 03/07/19 09:01 Apresoline PO 50 mg TID ANDREW Administration Hydralazine HCl 10 mg 03/06/19 16:53 03/06/19 20:37 Apresoline IVP 10 mg Q6HR PRN Administration Blood Pressure - High Lidocaine 1 patch 03/07/19 12:00 Lidoderm TOPICAL DAILY [facility] Lisinopril 40 mg 03/07/19 09:00 03/07/19 09:01 Zestril PO 40 mg DAILY [facility] Administration Methylprednisolone Sodium Succinate 40 mg 03/07/19 12:00 03/07/19 11:15 Solu-Medrol IV 40 mg Q6HR ANDREW Administration Morphine Sulfate 7.5 mg 03/07/19 10:43 03/07/19 11:15 Msir PO 7.5 mg Q8HR PRN Administration Pain Naloxone HCl 0.2 mg 03/06/19 13:03 Narcan IV Q2M PRN Opioid Reversal Senna 8.6 mg 03/07/19 10:45 03/07/19 11:15 Senokot PO 8.6 mg BID PRN Administration Constipation Spironolactone 25 mg 03/07/19 09:00 03/07/19 09:01 Aldactone PO 25 mg DAILY [facility] Administration Temazepam 7.5 mg 03/06/19 20:47 03/06/19 22:08 Restoril PO 7.5 mg HS PRN Administration Insomnia Torsemide 20 mg 03/07/19 10:15 03/07/19 11:21 Demadex PO 20 mg DAILY [facility] Administration Tramadol HCl 50 mg 03/06/19 16:42 Ultram PO QID PRN Pain Trimethobenzamide HCl 300 mg 03/06/19 16:20 Tigan PO TID PRN Nausea And Vomiting Objective - Vital Signs Vital signs: Vital Signs Temp 98.7 F 03/07/19 04:00 Pulse 84 03/07/19 11:35 Resp 16 03/07/19 04:00 BP 146/81 03/07/19 00:00 Pulse Ox 97 03/07/19 04:00 Intake & Output 03/06/19 03/07/19 03/07/19 18:59 06:59 18:59 Intake Total 240 360 Balance 240 360 Weight 97.976 kg 101.7 kg Intake: Oral 240 360 Other: # Voids 1 1 1 - Exam GENERAL: The patient is alert and oriented x3, not in any acute distress. Well developed, well nourished. HEENT: Pupils are round and equally reacting to light. EOMI. No scleral icterus. No conjunctival pallor. Normocephalic, atraumatic. No pharyngeal erythema. No thyromegaly. CARDIOVASCULAR: S1 and S2 present. No murmurs, rubs, or gallops. PULMONARY: Chest is clear to auscultation, no wheezing or crackles. ABDOMEN: Soft, nontender, nondistended, normoactive bowel sounds. No palpable organomegaly. MUSCULOSKELETAL: No joint swelling or deformity. EXTREMITIES: No cyanosis, clubbing, or pedal edema. NEUROLOGICAL: Gross neurological examination did not reveal any focal deficits. SKIN: No rashes. - Labs CBC & Chem 7: 03/07/19 05:53 03/07/19 05:53 Labs: Abnormal Lab Results - Last 24 Hours (Table) 03/06/19 03/06/19 03/06/19 Range/Units 10:45 10:45 10:45 Hct 47.1 H (34.0-46.0) % RDW 15.6 H (11.5-15.5) % D-Dimer 0.61 H (<0.60) mg/L FEU BUN 18 H (7-17) mg/dL Glucose 133 H (74-99) mg/dL Total Bilirubin 1.4 H (0.2-1.3) mg/dL 03/07/19 03/07/19 Range/Units 05:53 05:53 Hct 49.1 H (34.0-46.0) % RDW 16.6 H (11.5-15.5) % D-Dimer (<0.60) mg/L FEU BUN 22 H (7-17) mg/dL Glucose 182 H (74-99) mg/dL Total Bilirubin (0.2-1.3) mg/dL Assessment and Plan Assessment: Acute COPD exacerbation acute on chronic systolic CHF with cardiomyopathy with known ejection fraction of 35-40% hypertensive urgency Pressure speech, history of schizoaffective disorder and other psych issue. Severe back pain essential hypertension hyperlipidemia chronic fibromyalgia nicotine dependance history of bipolar and depression , not active issue, pt denies depressive s/s Plan: this is a pleasant 48 yo F who presents with worsening dyspnea and leg swelling concerning for CHF and COPD, pt is admitted with cardiology consultation , pu lmonary team evaluation is appreciated. monitor weight and labs. continue with antihypertensive medications. Continue with steroids, breathing treatment and bronchodilators. Call psychiatric evaluation for her history of psychiatric illnesses and pressure speech. Call orthopedic consult for her significant back pain. Doppler ultrasound is negative for DVT. Labs and medication were reviewed.. Continue same treatment. Continue with symptomatic treatment. Resume home medication. Monitor lytes and vitals. DVT and GI prophylaxis. Further recommendations of the clinical course of the pat ient DVT prophylaxis: Subcutaneous heparin GI Prophylaxis: Pepcid PT/OT: Pending Prognosis is guarded Dr. Ortega Cortez will resume the care of the patient tomorrow 03/08/2019
--- NOTE | 2019-03-07 12:17 | CONS ---
CONSULTATION DATE OF SERVICE: March 07, 2019 This is a 48-year-old female who has a history of CHF and COPD. She is a heavy smoker. She apparently presents to the emergency department on March 06. She came with complaints of chest pain, chest tightness, coughing, wheezing, phlegm production, chest congestion, back and lower abdominal pain. The patient states that she has not been feeling well for some time and has also developed significant weight gain and lower extremity edema. She states that she can walk fairly just a few feet without becoming very short of breath. Anyway, she had a number of complaints today when I went into the room. She states that she does not like her hospital doctor because he is not providing her with anything for anxiety or pain relief. She is very dissatisfied with the nursing staff apparently as well. Anyway, I told her I was going to focus on her lungs and see if we could not make them better. Apparently I see her brother for COPD as well. The patient does have a history of hypertension as well. Her primary doctor is Dr. Ortega Cortez. Her hospital doctor is Dr. Shipman. She states she was smoking up until about 4 or 5 days ago. She is 48 years of age. She started smoking when she was in her late teens. Smokes 1-2 packs a day. Has seen a lung doctor in the past. Does not see one currently. She could not remember the lung doctor's name. HOME MEDICATIONS: Include Lexapro, DuoNeb, cataracts, Dulera, and Aldactone. She has also been on Lipitor, Coreg, lisinopril, and Apresoline. ALLERGIES: DEPAKOTE, VICODIN, AND CODEINE. PAST MEDICAL HISTORY: Includes COPD, fibromyalgia, hypertension, CHF, angina, pneumonia, and arthritis. She describes hypertension as being malignant hypertension. She also complained of having had a duodenal ulcer in the past, bile duct stone, and pancreatic pseudocyst and pancreatitis. In addition, she has degenerative disk disease, migraine cephalgia, abdominal hernia, which required surgery and chronic ringing in the ears. He also suffers from insomnia. SURGICAL HISTORY: Includes hernia repair, cholecystectomy, pancreatic pseudocyst removal, D and C x2, EGD, ERCP, bilateral bunionectomies, abdominal hernia repair with mesh implant among other surgical procedures. She also apparently has a history of a number of neuropsychiatric issues including bipolar disorder, depression, panic disorder, PTSD, and schizophrenia. SOCIAL HISTORY: Positive for ongoing tobacco use until a few days ago. She started smoking in her late teens. She denies alcohol or illicit drug use. FAMILY HISTORY: Positive for COPD in the mother and father. She has a brother with a history of deep venous thrombosis. OCCUPATIONAL HISTORY: She currently does not work. REVIEW OF SYSTEMS: CONSTITUTIONAL: Anxiety. NEUROLOGIC negative. HEENT negative. CARDIOVASCULAR : Chest pain. PULMONARY: Shortness of breath, chest tightness, wheezing, cough, chest congestion, phlegm production. GI negative. negative. RHEUMATOLOGIC negative. IMMUNOLOGIC negative. ENDOCRINOLOGIC negative. DERMATOLOGIC negative. PHYSICAL EXAMINATION: VITAL SIGNS: Current vital signs are reviewed. Temperature is 98.7. Heart rate 67, respiratory rate 16, blood pressure is 146/81, mean 102 and saturations on room air are between 96 and 97%. GENERAL: She appears to be quite agitated and anxious. HEENT examination is grossly unremarkable. NECK: Supple. Full range of motion. No adenopathy or thyromegaly. Neck veins are flat. CARDIOVASCULAR examination reveals distant heart sounds. Heart rate about 80 beats per minute. S1, S2 normal. No murmur noted. No S3 or S4. LUNGS: Very diminished breath sounds throughout. There are some bibasilar crackles. There is also some expiratory rhonchi and wheezes. There is prolongation on forced maneuver. ABDOMEN: Obese. Bowel sounds are heard. EXTREMITIES are intact. There is significant edema. There is 2+ and pitting. The skin is very tight. No cyanosis or clubbing. SKIN otherwise without rash. NEUROLOGIC examination is brief but nonfocal. LAB DATA: Reviewed. White count 7.8, hemoglobin 15.8, hematocrit 49.1, platelet count 362,000. PT/INR and PTT are all normal. D-dimer 0.61. Sodium, potassium, chloride, CO2 all normal. Anion gap is normal. BUN and creatinine were 22 and 0.96. Her N-terminal proBNP was 7750. Her troponin was 0.027. A chest x-ray shows evidence of cardiomegaly. Her lung fraser are very hyperlucent, so it is difficult to assess her upper lobe vessels. She may have small effusions. There is also some atelectasis at the right lung base. Her CT angiogram was negative for pulmonary embolism. There is some scarring and atelectasis at the lung bases. Heart is enlarged. No masses or tumors. Dopplers of the lower extremity were negative. Medications are reviewed. She is currently on Symbicort and DuoNeb. She is currently not getting any steroids. She is not on any antibiotics. ASSESSMENT: 1. Acute shortness of breath, likely multifactorial in part related to underlying congestive heart failure as well as chronic obstructive pulmonary disease exacerbation. 2. Significant lower extremity edema, which may relate to underlying congestive heart failure versus cor pulmonale and pulmonary hypertension. 3. Ongoing tobacco use, nicotine addiction. 4. Obesity. 5. Hypertension. 6. No evidence of pulmonary embolism or deep vein thrombosis. 7. History of angina. 8. Fibromyalgia. 9. Osteoarthritis. 10.History of pneumonia. 11.History of pleurisy. 12.History of pancreatic pseudocyst and subsequent removal. 13.History of duodenal ulcer. 14.Choledocholithiasis, status post ERCP. 15.Degenerative disk disease. 16.Insomnia. 17.Multiple neuropsychiatric issues including bipolar disorder, depression, panic disorder, PTSD, and schizophrenia. PLAN: The patient is counseled about the importance of smoking cessation. It does not appear that she is interested in stopping smoking at this time. We will review her medications. Additional recommendations and suggestions are forthcoming. She is quite agitated about nursing staff and also about her primary hospitalist. I told her I would just focus on her breathing. No additional recommendations are made. We will add some steroids to her regimen. We will change Symbicort to Pulmicort and Perforomist. Additional recommendations and suggestions forthcoming. Prognosis is guarded. MMODL / IJN: [id number] /
--- NOTE | 2019-03-07 12:22 | XR ---
EXAMINATION TYPE: XR lumbar spine 2 or 3V , 3 VIEWS DATE OF EXAM ORDERED: 03/07/2019 HISTORY: Back pain. COMPARISON: Previous study dated 03/02/2019. FINDINGS: There is evidence of previous abdominal surgery. There is a gentle levoscoliosis. There is diffuse disc space loss with relative sparing of L5 on S1. There is a vacuum phenomena prese nt at L3-4. This hypertrophic spondylosis most marked at L1-2 and L3-4. There is no spondylolysis or spondylolisthesis. The pedicles are intact. IMPRESSION: 1. NO ACUTE OSSEOUS LESION. 2. MODERATE DEGENERATIVE CHANGE.
--- NOTE | 2019-03-07 14:11 | P.CRDCN ---
History of Present Illness History of present illness: This is a 48-year-old female past medical history significant for COPD, hypertension, systolic heart failure, schizophrenia, PTSD and chronic nicotine dependence. She does not follow regularly with anybody in the office. We've been asked to see her in consultation secondary to shortness of breath. She presented to the hospital yesterday with symptoms of bilateral leg pain, in creased swelling of the lower extremities since January, tight pounding sensation in the midsternal region with radiation through to the back associated with palpitations, pain in the base of the neck that radiates down the spine causing a pounding sensation, exertional shortness of breath and overall increased generalized weakness. She is seen and examined sitting up in bed in no acute distress. She is quite aggressive and demanding something for pain and anxiety. She has been initiated on IV Lasix since admission however she states IV Lasix does not work for her and will not help for swelling. She states at home she takes Demadex. She is also complaining of some nausea and vomiting yesterday and therefore states she is unable to tolerate oral medication. EKG reveals sinus mechanism heart rate of 77, LVH and right axis deviation. Chest x-ray reveals right basilar atelectasis and cardiomegaly. CTA chest is negative for pulmonary embolism with evidence of fibrotic changes at the lung bases that are unchanged from previous study with improvement in mediastinal adenopathy compared to previous exam. Bilateral lower extremity venous duplex is negative for DVT. X-ray of the L-spine reveals no osseous lesion with moderate degenerative changes noted. Laboratory data reviewed, WBC 7.8, chemo globin 15.8, platelets 262, d-dimer 0.61, sodium 141, potassium 4.0, creatinine 0.96, magnesium 1.9, cardiac enzymes negative 1, proBNP 7750. Chronic daily cardiac medications include hydralazine 50 mg 3 times a day, Aldactone 25 mg daily, lisinopril 40 mg daily, carvedilol 6.25 mg twice a day and atorvastatin 20 mg daily. Most recent echocardiogram obtained January 2019 reveals impaired LV systolic function with ejection fraction 35-40%, basal anterior and inferior wall motion hypokinesia, mild mitral regurgitation and mild tricuspid regurgitation noted. At the time of my exam: CONSTITUTIONAL: Denies fever. Denies chills. EYES: Denies blurred vision. Denies vision changes. Denies eye pain. EARS, NOSE, MOUTH & THROAT: Complains of headache. Denies sore throat. Denies ear pain. CARDIOVASCULAR: Complains of chest pain. Complains of shortness of breath. Denies orthopnea. Denies PND. Complains of palpitations. RESPIRATORY: Denies cough. GASTROINTESTINAL: Denies abdominal pain. Denies diarrhea. Denies constipation. Complains of nausea. Denies vomiting. MUSCULOSKELETAL: Denies myalgias. INTEGUMENTARY: Denies pruitis. Denies rash. NEUROLOGIC: Denies numbness. Denies tingling. Complains of weakness. PSYCHIATRIC: Denies anxiety. Denies depression. ENDOCRINE: Denies fatigue. Denies weight change. Denies polydipsia. Denies polyurina. GENITOURINARY: Denies burning, hematuria or urgency with micturation. HEMATOLOGIC: Denies history of anemia. Denies bleeding. Blood pressure 155/109 heart rate 78 afebrile maintaining oxygen saturation on room air GENERAL: This is a 48-year-old occasion female in no apparent distress at the time of my examination. HEENT: Head is atraumatic, normocephalic. Pupils are equal, round. Sclerae anicteric. Conjunctivae are clear. Mucous membranes of the mouth are moist. Neck is supple. There is no jugular venous distention. No carotid bruit is heard. LUNGS: Clear to auscultation no wheezes, rales or rhonchi. No chest wall tenderness is noted on palpation or with deep breathing. Diminished bilaterally. HEART: Regular rate and rhythm without murmurs, rubs or gallops. S1 and S2 heard. ABDOMEN: Soft, nontender. Bowel sounds are heard. No organomegaly noted. EXTREMITIES: Bilateral lower extremity nonpitting circumferential edema and no calf tenderness noted. VASCULAR: Radial and dorsalis pedis pulses palpated, no evidence of clubbing. NEUROLOGIC: Patient is awake, alert and oriented x3. ASSESSMENT Acute on chronic systolic heart failure Chest pain, atypical for angina. No EKG evidence of acute ischemia. Hypertension, uncontrolled Acute exacerbation of COPD Fibromyalgia Nicotine dependence PLAN Patient is refusing IV Lasix that she states it doesn't work for her. Will place on Demadex 20 mg daily. Obtain second troponin to rule out an acute coronary event. Follow kidney function and electrolytes in the morning. Thank you kindly for this consultation. Nurse Practitioner note has been reviewed, I agree with a documented findings and plan of care. Patient was seen and examined. Past Medical History Past Medical History: Chest Pain / Angina, Heart Failure, COPD, Fibromyalgia, H ypertension, Osteoarthritis (OA), Pneumonia Additional Past Medical History / Comment(s): Malignant hypertension, respiratory failure, bronchitis, pleurisy, cardiomegaly, last EF 40-45%, occasional pedal edema with R foot worse, duodenal ulcer, bile duct stone with surgery to remove, pancreatic pseudocyst, pancreatitis, occipital neuralgia, chronic back pain, DDD, migraines, abdominal hernia with surgery but pt states "it is back", PCOS, bilateral tinnitis. Pt has elevated blood sugars, insomnia and increased anxiety with steroid use. History of Any Multi-Drug Resistant Organisms: None Reported Date of last positivie culture/infection: None MDRO Source:: None Past Surgical History: Cholecystectomy, Hernia Repair, Orthopedic Surgery Additional Past Surgical History / Comment(s): Pancreatic pseudocyst removal; D&Cx2; EGD/ERCP, bilateral feet bunionectomies, abdominal hernia repairs/mesh. Past Anesthesia/Blood Transfusion Reactions: No Reported Reaction Additional Past Anesthesia/Blood Transfusion Reaction / Comment(s): Pt has received blood in past without reaction. Smoking Status: Former smoker - Past Family History Mother Family Medical History: COPD Additional Family Medical History / Comment(s): Mother from COPD at the age of 49 yrs. Father Family Medical History: COPD Brother(s) Family Medical History: Deep Vein Thrombosis (DVT) Medications and Allergies Home Medications Medication Instructions Recorded Confirmed Type Atorvastatin [Lipitor] 20 mg PO HS #30 tab 08/07/18 03/06/19 Rx Carvedilol [Coreg] 6.25 mg PO BID-W/MEALS #60 tab 08/07/18 03/06/19 Rx Lisinopril 40 mg PO DAILY 30 Days #30 tablet 08/07/18 03/06/19 Rx hydrALAZINE HCL [Apresoline] 50 mg PO TID 30 Days #90 tab 08/07/18 03/06/19 Rx Escitalopram Oxalate [Lexapro] 10 mg PO DAILY 01/22/19 03/06/19 History Ipratropium-Albuterol Nebulize 3 ml INHALATION RT-QID 01/22/19 03/06/19 History [Duoneb 0.5 mg-3 mg/3 ml Soln] hydrOXYzine HCL [Atarax] 25 mg PO HS 01/22/19 03/06/19 History Mometasone/Formoterol [Dulera 200 2 puff INHALATION RT-BID 03/02/19 03/06/19 History Mcg/5 Mcg Inhaler] Spironolactone [Aldactone] 25 mg PO DAILY 03/06/19 03/06/19 History Allergies Allergy/AdvReac Type Severity Reaction Status Date / Time codeine AdvReac Severe Nausea & Verified 03/06/19 11:51 Vomiting divalproex sodium AdvReac Alopecia Verified 03/06/19 11:51 [From Depakote] hydrocodone [From Vicodin] AdvReac Nausea & Verified 03/06/19 11:51 Vomiting Physical Exam Vitals: Vital Signs Temp Pulse Pulse Resp BP BP Pulse Ox 03/07/19 07:14 86 03/07/19 07:05 88 03/07/19 04:00 98.7 F 67 16 97 03/07/19 00:00 98 F 67 16 146/81 98 03/06/19 22:00 82 178/100 03/06/19 20:48 96 03/06/19 20:00 98.1 F 67 16 190/135 94 L 03/06/19 16:00 97.6 F 79 18 211/140 96 03/06/19 15:07 98 F 03/06/19 15:00 89 20 199/113 95 03/06/19 14:25 80 22 170/143 03/06/19 14:00 85 18 204/132 95 03/06/19 13:30 75 15 201/136 96 03/06/19 13:00 75 15 202/137 95 03/06/19 12:30 78 20 208/136 95 03/06/19 12:00 82 26 H 206/145 96 03/06/19 11:30 84 24 191/124 95 03/06/19 11:00 81 26 H 192/128 96 03/06/19 10:27 98.8 F 83 22 201/114 96 Intake and Output 03/06/19 03/07/19 03/07/19 22:59 06:59 14:59 Intake Total 240 360 Balance 240 360 Intake: Oral 240 360 Other: # Voids 1 1 1 Weight 101.7 kg Results 03/07/19 05:53 03/07/19 05:53 Cardiac Enzymes 03/06/19 03/06/19 Range/Units 10:45 10:45 AST 27 (14-36) U/L Troponin I 0.027 (0.000-0.034) ng/mL Coagulation 03/06/19 Range/Units 10:45 PT 10.7 (9.0-12.0) sec APTT 23.9 (22.0-30.0) sec CBC 03/06/19 03/07/19 Range/Units 10:45 05:53 WBC 9.1 7.8 (3.8-10.6) k/uL RBC 5.20 5.27 (3.80-5.40) m/uL Hgb 15.4 15.8 (11.4-16.0) gm/dL Hct 47.1 H 49.1 H (34.0-46.0) % Plt Count 269 262 (150-450) k/uL Comprehensive Metabolic Panel 03/06/19 03/07/19 Range/Units 10:45 05:53 Sodium 141 141 (137-145) mmol/L Potassium 3.6 4.0 (3.5-5.1) mmol/L Chloride 106 104 (98-107) mmol/L Carbon Dioxide 26 27 (22-30) mmol/L BUN 18 H 22 H (7-17) mg/dL Creatinine 0.82 0.96 (0.52-1.04) mg/dL Glucose 133 H 182 H (74-99) mg/dL Calcium 9.6 9.8 (8.4-10.2) mg/dL AST 27 (14-36) U/L ALT 29 (9-52) U/L Alkaline Phosphatase 94 (38-126) U/L Total Protein 6.8 (6.3-8.2) g/dL Albumin 3.9 (3.5-5.0) g/dL Current Medications Generic Name Dose Route Start Last Admin Trade Name Freq PRN Reason Stop Dose Admin Albuterol/Ipratropium 3 ml 03/06/19 20:00 03/07/19 07:05 Duoneb 0.5 Mg-3 Mg/3 Ml Soln INHALATION 3 ml RT-QID ANDREW Administration Atorvastatin Calcium 20 mg 03/06/19 21:00 03/06/19 20:51 Lipitor PO 20 mg HS ANDREW Administration Budesonide/Formoterol Fumarate 2 puff 03/06/19 20:00 03/07/19 07:08 Symbicort 160-4.5 Mcg Inhaler INHALATION Not Given RT-BID [facility] Carvedilol 12.5 mg 03/06/19 17:30 03/07/19 06:20 Coreg PO 12.5 mg BID-W/MEALS [facility] Administration Escitalopram Oxalate 10 mg 03/07/19 09:00 Lexapro PO DAILY [facility] Famotidine 20 mg 03/06/19 21:00 03/06/19 20:51 Pepcid IV 20 mg Q12HR ANDREW Administration Furosemide 40 mg 03/06/19 21:00 03/06/19 20:52 Lasix IV 40 mg Q12HR ANDREW Administration Heparin Sodium (Porcine) 5,000 unit 03/06/19 21:00 03/06/19 20:52 Heparin SQ 5,000 unit Q12HR [facility] Administration Hydralazine HCl 50 mg 03/06/19 16:30 03/06/19 22:11 Apresoline PO 50 mg TID ANDREW Administration Hydralazine HCl 10 mg 03/06/19 16:53 03/06/19 20:37 Apresoline IVP 10 mg Q6HR PRN Administration Blood Pressure - High Lisinopril 40 mg 03/07/19 09:00 Zestril PO DAILY [facility] Naloxone HCl 0.2 mg 03/06/19 13:03 Narcan IV Q2M PRN Opioid Reversal Spironolactone 25 mg 03/07/19 09:00 Aldactone PO DAILY [facility] Temazepam 7.5 mg 03/06/19 20:47 03/06/19 22:08 Restoril PO 7.5 mg HS PRN Administration Insomnia Tramadol HCl 50 mg 03/06/19 16:42 Ultram PO QID PRN Pain Trimethobenzamide HCl 300 mg 03/06/19 16:20 Tigan PO TID PRN Nausea And Vomiting Intake and Output 03/06/19 03/07/19 03/07/19 22:59 06:59 14:59 Intake Total 240 360 Balance 240 360 Intake: Oral 240 360 Other: # Voids 1 1 1 Weight 101.7 kg 03/07/19 05:53 03/07/19 05:53
[2019-03-07] MEDS: LIDOCAINE 5% PATCH TOPICAL SCH (14:35)
[2019-03-07] MEDS: hydrALAZINE HCL 25 MG TAB PO SCH ×2 (16:15→20:42)
[2019-03-07] MEDS: ATORVASTATIN 20 MG TAB PO SCH (20:42)
[2019-03-07] MEDS: FORMOTEROL FUMARATE 20 MCG/2 ML NEBU INHALATION SCH (20:47)
[2019-03-07] MEDS: BUDESONIDE 1 MG/2 ML NEBU INHALATION SCH (20:47)
[2019-03-08] MEDS: TEMAZEPAM 7.5 MG CAP PO PRN ×2 (00:18→23:59)
[2019-03-08] MEDS: CARVEDILOL 12.5 MG TAB PO SCH ×2 (05:39→17:32)
[2019-03-08] MEDS: methylPREDNISolone SOD SUCCI 40 MG/ML 1 ML VIAL IV SCH ×3 (05:39→20:09)
[2019-03-08] MEDS: BUDESONIDE 1 MG/2 ML NEBU INHALATION SCH ×2 (07:17→19:29)
[2019-03-08] MEDS: IPRATROPIUM-ALBUTEROL 3 ML NEB INHALATION SCH ×4 (07:17→19:26)
[2019-03-08] MEDS: FORMOTEROL FUMARATE 20 MCG/2 ML NEBU INHALATION SCH ×2 (07:17→19:26)
[2019-03-08 07:22] LABS: Basophils % (A) 0 %; Eosinophils # (A) 0.1 k/uL (0-0.7); Eosinophils % (A) 0 %; HCT 51.9 % (34.0-46.0); HGB 16.4 gm/dL (11.4-16.0); Lymphocytes % (A) 8 %; MCH 29.4 pg (25.0-35.0); MCHC 31.6 g/dL (31.0-37.0); Mean Platelet Volume 7.5; Monocytes # (A) 0.7 k/uL (0-1.0); Monocytes % (A) 5 %; Neutrophils # (A) 10.6 k/uL (1.3-7.7); Neutrophils % (A) 85 %; Platelet Count 315 k/uL (150-450); RBC 5.58 m/uL (3.80-5.40); RDW 15.6 % (11.5-15.5); WBC 12.6 k/uL (3.8-10.6)
[2019-03-08 07:38] LABS: Calcium 10.3 mg/dL (8.4-10.2); Magnesium 1.9 mg/dL (1.6-2.3); Potassium 4.3 mmol/L (3.5-5.1)
--- NOTE | 2019-03-08 09:01 | P.CNOR ---
History of Present Illness - [facility] Consult date: 03/08/19 Requesting physician: Ferdinand E Sheet Consult reason: back pain, other (Lower extremity radiculopathy) History of present illness: Patient is a pleasant 48-year-old female with multiple medical diagnoses who is seen and examined at bedside for further evaluation in regards to intractable low back pain and lower extremity radiculopathy. Patient states her symptoms have been ongoing over the past year without known injury. She has pain in her lumbar spine and radiates into the buttocks and occasionally down the anterior lateral thighs. She states she has multiple medical diagnoses and is not currently looking for any surgical intervention. She states she is looking for some sort of pain control. She is experiencing swelling in the bilateral lower extremities. She has active range of motion bilateral lower extremities but does state she has some pain while doing so. Nursing states patient is currently waiting for consultation was psychology. Patient has a medical history which includes nicotine dependence, chronic pain, cardiomyopathy with known ejection fraction of 35% to 40%, COPD, fibromyalgia, hypertension, bipolar disorder, and depression. She was originally admitted for further treatment and evaluation due to progressive dyspnea over the past several weeks with exertional dyspnea with coughing and below sputum. She is currently being seen by medicine, cardiology, and pulmonology. Past Medical History Past Medical History: Chest Pain / Angina, Heart Failure, COPD, Fibromyalgia, Hypertension, Osteoarthritis (OA), Pneumonia Additional Past Medical History / Comment(s): Malignant hypertension, respiratory failure, bronchitis, pleurisy, cardiomegaly, last EF 40-45%, occasional pedal edema with R foot worse, duodenal ulcer, bile duct stone with surgery to remove, pancreatic pseudocyst, pancreatitis, occipital neuralgia, chronic back pain, DDD, migraines, abdominal hernia with surgery but pt states "it is back", PCOS, bilateral tinnitis. Pt has elevated blood sugars, insomnia and increased anxiety with steroid use. History of Any Multi-Drug Resistant Organisms: None Reported Year Discovered:: None MDRO Source:: None Past Surgical History: Cholecystectomy, Hernia Repair, Orthopedic Surgery Additional Past Surgical History / Comment(s): Pancreatic pseudocyst removal; D&Cx2; EGD/ERCP, bilateral feet bunionectomies, abdominal hernia repairs/mesh. Past Anesthesia/Blood Transfusion Reactions: No Reported Reaction Additional Past Anesthesia/Blood Transfusion Reaction / Comm: Pt has received blood in past without reaction. Smoking Status: Former smoker - Past Family History Mother Family Medical History: COPD Additional Family Medical History / Comment(s): Mother from COPD at the age of 49 yrs. Father Family Medical History: COPD Brother(s) Family Medical History: Deep Vein Thrombosis (DVT) Medications and Allergies Home Medications Medication Instructions Recorded Confirmed Type Atorvastatin [Lipitor] 20 mg PO HS #30 tab 08/07/18 03/06/19 Rx Carvedilol [Coreg] 6.25 mg PO BID-W/MEALS #60 tab 08/07/18 03/06/19 Rx Lisinopril 40 mg PO DAILY 30 Days #30 tablet 08/07/18 03/06/19 Rx hydrALAZINE HCL [Apresoline] 50 mg PO TID 30 Days #90 tab 08/07/18 03/06/19 Rx Escitalopram Oxalate [Lexapro] 10 mg PO DAILY 01/22/19 03/06/19 History Ipratropium-Albuterol Nebulize 3 ml INHALATION RT-QID 01/22/19 03/06/19 History [Duoneb 0.5 mg-3 mg/3 ml Soln] hydrOXYzine HCL [Atarax] 25 mg PO HS 01/22/19 03/06/19 History Mometasone/Formoterol [Dulera 200 2 puff INHALATION RT-BID 03/02/19 03/06/19 History Mcg/5 Mcg Inhaler] Spironolactone [Aldactone] 25 mg PO DAILY 03/06/19 03/06/19 History Allergies Allergy/AdvReac Type Severity Reaction Status Date / Time codeine AdvReac Severe Nausea & Verified 03/06/19 11:51 Vomiting divalproex sodium AdvReac Alopecia Verified 03/06/19 11:51 [From Depakote] hydrocodone [From Vicodin] AdvReac Nausea & Verified 03/06/19 11:51 Vomiting Physical Examination Physical exam: Patient is awake, alert, and oriented 3 Vital signs stable Adequate chest excursion with deep inspiration and expiration Abdomen soft nontender Examination of lumbar spine reveals skin is intact with no abrasions, l acerations, or bruises; no erythema, purulence or signs of infection Pain with palpation along the midline of the lower lumbar spine over the paraspinals Dorsiflexion, plantarflexion, and extensor hallucis longus positive sustained bilaterally Lower extremity strength positive sustained throughout range of motion bilaterally but movements are generally slower Increased leg pain with knee extension bilaterally No signs or symptoms of DVT; no calf pain Evidence of swelling in the bilateral lower extremities Evidence of a well-healed incision over the great toe bilaterally Neurovascularly intact Results Pertinent studies: X-rays the lumbar spine taken on 03/07/2019: L1-2 degenerative disc disease with anterior osteophytic spurring; L3-4 and L4-5 degenerative disc disease; no obvious signs of instability; no spondylolisthesis, no evidence of vertebral body compression fracture - Labs Labs: Abnormal Lab Results - Last 24 Hours (Table) 03/08/19 03/08/19 Range/Units 06:50 06:50 WBC 12.6 H (3.8-10.6) k/uL RBC 5.58 H (3.80-5.40) m/uL Hgb 16.4 H (11.4-16.0) gm/dL Hct 51.9 H (34.0-46.0) % RDW 15.6 H (11.5-15.5) % Neutrophils # 10.6 H (1.3-7.7) k/uL BUN 28 H (7-17) mg/dL Glucose 213 H (74-99) mg/dL Calcium 10.3 H (8.4-10.2) mg/dL H & H 03/06/19 03/07/19 03/08/19 Range/Units 10:45 05:53 06:50 Hgb 15.4 15.8 16.4 H (11.4-16.0) gm/dL Hct 47.1 H 49.1 H 51.9 H (34.0-46.0) % Coagulation 03/06/19 Range/Units 10:45 INR 1.0 (<1.2) Result Diagrams: 03/08/19 06:50 03/08/19 06:50 Assessment and Plan Assessment: Assessment: Chronic intractable low back pain with bilateral lower extremity radiculopathy Lumbar degenerative disc disease Bilateral lower extremity swelling Medical history of nicotine dependence, chronic pain, cardiomyopathy with known ejection fraction of 35% to 40%, COPD, fibromyalgia, hypertension, bipolar disorder, and depression. (1) Radiculopathy with lower extremity symptoms Current Visit: Yes Status: Acute Code(s): M54.10 - RADICULOPATHY, SITE UNSPECIFIED SNOMED Code(s): 55356399 (2) Lumbar degenerative disc disease Current Visit: Yes Status: Acute Code(s): M51.36 - OTHER INTERVERTEBRAL DISC DEGENERATION, LUMBAR REGION SNOMED Code(s): 55507492 (3) Nicotine dependence Current Visit: Yes Status: Acute Code(s): F17.200 - NICOTINE DEPENDENCE, UNSPECIFIED, UNCOMPLICATED SNOMED Code(s): 31337746 (4) CHF (congestive heart failure) Current Visit: No Status: Acute Code(s): I50.9 - HEART FAILURE, UNSPECIFIED SNOMED Code(s): 67239730 (5) COPD (chronic obstructive pulmonary disease) Current Visit: No Status: Acute Code(s): J44.9 - CHRONIC OBSTRUCTIVE PULMONARY DISEASE, UNSPECIFIED SNOMED Code(s): 68120648 (6) Chronic back pain Current Visit: No Status: Acute Code(s): M54.9 - DORSALGIA, UNSPECIFIED; G89.29 - OTHER CHRONIC PAIN SNOMED Code(s): 843060509 (7) Hypertension Current Visit: No Status: Acute Code(s): I10 - ESSENTIAL (PRIMARY) HYPERTENSION SNOMED Code(s): 69380307 (8) Lower extremity edema Current Visit: No Status: Acute Code(s): R60.0 - LOCALIZED EDEMA SNOMED Code(s): 394223898 Plan: Plan: 1. After further discussion with the patient, reviewing imaging, and physical examination the patient, we are currently planning for conservative treatment in regards to her lumbosacral spine. Patient does admit to chronic ongoing low back pain over the past year with bilateral lower extremity radiculopathy without known injury. She is known to have multiple medical diagnoses. She is not currently seeking any surgical intervention in regards to her lumbar spine and states she is looking for some level of pain control. She states she lives alone and has too many responsibilities to discuss the possibility of surgical intervention. She would like to continue conservative treatment. She states she has not been seen or examined previously by a bridge painter and states she was told by her insurance there was not a bridge painter in the area. We discussed I will plan for consultation with pain management during her admission here to the hospital. We will plan to have her follow up on a as needed basis outpatient setting. At this time, patient is clear for discharge from an orthopedic spine standpoint. 2. Patient will continue be seeing him by medicine and other medical providers for her other medical diagnoses. 3. Patient currently waiting for consultation by psychology and pain management Time with Patient: Greater than 30 (Including obtaining history, physical examination, reviewing of imaging, and dictation.)
[2019-03-08] MEDS: MORPHINE SULFATE IR 15 MG TABLET PO PRN ×2 (09:46→18:30)
[2019-03-08] MEDS: SPIRONOLACTONE 25 MG TAB PO SCH (09:47)
[2019-03-08] MEDS: AMOXIC-POT CLAV 875-125MG 1 EACH TAB PO SCH ×2 (09:47→20:08)
[2019-03-08] MEDS: hydrALAZINE HCL 25 MG TAB PO SCH ×3 (09:47→21:07)
[2019-03-08] MEDS: ESCITALOPRAM 10 MG TAB PO SCH (09:47)
[2019-03-08] MEDS: HEPARIN SODIUM,PORCINE 5,000 UNIT/ML 1 ML VIAL SQ SCH ×2 (09:47→20:09)
[2019-03-08] MEDS: FAMOTIDINE 20 MG/2 ML VIAL IV SCH (09:47)
[2019-03-08] MEDS: LISINOPRIL 20 MG TAB PO SCH (09:47)
[2019-03-08] MEDS: TORSEMIDE 20 MG TAB PO SCH (09:50)
[2019-03-08] MEDS: LIDOCAINE 5% PATCH TOPICAL SCH (11:23)
--- NOTE | 2019-03-08 12:43 | P.PN ---
Subjective Progress Note Date: 03/08/19 Principal diagnosis: Acute shortness of breath, multifactorial, related to exacerbation of CHF and COPD On 03/08/2019 patient seen in follow-up on selective care unit, she is awake and alert, in no acute distress, she is currently on room air, with a pulse ox of 96%, she is afebrile, hemodynamically stable, lung sounds are clear to auscultation, no wheezing, no crackles, no rhonchi. Room air pulse ox is 96%, patient still has a significant amount of lower extremity swelling, nonpitting. Cardiology is following, and planning on starting the patient on IV Bumex. Patient is on IV steroids at 40 mg every 6 hours, and nebulized bronchodilators. No significant cough or congestion on today's exam. Objective - Vital Signs Vital signs: Vital Signs Temp 97.6 F 03/08/19 08:00 Pulse 64 03/08/19 11:53 Resp 18 03/08/19 08:00 BP 163/78 03/08/19 08:00 Pulse Ox 96 03/08/19 08:00 Intake & Output 03/07/19 03/08/19 03/08/19 18:59 06:59 18:59 Intake Total 1320 120 Output Total 1500 400 Balance -180 -400 120 Weight 100.8 kg 100.8 kg Intake: Oral 1320 120 Output: Urine 1500 400 Other: # Voids 1 1 2 # Bowel Movements 0 - Exam GENERAL EXAM: Alert, pleasant, 48-year-old white female on room air, pulse ox of 96%, comfortable in no apparent distress. HEAD: Normocephalic/atraumatic. EYES: Normal reaction of pupils, equal size. Conjunctiva pink, sclera white. NOSE: Clear with pink turbinates. THROAT: No erythema or exudates. NECK: No masses, no JVD, no thyroid enlargement, no adenopathy. CHEST: No chest wall deformity. Symmetrical expansion. LUNGS: Equal air entry with no crackles, wheeze, rhonchi or dullness. CVS: Regular rate and rhythm, normal S1 and S2, no gallops, no murmurs, no rubs ABDOMEN: Soft, nontender. No hepatosplenomegaly, normal bowel sounds, no guarding or rigidity. EXTREMITIES: No clubbing, nonpitting lower extremity edema, 1-2+ and redness, no cyanosis, 2+ pulses and upper and lower extremities. MUSCULOSKELETAL: Muscle strength and tone normal. SPINE: No scoliosis or deformity SKIN: No rashes CENTRAL NERVOUS SYSTEM: Alert and oriented -3. No focal deficits, tone is normal in all 4 extremities. PSYCHIATRIC: Alert and oriented -3. Appropriate affect. Intact judgment and insight. - Labs CBC & Chem 7: 03/08/19 06:50 03/08/19 06:50 Labs: Abnormal Lab Results - Last 24 Hours (Table) 03/08/19 03/08/19 Range/Units 06:50 06:50 WBC 12.6 H (3.8-10.6) k/uL RBC 5.58 H (3.80-5.40) m/uL Hgb 16.4 H (11.4-16.0) gm/dL Hct 51.9 H (34.0-46.0) % RDW 15.6 H (11.5-15.5) % Neutrophils # 10.6 H (1.3-7.7) k/uL BUN 28 H (7-17) mg/dL Glucose 213 H (74-99) mg/dL Calcium 10.3 H (8.4-10.2) mg/dL Assessment and Plan Plan: Assessment: #1. Acute shortness of breath, multifactorial, related to exacerbation of chronic obstructive pulmonary disease and congestive heart failure with systolic dysfunction #2. Significant lower extremity edema, likely related to underlying congestive heart failure and probable cor pulmonale and pulmonary hypertension #3. Chronic and ongoing tobacco use, nicotine addiction #4. Morbid obesity #4. Hypertension #5. Elevated d-dimer with no evidence of pulmonary embolism or deep vein thrombosis #6. History of angina #7. Fibromyalgia #8. Osteoarthritis #9. History of pancreatic pseudocyst and subsequent removal #10. History of duodenal ulcer #11. Choledyl Colace with GI service, status post ERCP #12. Degenerative disc disease #13. Insomnia #14. Multiple neuropsychiatric issues including bipolar disorder, depression, panic disorder PTSD and schizophrenia Plan: We'll continue current medical treatment, IV steroids, nebulized bronchodil ators, patient is being started on IV Bumex, no significant cough or congestion, patient is afebrile, CTA chest showed no evidence of pulmonary embolism and showed improvement in the mediastinal adenopathy compared to last CT chest. Venous Dopplers were negative for DVT. We'll continue with the COPD treatment. We'll follow I performed a history & physical examination of the patient and discussed their management with my nurse practitioner, Radha Kwok. I reviewed the nurse practitioner's note and agree with the documented findings and plan of care. Lung sounds are positive for clear breath sounds. The findings and the impression was discussed with the patient. I attest to the documentation by the nurse practitioner. Time with Patient: Less than 30
--- NOTE | 2019-03-08 13:07 | P.PAINCN ---
History of Present Illness - Reason for Consult Consult date: 03/08/19 - History of Present Illness Patient is a pleasant 48-year-old female with multiple medical diagnoses including congestive heart failure, COPD, mental health issues including anxiety/depression/schizophrenia. Pain management services was consulted regarding low back pain and radicular pain. She seen and examined at bedside for further evaluation in regards to intractable low back pain and lower extremity radiculopathy. Patient states her symptoms have been ongoing for several years and a progressively worsened. She's had low back pain for several years however has noticed radicular pain into her lower extremity is on her anterior thighs and buttocks. She does not recall being evaluated by a spine sp ecialist or pain medicine physician in the past. She was admitted secondary to symmetrical lower extremity pitting edema. She is experiencing swelling in the bilateral lower extremities, which limits her activity and causes her to have significant pain in her feet bilaterally. VAS is a 6 out of 10 in severity at its worse anemia, 10. She also describes having "fibromyalgia". Pain initiates in her low back radiates into her thighs worse with walking, standing upright, and sitting for prolonged periods of time. She is unable to ambulate more than 4-5 steps without getting short of breath or having to sit down. She also admits to having weird sensations in the right second third and fourth digits of the lower extremity. She currently is being treated with morphine sulfate immediate release 7.5 mg twice daily. She doesn't notice any significant benefit with it. She has tried and failed Neurontin and Lyrica. She cannot recall the common medication she's been on the past for this issue. She has difficulty with seeing physician because the co-pay exceeds money available to her. She denies any bowel or bladder dysfunction, saddle anesthesia, she's never been evaluated by orthopedic order management specialist or pain medicine. She's never had injections for similar issues in the past. Review of Systems 14 point review of systems was negative except as mentioned per HPI. She admits to shortness of breath, difficulty breathing, chest discomfort with certain movements, significant anxiety. Past Medical History Past Medical History: Chest Pain / Angina, Heart Failure, COPD, Fibromyalgia, Hypertension, Osteoarthritis (OA), Pneumonia Additional Past Medical History / Comment(s): Malignant hypertension, respiratory failure, bronchitis, pleurisy, cardiomegaly, last EF 40-45%, occasional pedal edema with R foot worse, duodenal ulcer, bile duct stone with surgery to remove, pancreatic pseudocyst, pancreatitis, occipital neuralgia, chronic back pain, DDD, migraines, abdominal hernia with surgery but pt states "it is back", PCOS, bilateral tinnitis. Pt has elevated blood sugars, insomnia and increased anxiety with steroid use. History of Any Multi-Drug Resistant Organisms: None Reported Year Discovered:: None MDRO Source:: None Past Surgical History: Cholecystectomy, Hernia Repair, Orthopedic Surgery Additional Past Surgical History / Comment(s): Pancreatic pseudocyst removal; D&Cx2; EGD/ERCP, bilateral feet bunionectomies, abdominal hernia repairs/mesh. Past Anesthesia/Blood Transfusion Reactions: No Reported Reaction Additional Past Anesthesia/Blood Transfusion Reaction / Comm: Pt has received blood in past without reaction. Smoking Status: Former smoker - Past Family History Mother Family Medical History: COPD Additional Family Medical History / Comment(s): Mother from COPD at the age of 49 yrs. Father Family Medical History: COPD Brother(s) Family Medical History: Deep Vein Thrombosis (DVT) Medications and Allergies Home Medications Medication Instructions Recorded Confirmed Type Atorvastatin [Lipitor] 20 mg PO HS #30 tab 08/07/18 03/06/19 Rx Carvedilol [Coreg] 6.25 mg PO BID-W/MEALS #60 tab 08/07/18 03/06/19 Rx Lisinopril 40 mg PO DAILY 30 Days #30 tablet 08/07/18 03/06/19 Rx hydrALAZINE HCL [Apresoline] 50 mg PO TID 30 Days #90 tab 08/07/18 03/06/19 Rx Escitalopram Oxalate [Lexapro] 10 mg PO DAILY 01/22/19 03/06/19 History Ipratropium-Albuterol Nebulize 3 ml INHALATION RT-QID 01/22/19 03/06/19 History [Duoneb 0.5 mg-3 mg/3 ml Soln] hydrOXYzine HCL [Atarax] 25 mg PO HS 01/22/19 03/06/19 History Mometasone/Formoterol [Dulera 200 2 puff INHALATION RT-BID 03/02/19 03/06/19 History Mcg/5 Mcg Inhaler] Spironolactone [Aldactone] 25 mg PO DAILY 03/06/19 03/06/19 History Allergies Allergy/AdvReac Type Severity Reaction Status Date / Time codeine AdvReac Severe Nausea & Verified 03/06/19 11:51 Vomiting divalproex sodium AdvReac Alopecia Verified 03/06/19 11:51 [From Depakote] hydrocodone [From Vicodin] AdvReac Nausea & Verified 03/06/19 11:51 Vomiting Physical Exam Vitals: Vital Signs Temp Pulse Pulse Resp BP Pulse Ox 03/08/19 12:00 67 18 03/08/19 11:53 64 03/08/19 11:40 66 03/08/19 08:00 97.6 F 67 16 163/78 96 03/08/19 07:39 62 03/08/19 07:29 66 03/08/19 07:28 66 03/08/19 07:20 60 98 03/08/19 04:00 98.2 F 64 18 175/96 95 03/08/19 00:00 98.8 F 69 18 161/101 03/07/19 21:15 72 03/07/19 21:07 70 03/07/19 21:06 70 03/07/19 20:47 74 03/07/19 20:00 98.4 F 76 18 170/100 03/07/19 16:13 90 03/07/19 16:03 90 03/07/19 15:37 98.0 F 88 18 165/95 95 Intake and Output 03/07/19 03/08/19 03/08/19 22:59 06:59 14:59 Intake Total 840 120 Output Total 1500 400 Balance -660 -400 120 Intake: Oral 840 120 Output: Urine 1500 400 Other: # Voids 1 2 # Bowel Movements 0 Weight 100.8 kg 100.8 kg Physical exam: Gen: A&O 3, NAD, morbidly obese HEENT: Atraumatic, normocephalic, pupils equal and reactive to light Integ: No skin abnormalities or lesions noted CVS: Regular rate and rhythm, 2+ pitting edema bilateral lower shoddy's Pulmn: No wheezing, no labored breathing Lumbar spine: Palpation: Tenderness to palpation bilateral paraspinal muscles sure. Inspection: No deformities or scoliosis Range of motion: Pain with flexion and extension Facet loading: Negative bilateral DIAN test: Negative bilateral Reflexes: 2/2 bilateral knee Neuromuscular: Sensation: Intact from L1-S1 Motor: 5/5 hip flexion, 5/5 knee extension, 5/5 (EHL), 5/5 Dorsiflexion, 5/5 Plantar Flexion bilateral Gait: Antalgic gait going from bed to wheelchair, transitions poorly. Results CBC & Chem 7: 03/08/19 06:50 03/08/19 06:50 Labs: Abnormal Lab Results - Last 24 Hours (Table) 03/08/19 03/08/19 Range/Units 06:50 06:50 WBC 12.6 H (3.8-10.6) k/uL RBC 5.58 H (3.80-5.40) m/uL Hgb 16.4 H (11.4-16.0) gm/dL Hct 51.9 H (34.0-46.0) % RDW 15.6 H (11.5-15.5) % Neutrophils # 10.6 H (1.3-7.7) k/uL BUN 28 H (7-17) mg/dL Glucose 213 H (74-99) mg/dL Calcium 10.3 H (8.4-10.2) mg/dL Assessment and Plan Assessment: Assessment: 1. Lumbar degenerative disc disease 2. Morbid obesity 3. Nicotine dependence 4. Lumbar spinal stenosis? 5. Lumbar spondylosis without myelopathy Plan: 1. Patient is scheduled to undergo MRI of her lumbar spine without contrast. We will follow up after the results of the MRI. We discussed any therapy being done at an outpatient setting once her acute on chronic systolic dysfunction congestive heart failure has improved. We discussed in detail smoking cessation she's been tobacco free for 6 days however she does have a [id number] smoking history. She is agreeable follow-up in our clinic. 2. Recommend starting on Lyrica 75 mg twice a day for the fibromyalgia and her neuropathic pain. Patient is not ideal candidate for opiate therapy considering her cardiopulmonary status. She's currently taking morphine immediate release 7.5 mg twice a day I would be extremely cautious with escalating dose and frequency. Time with Patient: Greater than 30 PQRS Measure Charge Sheet PQRS Narrative: Smoking Status Former smoker Blood Pressure [Left Arm] 163/78 Blood Pressure 199/113 Pain Intensity [Back] 3 Pain Intensity 4 Pain Scale Used Numeric (1 - 10) Scale Used Numeric (1 - 10) Home Medications: Ambulatory Orders Atorvastatin [Lipitor] 20 mg PO HS #30 tab 08/07/18 Carvedilol [Coreg] 6.25 mg PO BID-W/MEALS #60 tab 08/07/18 Lisinopril 40 mg PO DAILY 30 Days #30 tablet 08/07/18 hydrALAZINE HCL [Apresoline] 50 mg PO TID 30 Days #90 tab 08/07/18 Escitalopram Oxalate [Lexapro] 10 mg PO DAILY 01/22/19 Ipratropium-Albuterol Nebulize [Duoneb 0.5 mg-3 mg/3 ml Soln] 3 ml INHALATION RT-QID 01/22/19 hydrOXYzine HCL [Atarax] 25 mg PO HS 01/22/19 Mometasone/Formoterol [Dulera 200 Mcg/5 Mcg Inhaler] 2 puff INHALATION RT-BID 03/02/19 Spironolactone [Aldactone] 25 mg PO DAILY 03/06/19
--- NOTE | 2019-03-08 14:09 | MR ---
EXAMINATION TYPE: MR lumbar spine wo con DATE OF EXAM: 03/08/2019 COMPARISON: Prior lumbar spine plain film 03/07/2019, prior lumbar MRI 11/13/2009 HISTORY: lumbar stenosis TECHNIQUE: Multiplanar, multisequence images of the lumbar spine were acquired. There is extensive artifact, patient reports claustrophobia. There is been interval development of increased T2 signal within the L3 and L4 vertebral bodies, inte rmediate signal on T1-weighted images, there is multilevel spondylosis with endplate discogenic marro w signal changes. Interval loss of disc height L4-5, loss of disc height and signal L3-4, L1-2. There is minimal retrolisthesis grade 1 L3-4, L2-3. There is a spinal curvature. L1-L2: Posterior extension endplate disc complex causes mild anterior mass effect on the thecal sac. No significant central stenosis or foraminal encroachment. L2-L3: Broad-based posterior disc bulge causes minimal anterior mass effect on the thecal sac. No sig nificant central stenosis or foraminal encroachment. L3-L4: Posterior extension endplate disc complex causes mild anterior mass effect on the thecal sac. There is facet arthropathy change. No significant central stenosis. Circumferential extension endplat e disc complex results in bilateral foraminal encroachment. L4-L5: Posterior broad-based disc bulge causes mild anterior mass effect on the thecal sac. Circumfer ential extension endplate disc complex causes foraminal encroachment bilaterally. Facet arthropathy c hange. No significant central stenosis. L5-S1: There are facet arthropathy changes. Circumferential extension endplate disc complex encroache s somewhat on the neural foramen left greater than right. Only minimal disc bulge, no significant spi nal stenosis. Lumbar segments are intact. No paraspinal masses are identified. Conus medullaris has a normal appe arance. IMPRESSION: Images are degraded. There is degenerative disc disease, facet arthropathy foraminal encroachment whi ch is developed in the interval from prior lumbar MRI.
[2019-03-08] MEDS: BUMETANIDE 10 MG in DEXTROSE 5% IN WATER 60 ML IV SCH ×2 (14:45)
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
--- NOTE | 2019-03-08 16:44 | P.PN ---
Subjective Progress Note Date: 03/08/19 This is a 48-year-old female past medical history significant for COPD, hypertension, systolic heart failure, schizophrenia, PTSD and chronic nicotine dependence. She does not follow regularly with anybody in the office. [place] to the patient she was scheduled to see Dr. Bruner as a new patient in the office on Friday. He presented to the hospital with symptoms of bilateral leg swelling and discomfort with associated shortness of breath, PND, orthopnea, palpitations. Blood pressure this morning 144/80 with a heart rate in the 60s, 98% on room air. White blood cell count 12.6, hemoglobin 16.4, platelet count 3:15. Sodium 140, potassium 4.3, BUN 28 and creatinine 0.9. Objective - Vital Signs Vital signs: Vital Signs Temp 98.0 F 03/08/19 14:14 Pulse 68 03/08/19 14:14 Resp 16 03/08/19 14:14 BP 144/81 03/08/19 14:14 Pulse Ox 98 03/08/19 14:14 Intake & Output 03/07/19 03/08/19 03/08/19 18:59 06:59 18:59 Intake Total 1320 120 Output Total 1500 400 Balance -180 -400 120 Weight 100.8 kg 100.8 kg Intake: Oral 1320 120 Output: Urine 1500 400 Other: # Voids 1 1 1 # Bowel Movements 0 - Exam GENERAL: This is a 48-year-old occasion female in no apparent distress at the time of my examination. HEENT: Head is atraumatic, normocephalic. Pupils are equal, round. Sclerae anicteric. Conjunctivae are clear. Mucous membranes of the mouth are moist. Neck is supple. There is no jugular venous distention. No carotid bruit is heard. LUNGS: Clear to auscultation no wheezes, rales or rhonchi. No chest wall tender ness is noted on palpation or with deep breathing. Diminished bilaterally. HEART: Regular rate and rhythm without murmurs, rubs or gallops. S1 and S2 heard. ABDOMEN: Soft, nontender. Bowel sounds are heard. No organomegaly noted. EXTREMITIES: Bilateral lower extremity nonpitting circumferential edema and no calf tenderness noted. VASCULAR: Radial and dorsalis pedis pulses palpated, no evidence of clubbing. NEUROLOGIC: Patient is awake, alert and oriented x3. - Labs CBC & Chem 7: 03/08/19 06:50 03/08/19 06:50 Labs: Abnormal Lab Results - Last 24 Hours (Table) 03/08/19 03/08/19 Range/Units 06:50 06:50 WBC 12.6 H (3.8-10.6) k/uL RBC 5.58 H (3.80-5.40) m/uL Hgb 16.4 H (11.4-16.0) gm/dL Hct 51.9 H (34.0-46.0) % RDW 15.6 H (11.5-15.5) % Neutrophils # 10.6 H (1.3-7.7) k/uL BUN 28 H (7-17) mg/dL Glucose 213 H (74-99) mg/dL Calcium 10.3 H (8.4-10.2) mg/dL Assessment and Plan Plan: ASSESSMENT and plan #1Acute on chronic systolic heart failure #2Chest pain, atypical for angina. No EKG evidence of acute ischemia. #3Hypertension, uncontrolled #4Acute exacerbation of COPD #5Fibromyalgia #6Nicotine dependence #7 Plan We will discontinue the oral Demadex and start the patient on IV Bumex drip. The patient is also requesting something anxious, we will speak with the primary care. Continue beta sanna, BERNARDO inhibitor, and Aldactone, monitoring intake and output along with daily weights and daily lytes BUN and creatinine. DNP note has been reviewed, I agree with a documented findings and plan of care. Patient was seen and examined.
[2019-03-08] MEDS: ATORVASTATIN 20 MG TAB PO SCH (20:08)
[2019-03-08] MEDS: FAMOTIDINE 20 MG TAB PO SCH (20:08)
[2019-03-09] MEDS: BUMETANIDE 10 MG in DEXTROSE 5% IN WATER 60 ML IV SCH ×2 (04:11)
[2019-03-09] MEDS: CARVEDILOL 12.5 MG TAB PO SCH ×2 (06:25→17:43)
[2019-03-09] MEDS: methylPREDNISolone SOD SUCCI 40 MG/ML 1 ML VIAL IV SCH ×5 (06:25→23:02)
[2019-03-09] MEDS: MORPHINE SULFATE IR 15 MG TABLET PO PRN ×3 (06:31→21:49)
[2019-03-09] MEDS: FORMOTEROL FUMARATE 20 MCG/2 ML NEBU INHALATION SCH ×2 (06:57→19:33)
[2019-03-09] MEDS: IPRATROPIUM-ALBUTEROL 3 ML NEB INHALATION SCH ×4 (06:57→19:33)
[2019-03-09] MEDS: BUDESONIDE 1 MG/2 ML NEBU INHALATION SCH ×2 (06:57→19:32)
[2019-03-09 07:41] LABS: Glucose,Whole Blood 308 mg/dL (75-99)
[2019-03-09] MEDS: LIDOCAINE 5% PATCH TOPICAL SCH (08:38)
[2019-03-09] MEDS: FAMOTIDINE 20 MG TAB PO SCH ×2 (08:39→20:13)
[2019-03-09] MEDS: hydrALAZINE HCL 25 MG TAB PO SCH ×3 (08:39→21:06)
[2019-03-09] MEDS: LISINOPRIL 20 MG TAB PO SCH (08:39)
[2019-03-09] MEDS: SPIRONOLACTONE 25 MG TAB PO SCH (08:39)
[2019-03-09] MEDS: ESCITALOPRAM 10 MG TAB PO SCH (08:39)
[2019-03-09] MEDS: HEPARIN SODIUM,PORCINE 5,000 UNIT/ML 1 ML VIAL SQ SCH ×2 (08:39→20:13)
[2019-03-09] MEDS: AMOXIC-POT CLAV 875-125MG 1 EACH TAB PO SCH ×2 (08:39→20:13)
[2019-03-09] MEDS: INSULIN ASPART (NovoLOG) 100 UNIT/ML VIAL SQ SCH ×4 (08:51→21:07)
--- NOTE | 2019-03-09 11:26 | P.PN ---
Subjective Progress Note Date: 03/09/19 Principal diagnosis: Acute shortness of breath, multifactorial, related to exacerbation of CHF and COPD The patient is seen today 03/09/2019 in follow-up on the selective care unit. She is currently sitting up at the bedside. She is maintaining O2 saturations in the low 90s on room air. She is breathing easier today as compared to yesterday. Still not quite back to her baseline. She remains on a Bumex drip at 0.5 mg per hour. Less edema of the lower extremities. Creatinine 1.09. Continued on bronchodilators, steroids, antibiotics. Objective - Vital Signs Vital signs: Vital Signs Temp 97.6 F 03/09/19 04:00 Pulse 61 03/09/19 08:00 Resp 16 03/09/19 08:00 BP 154/84 03/09/19 08:00 Pulse Ox 93 L 03/09/19 08:00 Intake & Output 03/08/19 03/09/19 03/09/19 18:59 06:59 18:59 Intake Total 240 67.167 240 Output Total 5050 Balance 240 -4982.833 240 Weight 100.8 kg 98.5 kg Intake: Intake, IV Titration 67.167 Amount Bumetanide 10 mg In 67.167 Dextrose 5% in Water 60 ml @ 0.5 MG/HR 5 mls/hr IV .Q20H [facility] Rx#: [id number] Oral 240 240 Output: Urine 5050 Other: Voiding Method Bedside Commode Bedside Commode # Voids 1 1 1 # Bowel Movements 0 0 - Exam GENERAL EXAM: Alert, active, comfortable in no apparent distress. On room air. HEAD: Normocephalic. EYES: Normal reaction of pupils, equal size. NOSE: Clear with pink turbinates. THROAT: No erythema or exudates. NECK: No masses, no JVD. CHEST: No chest wall deformity. LUNGS: Equal air entry with crackles in the bilateral posterior bases, end expiratory wheeze, diminished CVS: S1 and S2 normal with no audible murmur, regular rhythm. ABDOMEN: No hepatosplenomegaly, normal bowel sounds, no guarding or rigidity. SPINE: No scoliosis or deformity SKIN: No rashes CENTRAL NERVOUS SYSTEM: No focal deficits, tone is normal in all 4 extremities. EXTREMITIES: There is 2+ peripheral edema. No clubbing, no cyanosis. Peripheral pulses are intact. - Labs CBC & Chem 7: 03/08/19 06:50 03/09/19 08:28 Labs: Abnormal Lab Results - Last 24 Hours (Table) 03/09/19 03/09/19 Range/Units 07:39 08:28 Chloride 95 L (98-107) mmol/L Carbon Dioxide 31 H (22-30) mmol/L BUN 39 H (7-17) mg/dL Creatinine 1.09 H (0.52-1.04) mg/dL Glucose 349 H (74-99) mg/dL POC Glucose (mg/dL) 308 H (75-99) mg/dL Assessment and Plan Assessment: Assessment: #1. Acute shortness of breath, multifactorial, related to exacerbation of chronic obstructive pulmonary disease and congestive heart failure with systolic dysfunction #2. Significant lower extremity edema, likely related to underlying congestive heart failure and probable cor pulmonale and pulmonary hypertension #3. Chronic and ongoing tobacco use, nicotine addiction #4. Morbid obesity #4. Hypertension #5. Elevated d-dimer with no evidence of pulmonary embolism or deep vein thrombosis #6. History of angina #7. Fibromyalgia #8. Osteoarthritis #9. History of pancreatic pseudocyst and subsequent removal #10. History of duodenal ulcer #11. Choledyl Colace with GI service, status post ERCP #12. Degenerative disc disease #13. Insomnia #14. Multiple neuropsychiatric issues including bipolar disorder, depression, panic disorder PTSD and schizophrenia Plan: The patient was seen and evaluated by Dr. Goncalves. She is improved today compared to yesterday. We'll continue with the current treatment plan. Increase her activity as tolerated. We'll continue to follow. I, the cosigning physician, performed a history & physical examination of the patient. Lungs sounds with crackles in the posterior bases, end expiratory wheeze, diminished. Maintaining good O2 saturations in the 90s on room air. I discussed the assessment and plan of care with my nurse practitioner, Marixa Kebede. I attest to the above note as dictated by her.
[2019-03-09 11:51] LABS: Glucose,Whole Blood 241 mg/dL (75-99)
--- NOTE | 2019-03-09 12:03 | P.PN ---
Subjective Progress Note Date: 03/09/19 This is a 48-year-old female past medical history significant for COPD, hypertension, systolic heart failure, schizophrenia, PTSD and chronic nicotine dependence. She does not follow regularly with anybody in the office. [place] to the patient she was scheduled to see Dr. Bruner as a new patient in the office on Friday. He presented to the hospital with symptoms of bilateral leg swelling and discomfort with associated shortness of breath, PND, orthopnea, palpitations. Blood pressure this morning 144/80 with a heart rate in the 60s, 98% on room air. White blood cell count 12.6, hemoglobin 16.4, platelet count 3:15. Sodium 140, potassium 4.3, BUN 28 and creatinine 0.9. 03/09/2019 Patient seen and examined this morning diuresed well through the night last night, her weight is down 2 kg today. She continues to have at least 2+ bilateral pitting edema to her lower extremities however it has improved significantly since yesterday. Blood pressure this morning 154/80 with a heart rate in the 60s, 93% on room air. Sodium 138, potassium 4.0, BUN 39 and creatinine 1.09. Objective - Vital Signs Vital signs: Vital Signs Temp 97.6 F 03/09/19 04:00 Pulse 61 03/09/19 08:00 Resp 16 03/09/19 08:00 BP 154/84 03/09/19 08:00 Pulse Ox 93 L 03/09/19 08:00 Intake & Output 03/08/19 03/09/19 03/09/19 18:59 06:59 18:59 Intake Total 240 67.167 240 Output Total 5050 Balance 240 -4982.833 240 Weight 100.8 kg 98.5 kg Intake: Intake, IV Titration 67.167 Amount Bumetanide 10 mg In 67.167 Dextrose 5% in Water 60 ml @ 0.5 MG/HR 5 mls/hr IV .Q20H [facility] Rx#: [id number] Oral 240 240 Output: Urine 5050 Other: Voiding Method Bedside Commode Bedside Commode # Voids 1 1 1 # Bowel Movements 0 0 - Exam GENERAL: This is a 48-year-old occasion female in no apparent distress at the time of my examination. HEENT: Head is atraumatic, normocephalic. Pupils are equal, round. Sclerae anicteric. Conjunctivae are clear. Mucous membranes of the mouth are moist. Neck is supple. There is no jugular venous distention. No carotid bruit is heard. LUNGS: Clear to auscultation no wheezes, rales or rhonchi. No chest wall tenderness is noted on palpation or with deep breathing. Diminished bilaterally. HEART: Regular rate and rhythm without murmurs, rubs or gallops. S1 and S2 heard. ABDOMEN: Soft, nontender. Bowel sounds are heard. No organomegaly noted. EXTREMITIES: Bilateral lower extremity pitting circumferential edema 2+. VASCULAR: Radial and dorsalis pedis pulses palpated, no evidence of clubbing. NEUROLOGIC: Patient is awake, alert and oriented x3. - Labs CBC & Chem 7: 03/08/19 06:50 03/09/19 08:28 Labs: Abnormal Lab Results - Last 24 Hours (Table) 03/09/19 03/09/19 03/09/19 Range/Units 07:39 08:28 11:47 Chloride 95 L (98-107) mmol/L Carbon Dioxide 31 H (22-30) mmol/L BUN 39 H (7-17) mg/dL Creatinine 1.09 H (0.52-1.04) mg/dL Glucose 349 H (74-99) mg/dL POC Glucose (mg/dL) 308 H 241 H (75-99) mg/dL Assessment and Plan Plan: ASSESSMENT and plan #1Acute on chronic systolic heart failure #2Chest pain, atypical for angina. No EKG evidence of acute ischemia. #3Hypertension, uncontrolled #4Acute exacerbation of COPD #5Fibromyalgia #6Nicotine dependence #7 Plan From cardiology's perspective, we'll continue Bumex drip at current rate. Continue to monitor intake and output along with daily weights and daily lytes BUN and creatinine. DNP note has been reviewed, I agree with a documented findings and plan of care. Patient was seen and examined.
[2019-03-09 17:00] LABS: Glucose,Whole Blood 252 mg/dL (75-99)
[2019-03-09] MEDS: ATORVASTATIN 20 MG TAB PO SCH (20:13)
[2019-03-09] MEDS: SENNOSIDES 8.6 MG TAB PO PRN (20:13)
[2019-03-09 21:03] LABS: Glucose,Whole Blood 239 mg/dL (75-99)
[2019-03-10] MEDS: TEMAZEPAM 7.5 MG CAP PO PRN (00:56)
[2019-03-10] MEDS: BUMETANIDE 10 MG in DEXTROSE 5% IN WATER 60 ML IV SCH ×2 (04:01)
[2019-03-10] MEDS: methylPREDNISolone SOD SUCCI 40 MG/ML 1 ML VIAL IV SCH (05:53)
[2019-03-10 05:56] LABS: Glucose,Whole Blood 300 mg/dL (75-99)
[2019-03-10] MEDS: INSULIN ASPART (NovoLOG) 100 UNIT/ML VIAL SQ SCH ×4 (06:17→21:30)
[2019-03-10] MEDS: CARVEDILOL 12.5 MG TAB PO SCH ×2 (06:17→16:41)
[2019-03-10 07:11] LABS: Basophils % (A) 0 %; Eosinophils % (A) 0 %; HCT 55.1 % (34.0-46.0); HGB 17.6 gm/dL (11.4-16.0); Lymphocytes # (A) 0.7 k/uL (1.0-4.8); Lymphocytes % (A) 4 %; MCH 30.1 pg (25.0-35.0); MCHC 31.8 g/dL (31.0-37.0); MCV 94.5 fL (80.0-100.0); Mean Platelet Volume 7.3; Monocytes # (A) 0.5 k/uL (0-1.0); Monocytes % (A) 3 %; Neutrophils # (A) 15.8 k/uL (1.3-7.7); Neutrophils % (A) 93 %; Platelet Count 319 k/uL (150-450); RBC 5.83 m/uL (3.80-5.40); RDW 15.5 % (11.5-15.5); WBC 17.1 k/uL (3.8-10.6)
[2019-03-10 07:28] LABS: Potassium 3.7 mmol/L (3.5-5.1)
[2019-03-10] MEDS: LIDOCAINE 5% PATCH TOPICAL SCH (08:24)
[2019-03-10] MEDS: MORPHINE SULFATE IR 15 MG TABLET PO PRN ×2 (08:25→18:31)
[2019-03-10] MEDS: ESCITALOPRAM 10 MG TAB PO SCH (08:26)
[2019-03-10] MEDS: AMOXIC-POT CLAV 875-125MG 1 EACH TAB PO SCH ×2 (08:26→21:29)
[2019-03-10] MEDS: LISINOPRIL 20 MG TAB PO SCH (08:26)
[2019-03-10] MEDS: HEPARIN SODIUM,PORCINE 5,000 UNIT/ML 1 ML VIAL SQ SCH ×2 (08:26→21:29)
[2019-03-10] MEDS: SPIRONOLACTONE 25 MG TAB PO SCH (08:26)
[2019-03-10] MEDS: FAMOTIDINE 20 MG TAB PO SCH (08:26)
[2019-03-10] MEDS: hydrALAZINE HCL 25 MG TAB PO SCH ×3 (08:26→21:30)
[2019-03-10] MEDS: FORMOTEROL FUMARATE 20 MCG/2 ML NEBU INHALATION SCH ×2 (08:43→20:31)
[2019-03-10] MEDS: BUDESONIDE 1 MG/2 ML NEBU INHALATION SCH ×2 (08:43→20:31)
[2019-03-10] MEDS: IPRATROPIUM-ALBUTEROL 3 ML NEB INHALATION SCH ×4 (08:43→20:31)
--- NOTE | 2019-03-10 11:17 | P.PN ---
Subjective Progress Note Date: 03/10/19 This is a 48-year-old female past medical history significant for COPD, hypertension, systolic heart failure, schizophrenia, PTSD and chronic nicotine dependence. She does not follow regularly with anybody in the office. [place] to the patient she was scheduled to see Dr. Bruner as a new patient in the office on Friday. He presented to the hospital with symptoms of bilateral leg swelling and discomfort with associated shortness of breath, PND, orthopnea, palpitations. Blood pressure this morning 144/80 with a heart rate in the 60s, 98% on room air. White blood cell count 12.6, hemoglobin 16.4, platelet count 3:15. Sodium 140, potassium 4.3, BUN 28 and creatinine 0.9. 03/09/2019 Patient seen and examined this morning diuresed well through the night last night, her weight is down 2 kg today. She continues to have at least 2+ bilateral pitting edema to her lower extremities however it has improved significantly since yesterday. Blood pressure this morning 154/80 with a heart rate in the 60s, 93% on room air. Sodium 138, potassium 4.0, BUN 39 and creatinine 1.09. 03/10/2019 Patient seen and examined this morning, diuresed about 5000 mL through the night last night. Weight is down today. Repeat chest x-ray has been ordered for today. Blood pressure 132/70 with a heart rate in the 60s, 95% on room air. White blood cell count 17.9, hemoglobin 7.6, platelet count 319. Sodium 140, potassium 3.7, BUN 56 and creatinine 1.3. Patient overall does feel better, she states she was lightheaded getting up to the bathroom today which is likely secondary to the amount of fluid she's been putting out Bumex drip. She still continues to have at least 2+ bilateral pitting edema to her lower extremities however much improved from presentation here. We will review her repeat chest x-ray, obtain a repeat BNP level and continue Bumex drip for 24 hours. Objective - Vital Signs Vital signs: Vital Signs Temp 98.2 F 03/10/19 08:00 Pulse 68 03/10/19 09:03 Resp 16 03/10/19 08:00 BP 132/76 03/10/19 08:00 Pulse Ox 95 03/10/19 08:00 Intake & Output 03/09/19 03/10/19 03/10/19 18:59 06:59 18:59 Intake Total 480 100 700 Output Total 3850 2100 Balance -3369 700 Weight 98 kg Intake: Intake, IV Titration 100 Amount Bumetanide 10 mg In 100 Dextrose 5% in Water 60 ml @ 0.5 MG/HR 5 mls/hr IV .Q20H [facility] Rx#: [id number] Oral 480 700 Output: Gastric Drainage 150 Urine 3700 2100 Other: Voiding Method Bedside Commode Bedside Commode Bedside Commode # Voids 1 2 # Bowel Movements 0 0 - Exam GENERAL: This is a 48-year-old occasion female in no apparent distress at the time of my examination. HEENT: Head is atraumatic, normocephalic. Pupils are equal, round. Sclerae anicteric. Conjunctivae are clear. Mucous membranes of the mouth are moist. Neck is supple. There is no jugular venous distention. No carotid bruit is heard. LUNGS: Clear to auscultation no wheezes, rales or rhonchi. No chest wall tenderness is noted on palpation or with deep breathing. Diminished bilaterally. HEART: Regular rate and rhythm without murmurs, rubs or gallops. S1 and S2 heard. ABDOMEN: Soft, nontender. Bowel sounds are heard. No organomegaly noted. EXTREMITIES: Bilateral lower extremity pitting circumferential edema 2+. VASCULAR: Radial and dorsalis pedis pulses palpated, no evidence of clubbing. NEUROLOGIC: Patient is awake, alert and oriented x3. - Labs CBC & Chem 7: 03/10/19 06:32 03/10/19 06:32 Labs: Abnormal Lab Results - Last 24 Hours (Table) 03/09/19 03/09/19 03/09/19 Range/Units 11:47 16:58 21:02 WBC (3.8-10.6) k/uL RBC (3.80-5.40) m/uL Hgb (11.4-16.0) gm/dL Hct (34.0-46.0) % Neutrophils # (1.3-7.7) k/uL Lymphocytes # (1.0-4.8) k/uL Chloride (98-107) mmol/L Carbon Dioxide (22-30) mmol/L BUN (7-17) mg/dL Creatinine (0.52-1.04) mg/dL Glucose (74-99) mg/dL POC Glucose (mg/dL) 241 H 252 H 239 H (75-99) mg/dL 03/10/19 03/10/19 03/10/19 Range/Units 05:55 06:32 06:32 WBC 17.1 H (3.8-10.6) k/uL RBC 5.83 H (3.80-5.40) m/uL Hgb 17.6 H (11.4-16.0) gm/dL Hct 55.1 H (34.0-46.0) % Neutrophils # 15.8 H (1.3-7.7) k/uL Lymphocytes # 0.7 L (1.0-4.8) k/uL Chloride 93 L (98-107) mmol/L Carbon Dioxide 35 H (22-30) mmol/L BUN 56 H (7-17) mg/dL Creatinine 1.32 H (0.52-1.04) mg/dL Glucose 268 H (74-99) mg/dL POC Glucose (mg/dL) 300 H (75-99) mg/dL Assessment and Plan Plan: ASSESSMENT and plan #1Acute on chronic systolic heart failure #2Chest pain, atypical for angina. No EKG evidence of acute ischemia. #3Hypertension, uncontrolled #4Acute exacerbation of COPD #5Fibromyalgia #6Nicotine dependence #7 Plan From cardiology's perspective, we'll continue Bumex drip at current rate. Continue to monitor intake and output along with daily weights and daily lytes BUN and creatinine. Repeat chest x-ray and BNP level DNP note has been reviewed, I agree with a documented findings and plan of care. Patient was seen and examined.
[2019-03-10 12:04] LABS: Glucose,Whole Blood 341 mg/dL (75-99)
--- NOTE | 2019-03-10 14:14 | P.PN ---
Subjective Progress Note Date: 03/10/19 Principal diagnosis: Acute shortness of breath, multifactorial, related to exacerbation of CHF and COPD The patient is seen today 03/09/2019 in follow-up on the selective care unit. She is currently sitting up at the bedside. She is maintaining O2 saturations in the low 90s on room air. She is breathing easier today as compared to yesterday. Still not quite back to her baseline. She remains on a Bumex drip at 0.5 mg per hour. Less edema of the lower extremities. Creatinine 1.09. Continued on bronchodilators, steroids, antibiotics. The patient is seen today 03/10/2019 in follow-up on the selective care unit. She is up ambulating in the room. No worsening shortness of breath, cough or congestion. No chest pain. Still with some swelling in lower extremities and unsteady gait. She is maintaining O2 saturations in the mid 90s on room air. She's been afebrile. Hemodynamically stable. White count 7.1. Hemoglobin 17.6. Creatinine 1.32. ProBNP 2290. She is currently on DuoNeb inhalations, Pulmicort and Perforomist inhalations, IV Solu-Medrol. Antibiotics in the form of Augmentin. She been maintained on a Bumex drip at 0.5 mg per hour. Objective - Vital Signs Vital signs: Vital Signs Temp 98.2 F 03/10/19 08:00 Pulse 68 03/10/19 12:10 Resp 16 03/10/19 11:13 BP 132/76 03/10/19 08:00 Pulse Ox 95 03/10/19 08:00 Intake & Output 03/09/19 03/10/19 03/10/19 18:59 06:59 18:59 Intake Total 480 100 940 Output Total 3850 2100 500 Balance -3370 -2000 440 Weight 98 kg Intake: Intake, IV Titration 100 Amount Bumetanide 10 mg In 100 Dextrose 5% in Water 60 ml @ 0.5 MG/HR 5 mls/hr IV .Q20H [facility] Rx#: [id number] Oral 480 940 Output: Gastric Drainage 150 Urine 3700 2100 500 Other: Voiding Method Bedside Commode Bedside Commode Bedside Commode # Voids 1 2 # Bowel Movements 0 0 - Exam GENERAL EXAM: Pleasant 48-year-old female patient. Alert, active, comfortable in no apparent distress. On room air. HEAD: Normocephalic. EYES: Normal reaction of pupils, equal size. NOSE: Clear with pink turbinates. THROAT: No erythema or exudates. NECK: No masses, no JVD. CHEST: No chest wall deformity. LUNGS: Equal air entry with crackles in the bilateral posterior bases, end expiratory wheeze, diminished CVS: S1 and S2 normal with no audible murmur, regular rhythm. ABDOMEN: No hepatosplenomegaly, normal bowel sounds, no guarding or rigidity. SPINE: No scoliosis or deformity SKIN: No rashes CENTRAL NERVOUS SYSTEM: No focal deficits, tone is normal in all 4 extremities. EXTREMITIES: There is 2+ peripheral edema. No clubbing, no cyanosis. Peripheral pulses are intact. - Labs CBC & Chem 7: 03/10/19 06:32 03/10/19 06:32 Labs: Abnormal Lab Results - Last 24 Hours (Table) 03/09/19 03/09/19 03/10/19 Range/Units 16:58 21:02 05:55 WBC (3.8-10.6) k/uL RBC (3.80-5.40) m/uL Hgb (11.4-16.0) gm/dL Hct (34.0-46.0) % Neutrophils # (1.3-7.7) k/uL Lymphocytes # (1.0-4.8) k/uL Chloride (98-107) mmol/L Carbon Dioxide (22-30) mmol/L BUN (7-17) mg/dL Creatinine (0.52-1.04) mg/dL Glucose (74-99) mg/dL POC Glucose (mg/dL) 252 H 239 H 300 H (75-99) mg/dL 03/10/19 03/10/19 03/10/19 Range/Units 06:32 06:32 11:46 WBC 17.1 H (3.8-10.6) k/uL RBC 5.83 H (3.80-5.40) m/uL Hgb 17.6 H (11.4-16.0) gm/dL Hct 55.1 H (34.0-46.0) % Neutrophils # 15.8 H (1.3-7.7) k/uL Lymphocytes # 0.7 L (1.0-4.8) k/uL Chloride 93 L (98-107) mmol/L Carbon Dioxide 35 H (22-30) mmol/L BUN 56 H (7-17) mg/dL Creatinine 1.32 H (0.52-1.04) mg/dL Glucose 268 H (74-99) mg/dL POC Glucose (mg/dL) 341 H (75-99) mg/dL Assessment and Plan Assessment: Assessment: #1. Acute shortness of breath, multifactorial, related to exacerbation of chronic obstructive pulmonary disease and congestive heart failure with systolic dysfunction #2. Significant lower extremity edema, likely related to underlying congestive heart failure and probable cor pulmonale and pulmonary hypertension #3. Chronic and ongoing tobacco use, nicotine addiction #4. Morbid obesity #4. Hypertension #5. Elevated d-dimer with no evidence of pulmonary embolism or deep vein thrombosis #6. History of angina #7. Fibromyalgia #8. Osteoarthritis #9. History of pancreatic pseudocyst and subsequent removal #10. History of duodenal ulcer #11. Choledyl Colace with GI service, status post ERCP #12. Degenerative disc disease #13. Insomnia #14. Multiple neuropsychiatric issues including bipolar disorder, depression, panic disorder PTSD and schizophrenia Plan: The patient was seen and evaluated by Dr. Goncalves. She is currently stable from the pulmonary standpoint. We'll discontinue the IV Solu-Medrol and started on a prednisone taper. Increase her activity as tolerated. We'll continue to follow. I, the cosigning physician, performed a history & physical examination of the patient. Lungs sounds with crackles in the posterior bases, diminished. Maintaining good O2 saturations in the 90s on room air. I discussed the assessment and plan of care with my nurse practitioner, Marixa Kebede. I attest to the above note as dictated by her.
--- NOTE | 2019-03-10 15:27 | XR ---
EXAMINATION TYPE: XR chest 2V DATE OF EXAM: 03/10/2019 COMPARISON: 03/06/2019 HISTORY: Chest pain TECHNIQUE: Frontal and lateral views of the chest are obtained. FINDINGS: Strandy basilar densities noted compatible with atelectasis. Developing infiltrate difficult to exclu de. No evidence for pneumothorax. No pleural effusion. The cardiac silhouette size is enlarged. The osseous structures are grossly intact. IMPRESSION: 1. Strandy basilar densities noted compatible with atelectasis. Developing infiltrate difficult to e xclude.
[2019-03-10 16:37] LABS: Glucose,Whole Blood 155 mg/dL (75-99)
[2019-03-10] MEDS ORDERED: ALPRAZolam 0.25 MG TAB PO STA (20:51)
[2019-03-10 20:55] LABS: Glucose,Whole Blood 237 mg/dL (75-99)
[2019-03-10] MEDS: ATORVASTATIN 20 MG TAB PO SCH (21:29)
[2019-03-11] MEDS: BUMETANIDE 10 MG in DEXTROSE 5% IN WATER 60 ML IV SCH ×2
[2019-03-11] MEDS: MORPHINE SULFATE IR 15 MG TABLET PO PRN (03:30)
[2019-03-11 06:25] LABS: Glucose,Whole Blood 137 mg/dL (75-99)
[2019-03-11] MEDS: CARVEDILOL 12.5 MG TAB PO SCH ×2 (06:37→15:57)
[2019-03-11] MEDS: INSULIN ASPART (NovoLOG) 100 UNIT/ML VIAL SQ SCH ×2 (06:37→12:27)
[2019-03-11] MEDS: IPRATROPIUM-ALBUTEROL 3 ML NEB INHALATION SCH ×3 (07:47→15:41)
[2019-03-11] MEDS: BUDESONIDE 1 MG/2 ML NEBU INHALATION SCH (07:47)
[2019-03-11] MEDS: FORMOTEROL FUMARATE 20 MCG/2 ML NEBU INHALATION SCH (07:47)
[2019-03-11] MEDS ORDERED: FAMOTIDINE 20 MG TAB PO SCH (09:00)
[2019-03-11] MEDS ORDERED: predniSONE 20 MG TAB PO SCH (09:00)
[2019-03-11] MEDS ORDERED: BUMETANIDE 0.5 MG TABLET PO SCH (09:00)
[2019-03-11] MEDS: hydrALAZINE HCL 25 MG TAB PO SCH ×2 (09:29→15:57)
[2019-03-11] MEDS: LISINOPRIL 20 MG TAB PO SCH (09:30)
[2019-03-11 09:35] LABS: Calcium 9.1 mg/dL (8.4-10.2); Potassium 3.6 mmol/L (3.5-5.1)
[2019-03-11] MEDS: LIDOCAINE 5% PATCH TOPICAL SCH (09:36)
[2019-03-11] MEDS: SPIRONOLACTONE 25 MG TAB PO SCH (09:37)
[2019-03-11] MEDS: ESCITALOPRAM 10 MG TAB PO SCH (09:37)
[2019-03-11] MEDS: HEPARIN SODIUM,PORCINE 5,000 UNIT/ML 1 ML VIAL SQ SCH (09:38)
[2019-03-11] MEDS: AMOXIC-POT CLAV 875-125MG 1 EACH TAB PO SCH (09:38)
[2019-03-11 10:59] VITALS: RESP 16; TEMP 97.7
[2019-03-11 12:17] LABS: Glucose,Whole Blood 187 mg/dL (75-99)
--- NOTE | 2019-03-11 13:52 | P.PN ---
Subjective Progress Note Date: 03/11/19 Principal diagnosis: Acute shortness of breath, multifactorial, related to exacerbation of CHF and COPD The patient is seen today 03/09/2019 in follow-up on the selective care unit. She is currently sitting up at the bedside. She is maintaining O2 saturations in the low 90s on room air. She is breathing easier today as compared to yesterday. Still not quite back to her baseline. She remains on a Bumex drip at 0.5 mg per hour. Less edema of the lower extremities. Creatinine 1.09. Continued on bronchodilators, steroids, antibiotics. The patient is seen today 03/10/2019 in follow-up on the selective care unit. She is up ambulating in the room. No worsening shortness of breath, cough or congestion. No chest pain. Still with some swelling in lower extremities and unsteady gait. She is maintaining O2 saturations in the mid 90s on room air. She's been afebrile. Hemodynamically stable. White count 7.1. Hemoglobin 17.6. Creatinine 1.32. ProBNP 2290. She is currently on DuoNeb inhalations, Pulmicort and Perforomist inhalations, IV Solu-Medrol. Antibiotics in the form of Augmentin. She been maintained on a Bumex drip at 0.5 mg per hour. The patient is seen today 03/11/2019 in follow-up on the selective care unit. She is awake and alert in no acute distress. She denies any worsening shortness of breath, cough or congestion. No chills or night sweats. Again O2 saturations in the 90s on room air. She's afebrile. Creatinine 1.37. She remains on a Bumex drip at 0.5 mg per hour. Continued on bronchodilators, prednisone and antibiotics in the form of Augmentin. Objective - Vital Signs Vital signs: Vital Signs Temp 97.7 F 03/11/19 08:00 Pulse 53 L 03/11/19 12:00 Resp 16 03/11/19 12:00 BP 120/69 03/11/19 12:00 Pulse Ox 94 L 03/11/19 12:00 Intake & Output 03/10/19 03/11/19 03/11/19 18:59 06:59 18:59 Intake Total 1420 99.917 240 Output Total 2400 1650 300 Balance -980 -1550.083 -60 Weight 97.5 kg Intake: Intake, IV Titration 99.917 Amount Bumetanide 10 mg In 99.917 Dextrose 5% in Water 60 ml @ 0.5 MG/HR 5 mls/hr IV .Q20H [facility] Rx#: [id number] Oral 1420 240 Output: Urine 2400 1650 300 Other: Voiding Method Bedside Commode Bedside Commode Bedside Commode # Bowel Movements 0 - Exam GENERAL EXAM: Pleasant 48-year-old female patient. Alert, active, comfortable in no apparent distress. On room air. HEAD: Normocephalic. EYES: Normal reaction of pupils, equal size. NOSE: Clear with pink turbinates. THROAT: No erythema or exudates. NECK: No masses, no JVD. CHEST: No chest wall deformity. LUNGS: Equal air entry with crackles in the bilateral posterior bases, diminished. CVS: S1 and S2 normal with no audible murmur, regular rhythm. ABDOMEN: No hepatosplenomegaly, normal bowel sounds, no guarding or rigidity. SPINE: No scoliosis or deformity SKIN: No rashes CENTRAL NERVOUS SYSTEM: No focal deficits, tone is normal in all 4 extremities. EXTREMITIES: There is 2+ peripheral edema. No clubbing, no cyanosis. Peripheral pulses are intact. - Labs CBC & Chem 7: 03/10/19 06:32 03/11/19 08:54 Labs: Abnormal Lab Results - Last 24 Hours (Table) 03/10/19 03/10/19 03/11/19 Range/Units 16:35 20:54 06:24 Chloride (98-107) mmol/L Carbon Dioxide (22-30) mmol/L BUN (7-17) mg/dL Creatinine (0.52-1.04) mg/dL Glucose (74-99) mg/dL POC Glucose (mg/dL) 155 H 237 H 137 H (75-99) mg/dL 03/11/19 03/11/19 Range/Units 08:54 12:04 Chloride 95 L (98-107) mmol/L Carbon Dioxide 32 H (22-30) mmol/L BUN 80 H (7-17) mg/dL Creatinine 1.37 H (0.52-1.04) mg/dL Glucose 153 H (74-99) mg/dL POC Glucose (mg/dL) 187 H (75-99) mg/dL Assessment and Plan Assessment: Assessment: #1. Acute shortness of breath, multifactorial, related to exacerbation of chronic obstructive pulmonary disease and congestive heart failure with systolic dysfunction #2. Significant lower extremity edema, likely related to underlying congestive heart failure and probable cor pulmonale and pulmonary hypertension #3. Chronic and ongoing tobacco use, nicotine addiction #4. Morbid obesity #4. Hypertension #5. Elevated d-dimer with no evidence of pulmonary embolism or deep vein thrombosis #6. History of angina #7. Fibromyalgia #8. Osteoarthritis #9. History of pancreatic pseudocyst and subsequent removal #10. History of duodenal ulcer #11. Choledyl Colace with GI service, status post ERCP #12. Degenerative disc disease #13. Insomnia #14. Multiple neuropsychiatric issues including bipolar disorder, depression, panic disorder PTSD and schizophrenia Plan: The patient was seen and evaluated by Dr. Goncalves. She is currently stable from the pulmonary standpoint. We will see the patient on as-needed basis. I, the cosigning physician, performed a history & physical examination of the patient. Lungs sounds with crackles in the posterior bases, diminished. Maintaining good O2 saturations in the 90s on room air. I discussed the assessment and plan of care with my nurse practitioner, Marixa Kebede. I attest to the above note as dictated by her.
--- NOTE | 2019-03-11 14:56 | P.PN ---
Subjective Progress Note Date: 03/11/19 This is a 48-year-old female past medical history significant for COPD, hypertension, systolic heart failure, schizophrenia, PTSD and chronic nicotine dependence. She does not follow regularly with anybody in the office. [place] to the patient she was scheduled to see Dr. Bruner as a new patient in the office on Friday. He presented to the hospital with symptoms of bilateral leg swelling and discomfort with associated shortness of breath, PND, orthopnea, palpitations. Blood pressure this morning 144/80 with a heart rate in the 60s, 98% on room air. White blood cell count 12.6, hemoglobin 16.4, platelet count 3:15. Sodium 140, potassium 4.3, BUN 28 and creatinine 0.9. 03/09/2019 Patient seen and examined this morning diuresed well through the night last night, her weight is down 2 kg today. She continues to have at least 2+ bilateral pitting edema to her lower extremities however it has improved significantly since yesterday. Blood pressure this morning 154/80 with a heart rate in the 60s, 93% on room air. Sodium 138, potassium 4.0, BUN 39 and creatinine 1.09. 03/10/2019 Patient seen and examined this morning, diuresed about 5000 mL through the night last night. Weight is down today. Repeat chest x-ray has been ordered for today. Blood pressure 132/70 with a heart rate in the 60s, 95% on room air. White blood cell count 17.9, hemoglobin 7.6, platelet count 319. Sodium 140, potassium 3.7, BUN 56 and creatinine 1.3. Patient overall does feel better, she states she was lightheaded getting up to the bathroom today which is likely secondary to the amount of fluid she's been putting out Bumex drip. She still continues to have at least 2+ bilateral pitting edema to her lower extremities however much improved from presentation here. We will review her repeat chest x-ray, obtain a repeat BNP level and continue Bumex drip for 24 hours. 03/11/2019 Patient seen and examined today, awake and alert, no acute distress, she denies any worsening shortness of breath, still complains of intermittent mild dizziness. Afebrile, creatinine 1.3. She continues to be on IV Bumex drip. This will be discontinued today and patient will be started on oral diuretics. She again diuresed well through the night last night. Objective - Vital Signs Vital signs: Vital Signs Temp 97.7 F 03/11/19 08:00 Pulse 53 L 03/11/19 12:00 Resp 16 03/11/19 12:00 BP 120/69 03/11/19 12:00 Pulse Ox 94 L 03/11/19 12:00 Intake & Output 03/10/19 03/11/19 03/11/19 18:59 06:59 18:59 Intake Total 1420 99.917 240 Output Total 2400 1650 300 Balance -980 -1550.083 -60 Weight 97.5 kg Intake: Intake, IV Titration 99.917 Amount Bumetanide 10 mg In 99.917 Dextrose 5% in Water 60 ml @ 0.5 MG/HR 5 mls/hr IV .Q20H [facility] Rx#: [id number] Oral 1420 240 Output: Urine 2400 1650 300 Other: Voiding Method Bedside Commode Bedside Commode Bedside Commode # Bowel Movements 0 - Exam GENERAL: This is a 48-year-old occasion female in no apparent distress at the time of my examination. HEENT: Head is atraumatic, normocephalic. Pupils are equal, round. Sclerae anicteric. Conjunctivae are clear. Mucous membranes of the mouth are moist. Neck is supple. There is no jugular venous distention. No carotid bruit is heard. LUNGS: Clear to auscultation no wheezes, rales or rhonchi. No chest wall tenderness is noted on palpation or with deep breathing. Diminished bilatera lly. HEART: Regular rate and rhythm without murmurs, rubs or gallops. S1 and S2 heard. ABDOMEN: Soft, nontender. Bowel sounds are heard. No organomegaly noted. EXTREMITIES: Bilateral lower extremity pitting circumferential edema trace to 1+. VASCULAR: Radial and dorsalis pedis pulses palpated, no evidence of clubbing. NEUROLOGIC: Patient is awake, alert and oriented x3. - Labs CBC & Chem 7: 03/10/19 06:32 03/11/19 08:54 Labs: Abnormal Lab Results - Last 24 Hours (Table) 03/10/19 03/10/19 03/11/19 Range/Units 16:35 20:54 06:24 Chloride (98-107) mmol/L Carbon Dioxide (22-30) mmol/L BUN (7-17) mg/dL Creatinine (0.52-1.04) mg/dL Glucose (74-99) mg/dL POC Glucose (mg/dL) 155 H 237 H 137 H (75-99) mg/dL 03/11/19 03/11/19 Range/Units 08:54 12:04 Chloride 95 L (98-107) mmol/L Carbon Dioxide 32 H (22-30) mmol/L BUN 80 H (7-17) mg/dL Creatinine 1.37 H (0.52-1.04) mg/dL Glucose 153 H (74-99) mg/dL POC Glucose (mg/dL) 187 H (75-99) mg/dL Assessment and Plan Plan: ASSESSMENT and plan #1Acute on chronic systolic heart failure #2Chest pain, atypical for angina. No EKG evidence of acute ischemia. #3Hypertension, uncontrolled #4Acute exacerbation of COPD #5Fibromyalgia #6Nicotine dependence #7 Plan From cardiology's perspective, we'll discontinue the IV Bumex drip and start the patient on oral Bumex from today. She may be able to be discharged home from our perspective, to follow-up in the office with Dr. Arreguin post discharge. DNP note has been reviewed, I agree with a documented findings and plan of care. Patient was seen and examined.
[2019-03-11 15:53] VITALS: BP 135/74; PULSE 56
--- NOTE | 2019-03-11 16:59 | P.PN ---
Subjective Progress Note Date: 03/08/19 this is a pleasant 48 yo F with pmh of nicotine dependence, chronic pain , cardiomyopathy with known ejection fraction of 35-40%, COPD, fibromyalgia, hypertension, bipolar, depression. who presents with progressive dyspnea of several week duration associated with exertional dyspnea, associated with coughi ng and yellow phlegm of 5 days duration. no specific chest pain but she complains from pain all over her body including leg pain , back pain , headache and some mild non specific chest and abd pain. pt was asking for pain medication , associated with bilateral leg swelling . no leg pain , pt has palpitation as well . pt usually has stress incontinance, pt noticed over the last few days she is peeing less frequent. no dysuria or change in bowel habits , no fever. pt was not on home oxygen. on admission pt was hypertensive with BP Of 199/113 , went up to 211/140, HR 89, pt is afebrile, and she is saturating 96% on Room air. labs reviewed and showing unremarkable CBC, BMP and liver enz except for mildy elevated Bilirubin at 1.4. ProBNP is elevated at 7750. D-Dimer mildly elevated with negative CTA for Pulmonary embolism. CXR: cardiomegaly with atelectasis,. EKG: NSR at 77 , qTc [address]-T changes on admission pt got small dose of morphine 2 mg, clonidine 0.1 mg and lasix 20 mg cardiology and pulmonary teams were already consulted by ED staff 03/07/2019 Patient is awake, she was irritated today because she was complaining of from pain in her back and legs pain. This has generalized body aches. Stating that the Ultram was helping her. Patient was asked for Toradol explained the patient the risk of nephrotoxicity and as an alternative she agrees to morphine a small dose, with recommendation to taper narcotics gradually. Risks of this medication including but not limited to addiction, cardiopulmonary arrest and are explained to the patient and she verbalized understanding and acceptance. Lidocaine patch is added. Patient is still complaining of from swelling her legs, Doppler was negative for DVT. Her Lasix was stopped. Patient was started on steroids Solu-Medrol, Augmentin and Pulmicort with 4 maternal by pulmonary team. Her blood pressure is improving and this morning her systolic blood pressure was in 160s. Patient continue on Coreg, hydralazine lisinopril and spironolactone. Patient also has pressure speech and she states she has history of schizoaffective disorder, alcohol psychiatric for evaluation. Also we'll do a lumbar x-ray and possible course of evaluation for her severe back pain. Patient states that she has difficulty walking, mostly related to her exertional dyspnea rather than back pain. Patient also with orthopnea, she has history of low ejection fraction. Cardiology team has been consulted. 03/08/2019 evaluated by orthopedic PA, patient declining any surgical interventions, recommending conservative management with Pain management consulted. Evaluated by management, recommendations noted including MRI ordered. Continues on paramedics drip. Denies chest pain, palpitations or shortness of breath. States that she quit smoking 6 days ago. Complains of back pain. Objective - Vital Signs Vital signs: Vital Signs Temp 98.0 F 03/08/19 14:14 Pulse 68 03/08/19 14:14 Resp 16 03/08/19 14:14 BP 144/81 03/08/19 14:14 Pulse Ox 98 03/08/19 14:14 Intake & Output 03/07/19 03/08/19 03/08/19 18:59 06:59 18:59 Intake Total 1320 120 Output Total 1500 400 Balance -180 -400 120 Weight 100.8 kg 100.8 kg Intake: Oral 1320 120 Output: Urine 1500 400 Other: # Voids 1 1 1 # Bowel Movements 0 - Exam GENERAL: The patient is alert and oriented x3, not in any acute distress. Well developed, well nourished. HEENT: Pupils are round and equally reacting to light. EOMI. No scleral icterus. No conjunctival pallor. Normocephalic, atraumatic. No pharyngeal erythema. No thyromegaly. CARDIOVASCULAR: S1 and S2 present. No murmurs, rubs, or gallops. PULMONARY: Chest is clear to auscultation, no wheezing or crackles. ABDOMEN: Soft, nontender, nondistended, normoactive bowel sounds. No palpable organomegaly. MUSCULOSKELETAL: No joint swelling or deformity. EXTREMITIES: No cyanosis, clubbing, decreasing pedal edema. NEUROLOGICAL: Gross neurological examination did not reveal any focal deficits. SKIN: No rashes. - Labs CBC & Chem 7: 03/08/19 06:50 03/08/19 06:50 Labs: Abnormal Lab Results - Last 24 Hours (Table) 03/08/19 03/08/19 Range/Units 06:50 06:50 WBC 12.6 H (3.8-10.6) k/uL RBC 5.58 H (3.80-5.40) m/uL Hgb 16.4 H (11.4-16.0) gm/dL Hct 51.9 H (34.0-46.0) % RDW 15.6 H (11.5-15.5) % Neutrophils # 10.6 H (1.3-7.7) k/uL BUN 28 H (7-17) mg/dL Glucose 213 H (74-99) mg/dL Calcium 10.3 H (8.4-10.2) mg/dL Assessment and Plan Assessment: Acute COPD exacerbation acute on chronic systolic CHF with cardiomyopathy with known ejection fraction of 35-40% hypertensive urgency Pressure speech, history of schizoaffective disorder and other psych issue. Severe back pain. Essential hypertension. hyperlipidemia chronic fibromyalgia nicotine dependance history of bipolar and depression, panic disorder Plan: Continue on current medication regime ,monitoring and symptomatic treatment. Maintained on Bumex drip. Close monitoring of renal function, lytes with repeat labs ordered for a.m. Currently being evaluated by psychiatry with recommendations noted. MRI pending. Follow closely with pain management services. The impression and plan of care has been dictated as directed. : I performed a history and examination of this patient, discussed the same with the dictator. I agree with the dictator's note ,documented as a scribe. Any ad ditional findings or plans will be noted.
--- NOTE | 2019-03-11 17:12 | P.PN ---
Subjective Progress Note Date: 03/09/19 this is a pleasant 48 yo F with pmh of nicotine dependence, chronic pain , cardiomyopathy with known ejection fraction of 35-40%, COPD, fibromyalgia, hypertension, bipolar, depression. who presents with progressive dyspnea of several week duration associated with exertional dyspnea, associated with coughi ng and yellow phlegm of 5 days duration. no specific chest pain but she complains from pain all over her body including leg pain , back pain , headache and some mild non specific chest and abd pain. pt was asking for pain medication , associated with bilateral leg swelling . no leg pain , pt has palpitation as well . pt usually has stress incontinance, pt noticed over the last few days she is peeing less frequent. no dysuria or change in bowel habits , no fever. pt was not on home oxygen. on admission pt was hypertensive with BP Of 199/113 , went up to 211/140, HR 89, pt is afebrile, and she is saturating 96% on Room air. labs reviewed and showing unremarkable CBC, BMP and liver enz except for mildy elevated Bilirubin at 1.4. ProBNP is elevated at 7750. D-Dimer mildly elevated with negative CTA for Pulmonary embolism. CXR: cardiomegaly with atelectasis,. EKG: NSR at 77 , qTc [address]-T changes on admission pt got small dose of morphine 2 mg, clonidine 0.1 mg and lasix 20 mg cardiology and pulmonary teams were already consulted by ED staff 03/07/2019 Patient is awake, she was irritated today because she was complaining of from pain in her back and legs pain. This has generalized body aches. Stating that the Ultram was helping her. Patient was asked for Toradol explained the patient the risk of nephrotoxicity and as an alternative she agrees to morphine a small dose, with recommendation to taper narcotics gradually. Risks of this medication including but not limited to addiction, cardiopulmonary arrest and are explained to the patient and she verbalized understanding and acceptance. Lidocaine patch is added. Patient is still complaining of from swelling her legs, Doppler was negative for DVT. Her Lasix was stopped. Patient was started on steroids Solu-Medrol, Augmentin and Pulmicort with 4 maternal by pulmonary team. Her blood pressure is improving and this morning her systolic blood pressure was in 160s. Patient continue on Coreg, hydralazine lisinopril and spironolactone. Patient also has pressure speech and she states she has history of schizoaffective disorder, alcohol psychiatric for evaluation. Also we'll do a lumbar x-ray and possible course of evaluation for her severe back pain. Patient states that she has difficulty walking, mostly related to her exertional dyspnea rather than back pain. Patient also with orthopnea, she has history of low ejection fraction. Cardiology team has been consulted. 03/08/2019 evaluated by orthopedic PA, patient declining any surgical interventions, recommending conservative management with Pain management consulted. Evaluated by management, recommendations noted including MRI ordered. Continues on paramedics drip. Denies chest pain, palpitations or shortness of breath. States that she quit smoking 6 days ago. Complains of back pain. 03/09/2019 evaluated by psychiatry with recommendations noted. Maintained on nebulized bronchodilators, steroids, antibiotics, Bumex drip. Creatinine 1.09. Maintain O2 sats in the high 90s on room air. Good diet intake, consuming 100% with no nausea vomiting or diarrhea. MRI reporting degenerative disc disease, facet arthropathy, foraminal encroachment-developed from prior lumbar MRI. Evaluated by a pain management and orthopedics spine with recommendations noted and appreciated. Significant clinical improvement. Afebrile. Objective - Vital Signs Vital signs: Vital Signs Temp 97.6 F 03/09/19 04:00 Pulse 64 03/09/19 16:07 Resp 16 03/09/19 16:00 BP 161/94 03/09/19 16:00 Pulse Ox 97 03/09/19 16:00 Intake & Output 03/08/19 03/09/19 03/09/19 18:59 06:59 18:59 Intake Total 240 67.167 480 Output Total 5050 3850 Balance 240 -4982.833 -3370 Weight 100.8 kg 98.5 kg Intake: Intake, IV Titration 67.167 Amount Bumetanide 10 mg In 67.167 Dextrose 5% in Water 60 ml @ 0.5 MG/HR 5 mls/hr IV .Q20H [facility] Rx#: [id number] Oral 240 480 Output: Gastric Drainage 150 Urine 5050 3700 Other: Voiding Method Bedside Commode Bedside Commode # Voids 1 1 1 # Bowel Movements 0 0 - Exam GENERAL: The patient is alert and oriented x3, not in any acute distress. Well developed, well nourished. HEENT: Pupils are round and equally reacting to light. EOMI. No scleral icterus. No conjunctival pallor. Normocephalic, atraumatic. No pharyngeal erythema. No thyromegaly. CARDIOVASCULAR: S1 and S2 present. No murmurs, rubs, or gallops. PULMONARY: Chest is clear to auscultation, no rhonchi, occasional fine bibasilar crackles, occasional scattered expiratory wheeze ABDOMEN: Soft, nontender, nondistended, normoactive bowel sounds. No palpable organomegaly. EXTREMITIES: No cyanosis, clubbing, decreasing pedal edema. NEUROLOGICAL: Gross neurological examination did not reveal any focal deficits. SKIN: No rashes. - Labs CBC & Chem 7: 03/10/19 06:32 03/11/19 08:54 Labs: Abnormal Lab Results - Last 24 Hours (Table) 03/09/19 03/09/19 03/09/19 Range/Units 07:39 08:28 11:47 Chloride 95 L (98-107) mmol/L Carbon Dioxide 31 H (22-30) mmol/L BUN 39 H (7-17) mg/dL Creatinine 1.09 H (0.52-1.04) mg/dL Glucose 349 H (74-99) mg/dL POC Glucose (mg/dL) 308 H 241 H (75-99) mg/dL 03/09/19 Range/Units 16:58 Chloride (98-107) mmol/L Carbon Dioxide (22-30) mmol/L BUN (7-17) mg/dL Creatinine (0.52-1.04) mg/dL Glucose (74-99) mg/dL POC Glucose (mg/dL) 252 H (75-99) mg/dL Assessment and Plan Assessment: Acute COPD exacerbation acute on chronic systolic CHF with cardiomyopathy with known ejection fraction of 35-40% hypertensive urgency history of schizoaffective disorder and other psych issue. Severe back pain. Essential hypertension. hyperlipidemia chronic fibromyalgia nicotine dependance history of bipolar and depression, panic disorder Plan: Continue on current medication regime ,monitoring and symptomatic treatment. Diuresing as per cardiology, creatinine worsening. Close monitoring of renal function, lytes with repeat labs ordered for a.m. Follow closely with pain management services. Increase activity as tolerated. Discharge planning in progress. The impression and plan of care has been dictated as directed. : I performed a history and examination of this patient, discussed the same with the dictator. I agree with the dictator's note ,documented as a scribe. Any a dditional findings or plans will be noted.
--- NOTE | 2019-03-11 17:23 | P.PN ---
Subjective Progress Note Date: 03/10/19 this is a pleasant 48 yo F with pmh of nicotine dependence, chronic pain , cardiomyopathy with known ejection fraction of 35-40%, COPD, fibromyalgia, hypertension, bipolar, depression. who presents with progressive dyspnea of several week duration associated with exertional dyspnea, associated with coughi ng and yellow phlegm of 5 days duration. no specific chest pain but she complains from pain all over her body including leg pain , back pain , headache and some mild non specific chest and abd pain. pt was asking for pain medication , associated with bilateral leg swelling . no leg pain , pt has palpitation as well . pt usually has stress incontinance, pt noticed over the last few days she is peeing less frequent. no dysuria or change in bowel habits , no fever. pt was not on home oxygen. on admission pt was hypertensive with BP Of 199/113 , went up to 211/140, HR 89, pt is afebrile, and she is saturating 96% on Room air. labs reviewed and showing unremarkable CBC, BMP and liver enz except for mildy elevated Bilirubin at 1.4. ProBNP is elevated at 7750. D-Dimer mildly elevated with negative CTA for Pulmonary embolism. CXR: cardiomegaly with atelectasis,. EKG: NSR at 77 , qTc [address]-T changes on admission pt got small dose of morphine 2 mg, clonidine 0.1 mg and lasix 20 mg cardiology and pulmonary teams were already consulted by ED staff 03/07/2019 Patient is awake, she was irritated today because she was complaining of from pain in her back and legs pain. This has generalized body aches. Stating that the Ultram was helping her. Patient was asked for Toradol explained the patient the risk of nephrotoxicity and as an alternative she agrees to morphine a small dose, with recommendation to taper narcotics gradually. Risks of this medication including but not limited to addiction, cardiopulmonary arrest and are explained to the patient and she verbalized understanding and acceptance. Lidocaine patch is added. Patient is still complaining of from swelling her legs, Doppler was negative for DVT. Her Lasix was stopped. Patient was started on steroids Solu-Medrol, Augmentin and Pulmicort with 4 maternal by pulmonary team. Her blood pressure is improving and this morning her systolic blood pressure was in 160s. Patient continue on Coreg, hydralazine lisinopril and spironolactone. Patient also has pressure speech and she states she has history of schizoaffective disorder, alcohol psychiatric for evaluation. Also we'll do a lumbar x-ray and possible course of evaluation for her severe back pain. Patient states that she has difficulty walking, mostly related to her exertional dyspnea rather than back pain. Patient also with orthopnea, she has history of low ejection fraction. Cardiology team has been consulted. 03/08/2019 evaluated by orthopedic PA, patient declining any surgical interventions, recommending conservative management with Pain management consulted. Evaluated by management, recommendations noted including MRI ordered. Continues on paramedics drip. Denies chest pain, palpitations or shortness of breath. States that she quit smoking 6 days ago. Complains of back pain. 03/09/2019 evaluated by psychiatry with recommendations noted. Maintained on nebulized bronchodilators, steroids, antibiotics, Bumex drip. Creatinine 1.09. Maintain O2 sats in the high 90s on room air. Good diet intake, consuming 100% with no nausea vomiting or diarrhea. MRI reporting degenerative disc disease, facet arthropathy, foraminal encroachment-developed from prior lumbar MRI. Evaluated by a pain management and orthopedics spine with recommendations noted and appreciated. Significant clinical improvement. Afebrile. 03/10/2019 maintained on Bumex drip as per cardiology, creatinine worsening, 1.32. Maintaining O2 sats in the mid 90s on room air. Blood sugars uncontrolled in a patient on steroids-in a patient ordering additional trays/food at each meal-noncompliant with consistent carb/heart healthy diet. IV steroids have been discontinued and patient has been converted to oral.Afebrile. Denies chest pain, palpitations. Objective - Vital Signs Vital signs: Vital Signs Temp 98.2 F 03/10/19 08:00 Pulse 60 03/10/19 16:00 Resp 16 03/10/19 15:50 BP 142/80 03/10/19 12:00 Pulse Ox 99 03/10/19 12:00 Intake & Output 03/09/19 03/10/19 03/10/19 18:59 06:59 18:59 Intake Total 480 100 940 Output Total 3850 2100 500 Balance -1820 -2000 440 Weight 98 kg Intake: Intake, IV Titration 100 Amount Bumetanide 10 mg In 100 Dextrose 5% in Water 60 ml @ 0.5 MG/HR 5 mls/hr IV .Q20H [facility] Rx#: [id number] Oral 480 940 Output: Gastric Drainage 150 Urine 3700 2100 500 Other: Voiding Method Bedside Commode Bedside Commode Bedside Commode # Voids 1 2 # Bowel Movements 0 0 - Exam GENERAL: The patient is alert and oriented x3, no acute distress. HEENT: Pupils are round and equally reacting to light. EOMI. No scleral icterus. No conjunctival pallor. Normocephalic, atraumatic. No pharyngeal erythema. No thyromegaly. Oral mucosa moist. CARDIOVASCULAR: S1 and S2 present. No murmurs, rubs, or gallops. PULMONARY: Chest is clear to auscultation, no rhonchi, occasional scattered expiratory wheeze ABDOMEN: Soft, nontender, nondistended, normoactive bowel sounds. No palpable organomegaly. EXTREMITIES: No cyanosis, clubbing, decreased pedal edema. NEUROLOGICAL: Gross neurological examination did not reveal any focal deficits. SKIN: No rashes. - Labs CBC & Chem 7: 03/10/19 06:32 03/11/19 08:54 Labs: Abnormal Lab Results - Last 24 Hours (Table) 03/09/19 03/09/19 03/10/19 Range/Units 16:58 21:02 05:55 WBC (3.8-10.6) k/uL RBC (3.80-5.40) m/uL Hgb (11.4-16.0) gm/dL Hct (34.0-46.0) % Neutrophils # (1.3-7.7) k/uL Lymphocytes # (1.0-4.8) k/uL Chloride (98-107) mmol/L Carbon Dioxide (22-30) mmol/L BUN (7-17) mg/dL Creatinine (0.52-1.04) mg/dL Glucose (74-99) mg/dL POC Glucose (mg/dL) 252 H 239 H 300 H (75-99) mg/dL 03/10/19 03/10/19 03/10/19 Range/Units 06:32 06:32 11:46 WBC 17.1 H (3.8-10.6) k/uL RBC 5.83 H (3.80-5.40) m/uL Hgb 17.6 H (11.4-16.0) gm/dL Hct 55.1 H (34.0-46.0) % Neutrophils # 15.8 H (1.3-7.7) k/uL Lymphocytes # 0.7 L (1.0-4.8) k/uL Chloride 93 L (98-107) mmol/L Carbon Dioxide 35 H (22-30) mmol/L BUN 56 H (7-17) mg/dL Creatinine 1.32 H (0.52-1.04) mg/dL Glucose 268 H (74-99) mg/dL POC Glucose (mg/dL) 341 H (75-99) mg/dL Assessment and Plan Assessment: Acute COPD exacerbation acute on chronic systolic CHF with cardiomyopathy with known ejection fraction of 35-40% hypertensive urgency history of schizoaffective disorder and other psych issue. Severe back pain. Essential hypertension. hyperlipidemia chronic fibromyalgia nicotine dependance history of bipolar and depression, panic disorder Plan: Continue on current medication regime ,monitoring and symptomatic treatment. Discharge planning in progress for tomorrow pending cardiology rajat denney. Staff advised to obtain pain management DC recommendations/Rxs for DC. The impression and plan of care has been dictated as directed. : I performed a history and examination of this patient, discussed the same with the dictator. I agree with the dictator's note ,documented as a scribe. Any additional findings or plans will be noted.
--- NOTE | 2019-03-11 17:58 | P.DS ---
Providers Date of admission: 03/08/19 14:09 Expected date of discharge: 03/11/19 Attending physician: Ortega Cortez Consults: 03/06/19 13:03 Consult Physician Stat Consulting Provider: Catracho Ortiz Consult Reason/Comments: COPD exacerbation Do you want consulting provider notified?: Yes Consult Physician Stat Consulting Provider: Devon Rodriguez Consult Reason/Comments: CHF exacerbation Do you want consulting provider notified?: Yes 03/07/19 12:02 Consult Physician Routine Consulting Provider: Lakesha Sebastian Consult Reason/Comments: hx of schizoid affective disorder pt talking Do you want consulting provider notified?: Already Contacted Primary care physician: Ortega Cortez Hospital Course: Final Diagnosis: Acute COPD exacerbation acute on chronic systolic CHF with cardiomyopathy with known ejection fraction of 35-40% hypertensive urgency history of schizoaffective disorder and other psych issue. Severe back pain,degenerative disc disease, facet arthropathy, foraminal encroachment per CT. Essential hypertension. hyperlipidemia chronic fibromyalgia nicotine dependance history of bipolar and depression, panic disorder Hospital course:this is a pleasant 48 yo F with pmh of nicotine dependence, chronic pain , cardiomyopathy with known ejection fraction of 35-40%, COPD, fibromyalgia, hypertension, bipolar, depression. who presents with progressive dyspnea of several week duration associated with exertional dyspnea, associated with coughing and yellow phlegm of 5 days duration. no specific chest pain but she complains from pain all over her body including leg pain , back pain , headache and some mild non specific chest and abd pain. pt was asking for pain medication , associated with bilateral leg swelling . no leg pain , pt has palpitation as well . pt usually has stress incontinance, pt noticed over the last few days she is peeing less frequent. no dysuria or change in bowel habits , no fever. pt was not on home oxygen. on admission pt was hypertensive with BP Of 199/113 , went up to 211/140, HR 89, pt is afebrile, and she is saturating 96% on Room air. labs reviewed and showing unremarkable CBC, BMP and liver enz except for mildy elevated Bilirubin at 1.4. ProBNP is elevated at 7750. D-Dimer mildly elevated with negative CTA for Pulmonary embolism. CXR: cardiomegaly with atelectasis,. EKG: NSR at 77 , qTc [address]-T changes on admission pt got small dose of morphine 2 mg, clonidine 0.1 mg and lasix 20 mg cardiology and pulmonary teams were already consulted by ED staff. Evaluated by cardiology, pulmonary, psychiatry, orthopedic spine, pain management services. Diuresed on Bumex drip as per cardiology. Pain management as per pain management services. Significant clinical improvement. Patient has been cleared by all consults for discharge. Patient is being discharged home in a stable condition with guarded prognosis. - Exam GENERAL: The patient is alert and oriented x3, no acute distress. CARDIOVASCULAR: S1 and S2 present. No murmurs, rubs, or gallops. PULMONARY: Chest is clear to auscultation, no rhonchi, occasional scattered expiratory wheeze ABDOMEN: Soft, nontender, nondistended, normoactive bowel sounds. No palpable organomegaly. NEUROLOGICAL: Gross neurological examination did not reveal any focal deficits. The impression and plan of care has been dictated as directed. : I performed a history and examination of this patient, discussed the same with the dictator. I agree with the dictator's note ,documented as a scribe. Any additional findings or plans will be noted. Time taken: 35 minutes Patient Condition at Discharge: Stable Plan - Discharge Summary Discharge Rx Participant: Yes New Discharge Prescriptions: New predniSONE 10 mg PO DIRECTED #30 tab hydrALAZINE HCL [Apresoline] 75 mg PO TID #270 tab Amoxic-Pot Clav 875-125Mg [Augmentin 875-125] 1 each PO Q12HR #10 tab Bumetanide 0.5 mg PO BID #60 tablet Carvedilol [Coreg*] 12.5 mg PO BID-W/MEALS #60 tab Famotidine [Pepcid] 20 mg PO Q24HR #0 tab Sennosides [Senokot] 8.6 mg PO BID PRN tab PRN Reason: Constipation Pregabalin [Lyrica] 75 mg PO BID 3 Days #6 cap Continue Atorvastatin [Lipitor] 20 mg PO HS #30 tab hydrALAZINE HCL [Apresoline] 50 mg PO TID 30 Days #90 tab Lisinopril 40 mg PO DAILY 30 Days #30 tablet Escitalopram Oxalate [Lexapro] 10 mg PO DAILY hydrOXYzine HCL [Atarax] 25 mg PO HS Mometasone/Formoterol [Dulera 200 Mcg/5 Mcg Inhaler] 2 puff INHALATION RT-BID Spironolactone [Aldactone] 25 mg PO DAILY Ipratropium-Albuterol Nebulize [Duoneb 0.5 mg-3 mg/3 ml Soln] 3 ml INHALATION RT-QID #0 Discontinued Carvedilol [Coreg] 6.25 mg PO BID-W/MEALS #60 tab Discharge Medication List Atorvastatin [Lipitor] 20 mg PO HS #30 tab 08/07/18 [Rx] Lisinopril 40 mg PO DAILY 30 Days #30 tablet 08/07/18 [Rx] hydrALAZINE HCL [Apresoline] 50 mg PO TID 30 Days #90 tab 08/07/18 [Rx] Escitalopram Oxalate [Lexapro] 10 mg PO DAILY 01/22/19 [History] hydrOXYzine HCL [Atarax] 25 mg PO HS 01/22/19 [History] Mometasone/Formoterol [Dulera 200 Mcg/5 Mcg Inhaler] 2 puff INHALATION RT-BID 03/02/19 [History] Spironolactone [Aldactone] 25 mg PO DAILY 03/06/19 [History] Amoxic-Pot Clav 875-125Mg [Augmentin 875-125] 1 each PO Q12HR #10 tab 03/11/19 [Rx] Bumetanide 0.5 mg PO BID #60 tablet 03/11/19 [Rx] Carvedilol [Coreg*] 12.5 mg PO BID-W/MEALS #60 tab 03/11/19 [Rx] Famotidine [Pepcid] 20 mg PO Q24HR #0 tab 03/11/19 [Rx] Ipratropium-Albuterol Nebulize [Duoneb 0.5 mg-3 mg/3 ml Soln] 3 ml INHALATION RT-QID #0 03/11/19 [Rx] Pregabalin [Lyrica] 75 mg PO BID 3 Days #6 cap 03/11/19 [Rx] Sennosides [Senokot] 8.6 mg PO BID PRN tab 03/11/19 [Rx] hydrALAZINE HCL [Apresoline] 75 mg PO TID #270 tab 03/11/19 [Rx] predniSONE 10 mg PO DIRECTED #30 tab 03/11/19 [Rx] Follow up Appointment(s)/Referral(s): Pain management, Dr. [Other] - 1 Week (You will need a referral from Dr. Cortez for pain management at your follow up appointment. Then an appointment will be set up for referral with anaesthesia. No new pain medications at this time. Lyrica ordered for chronic nerve pain for discharge. ) Rocael Bruner MD [STAFF PHYSICIAN] - 03/24/19 3:00 pm (With Sruthi BACH.) Ortega Cortez DO [Primary Care Provider] - 03/19/19 9:00 am Marixa Kebede NPC [Nurse Practitioner] - 04/06/19 3:45 am Rome Moreno PAC [PHYSICIAN CABLE SPLICING TECHNICIAN] - As Needed Patient Instructions/Handouts: Heart Failure (DC), COPD (Chronic Obstructive Pulmonary Disease) (DC), Degenerative Disc Disease (DC) Care Plan Goals (MU): follow up with the pain clinic Discharge Disposition: HOME SELF-CARE
== END 2019-03-11 16:17 | disposition home or self-care (01) | DRG 190 ==
LOC: EC 10:20 → 3SCARD 13:03 → OBSVTOIN 03-08 14:09
PROVIDERS: ADMIT Family Medicine; ATTEND Family Medicine
DX: J44.1 Chronic obstructive pulmonary disease with (acute) exacerbation (principal); I50.23 Acute on chronic systolic (congestive) heart failure; I42.9 Cardiomyopathy, unspecified; I11.0 Hypertensive heart disease with heart failure; I16.0 Hypertensive urgency; I27.81 Cor pulmonale (chronic); F41.0 Panic disorder [episodic paroxysmal anxiety]; M51.16 Intervertebral disc disorders with radiculopathy, lumbar region; E28.2 Polycystic ovarian syndrome; E66.01 Morbid (severe) obesity due to excess calories; E78.5 Hyperlipidemia, unspecified; F17.210 Nicotine dependence, cigarettes, uncomplicated; F43.10 Post-traumatic stress disorder, unspecified; F31.9 Bipolar disorder, unspecified; G47.00 Insomnia, unspecified; G89.29 Other chronic pain; H26.9 Unspecified cataract; I27.29 Other secondary pulmonary hypertension; M79.7 Fibromyalgia; M46.90 Unspecified inflammatory spondylopathy, site unspecified; F25.9 Schizoaffective disorder, unspecified; Z79.51 Long term (current) use of inhaled steroids; Z79.52 Long term (current) use of systemic steroids; Z79.899 Other long term (current) drug therapy; Z82.5 Family history of asthma and other chronic lower respiratory diseases; Z87.01 Personal history of pneumonia (recurrent); Z87.11 Personal history of peptic ulcer disease; Z68.39 Body mass index [BMI] 39.0-39.9, adult; Z88.5 Allergy status to narcotic agent; Z88.8 Allergy status to other drugs, medicaments and biological substances
CPT/HCPCS: 36415; 71046; 71275; 72100; 72148; 80048; 80053; 83735; 83880; 84484; 85025; 85379; 85610; 85730; 93970; 94640; 94760; 96374; 96375; 99285

== ENCOUNTER 2020-04-06 08:05 | Inpatient (IN) | payer MEDICARE, OTHER ==
[2020-04-06] MEDS ORDERED: LORazepam 0.5 MG TAB PO PRN (11:44)
[2020-04-06] MEDS ORDERED: IPRATROPIUM-ALBUTEROL 3 ML NEB INHALATION PRN (11:44)
[2020-04-06] MEDS: ONDANSETRON 4 MG/2 ML VIAL IVP PRN ×2 (12:07→20:24)
[2020-04-06] MEDS: SODIUM CHLORIDE 0.9% 1,000 ML IV SCH (12:07)
[2020-04-06] MEDS: hydrALAZINE HCL 25 MG TAB PO SCH ×2 (12:07→19:04)
[2020-04-06] MEDS: AMPICILLIN-SULBACTAM 3 GM in SODIUM CHLORIDE 0.9% 100 ML IVPB SCH ×2 (12:08→17:27)
[2020-04-06] MEDS: MORPHINE SULFATE 4 MG/ML SYRINGE IVP PRN ×3 (12:08→20:25)
[2020-04-06] MEDS: PANTOPRAZOLE 40 MG/10 ML VIAL IVP SCH (12:08)
[2020-04-06 12:48] LABS: Basophils # (A) 0.1 k/uL (0-0.2); Basophils % (A) 1 %; Eosinophils # (A) 0.1 k/uL (0-0.7); Eosinophils % (A) 1 %; HCT 50.3 % (34.0-46.0); HGB 15.9 gm/dL (11.4-16.0); Hypochromasia Slight; Lymphocytes % (A) 8 %; MCH 31.6 pg (25.0-35.0); MCHC 31.5 g/dL (31.0-37.0); MCV 100.1 fL (80.0-100.0); Macrocytosis Slight; Mean Platelet Volume 7.7; Monocytes # (A) 0.9 k/uL (0-1.0); Monocytes % (A) 7 %; Neutrophils # (A) 10.2 k/uL (1.3-7.7); Neutrophils % (A) 81 %; Platelet Count 212 k/uL (150-450); RBC 5.03 m/uL (3.80-5.40); RDW 14.6 % (11.5-15.5); WBC 12.6 k/uL (3.8-10.6)
[2020-04-06 12:51] LABS: ALT 19 U/L (4-34); AST 30 U/L (14-36); African American GFR (CKD) >90 (>60 ml/min/1.73 sqM); Albumin 3.4 g/dL (3.5-5.0); Alkaline Phosphatase 111 U/L (38-126); Anion Gap 7 mmol/L; Blood Urea Nitrogen 17 mg/dL (7-17); Calcium 9.2 mg/dL (8.4-10.2); Carbon Dioxide 27 mmol/L (22-30); Chloride 102 mmol/L (98-107); Glucose 163 mg/dL (74-99); Non-African American GFR(CKD) >90 (>60 ml/min/1.73 sqM); Sodium 136 mmol/L (137-145); Total Bilirubin 2.2 mg/dL (0.2-1.3); Total Protein 6.3 g/dL (6.3-8.2)
[2020-04-06 12:53] LABS: Potassium 3.8 mmol/L (3.5-5.1)
[2020-04-06] MEDS: IPRATROPIUM-ALBUTEROL 3 ML NEB INHALATION SCH ×3 (13:44→20:57)
[2020-04-06] MEDS: QUEtiapine 25 MG TAB PO SCH ×2 (16:25→20:36)
[2020-04-06] MEDS ORDERED: ALBUTEROL NEBULIZED 2.5 MG/3 ML INHALATION PRN (17:32)
--- NOTE | 2020-04-06 19:34 | XR ---
EXAMINATION TYPE: XR mandible complete DATE OF EXAM: 04/06/2020 COMPARISON: NONE HISTORY: Right lower abscess TECHNIQUE: 5 views FINDINGS: The mandibular ring appears intact. I see no fracture nor dislocation. There is no evidence of focal bone destruction. The temporomandibular joints appear intact. IMPRESSION: Negative mandible exam. No fracture. No evidence of osteomyelitis.
[2020-04-06] MEDS: BUMETANIDE 1 MG TAB PO SCH ×2 (20:23→20:28)
[2020-04-06] MEDS: ATORVASTATIN 20 MG TAB PO SCH (20:23)
[2020-04-06] MEDS: carvediloL 6.25 MG TAB PO SCH (20:23)
[2020-04-06] MEDS: hydrOXYzine HCL 25 MG TAB PO SCH (20:23)
[2020-04-06] MEDS: SYMBICORT 160-4.5 MCG INHALER INHALATION SCH (20:57)
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
[2020-04-07] MEDS: MORPHINE SULFATE 4 MG/ML SYRINGE IVP PRN ×5 (00:18→23:07)
[2020-04-07] MEDS: AMPICILLIN-SULBACTAM 3 GM in SODIUM CHLORIDE 0.9% 100 ML IVPB SCH ×5 (00:19→23:07)
[2020-04-07] MEDS: hydrALAZINE HCL 25 MG TAB PO SCH ×3 (04:07→19:55)
[2020-04-07] MEDS: ONDANSETRON 4 MG/2 ML VIAL IVP PRN (07:03)
[2020-04-07] MEDS: IPRATROPIUM-ALBUTEROL 3 ML NEB INHALATION SCH ×4 (08:18→20:34)
[2020-04-07] MEDS: SYMBICORT 160-4.5 MCG INHALER INHALATION SCH ×2 (08:18→20:34)
[2020-04-07] MEDS: POTASSIUM CHLORIDE ER 20 MEQ TAB.ER PO SCH (09:21)
[2020-04-07] MEDS: QUEtiapine 25 MG TAB PO SCH ×3 (09:21→23:06)
[2020-04-07] MEDS: carvediloL 6.25 MG TAB PO SCH ×2 (09:21→19:55)
[2020-04-07] MEDS: SODIUM CHLORIDE 0.9% 1,000 ML IV SCH (09:21)
[2020-04-07] MEDS: lisinopriL 20 MG TAB PO SCH (09:21)
[2020-04-07] MEDS: PANTOPRAZOLE 40 MG/10 ML VIAL IVP SCH (09:22)
[2020-04-07] MEDS: BUMETANIDE 1 MG TAB PO SCH ×2 (09:31→19:55)
--- NOTE | 2020-04-07 13:52 | HP ---
HISTORY AND PHYSICAL 49-year-old white female, right dental abscess transferred for the other hospital as she was admitted with a fever, right jaw pain and swelling. CT of the neck area showed evidence of a dental abscess and concern for possible jaw osteomyelitis, extension submandibular space. Transferred to [facility] for Oral surgery and ENT to operate on her as she was not responding to IV antibiotics which is Zosyn. Throbbing 7/10 pain, difficulty swallowing or difficulty breathing. REVIEW OF SYSTEMS: Fourteen-point review of systems otherwise negative. MEDICAL HISTORY: She has history of diastolic heart failure, COPD, angina, fibromyalgia, hypertension, osteoarthritis. PAST MEDICAL HISTORY/PAST SURGICAL HISTORY: Past medical history of malignant hypertension, cardiomegaly, ejection fraction 40 to 45%, duodenal ulcers, pancreatic pseudocyst, pancreatitis, neuralgia, thoracic back pain, degenerative disc disease, migraines, abdominal hernia repair, PCOS, bilateral tinnitus. Cholecystectomy, hernia repair, orthopedic surgery, pancreatic pseudocyst, bilateral feet bunionectomies, hernia repairs, bipolar depression, panic disorder, PTSD, schizophrenia. FAMILY HISTORY: Mother with COPD. ALLERGIES: CODEINE, DEPAKOTE, VICODIN. PHYSICAL EXAMINATION: Temperature 97.7, pulse 59 to 62, respiratory 16-18, blood pressure 150s to 180s over 70s to 90s, O2 95 to 98%. Cardiovascular S1, S2. Lungs unlabored breathing. Psych: She appears anxious, nervous. Extremities: No cyanosis, clubbing or edema. NEUROLOGIC: Cranial nerves intact. SKIN: She has some right jaw redness under her mandible, both sides of the neck. Fluctuance. ASSESSMENT: Sepsis due to periodontal abscess, possible osteomyelitis. ENT, dental surgery will be needed. Continue with Unasyn, antibiotics. Home medicines were reordered. MMODL / IJN: [id number] /
[2020-04-07 14:52] VITALS: BMI 41.0
--- NOTE | 2020-04-07 15:43 | PN ---
PROGRESS NOTE DATE OF SERVICE: 04/07/2020 REASON FOR FOLLOWUP: Right lower jaw abscess and cellulitis. INTERVAL HISTORY: The patient is currently afebrile. The patient has been upset for her being n.p.o. yesterday as well as today for the procedure and a delay in the procedure. She has current pain to the right lower jaw, though no worsening. No chest pain, shortness of breath or cough. No abdominal pain or diarrhea. PHYSICAL EXAMINATION: Blood pressure 162/92 with a pulse of 71, temperature 98.1. She is 98% on room air. General description is a middle-aged female lying in bed in no distress. HEENT EXAMINATION: Right lower jaw swelling and redness are the same. LUNGS: Unlabored breathing. Clear to auscultation. HEART: Regular rate and rhythm. ABDOMEN: Soft. No tenderness. LABS: No new labs were done today. DIAGNOSTIC IMPRESSION AND PLAN: Patient with a right lower jaw abscess from an infected tooth. Awaiting oral surgery evaluation, extraction of the tooth and drainage of the abscess along with deep cultures. We will keep the patient on Unasyn while waiting for the procedure to be completed and cultures to be done. Continue supportive care. MMODL / IJN: [id number] /
[2020-04-07] MEDS ORDERED: IV FLUID CONTINUATION 1,000 ML IV ONE (16:30)
[2020-04-07] MEDS ORDERED: LIDOCAINE 1% INJ 10MG/ML (20 ML MDV) ONE (16:35)
[2020-04-07] MEDS ORDERED: fentaNYL (PF) 50 MCG/ML 2 ML AMP ONE (16:35)
[2020-04-07] MEDS ORDERED: SUCCINYLCHOLINE CHLORIDE 100 MG/5 ML SYR IV ONE (16:35)
[2020-04-07] MEDS ORDERED: MIDAZOLAM 2 MG/2 ML VIAL IVP ONE (16:35)
[2020-04-07] MEDS ORDERED: PROPOFOL 10 MG/ML 20 ML VIAL IV ONE (16:35)
[2020-04-07] MEDS ORDERED: fentaNYL (PF) 50 MCG/ML 2 ML AMP IVP ONE (16:35)
[2020-04-07] MEDS ORDERED: MIDAZOLAM 2 MG/2 ML VIAL ONE (16:35)
[2020-04-07] MEDS ORDERED: LIDOCAINE 2%-EPI 1:100,000 20 ML VIAL SUBMUCOSAL ONE (17:04)
[2020-04-07] MEDS: ATORVASTATIN 20 MG TAB PO SCH (19:55)
[2020-04-07] MEDS: hydrOXYzine HCL 25 MG TAB PO SCH (19:56)
[2020-04-08] MEDS: MORPHINE SULFATE 4 MG/ML SYRINGE IVP PRN ×5 (03:16→21:06)
[2020-04-08] MEDS: hydrALAZINE HCL 25 MG TAB PO SCH ×3 (03:17→21:05)
[2020-04-08] MEDS: SODIUM CHLORIDE 0.9% 1,000 ML IV SCH (03:21)
[2020-04-08] MEDS: AMPICILLIN-SULBACTAM 3 GM in SODIUM CHLORIDE 0.9% 100 ML IVPB SCH ×4 (06:22→23:36)
[2020-04-08] MEDS: IPRATROPIUM-ALBUTEROL 3 ML NEB INHALATION SCH ×4 (07:54→20:30)
[2020-04-08] MEDS: SYMBICORT 160-4.5 MCG INHALER INHALATION SCH ×2 (07:54→20:30)
[2020-04-08] MEDS: BUMETANIDE 1 MG TAB PO SCH ×2 (08:40→21:05)
[2020-04-08] MEDS: carvediloL 6.25 MG TAB PO SCH ×2 (08:40→21:05)
[2020-04-08] MEDS: lisinopriL 20 MG TAB PO SCH (08:40)
[2020-04-08] MEDS: QUEtiapine 25 MG TAB PO SCH ×3 (08:40→21:05)
[2020-04-08] MEDS: PANTOPRAZOLE 40 MG TABLET PO SCH (08:40)
[2020-04-08] MEDS: POTASSIUM CHLORIDE ER 20 MEQ TAB.ER PO SCH (08:40)
[2020-04-08] MEDS: ONDANSETRON 4 MG/2 ML VIAL IVP PRN ×2 (08:46→17:52)
--- NOTE | 2020-04-08 09:07 | OP ---
OPERATIVE REPORT DATE OF PROCEDURE: 04/07/2020. PREOPERATIVE DIAGNOSES: 1. Abscessed tooth #30. 2. Right submandibular, submental, and right buccal space abscess. POSTOP DIAGNOSES: 1. Abscessed tooth #30. 2. Right submandibular, submental, and right buccal space abscess. PROCEDURE: 1. Surgical extraction of tooth #30. 2. I and D of the right submandibular space, buccal space and middle space. SURGEON: Dr. Kruse. ANESTHESIA: General via oral endotracheal intubation. ESTIMATED BLOOD LOSS: 5 mL. DRAINS: One quarter-inch drain into the right submandibular space. SPECIMENS: Cultures were taken aerobic and anaerobic. COMPLICATIONS: None. INDICATIONS FOR PROCEDURE: The patient is a 49-year-old female who was transferred from [facility] to [facility] for treatment of a right submandibular space abscess. He states that it started approximately 3 days ago and it progressively worsened. She was admitted and started on IV antibiotics. She will now undergo incision and drainage of the appropriate spaces and extraction of tooth #30. It was discussed at length that a small incision in the submandibular region on the skin would be the surgical approach. The risks, benefits, and alternatives of the procedure were reviewed with the patient at length and all of her questions answered to her satisfaction. PROCEDURE DETAILS: The patient was taken to the operating room, placed on the operating table in the supine position. Next, she was induced via the IV route and intubated orally. A general plane of anesthesia was then maintained throughout the operative course. The surgeon then approached the operative field and the patient was prepped and draped in usual manner for this procedure. Attention was then directed into the right submandibular region where a 1 cm incision through the skin and subcutaneous tissue was performed. Blunt dissection through the muscle and into the submandibular space was then performed. Approximately 3-5 mm of purulent drainage was obtained. This was cultured. Dissection also proceeded into the submandibular and buccal space with minimal drainage. At this point, a quarter-inch drain was placed and secured with 2-0 nylon. Attention was then directed intraorally where a 15 blade was utilized to develop a small envelope flap and tooth #30 was removed utilizing an elevator and forceps technique. The wound was then irrigated thoroughly. The patient tolerated the procedure well without complications. The submandibular drain was dressed appropriately. The patient was then transferred to the post anesthetic care unit, breathing spontaneously and hemodynamically stable. PREMA / MICHAELN: [id number] /
[2020-04-08 09:14] LABS: Basophils # (A) 0.1 k/uL (0-0.2); Basophils % (A) 1 %; Eosinophils # (A) 0.2 k/uL (0-0.7); Eosinophils % (A) 2 %; HCT 50.8 % (34.0-46.0); HGB 16.1 gm/dL (11.4-16.0); Hypochromasia Slight; Lymphocytes # (A) 1.5 k/uL (1.0-4.8); Lymphocytes % (A) 15 %; MCH 31.5 pg (25.0-35.0); MCHC 31.7 g/dL (31.0-37.0); MCV 99.4 fL (80.0-100.0); Mean Platelet Volume 7.5; Monocytes # (A) 0.8 k/uL (0-1.0); Monocytes % (A) 8 %; Neutrophils # (A) 7.3 k/uL (1.3-7.7); Neutrophils % (A) 72 %; Platelet Count 231 k/uL (150-450); RBC 5.12 m/uL (3.80-5.40); RDW 14.3 % (11.5-15.5); WBC 10.2 k/uL (3.8-10.6)
[2020-04-08 09:22] LABS: African American GFR (CKD) >90 (>60 ml/min/1.73 sqM); Anion Gap 9 mmol/L; Blood Urea Nitrogen 20 mg/dL (7-17); Calcium 8.9 mg/dL (8.4-10.2); Carbon Dioxide 29 mmol/L (22-30); Chloride 102 mmol/L (98-107); Glucose 111 mg/dL (74-99); Non-African American GFR(CKD) 87 (>60 ml/min/1.73 sqM); Potassium 3.6 mmol/L (3.5-5.1); Sodium 140 mmol/L (137-145)
--- NOTE | 2020-04-08 15:19 | PN ---
PROGRESS NOTE This is a 49-year-old white female who was admitted. She had submandibular abscess operated on yesterday. She has a drain in her neck. She remains on Zosyn IV. She is requesting Cardiology to see her for heart catheterization due to coronary artery disease. We will await the recommendations. Continue with antibiotics. Continue home medications. Please see further orders. Cardiovascular S1, S2. Lungs clear. Mild wheeze x4. Extremities have 2 to 3+ edema. ASSESSMENT: 1. Submandibular abscess. 2. Acute diastolic heart failure. 3. Chronic obstructive pulmonary disease. 4. Anxiety. 5. Depression. 6. Bipolar. Please continue current medications. Wait for Cardiology consultation. Continue with IV antibiotics. Periodontal abscess treatment per surgeon. MMODL / IJN: [id number] /
--- NOTE | 2020-04-08 16:25 | PN ---
PROGRESS NOTE DATE OF SERVICE: 04/08/2020 REASON FOR FOLLOWUP: Right submandibular abscess and infected tooth. INTERVAL HISTORY: The patient was taken to OR yesterday status post extraction of the infected tooth and the drainage of the abscess. The patient tolerated the procedure. Still complaining of pain. No nausea, vomiting. No abdominal pain. No diarrhea. PHYSICAL EXAMINATION: Blood pressure 176/90 with a pulse of 51, temperature 97.7. She is 99% on room air. General description is a middle-aged female up in the bed in no distress. HEENT examination: Right lower jaw swelling, minimal decreased. Lungs: Unlabored breathing, clear to auscultation anteriorly. HEART S1, S2. Regular rate and rhythm. ABDOMEN soft, no tenderness. LABS: Hemoglobin , white count 10.2, BUN of 10, creatinine 2.0. Cultures currently pending. DIAGNOSTIC IMPRESSION AND PLAN: Patient with right lower jaw infected tooth with submandibular abscess status post I and D. We will wait for the culture to finalize. Continue with Unasyn. In view of the extensive infection may benefit from outpatient oral antibiotics. This was discussed with the case preparer and liner. MMODL / IJN: [id number] /
[2020-04-08] MEDS: hydrOXYzine HCL 25 MG TAB PO SCH (21:05)
[2020-04-08] MEDS: ATORVASTATIN 20 MG TAB PO SCH (21:05)
[2020-04-09] MEDS: MORPHINE SULFATE 4 MG/ML SYRINGE IVP PRN ×6 (01:08→22:29)
[2020-04-09] MEDS: SODIUM CHLORIDE 0.9% 1,000 ML IV SCH (02:45)
[2020-04-09] MEDS: hydrALAZINE HCL 25 MG TAB PO SCH (03:39)
[2020-04-09] MEDS: AMPICILLIN-SULBACTAM 3 GM in SODIUM CHLORIDE 0.9% 100 ML IVPB SCH ×4 (05:08→22:29)
[2020-04-09 06:19] LABS: HCT 46.1 % (34.0-46.0); HGB 14.8 gm/dL (11.4-16.0); MCH 31.4 pg (25.0-35.0); MCHC 32.2 g/dL (31.0-37.0); MCV 97.5 fL (80.0-100.0); Mean Platelet Volume 7.5; Platelet Count 240 k/uL (150-450); RBC 4.73 m/uL (3.80-5.40); RDW 14.3 % (11.5-15.5); WBC 11.3 k/uL (3.8-10.6)
[2020-04-09 06:54] LABS: Albumin 3.2 g/dL (3.5-5.0); Calcium 8.5 mg/dL (8.4-10.2); Potassium 3.8 mmol/L (3.5-5.1); Total Bilirubin 1.2 mg/dL (0.2-1.3); Total Protein 5.9 g/dL (6.3-8.2)
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
[2020-04-09] MEDS: SYMBICORT 160-4.5 MCG INHALER INHALATION SCH ×2 (08:33→21:02)
[2020-04-09] MEDS: IPRATROPIUM-ALBUTEROL 3 ML NEB INHALATION SCH ×4 (08:33→21:02)
[2020-04-09] MEDS ORDERED: BUMETANIDE 1 MG TAB PO SCH (09:00)
[2020-04-09] MEDS ORDERED: BUMETANIDE 0.25 MG/ML 10 ML VIAL IV SCH (09:00)
[2020-04-09] MEDS: ONDANSETRON 4 MG/2 ML VIAL IVP PRN (09:14)
[2020-04-09] MEDS: QUEtiapine 25 MG TAB PO SCH ×3 (09:18→20:03)
[2020-04-09] MEDS: SPIRONOLACTONE 25 MG TAB PO SCH (09:18)
[2020-04-09] MEDS: lisinopriL 20 MG TAB PO SCH (09:18)
[2020-04-09] MEDS: PANTOPRAZOLE 40 MG TABLET PO SCH (09:18)
[2020-04-09] MEDS: POTASSIUM CHLORIDE ER 20 MEQ TAB.ER PO SCH (09:18)
--- NOTE | 2020-04-09 10:00 | PN ---
PROGRESS NOTE DATE OF SERVICE: April 09, 2020. SUBJECTIVE: "My face hurts." Patient states she still has pain in the right submandibular region post I and D. This is postoperative day #2. She states that the dressing has been changed once since yesterday. The dressing was rather saturated. She is resting comfortably in bed and tolerating a soft diet. She is in no distress currently. OBJECTIVE: Her vital signs are stable. She is afebrile. She is ambulating to and from the bed to go to the bathroom. The right submandibular region has a dressing over the drain. It was changed approximately 12 hours ago. Upon removal, the drain exhibited approximately 3 to 5 mL of discharge. The right submandibular region has decreased swelling and tenderness. It is not red. The drain is in place. Intraorally, the patient does not exhibit trismus. The extraction site in the lower right posterior region is not draining. A clot is present. There is no pharyngeal swelling. ASSESSMENT: The patient is improving post incision and drainage of the right submandibular space abscess and extraction of tooth #30. PLAN: The drain was removed with minimal drainage noted. A dressing was placed over the wound. The patient is to continue heat in the region and continue the IV antibiotics. The patient is most likely to stay in this in the hospital for IV antibiotics for another 24 hours. MMODL / IJN: [id number] /
[2020-04-09] MEDS: hydrALAZINE HCL 50 MG TAB PO SCH ×3 (10:24→22:29)
[2020-04-09] MEDS: carvediloL 12.5 MG TAB PO SCH ×2 (10:24→17:47)
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
[2020-04-09] MEDS: BUMETANIDE 0.25 MG/ML 10 ML VIAL IV SCH (17:51)
[2020-04-09] MEDS: ATORVASTATIN 20 MG TAB PO SCH (20:04)
[2020-04-09] MEDS: hydrOXYzine HCL 25 MG TAB PO SCH (20:04)
--- NOTE | 2020-04-10 00:01 | PN ---
PROGRESS NOTE DATE OF SERVICE: 04/09/2020 REASON FOR FOLLOWUP: Right . INTERVAL HISTORY: Currently afebrile, has been complaining of feeling weak and tired. Denies having any chest pain or shortness of breath. Pain to the right lower jaw is slightly decreased. No nausea, no vomiting. No abdominal pain, no diarrhea. PHYSICAL EXAMINATION: Blood pressure 176/91 with a pulse of 69, temperature 98.8. She is 94% on room air. General description is a middle-aged female up in the bed in no distress. HEENT EXAMINATION: Right lower jaw swelling slightly decreased. Minimal drainage on the dressing. LUNGS: Unlabored breathing, clear to auscultation. HEART: S1, S2. Regular rate and rhythm. ABDOMEN: Soft, no tenderness. LABS: Hemoglobin 14.8, white count 11.3 with BUN of 22, creatinine 0.92. Cultures currently pending. DIAGNOSTIC IMPRESSION AND PLAN: Patient with infected tooth #30 with submandibular buccal area abscess status post drainage. Cultures are currently pending. Continue with Unasyn and monitor clinical course closely. MMODL / IJN: [id number] /
--- NOTE | 2020-04-10 01:37 | PN ---
PROGRESS NOTE A 49-year-old white female. Submandibular abscess, CHF, COPD, chin swelling. Drainage is decreasing. CARDIOVASCULAR: S1, S2. LUNGS: Clear. GI: Soft, nontender. ASSESSMENT: 1. Submandibular abscess. 2. Congestive heart failure. 3. Chronic obstructive pulmonary disease. Continue with IV antibiotics. Possible switch to oral antibiotics. Discharge home next 24 to 48 hours. MMODL / IJN: [id number] /
[2020-04-10] MEDS: MORPHINE SULFATE 4 MG/ML SYRINGE IVP PRN ×6 (02:45→22:24)
[2020-04-10] MEDS: AMPICILLIN-SULBACTAM 3 GM in SODIUM CHLORIDE 0.9% 100 ML IVPB SCH ×4 (06:36→22:25)
[2020-04-10] MEDS: carvediloL 12.5 MG TAB PO SCH ×2 (06:36→17:38)
[2020-04-10] MEDS: IPRATROPIUM-ALBUTEROL 3 ML NEB INHALATION SCH ×4 (08:38→20:01)
[2020-04-10] MEDS: SYMBICORT 160-4.5 MCG INHALER INHALATION SCH ×2 (08:38→20:01)
[2020-04-10] MEDS: hydrALAZINE HCL 50 MG TAB PO SCH ×3 (08:40→22:25)
[2020-04-10] MEDS: QUEtiapine 25 MG TAB PO SCH ×3 (08:41→22:25)
[2020-04-10] MEDS: BUMETANIDE 0.25 MG/ML 10 ML VIAL IV SCH ×2 (08:41→14:35)
[2020-04-10] MEDS: POTASSIUM CHLORIDE ER 20 MEQ TAB.ER PO SCH (08:41)
[2020-04-10] MEDS: lisinopriL 20 MG TAB PO SCH (08:41)
[2020-04-10] MEDS: PANTOPRAZOLE 40 MG TABLET PO SCH (08:41)
[2020-04-10] MEDS: SPIRONOLACTONE 25 MG TAB PO SCH (08:42)
--- NOTE | 2020-04-10 10:20 | P.PN ---
Subjective Progress Note Date: 04/10/20 Principal diagnosis: Acute exacerbation of COPD Right-sided submandibular abscess Acute on chronic diastolic heart failure Generalized anxiety disorder Morbid obesity Bipolar disorder 04/10/2020, patient seen and evaluated examined during rounds labs reviewed medications reviewed care plan discussed, respiratory status remains stable, swelling on the side of face continued to improve, and denies any chest pain breathing status slightly improved now This is a 49-year-old female with a history of chronic diastolic heart failure also have a history of hypertension hypertensive cardiovascular disease patient has severe COPD and emphysema admitted into the hospital with mandibular abscess status post IND and Extraction of tooth and drainage followed by placement of a drain which has been removed clinically she is stable swelling on the right side of face slowly imp roving shortness of breath with stair however denies any cough or sputum production dry nonproductive cough intermittently is present and does feel ongoing chest tightness patient has been resumed on her bronchodilator therapy feeling slightly better with that Objective - Vital Signs Vital signs: Vital Signs Temp 98.4 F 04/10/20 08:00 Pulse 62 04/10/20 08:00 Resp 16 04/10/20 08:00 BP 138/87 04/10/20 08:00 Pulse Ox 95 04/10/20 08:00 Intake & Output 04/09/20 04/10/20 04/10/20 18:59 06:59 18:59 Intake Total 1560 780 Output Total 200 Balance 1560 580 Weight 98.5 kg Intake: Oral 1560 780 Output: Urine 200 Other: Voiding Method Toilet Toilet # Voids 3 1 - Exam - Constitutional General appearance: disheveled, mild distress, morbidly obese - EENT Right-sided facial swelling difficult to open mouth completely swelling Eyes: PERRLA Ears: bilateral: normal - Neck Neck: normal ROM Carotids: bilateral: upstroke normal Thyroid: bilateral: normal size - Respiratory Respiratory: bilateral: diminished - Cardiovascular Rhythm: regular Heart sounds: normal: S1, S2 - Gastrointestinal General gastrointestinal: normal bowel sounds - Integumentary Integumentary: normal turgor - Neurologic Neurologic: CNII-XII intact - Musculoskeletal Musculoskeletal: gait normal, generalized weakness, strength equal bilaterally - Psychiatric Psychiatric: A&O x's 3, appropriate affect, intact judgment & insight - Labs CBC & Chem 7: 04/09/20 06:01 04/09/20 06:01 Labs: Microbiology - Last 24 Hours (Table) 04/07/20 17:15 Anaerobic Culture - Preliminary Face 04/07/20 17:15 Anaerobic Culture - Preliminary Face 04/07/20 17:15 Gram Stain - Final Face Wound Culture - Final 04/07/20 17:15 Gram Stain - Final Face Wound Culture - Final Assessment and Plan Assessment: Acute exacerbation of COPD Right-sided submandibular abscess Acute on chronic diastolic heart failure Generalized anxiety disorder Morbid obesity Bipolar disorder Plan: Continue bronchodilator hold on IV steroids Continue broad-spectrum antibiotics for abscess Continue medications for the heart along with diuresis Increase activity as tolerated Further recommendations pending plan of care as per clinical response of the patient, will follow patient close Time with Patient: Greater than 30
--- NOTE | 2020-04-10 12:33 | P.PN ---
Subjective Progress Note Date: 04/10/20 CHIEF COMPLAINT: CAD HISTORY OF PRESENT ILLNESS: Patient examined this morning at the bedside. Patient denies chest pain. Denies shortness of breath. Nursing reports that patient refused her Bumex this morning because she is hoping to be discharged home and does not want to have to use the bathroom on her drive home. PHYSICAL EXAM: VITAL SIGNS: Reviewed. GENERAL: Well-developed in no acute distress. NECK: Supple. No JVD or thyromegaly LUNGS: Respirations even and unlabored. Lungs essentially clear to auscultation bilaterally. HEART: Regular rate and rhythm. S1 and S2 heard. EXTREMITIES: Normal range of motion. No clubbing or cyanosis. Peripheral pulses intact. 1-2+ lower extremity edema ASSESSMENT: 1. Triple-vessel coronary artery disease 2. Submandibular abscess 3. Hypertension 4. Acute on chronic systolic heart failure 5. COPD 6. Fibromyalgia 7. Nicotine dependence PLAN: -Continue Bumex (If patient will take it. Currently refusing dose of Bumex) -Continue current cardiac medications -Patient may follow up with Dr. Garcia outpatient and will require PTCA at a l ater date once infection is cleared. Nurse practitioner note has been reviewed by physician. Signing provider agrees with the documented findings, assessment, and plan of care. Objective - Vital Signs Vital signs: Vital Signs Temp 98.9 F 04/10/20 11:36 Pulse 70 04/10/20 12:05 Resp 16 04/10/20 11:36 BP 176/90 04/10/20 11:36 Pulse Ox 93 L 04/10/20 11:36 Intake & Output 04/09/20 04/10/20 04/10/20 18:59 06:59 18:59 Intake Total 1560 780 Output Total 200 Balance 1560 580 Weight 98.5 kg Intake: Oral 1560 780 Output: Urine 200 Other: Voiding Method Toilet Toilet # Voids 3 1 - Labs CBC & Chem 7: 04/09/20 06:01 04/09/20 06:01 Labs: Microbiology - Last 24 Hours (Table) 04/07/20 17:15 Anaerobic Culture - Preliminary Face 04/07/20 17:15 Anaerobic Culture - Preliminary Face 04/07/20 17:15 Gram Stain - Final Face Wound Culture - Final 04/07/20 17:15 Gram Stain - Final Face Wound Culture - Final
[2020-04-10] MEDS: ONDANSETRON 4 MG/2 ML VIAL IVP PRN (15:29)
[2020-04-10] MEDS ORDERED: ACETAMINOPHEN TAB 325 MG TAB PO PRN (17:30)
[2020-04-10 21:30] VITALS: RESP 18
--- NOTE | 2020-04-10 21:46 | PN ---
PROGRESS NOTE This patient is a 49-year-old white female with submandibular abscess, waiting for Dr. Jurado's recommendations on antibiotics prior to going home. She is improving otherwise. She is going to have PTCA done as an outpatient. CARDIOVASCULAR: S1, S2. LUNGS: Clear. White count is 7.3, hemoglobin 14.8, sodium 139, potassium 3.8. Glucose mid 100s. ASSESSMENT: 1. Submandibular abscess. 2. Chronic obstructive pulmonary disease. 3. Anxiety. 4. Depression. 5. Diastolic heart failure. 6. Cellulitis of the legs. Possible discharge home tomorrow on oral antibiotics with outpatient cardiac workup to be done. Waiting for Dr. Jurado's recommendations on antibiotics. MMODL / IJN: [id number] /
--- NOTE | 2020-04-10 22:08 | PN ---
PROGRESS NOTE DATE OF SERVICE: 04/10/2020 REASON FOR FOLLOWUP: Right lower jaw infected with an abscess. INTERVAL COURSE: The patient did have a low-grade fever of 100.5 this evening. The patient's overall pain and discomfort to the lower jaw has slightly decreased. He denies having any chest pain. Minimal shortness of breath and cough. No vomiting. No abdominal pain or diarrhea. PHYSICAL EXAMINATION: Blood pressure 185/93 with a pulse of 69, temperature 100.5. She is 99% on room air. General description is a middle-aged female up in the bed in no distress. HEENT EXAMINATION: Right lower jaw swelling and redness slightly decreased. LUNGS: Unlabored breathing. Decreased breath sounds at bases. No wheeze. HEART: S1, S2. Regular rate and rhythm. ABDOMEN: Soft. No tenderness. LABS: Hemoglobin is 14.8, white count 11.3 with a BUN of 22, creatinine 0.92. Culture so far pending. DIAGNOSTIC IMPRESSION AND PLAN: Patient with right lower jaw abscess, status post surgical drainage. Cultures are currently pending. Low-grade fever. Will monitor closely as well as white count. Continue with Unasyn and monitor clinical course closely. MMODL / IJN: [id number] /
[2020-04-10] MEDS: ATORVASTATIN 20 MG TAB PO SCH (22:25)
[2020-04-10] MEDS: hydrOXYzine HCL 25 MG TAB PO SCH (22:25)
[2020-04-11] MEDS: MORPHINE SULFATE 4 MG/ML SYRINGE IVP PRN ×3 (03:22→12:05)
[2020-04-11] MEDS: carvediloL 12.5 MG TAB PO SCH (06:22)
[2020-04-11] MEDS: AMPICILLIN-SULBACTAM 3 GM in SODIUM CHLORIDE 0.9% 100 ML IVPB SCH ×2 (06:22→12:05)
[2020-04-11] MEDS: IPRATROPIUM-ALBUTEROL 3 ML NEB INHALATION SCH ×3 (07:30→15:41)
[2020-04-11] MEDS: SYMBICORT 160-4.5 MCG INHALER INHALATION SCH (07:32)
[2020-04-11 08:50] VITALS: TEMP 98.8
[2020-04-11] MEDS: hydrALAZINE HCL 50 MG TAB PO SCH (09:09)
[2020-04-11] MEDS: PANTOPRAZOLE 40 MG TABLET PO SCH (09:09)
[2020-04-11] MEDS: POTASSIUM CHLORIDE ER 20 MEQ TAB.ER PO SCH (09:09)
[2020-04-11] MEDS: QUEtiapine 25 MG TAB PO SCH (09:09)
[2020-04-11] MEDS: lisinopriL 20 MG TAB PO SCH (09:10)
[2020-04-11] MEDS: SPIRONOLACTONE 25 MG TAB PO SCH (09:11)
[2020-04-11] MEDS: BUMETANIDE 0.25 MG/ML 10 ML VIAL IV SCH (09:16)
[2020-04-11] MEDS ORDERED: ONDANSETRON 4 MG/2 ML VIAL IVP PRN (09:29)
--- NOTE | 2020-04-11 11:26 | P.PN ---
Subjective Progress Note Date: 04/11/20 Principal diagnosis: Acute exacerbation of COPD Right-sided submandibular abscess Acute on chronic diastolic heart failure Generalized anxiety disorder Morbid obesity Bipolar disorder 04/11/2020, patient seen eval examined during rounds labs reviewed medications reviewed cough congestion shortness breath slightly better now less congested, piling on the right face stable, patient remains afebrile with stable hemodynamics oxygen saturation 95%, 04/10/2020, patient seen and evaluated examined during rounds labs reviewed medications reviewed care plan discussed, respiratory status remains stable, swelling on the side of face continued to improve, and denies any chest pain breathing status slightly improved now This is a 49-year-old female with a history of chronic diastolic heart failure also have a history of hypertension hypertensive cardiovascular disease patient has severe COPD and emphysema admitted into the hospital with mandibular abscess status post IND and Extraction of tooth and drainage followed by placement of a drain which has been removed clinically she is stable swelling on the right side of face slowly improving shortness of breath with stair however denies any cough or sputum production dry nonproductive cough intermittently is present and does feel ongoing chest tightness patient has been resumed on her bronchodilator therapy feeling slightly better with that Objective - Vital Signs Vital signs: Vital Signs Temp 98.8 F 04/11/20 08:00 Pulse 60 04/11/20 08:00 Resp 18 04/11/20 08:00 BP 147/84 04/11/20 08:00 Pulse Ox 95 04/11/20 08:00 Intake & Output 04/10/20 04/11/20 04/11/20 18:59 06:59 18:59 Intake Total 1560 1020 Output Total 1000 300 Balance 560 720 Weight 101.2 kg Intake: Oral 1560 1020 Output: Urine 1000 300 Other: Voiding Method Toilet Toilet # Voids 0 - Exam - Constitutional General appearance: disheveled, mild distress, morbidly obese - EENT Right-sided facial swelling difficult to open mouth completely swelling Eyes: PERRLA Ears: bilateral: normal - Neck Neck: normal ROM Carotids: bilateral: upstroke normal Thyroid: bilateral: normal size - Respiratory Respiratory: bilateral: diminished - Cardiovascular Rhythm: regular Heart sounds: normal: S1, S2 - Gastrointestinal General gastrointestinal: normal bowel sounds - Integumentary Integumentary: normal turgor - Neurologic Neurologic: CNII-XII intact - Musculoskeletal Musculoskeletal: gait normal, generalized weakness, strength equal bilaterally - Psychiatric Psychiatric: A&O x's 3, appropriate affect, intact judgment & insight - Labs CBC & Chem 7: 04/09/20 06:01 04/09/20 06:01 Assessment and Plan Assessment: Acute exacerbation of COPD Right-sided submandibular abscess Acute on chronic diastolic heart failure Generalized anxiety disorder Morbid obesity Bipolar disorder Plan: Continue bronchodilator hold on IV steroids Continue broad-spectrum antibiotics for abscess Continue medications for the heart along with diuresis Increase activity as tolerated Further recommendations pending plan of care as per clinical response of the patient, will follow patient close Time with Patient: Greater than 30
[2020-04-11 13:28] VITALS: BP 156/104; PULSE 72
--- NOTE | 2020-04-11 15:32 | PN ---
PROGRESS NOTE DATE OF SERVICE: 04/11/2020 REASON FOR FOLLOWUP: Right lower jaw infected tooth and some minimal abscess. INTERVAL HISTORY: The patient is currently afebrile. The patient is still complaining of pain and swelling to the right lower jaw area. Denies any difficulty swallowing. No chest pain, shortness of breath or cough. No abdominal pain or diarrhea. Patient was offered IV antibiotic on discharge, which she has refused. PHYSICAL EXAMINATION: Blood pressure 156/100 with a pulse of 72, temperature 98.8. She is 99% on room air. General description is a middle-aged female up in the bed in no distress. HEENT EXAMINATION: Right lower jaw did have an area of induration. No fluctuation or drainage. LUNGS: Unlabored breathing. Clear to auscultation anteriorly. HEART: S1, S2. Regular rate and rhythm. ABDOMEN: Soft. No tenderness. LABS: Culture has been negative so far. DIAGNOSTIC IMPRESSION AND PLAN: Patient with a right lower jaw infected tooth with submandibular abscess, status post drainage. Culture has been negative for any resistant pathogen so far. She was offered IV antibiotic therapy on discharge. She has refused. Attending has sent a prescription for Augmentin 875 b.i.d. for 2 weeks. Advised if any worsening swelling or redness on oral antibiotic close outpatient followup. MMODL / IJN: [id number] /
[2020-04-11] MEDS ORDERED: BUMETANIDE 1 MG TAB PO SCH (21:00)
[2020-04-11] MEDS ORDERED: AMOXIC-POT CLAV 875-125MG 1 EACH TAB PO SCH (21:00)
--- NOTE | 2020-04-12 09:15 | P.ARTDOP ---
Arterial Doppler LOWER EXTREMITY ARTERIAL DOPPLER: DATE OF SERVICE: 04/09/2020 Reason for study: Ulcer left leg and foot discoloration bilaterally. Doppler waveforms: Multiphasic at the right femoral and popliteal and atypical below the popliteal on the right and atypical throughout on the left.. Pulse volume recording: []. Pressure gradients: Across the knee on the right and above the low thigh on the left as well as across the knee.. Ankle-brachial indices: 0.7 on the right. 0.41 on the left. Posterior tibial is not audible on the left.. Toe brachial indices: 0.49 on the right, 0 on the left Impression: [id number] right fem-pop disease. Moderate to severe left fem-pop disease with possible left iliac component. Perfusion on the left likely not to be adequate for healing. Clinical correlation recommended. Consider vascular surgical consultation..
--- NOTE | 2020-04-13 12:54 | CDI ---
Documentation Clarification Form Date: 04/13/20 From: Kassandra Yanez CCS Phone: If you have a question about this query, please contact Amaris Victor, Appointment Clerk at [phone] between 8am and 5pm. Admit Date: 04/06/20 Discharge Date:04/11/20 Patient Name: Anuradha Sam Visit Number: [id number] ATTENTION: The Clinical Documentation Specialists (CDI) and [facility] Coding Staff appreciate your assistance in clarifying documentation. Please respond to the clarification below the line at the bottom and electronically sign. The CDI & [facility] Coding staff will review the response and follow-up if needed. Please note: Queries are made part of the Legal Health Record. If you have any questions, please contact the author of this message via ITS. Dear Dr. Vivar, The diagnosis sepsis was documented in the record, but is not noted in subsequent documentation. History/Risk Factors: Submandibular abscess, Dental abscess, LE cellulitis, HTN, CHF Clinical Indicators: Sepsis due to abscess WBC: 11.3, 10.2, 12.6 Vitals: BP 131/79, RR 16, [place] 51, Temp 97.7, O2 Sat 95 Treatment: Unasyn IVPB Q6HR, Augmentin 875-125 PO Q 12HR Please clarify if the sepsis was Present/active this admission Treated and resolved this admission Ruled out Other, please specify Clinically unable to determine MTDD
--- NOTE | 2020-04-13 13:11 | CDI ---
Documentation Clarification Form Date: 04/13/20 From: Kassandra Yanez CCS Phone: If you have a question about this query, please contact Amaris Victor, Gamma Facilities Operator at [phone] between 8am and 5pm. Admit Date: 04/06/20 Discharge Date: 04/11/20 Patient Name: Anuradha Sma Visit Number: [id number] ATTENTION: The Clinical Documentation Specialists (CDI) and [facility] Coding Staff appreciate your assistance in clarifying documentation. Please respond to the clarification below the line at the bottom and electronically sign. The CDI & [facility] Coding staff will review the response and follow-up if needed. Please note: Queries are made part of the Legal Health Record. If you have any questions, please contact the author of this message via ITS. Dear Dr. Vivar, Conflicting documentation has been found in the medical record: Consult 04/09, PN 04/10 document: Acute on chronic systolic heart failure H&P, PN 04/08, 04/10, 04/11, Consult 04/09 document: Acute on chronic diastolic heart failure History/Risk Factors: HTN, CAD, Obesity Clinical Indicators: Extremities have 2 to 3+ edema Treatment: Continue Bumex 2 mg twice daily but change to IV Cardiology Consult: Acute on chronic systolic heart failure with EF of 35-40% In your opinion, what is the most clinically appropriate diagnosis for this patient? Acute on Chronic Systolic CHF Acute on Chronic Diastolic CHF Other explanation of clinical findings Unable to determine (no explanation for clinical findings) MTDD
--- NOTE | 2020-04-18 09:05 | CDI ---
Documentation Clarification Form Date: 04/18/20 From: Kassandra Yanez CCS Phone: If you have a question about this query, please contact Amaris Victor, Instructional Interventionist at [phone] between 8am and 5pm. Admit Date: 04/06/20 Discharge Date:04/11/20 Patient Name: Anuradha Sam Visit Number: [id number] ATTENTION: The Clinical Documentation Specialists (CDI) and [facility] Coding Staff appreciate your assistance in clarifying documentation. Please respond to the clarification below the line at the bottom and electronically sign. The CDI & [facility] Coding staff will review the response and follow-up if needed. Please note: Queries are made part of the Legal Health Record. If you have any questions, please contact the author of this message via ITS. Dear Dr. Vivar, The diagnosis sepsis was documented in the record, but is not noted in subsequent documentation. History/Risk Factors: Submandibular abscess, Dental abscess, LE cellulitis, HTN, CHF Clinical Indicators: Sepsis due to abscess WBC: 11.3, 10.2, 12.6 Vitals: BP 131/79, RR 16, NE 51, Temp 97.7, O2 Sat 95 Treatment: Unasyn IVPB Q6HR, Augmentin 875-125 PO Q 12HR Please clarify if the sepsis was Present/active this admission Treated and resolved this admission Ruled out Other, please specify Clinically unable to determine MTDD
--- NOTE | 2020-04-18 09:12 | CDI ---
Documentation Clarification Form Date:04/18/20 From: Kassandra Yanez CCS Phone: If you have a question about this query, please contact Amaris Victor, Land Survey Technician at [phone] between 8am and 5pm. Admit Date: 04/06/20 Discharge Date: 04/11/20 Patient Name: Anuradha Sam Visit Number: [id number] ATTENTION: The Clinical Documentation Specialists (CDI) and [facility] Coding Staff appreciate your assistance in clarifying documentation. Please respond to the clarification below the line at the bottom and electronically sign. The CDI & [facility] Coding staff will review the response and follow-up if needed. Please note: Queries are made part of the Legal Health Record. If you have any questions, please contact the author of this message via ITS. Dear Dr. Vivar, Conflicting documentation has been found in the medical record: Consult 04/09, PN 04/10 document: Acute on chronic systolic heart failure H&P, PN 04/08, 04/10, 04/11, Consult 04/09 document: Acute on chronic diastolic heart failure History/Risk Factors: HTN, CAD, Obesity Clinical Indicators: Extremities have 2 to 3+ edema Treatment: Continue Bumex 2 mg twice daily but change to IV Cardiology Consult: Acute on chronic systolic heart failure with EF of 35-40% In your opinion, what is the most clinically appropriate diagnosis for this patient? Acute on Chronic Systolic CHF Acute on Chronic Diastolic CHF Other explanation of clinical findings Unable to determine (no explanation for clinical findings) MTDD
--- NOTE | 2020-04-19 07:38 | PN ---
PROGRESS NOTE Please add: Sepsis due to charlie-submandibular abscess, present on admission. Acute on chronic diastolic heart failure. MMODL / IJN: [id number] /
== END 2020-04-11 15:56 | disposition home or self-care (01) | DRG 853 ==
LOC: 3SCARD 09:20
PROVIDERS: ADMIT Family Medicine; ATTEND Family Medicine
PROC: 0CDXXZ0 Extraction of Lower Tooth, Single, External Approach (ICD-10-PCS; principal; 2020-04-07 11:15)
PROC: 0J910ZZ Drainage of Face Subcutaneous Tissue and Fascia, Open Approach (ICD-10-PCS; principal; 2020-04-07 11:15)
PROC: B44GZZZ Ultrasonography of Left Lower Extremity Arteries (ICD-10-PCS; 2020-04-09)
DX: A41.9 Sepsis, unspecified organism (principal); I50.33 Acute on chronic diastolic (congestive) heart failure; K86.3 Pseudocyst of pancreas; L97.929 Non-pressure chronic ulcer of unspecified part of left lower leg with unspecified severity; L03.115 Cellulitis of right lower limb; L03.116 Cellulitis of left lower limb; K12.2 Cellulitis and abscess of mouth; Z68.41 Body mass index [BMI] 40.0-44.9, adult; I11.0 Hypertensive heart disease with heart failure; I25.82 Chronic total occlusion of coronary artery; F31.9 Bipolar disorder, unspecified; F20.9 Schizophrenia, unspecified; I73.9 Peripheral vascular disease, unspecified; J43.9 Emphysema, unspecified; E66.01 Morbid (severe) obesity due to excess calories; M51.34 Other intervertebral disc degeneration, thoracic region; G43.909 Migraine, unspecified, not intractable, without status migrainosus; F41.0 Panic disorder [episodic paroxysmal anxiety]; M79.7 Fibromyalgia; M19.90 Unspecified osteoarthritis, unspecified site; F43.10 Post-traumatic stress disorder, unspecified; F41.1 Generalized anxiety disorder; G47.00 Insomnia, unspecified; F17.200 Nicotine dependence, unspecified, uncomplicated; I25.10 Atherosclerotic heart disease of native coronary artery without angina pectoris; G89.29 Other chronic pain; R73.9 Hyperglycemia, unspecified; K04.7 Periapical abscess without sinus; Z79.899 Other long term (current) drug therapy; Z79.51 Long term (current) use of inhaled steroids; Z87.42 Personal history of other diseases of the female genital tract; Z87.11 Personal history of peptic ulcer disease; Z87.19 Personal history of other diseases of the digestive system; Z98.890 Other specified postprocedural states; Z90.49 Acquired absence of other specified parts of digestive tract; Z87.01 Personal history of pneumonia (recurrent); Z91.5 Personal history of self-harm; Z88.5 Allergy status to narcotic agent; Z88.8 Allergy status to other drugs, medicaments and biological substances; Z82.5 Family history of asthma and other chronic lower respiratory diseases; Z82.49 Family history of ischemic heart disease and other diseases of the circulatory system
CPT/HCPCS: 70110; 80048; 80053; 81025; 85025; 85027; 87070; 87075; 87102; 87205; 93923; 94640

== ENCOUNTER 2020-04-18 22:24 | Emergency (ER) | payer MEDICARE, OTHER ==
[2020-04-18 22:30] LABS: Glucose,Whole Blood 240 mg/dL (75-99)
[2020-04-18] MEDS ORDERED: SODIUM CHLORIDE 0.9% 1,000 ML IV SCH (22:30)
[2020-04-18] MEDS: METOPROLOL TARTRATE 5 MG/5 ML VIAL IVP SCH ×2 (22:51→23:05)
[2020-04-18] MEDS ORDERED: ETOMIDATE 2 MG/ML 10 ML VIAL IVP STA (22:59)
[2020-04-18] MEDS ORDERED: niCARdipine 20 MG in SODIUM CHLORIDE 0.9% 192 ML IV ONE (23:00)
[2020-04-18] MEDS ORDERED: ROCURONIUM BROMIDE 10 MG/ML 5 ML VIAL IV STA (23:01)
--- NOTE | 2020-04-18 23:02 | CT ---
EXAMINATION TYPE: CT brain wo con DATE OF EXAM: 04/18/2020 COMPARISON: 04/04/2020 HISTORY: Altered Altered mental status CT DLP: 1099.4 mGycm Automated exposure control for dose reduction was used. Then performed without contrast. There is irregular 4.8 x 3.5 cm area of high attenuation in the posterior fossa in the midline and to wards the right side consistent with acute parenchymal cerebellar hemorrhage. There is small amount o f subarachnoid hemorrhage in the third ventricle and fourth ventricle. Fourth ventricle deviated slig htly to the left side. The calvarium is intact.. The lateral ventricles have normal size. There is mi ld hypodensity in the periventricular white matter with areas that measure up to 8 mm. IMPRESSION: Large acute right cerebellar hemisphere parenchymal hemorrhage with also small component of subarachn oid hemorrhage in the third and fourth ventricle. I do not suspect a ruptured aneurysm. This is more likely primary cerebral parenchymal hemorrhage. Hemorrhage is new compared to recent CT scan. This ex am was discussed with Dr. Sebastian at 11:00 PM.
[2020-04-18] MEDS: SODIUM CHLORIDE 0.9% 500 ML 500 ML IV SCH ×2 (23:09→23:59)
[2020-04-18 23:30] LABS: Basophils # (A) 0.2 k/uL (0-0.2); Basophils % (A) 1 %; Eosinophils # (A) 0.1 k/uL (0-0.7); Eosinophils % (A) 0 %; HCT 53.5 % (34.0-46.0); HGB 17.6 gm/dL (11.4-16.0); Lymphocytes # (A) 2.7 k/uL (1.0-4.8); Lymphocytes % (A) 10 %; MCH 31.3 pg (25.0-35.0); MCHC 32.8 g/dL (31.0-37.0); MCV 95.2 fL (80.0-100.0); Mean Platelet Volume 7.9; Monocytes # (A) 0.9 k/uL (0-1.0); Monocytes % (A) 3 %; Neutrophils # (A) 22.3 k/uL (1.3-7.7); Neutrophils % (A) 85 %; RBC 5.62 m/uL (3.80-5.40); RDW 13.9 % (11.5-15.5); WBC 26.3 k/uL (3.8-10.6)
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
[2020-04-18 23:41] LABS: Platelet Count 537 k/uL (150-450)
--- NOTE | 2020-04-18 23:41 | XR ---
EXAMINATION TYPE: XR chest 1V DATE OF EXAM: 04/18/2020 COMPARISON: 04/02/2020 HISTORY: Intubation TECHNIQUE: Don view FINDINGS: Endotracheal tube is 2.4 cm from the hakan. Heart is enlarged. There is some pulmonary mil d vascular congestion. Trachea is midline. There is no pleural effusion. IMPRESSION: There is pulmonary congestion that is new compared to recent exam. Mild heart failure is possible.
[2020-04-18 23:42] LABS: INR 1.1 (<1.2); Partial Thromboplastin Time 23.7 sec (22.0-30.0); Prothrombin Time 11.4 sec (9.0-12.0)
[2020-04-18 23:45] LABS: Albumin 4.3 g/dL (3.5-5.0); Calcium 10.4 mg/dL (8.4-10.2); Potassium 4.4 mmol/L (3.5-5.1); Total Bilirubin 1.1 mg/dL (0.2-1.3); Total Protein 7.8 g/dL (6.3-8.2)
[2020-04-18] MEDS ORDERED: LABETALOL 200 MG in SODIUM CHLORIDE 0.9% 160 ML IV ONE (23:45)
--- NOTE | 2020-04-18 23:55 | CT ---
EXAMINATION TYPE: CT angio head neck DATE OF EXAM: 04/18/2020 COMPARISON: None HISTORY: brain bleed CT DLP: 729 mGycm Automated exposure control for dose reduction was used. CONTRAST: Performed with IV Contrast, patient injected with 65 mL of Isovue 370. There are 3-D post processed images. Images were obtained from the aortic arch to the vertex of the b rain with IV contrast. There are 3-D post processed images. There is bilateral upper lobe patchy airspace infiltrates and atelectasis. This is worse in the right upper lobe. There is endotracheal tube. There is normal branching pattern of the great vessels on the aortic arch . There is bilateral arterial flow in the subclavian arteries. There is arterial flow in the common i nternal and external carotid arteries bilaterally. There is atherosclerotic plaque at the carotid art valerio bifurcations and estimated 20% stenosis of the proximal internal carotid arteries. There is arter ial flow in both vertebral arteries. There is no evidence of carotid or vertebral artery aneurysm or dissection. There is arterial flow in the anterior middle and posterior cerebral arteries. There is arterial flow in the vertebrobasilar artery system. There is large 4.5 cm area of parenchymal hemorrhage in the ri ght cerebellar hemisphere crossing midline. The fourth ventricle is displaced to the left side. There is also some hemorrhage within the fourth and third ventricle. I see no evidence of intracranial art erial stenosis. I see no evidence of aneurysm or neovascularity. There is no sign of contrast extravasation. There is normal contrast opacification of the venous sinuses. IMPRESSION: Mild plaque at the carotid artery bifurcations without evidence of hemodynamic stenosis. Large right cerebellar hemisphere parenchymal hemorrhage with mass effect and displacement of the fou rth ventricle to the left side. No intracranial angiographic abnormality demonstrated.
[2020-04-19 00:07] LABS: Allen Test Performed? Yes
[2020-04-19 00:16] LABS: ABG PCO2 51 mmHg (35-45); ABG PO2 59 mmHg (83-108)
[2020-04-19 00:17] LABS: ABG Base Excess -1.1 mmol/L; ABG HCO3 25 mmol/L (21-25); ABG Oxygen Saturation 88.1 % (94-97); ABG TCO2 27 mmol/L (19-24)
[2020-04-19 00:17] LABS: Appearance,Urine Clear (Clear); Bilirubin,Urine Negative (Negative); Blood,Urine Small (Negative); Color,Urine Light Yellow; Glucose,Urine (UA) 3+ (Negative); Ketones,Urine Negative (Negative); Leukocyte Esterase,Urine Negative (Negative); Mucus,Urine Rare /hpf; Nitrite,Urine Negative (Negative); Protein,Urine 3+ (Negative); RBC,Urine 2 /hpf (0-5); Specific Gravity,Urine 1.033 (1.001-1.035); Squamous Epithelial Cell,Urine 12 /hpf (0-4); Urobilinogen,Urine <2.0 mg/dL (<2.0); WBC,Urine 2 /hpf (0-5)
[2020-04-19] MEDS ORDERED: FUROSEMIDE 10 MG/ML 4 ML VIAL IV STA (00:25)
[2020-04-19] MEDS ORDERED: fentaNYL (PF) 50 MCG/ML 2 ML AMP IVP STA (00:29)
--- NOTE | 2020-04-19 00:40 | XR ---
EXAMINATION TYPE: XR chest 1V portable DATE OF EXAM: 04/19/2020 COMPARISON: 04/18/2020 HISTORY: Intubation. Nasogastric tube placement TECHNIQUE: Single view FINDINGS: Heart is enlarged. There is increasing pulmonary edema in both lungs and more on the right side. There is nasogastric tube in the stomach. Endotracheal tube is 3 cm from the hakan. IMPRESSION: Increasing pulmonary edema compared to recent exam. This could be RDS.
[2020-04-19] MEDS ORDERED: niCARdipine 20 MG in SODIUM CHLORIDE 0.9% 192 ML IV ONE (01:00)
[2020-04-19 01:24] VITALS: RESP 20
[2020-04-19 01:25] VITALS: BP 153/83; PULSE 77
[2020-04-19] MEDS: SODIUM CHLORIDE 0.9% 500 ML 500 ML IV SCH (01:34)
== END 2020-04-19 01:15 | disposition short-term general hospital (02) ==
LOC: EC 22:24
DX: I61.4 Nontraumatic intracerebral hemorrhage in cerebellum (principal); I11.0 Hypertensive heart disease with heart failure; I50.9 Heart failure, unspecified; R60.0 Localized edema; J44.0 Chronic obstructive pulmonary disease with (acute) lower respiratory infection; I20.9 Angina pectoris, unspecified; R11.2 Nausea with vomiting, unspecified; H51.8 Other specified disorders of binocular movement; F41.0 Panic disorder [episodic paroxysmal anxiety]; F31.9 Bipolar disorder, unspecified; R45.1 Restlessness and agitation; F43.10 Post-traumatic stress disorder, unspecified; F20.9 Schizophrenia, unspecified; Z79.899 Other long term (current) drug therapy; Z79.51 Long term (current) use of inhaled steroids; Z88.5 Allergy status to narcotic agent; Z88.8 Allergy status to other drugs, medicaments and biological substances; Z88.6 Allergy status to analgesic agent; Z87.891 Personal history of nicotine dependence
CPT/HCPCS: 99291; 31500; 96365 ×2; 96366; 96375 ×5; 36415; 36600; 94002; 93005; 80053; 82805; 83605; 83735; 84484; 85025; 85610; 85730; 81001; 87040; 71045 ×2; 70496; 70450; 70498; J1940; J3010; J2704; Q9967

== ENCOUNTER 2020-09-20 12:56 | Day surgery (SDC) | payer MEDICARE, OTHER ==
[2020-09-19 15:21] VITALS: BMI 30.1
[~2020-09-20 12:56] MED LIST: LACTATED RINGERS 1,000 ML IV SCH; LIDOCAINE 1% (10MG/ML) FOR IV START INTRADERMA PRN
[2020-09-20 13:34] VITALS: TEMP 98.1
[2020-09-20 13:43] LABS: Glucose,Whole Blood 167 mg/dL (75-99)
--- NOTE | 2020-09-20 13:52 | P.PCN ---
Date of Procedure: 09/20/20 Procedure(s) Performed: Brief history: Patient is scheduled for a PEG tube replacement today secondary to PEG tube malfunction. She had a Lott catheter placed in the interim to maintain the patency of the gastrostomy. She has history of CVA in April 2020 and and had a PEG tube placed then. She is gradually improving. Continues to use PEG tube for feedings on a daily basis Procedure performed: Patient to be replacement Procedure: After informed consent was obtained from the patient she was brought into the endoscopy unit. She was placed in supine position. The previously placed Lott scattered balloon was deflated and the PEG tube removed without any difficulty. Following this a 16-Cymro Bard balloon replacement PEG tube was placed from existing gastrostomy site into the stomach cavity without any difficulty. The balloon was inflated with 4 mL of normal saline. External bumper was placed in good position. Patient tolerated the procedure well. Impression: Successful PEG tube replacement as described above Recommendations She can be discharged back to the intermediate and the PEG tube can be used for feedings today.
[2020-09-20 14:05] VITALS: PULSE 86; RESP 18
[2020-09-20 14:09] LABS: Glucose,Whole Blood 180 mg/dL (75-99)
[2020-09-20 14:13] VITALS: BP 166/106
== END 2020-09-20 14:28 ==
LOC: ORWHC2ENDO 12:56 → EEVIPCON 13:00 → ORWHC2ENDO 14:28
PROVIDERS: ATTEND Internal Medicine Gastroenterology
DX: K94.23 Gastrostomy malfunction (principal); Z86.73 Personal history of transient ischemic attack (TIA), and cerebral infarction without residual deficits
CPT/HCPCS: 43762

== ENCOUNTER 2021-05-01 11:50 | Emergency (ER) | payer MEDICARE, OTHER ==
[2021-05-01 12:01] VITALS: RESP 18; TEMP 97.5
--- NOTE | 2021-05-01 12:21 | ED ---
General Adult HPI - General Chief complaint: Recheck/Abnormal Lab/Rx Stated complaint: Peg tube issue Source: patient, EMS Mode of arrival: EMS - History of Present Illness Initial comments: Patient presents from [facility]. She does have a history of stroke with PEG tube placement. It is reported that the patient's pullout her PEG tube this morning and according to the operative report it was a 16-Scottish. I did not send the tube with the patient. The patient cannot provide much history. No active bleeding noted at this time. Patient uses the PEG tube for feeds and medications. - Related Data Home Medications Medication Instructions Recorded Confirmed RX: hydrOXYzine HCL [Atarax] 25 mg PO TID 01/22/19 09/19/20 RX: Carvedilol [Coreg] 12.5 mg PEG/G-TUBE BID 04/06/20 09/19/20 Albuterol Nebulized [Ventolin 2.5 mg INHALATION Q4H PRN 09/19/20 09/19/20 Nebulized] Amantadine Hcl Syrup 50mg/5ml 10 ml PEG/G-TUBE Q12H 09/19/20 09/19/20 Enoxaparin [Lovenox] 40 mg SQ DAILY 09/19/20 09/19/20 Formoterol Fumarate [Perforomist] 20 mcg INHALATION BID 09/19/20 09/19/20 Glycolax Powder 17 gm PEG/G-TUBE DAILY PRN 09/19/20 09/19/20 INSULIN LISPRO (humaLOG) [humaLOG] 0 units SQ TID PRN 09/19/20 09/19/20 Insulin Glargine [Lantus] 5 unit SQ HS 09/19/20 09/19/20 Lansoprazole 3mg/Ml Susp 10 ml PEG/G-TUBE QAM 09/19/20 09/19/20 Methyl Salicylate/Menthol 1 applic TOPICAL Q6H PRN 09/19/20 09/19/20 [Thera-Gesic Creme] Nystatin 100,000 Unit/ml Susp 5 ml PO QID 09/19/20 09/19/20 [Mycostatin Oral Susp] Ondansetron HCl [Zofran] 4 mg PEG/G-TUBE Q6H PRN 09/19/20 09/19/20 RX: Aspirin 81 mg PEG/G-TUBE DAILY 09/19/20 09/19/20 RX: Atorvastatin [Lipitor] 40 mg PEG/G-TUBE HS 09/19/20 09/19/20 RX: Budesonide 1 mg INHALATION DAILY PRN 09/19/20 09/19/20 RX: Jevity 1.5 Dami Liquid 237 ml PEG/G-TUBE 5XD 09/19/20 09/19/20 RX: Losartan Potassium 50 mg PEG/G-TUBE BID 09/19/20 09/19/20 RX: Melatonin 3 mg PEG/G-TUBE HS 09/19/20 09/19/20 Water Flush Peg Tube 90 ml PEG/G-TUBE DIRECTED 09/19/20 09/19/20 amLODIPine [Norvasc] 5 mg PEG/G-TUBE QAM 09/19/20 09/19/20 traZODone HCL [Desyrel] 100 mg PEG/G-TUBE HS 09/19/20 09/19/20 Allergies Allergy/AdvReac Type Severity Reaction Status Date / Time gabapentin [From Neurontin] Allergy Unknown Verified 05/01/21 12:01 methadone Allergy Unknown Verified 05/01/21 12:01 codeine AdvReac Severe Nausea & Verified 05/01/21 12:01 Vomiting divalproex sodium AdvReac Alopecia Verified 05/01/21 12:01 [From Depakote] hydrocodone [From Vicodin] AdvReac Nausea & Verified 05/01/21 12:01 Vomiting ketorolac [From Toradol] AdvReac Confusion Verified 05/01/21 12:01 Review of Systems ROS Statement: Those systems with pertinent positive or pertinent negative responses have been documented in the HPI. ROS Other: All systems not noted in ROS Statement are negative. Past Medical History Past Medical History: Coronary Artery Disease (CAD), Chest Pain / Angina, Heart Failure, COPD, CVA/TIA, Dementia, Diabetes Mellitus, Fibromyalgia, Hyperlipidemia, Hypertension, Osteoarthritis (OA), Pneumonia, Renal Disease, Seizure Disorder Additional Past Medical History / Comment(s): hx multiple CVAs-post CVA has cognitive impaired,swallows some-w/ asst and thicken fluids,pivots to transfer w/ 1 asst, has levy in place of peg tube,cardiomyopathy,uti's,polucythemia,candidal stomatitis,dupdenal ulcer,costipation,back pain,occipital neuralgia, respiratory failure, bronchitis, pleurisy, cardiomegaly, last EF 40-45%, occasional pedal edema with R foot worse, duodenal ulcer, bile duct stone with surgery to remove, pancreatic pseudocyst, pancreatitis, occipital neuralgia, chronic back pain, DDD, migraines, abdominal hernia with surgery but pt states "it is back", PCOS, bilateral tinnitis. Pt has elevated blood sugars, insomnia and increased anxiety with steroid use,last seizure unknown History of Any Multi-Drug Resistant Organisms: None Reported Date of last positivie culture/infection: None MDRO Source:: None Past Surgical History: Cholecystectomy, Hernia Repair, Orthopedic Surgery Additional Past Surgical History / Comment(s): peg tub placement,Pancreatic pseudocyst removal; D&Cx2; EGD/ERCP, bilateral feet bunionectomies, abdominal hernia repairs/mesh. Past Anesthesia/Blood Transfusion Reactions: No Reported Reaction Additional Past Anesthesia/Blood Transfusion Reaction / Comment(s): Pt has received blood in past without reaction. Past Psychological History: Bipolar, Depression, Panic Disorder, PTSD, Schizoaffective Disorder Smoking Status: Former smoker - Past Family History Mother Family Medical History: COPD Additional Family Medical History / Comment(s): Mother from COPD at the age of 49 yrs. Father Family Medical History: COPD Brother(s) Family Medical History: Deep Vein Thrombosis (DVT) Course Vital Signs 05/01/21 05/01/21 05/01/21 11:57 12:52 13:42 Temperature 97.5 F L Pulse Rate 71 77 69 Respiratory 18 18 18 Rate Blood Pressure 170/112 182/72 150/108 O2 Sat by Pulse 99 97 99 Oximetry Medical Decision Making - Medical Decision Making Upon arrival patient is placed in room 12. Thorough history and attempted. Physical exam is performed and demonstrates no PEG tube present at the site of the patient's PEG site. Review the patient's chart demonstrates that she does have a 16-Scottish. This is ordered from a 1. Placement is performed without difficulty. X-rays performed which demonstrates adequate placement. Patient will be transported back to [facility] in stable condition Disposition Clinical Impression: PEG tube malfunction Disposition: HOME SELF-CARE Condition: Stable Additional Instructions: We placed a 16 fr peg tube. Follow upwith your surgeon. Return to the ED for any new or worsening symptoms. Is patient prescribed a controlled substance at d/c from ED?: No Referrals: Matt Hanks MD [Primary Care Provider] - 1-2 days Time of Disposition: 13:55
--- NOTE | 2021-05-01 14:07 | XR ---
Abdomen HISTORY: PEG tube placement Correlation to chest x-ray 04/18/2020, 04/19/2020, CT from outside institution 04/03/2020 Frontal view the abdomen is submitted. There is a catheter coursing from the left of the midline. Contrast material is present within the st omach and proximal small bowel. Surgical clips present over the midline. There is retained fecal debr is suggesting underlying fecal stasis. Calcification is present along the left hemidiaphragm. IMPRESSION: PEG tube is in place.
[2021-05-01 15:00] VITALS: BP 148/101; PULSE 72
== END 2021-05-01 15:00 | disposition home or self-care (01) ==
LOC: EC 11:50 → EEVIPCON 11:50 → EC 15:00
DX: K94.23 Gastrostomy malfunction (principal); I11.0 Hypertensive heart disease with heart failure; I50.9 Heart failure, unspecified; E11.9 Type 2 diabetes mellitus without complications; I25.10 Atherosclerotic heart disease of native coronary artery without angina pectoris; E78.5 Hyperlipidemia, unspecified; M19.90 Unspecified osteoarthritis, unspecified site; F31.9 Bipolar disorder, unspecified; F43.12 Post-traumatic stress disorder, chronic; F25.9 Schizoaffective disorder, unspecified; Z79.4 Long term (current) use of insulin; Z79.82 Long term (current) use of aspirin; Z88.5 Allergy status to narcotic agent; Z88.1 Allergy status to other antibiotic agents; Z86.73 Personal history of transient ischemic attack (TIA), and cerebral infarction without residual deficits; Z90.49 Acquired absence of other specified parts of digestive tract; Z87.891 Personal history of nicotine dependence
CPT/HCPCS: 43762; 74018; 99283